=== PATIENT | female | born 1940 | race Caucasian/White ===

== ENCOUNTER 2017-01-04 10:36 | Outpatient (CLI) | payer MEDICARE, BC ==
--- NOTE | 2017-01-08 07:21 | Mammography Report ---
DIGITAL SCREENING MAMMOGRAM: 01/04/2017 CLINICAL HISTORY: This is a 76-year-old female in for routine screening mammogram. Patient has no f amily history of breast cancer. Patient has had a right breast biopsy. COMPARISON: 12/11/2006, 01/06/2007, 07/02/2007, 07/05/2008, 06/29/2009, 10/20/2010, 12/04/2011, 05/19, 12/08/2014, 12/26/2015 TECHNIQUE: Craniocaudad and oblique lateral views of each breast were obtained with [facility] digital mammography. FINDINGS: Breasts consists of scattered fibroglandular densities. A small mass is noted in the uppe r outer quadrant of the right breast at the 10 o'clock position. This mass contains two calcificatio ns within it. The size of the mass is unchanged as compared to preceding exam. The calcifications a re slightly larger. Finding most likely represents a small benign fibroadenoma. It measures 4 mm. Several tiny calcifications are noted once again at the 2 o'clock position of the left breast. These are minimally progressive as compared to preceding exam. They still present with a benign configura tion. IMPRESSION: BREASTS APPEAR RADIOGRAPHICALLY BENIGN. BIRADS 2 - BENIGN. RECOMMENDATIONS: Annual bilateral screening mammography. STANDARD QUALIFYING STATEMENTS 1. This examination was reviewed with the aid of Computer-Aided Detection (CAD). 2. A negative or benign imaging report should not delay biopsy if clinically suspicious findings are present. Consider surgical consultation if warranted. More than 5% of cancers are not identified by i maging. 3. Dense breasts may obscure an underlying neoplasm. JOB #: [id number] EXT JOB #:[id number]
== END 2017-01-04 10:37 | disposition home or self-care (01) ==
LOC: DI 10:36
PROVIDERS: ATTEND Internal Medicine
DX: Z12.31 Encounter for screening mammogram for malignant neoplasm of breast (principal)
CPT/HCPCS: 77067

== ENCOUNTER 2017-10-15 16:04 | Emergency (ER) | payer MEDICARE, BC ==
[2017-10-15] MEDS ORDERED: cefTRIAXone 1 GM in SODIUM CHLORIDE 0.9% MINIBAG 100 ML IV STA (16:47)
[2017-10-15] MEDS ORDERED: metroNIDAZOLE 500 MG/100 ML 500 MG/100 ML BAG IV ONE (16:47)
--- NOTE | 2017-10-15 16:49 | ED Physician Documentation ---
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 She has been on doxycycline at whole time which helps but has not cleared it up and she is here requesting IV antibiotics for outpatient failure. She does have some fevers at home.) Review of Systems Ten Systems: 10 systems reviewed and negative Constitutional: reports: Fever, Chills Cardiac: denies: Chest pain / pressure, Palpitations Respiratory: reports: Dyspnea (Not worse than her chronic) GI: reports: Abdominal Pain, Constipation (But took a laxative and that helped) . denies: Nausea, Vomiting PD PAST MEDICAL HISTORY - Past Medical History Respiratory: Asthma, COPD, Other GI: GERD, Diverticulitis HEENT: Macular degeneration Musculoskeletal: Osteoarthritis - Past Surgical History Past Surgical History: Yes /SAMPLE WASHER: Hysterectomy - Present Medications Home Medications: Ambulatory Orders Medication Instructions Recorded Confirmed Acetaminophen [Pain Reliever] 325 mg PO QID 01/29/13 03/31/16 Albuterol Sulfate [Accuneb] 0 mg IH BID 01/29/13 03/31/16 Albuterol [Ventolin Hfa] 2 puffs INH QID 01/29/13 03/31/16 [id number]-4-[id number] Inhibitor 1,000 mg IV ONCE 01/29/13 03/31/16 [Prolastin C] Carbidopa/Levodopa 1.5 each PO HS 01/29/13 03/31/16 [Carbidopa-Levodopa 25-100 Tab] Furosemide 30 mg PO DAILY 01/29/13 03/31/16 Lansoprazole [Prevacid] 30 mg PO DAILY 01/29/13 03/31/16 Montelukast [Singulair] 10 mg PO QPM 01/29/13 03/31/16 Omeprazole 20 mg PO DAILY 01/29/13 03/31/16 Potassium Chloride 10 meq PO DAILY 01/29/13 03/31/16 Ciprofloxacin HCl [Cipro] 500 mg PO BID #20 02/18/15 03/31/16 Ciprofloxacin HCl [Cipro] 500 mg PO BID #20 tablet 07/23/15 03/31/16 Cefpodoxime Proxetil 200 mg PO Q12H #20 tablet 08/16/15 03/31/16 Ciprofloxacin HCl [Cipro] 500 mg PO BID #10 tablet 03/31/16 Cephalexin [Keflex] 500 mg PO QID #40 capsule 10/15/17 Metronidazole [Flagyl] 500 mg PO TID #30 tablet 10/15/17 - Allergies Allergies/Adverse Reactions: Allergies Allergy/AdvReac Type Severity Reaction Status Date / Time Sulfa (Sulfonamide Allergy Severe Respiratory Verified 10/15/17 16:21 Antibiotics) levofloxacin Allergy Unknown Unknown Verified 10/15/17 16:21 amoxicillin AdvReac Severe Nausea, Verified 10/15/17 16:21 VOMITING azithromycin [From Zithromax] AdvReac Unknown Verified 10/15/17 16:21 codeine [Codeine] AdvReac Nausea Verified 10/15/17 16:21 morphine AdvReac unable to Verified 10/15/17 16:21 urinate oxycodone [Oxycodone] AdvReac Nausea Verified 10/15/17 16:21 prednisone AdvReac anger Verified 10/15/17 16:21 - Social History Does the pt smoke?: No Smoking Status: Never smoker Does the pt drink ETOH?: Yes Does the pt have substance abuse?: No - Family History Family history: reports: Non contributory - Immunizations Immunizations are current?: Yes - POLST Patient has POLST: No PD ED PE NORMAL - Vitals Vital signs reviewed: Yes - General General: Alert and oriented X 3, No acute distress - HEENT HEENT: PERRL, EOMI - Neck Neck: Supple, no meningeal sign, No bony TTP - Cardiac Cardiac: RRR, No murmur - Respiratory Respiratory: No respiratory distress, Clear bilaterally - Abdomen Abdomen: Other (Tender in the left lower quadrant without surgical signs) - Back Back: No CVA TTP, No spinal TTP - Derm Derm: Normal color, Warm and dry - Extremities Extremities: No edema, No calf tenderness / cord - Neuro Neuro: Alert and oriented X 3, Normal speech - Psych Psych: Normal mood, Normal affect Results - Vitals Vitals: Vital Signs - 24 hr 10/15/17 10/15/17 16:14 19:15 Temperature 37.5 C 37.1 C Heart Rate 100 81 Respiratory 18 16 Rate Blood Pressure 146/67 H 163/67 H O2 Saturation 97 98 Oxygen O2 Source Room air - Labs Labs: Laboratory Tests 10/15/17 10/15/17 16:52 16:52 WBC 6.5 RBC 4.50 Hgb 12.8 Hct 38.4 MCV 85.3 MCH 28.6 MCHC 33.5 RDW 14.0 Plt Count 256 MPV 8.6 Neut # 4.7 Lymph # 1.0 L [place] # 0.7 Eos # 0.1 Baso # 0.0 Absolute Nucleated RBC 0.00 Nucleated RBC % 0.0 Sodium 133 L Potassium 4.1 Chloride 96 L Carbon Dioxide 26 Anion Gap 11.0 BUN 18 Creatinine 1.1 H Estimated GFR (MDRD) 48 L Glucose 94 Calcium 9.4 Total Bilirubin 0.6 AST 25 ALT 14 Alkaline Phosphatase 72 Total Protein 6.9 Albumin 3.3 Globulin 3.6 Albumin/Globulin Ratio 0.9 L Lipase 20 L - Rads (name of study) Ct A/P Radiology: EMP read contemporaneously (Colonic diverticulosis with mild diverticulitis in the sigmoid, nonobstructing left kidney stone, no abscess.) PD MEDICAL DECISION MAKING - ED course ED course: 77-year-old woman with recurrent diverticulitis. She has been on doxycycline alone, this is moderate coverage at best for diverticulitis I am not sure we can really call it an outpatient treatment failure. White count and CT are reassuring. She was willing to trial another course of antibiotics as an outpatient and I think Keflex and Flagyl seems reasonable given her allergies and recent side effects with Cipro. Departure - Departure Disposition: 01 Home, Self Care Clinical Impression: Diverticulitis Qualifiers: Diverticulitis site: large intestine Diverticulitis bleeding: without bleeding Diverticulitis complication: without perforation or abscess Qualified Code(s): K57.32 - Diverticulitis of large intestine without perforation or abscess without bleeding Condition: Good Record reviewed to determine appropriate education?: Yes Instructions: ED Diverticulitis Prescriptions: Cephalexin [Keflex] 500 mg PO QID #40 capsule Metronidazole [Flagyl] 500 mg PO TID #30 tablet Comments: Call your doctor to arrange a follow-up appointment, make the next available appointment. In the interim, return anytime if worse or if new symptoms develop. Your blood pressure was elevated today on check into the emergency department. This does not mean that you have hypertension, it is a common phenomenon to come to the emergency department and have elevated blood pressure. I recommend that you see your primary care physician within the week to have it rechecked when you are feeling better.
[2017-10-15 17:10] LABS: BASOPHILS % (AUTO) 0.3 %; EOSINOPHILS # (AUTO) 0.1 10^3/uL (0.0-0.7); EOSINOPHILS % (AUTO) 0.8 %; HGB - HEMOGLOBIN 12.8 g/dL (12.0-16.0); LYMPHOCYTES % (AUTO) 15.6 %; MEAN CORPUSCULAR HEMOGLOBIN 28.6 pg (27.0-31.0); MEAN CORPUSCULAR HGB CONC 33.5 g/dL (32.0-36.0); MEAN CORPUSCULAR VOLUME 85.3 fL (81.0-99.0); MEAN PLATELET VOLUME 8.6 fL (7.9-10.8); MONOCYTES # (AUTO) 0.7 10^3/uL (0.0-1.0); MONOCYTES % (AUTO) 10.2 %; NEUTROPHILS # (AUTO) 4.7 10^3/uL (1.5-6.6); NEUTROPHILS % (AUTO) 73.1 %; PLT - PLATELET COUNT 256 10^3/uL (130-450); WHITE BLOOD COUNT 6.5 x10^3/uL (4.8-10.8)
[2017-10-15 17:13] LABS: ALBUMIN 3.3 g/dL (3.2-5.5); ALBUMIN/GLOBULIN RATIO 0.9 (1.0-2.2); BILIRUBIN,TOTAL 0.6 mg/dL (0.2-1.0); CALCIUM 9.4 mg/dL (8.5-10.3); CREATININE 1.1 mg/dL (0.4-1.0); TOTAL PROTEIN 6.9 g/dL (6.7-8.2)
[2017-10-15] MEDS ORDERED: IOPAMIDOL-300 100 ML VIAL ONE (18:15)
[2017-10-15] MEDS ORDERED: IOPAMIDOL-300 100 ML VIAL IVP ONE (18:46)
--- NOTE | 2017-10-15 19:11 | CT Report ---
EXAM: CT ABDOMEN AND PELVIS EXAM DATE: 10/15/2017 06:45 PM. CLINICAL HISTORY: IV only, LLQ pain. COMPARISONS: 08/03/2015. TECHNIQUE: Routine helical CT imaging was performed through the abdomen and pelvis. IV contrast: 100 ML ISOVUE 300. Enteric contrast: No. Reconstructions: Coronal and sagittal. In accordance with CT protocol optimization, one or more of the following dose reduction techniques w ere utilized for this exam: automated exposure control, adjustment of mA and/or KV based on patient s ize, or use of iterative reconstructive technique. FINDINGS: Lung Bases: There is bilateral lower lobe emphysema and hyperinflation. Liver: Normal. No masses. Gallbladder/Bile Ducts: Unremarkable. Spleen: Normal. Pancreas: Normal. Adrenal Glands: Normal. Kidneys: There is an exophytic left posterior renal cyst measuring 4.7 cm. There is a 3 mm nonobstruc ting left kidney stone. No right-sided kidney stone. Peritoneal Cavity/Bowel: There are a moderate number of diverticula within the colon. There is a mild amount of fat stranding around the distal sigmoid colon. There is increased colonic stool. The appen angel is well visualized and normal. Pelvic Organs: Urinary bladder is unremarkable. Uterus not visualized. Vasculature: No aneurysms or other significant abnormality. Bones: No significant abnormality. Other: None. IMPRESSION: 1. Colonic diverticulosis with a area suggesting mild diverticulitis in the low left pelvis sigmoid c olon. 2. Nonobstructing left kidney stone. 3. No abscess or other localizing inflammatory process. [facility] Referring Provider Line: [phone] SITE ID: [id number]
[2017-10-15 19:20] VITALS: BP 163/67
== END 2017-10-15 19:27 | disposition home or self-care (01) ==
LOC: ED 16:04
DX: K57.32 Diverticulitis of large intestine without perforation or abscess without bleeding (principal); R03.0 Elevated blood-pressure reading, without diagnosis of hypertension
CPT/HCPCS: 36415; 74177; 80053; 83690; 85025; 96365; 96367; 99283; 99284; Q9967

== ENCOUNTER 2017-10-18 07:32 | Day surgery (SDC) | payer MEDICARE, BC ==
[2017-10-18 07:51] VITALS: BP 144/58
[2017-10-18] MEDS ORDERED: SODIUM CHLORIDE FLUSH 0.9% 10 ML SYRINGE ONE (09:34)
--- NOTE | 2017-10-18 09:34 | XRAY Report ---
FRONTAL CHEST: 10/18/2017 CLINICAL INDICATION: Right PICC placement. FINDINGS: Oblique view of the chest demonstrates a right arm PICC terminating at the cavoatrial junction. The cardiac silhouette is within normal limits. The lungs are hyperinflated, but clear. No effusion or pneumothorax is present. IMPRESSION: RIGHT ARM PICC TERMINATING IN THE CAVOATRIAL JUNCTION. TD: 10/18/2017 09:33
== END 2017-10-18 07:33 | disposition home or self-care (01) ==
LOC: SDS 07:32
PROVIDERS: ATTEND Registered Nurse
PROC: 02HV33Z Insertion of Infusion Device into Superior Vena Cava, Percutaneous Approach (ICD-10-PCS; principal; 2017-10-18 08:00)
DX: K57.92 Diverticulitis of intestine, part unspecified, without perforation or abscess without bleeding (principal)
CPT/HCPCS: 71045

== ENCOUNTER 2017-10-19 19:32 | Emergency (ER) | payer MEDICARE, BC ==
[2017-10-19 20:02] LABS: BASOPHILS % (AUTO) 0.8 %; EOSINOPHILS # (AUTO) 0.1 10^3/uL (0.0-0.7); EOSINOPHILS % (AUTO) 1.1 %; HGB - HEMOGLOBIN 13.4 g/dL (12.0-16.0); LYMPHOCYTES # (AUTO) 1.4 10^3/uL (1.5-3.5); MEAN CORPUSCULAR HEMOGLOBIN 28.3 pg (27.0-31.0); MEAN CORPUSCULAR HGB CONC 33.3 g/dL (32.0-36.0); MEAN CORPUSCULAR VOLUME 85.1 fL (81.0-99.0); MEAN PLATELET VOLUME 8.3 fL (7.9-10.8); MONOCYTES # (AUTO) 0.7 10^3/uL (0.0-1.0); MONOCYTES % (AUTO) 11.8 %; NEUTROPHILS # (AUTO) 3.8 10^3/uL (1.5-6.6); NEUTROPHILS % (AUTO) 63.3 %; PLT - PLATELET COUNT 290 10^3/uL (130-450); RED BLOOD COUNT 4.75 10^6/uL (4.20-5.40); RED CELL DISTRIBUTION WIDTH 14.3 % (12.0-15.0)
[2017-10-19 20:14] LABS: ALBUMIN 3.5 g/dL (3.2-5.5); ALBUMIN/GLOBULIN RATIO 0.8 (1.0-2.2); BILIRUBIN,TOTAL 0.4 mg/dL (0.2-1.0); CALCIUM 9.9 mg/dL (8.5-10.3); TOTAL PROTEIN 7.7 g/dL (6.7-8.2)
--- NOTE | 2017-10-19 21:42 | ED Physician Documentation ---
History of Present Illness - Stated complaint Stated Complaint: FEVER/CHILLS - Chief complaint Chief Complaint: Fever - History obtained from History obtained from: Patient - History of Present Illness Timing: Today - Additonal information Additional information: Patient is a 77 year old female with a history of diverticulitis who is presenting to the emergency department for temperatures of 99 and chills. patient was seen in the emergency department last week and was diagnosed with diverticulits. Patient reports that she could not take oral antibiotics so a picc line was placed and patient had been getting daily infusions. Patient states that the abdominal pain had diminished but now she had general myalgias. Review of Systems Constitutional: reports: Fever, Chills, Myalgias Eyes: denies: Decreased vision, Photophobia Ears: reports: Reviewed and negative Nose: reports: Reviewed and negative Throat: reports: Reviewed and negative Cardiac: denies: Chest pain / pressure, Palpitations, Calf pain Respiratory: denies: Cough GI: denies: Abdominal Pain, Nausea, Vomiting, Constipation, Diarrhea : denies: Dysuria, Frequency Skin: denies: Rash Neurologic: denies: Generalized weakness, Focal weakness, Numbness Immunocompromised: denies: Immunocompromised PD PAST MEDICAL HISTORY - Past Medical History Cardiovascular: None Respiratory: Asthma, COPD, Other Endocrine/Autoimmune: None GI: GERD, Diverticulitis SITE SUPERINTENDENT: None : None HEENT: Macular degeneration Psych: None Musculoskeletal: Osteoarthritis Derm: None - Past Surgical History Past Surgical History: Yes /SITE SUPERINTENDENT: Hysterectomy - Present Medications Home Medications: Ambulatory Orders Medication Instructions Recorded Confirmed Acetaminophen [Pain Reliever] 325 mg PO QID 01/29/13 03/31/16 Albuterol Sulfate [Accuneb] 0 mg IH BID 01/29/13 03/31/16 Albuterol [Ventolin Hfa] 2 puffs INH QID 01/29/13 03/31/16 Iuxep-[id number]-[id number] Inhibitor 1,000 mg IV ONCE 01/29/13 03/31/16 [Prolastin C] Carbidopa/Levodopa 1.5 each PO HS 01/29/13 03/31/16 [Carbidopa-Levodopa 25-100 Tab] Furosemide 30 mg PO DAILY 01/29/13 03/31/16 Lansoprazole [Prevacid] 30 mg PO DAILY 01/29/13 03/31/16 Montelukast [Singulair] 10 mg PO QPM 01/29/13 03/31/16 Omeprazole 20 mg PO DAILY 01/29/13 03/31/16 Potassium Chloride 10 meq PO DAILY 01/29/13 03/31/16 Ciprofloxacin HCl [Cipro] 500 mg PO BID #20 02/18/15 03/31/16 Ciprofloxacin HCl [Cipro] 500 mg PO BID #20 tablet 07/23/15 03/31/16 Cefpodoxime Proxetil 200 mg PO Q12H #20 tablet 08/16/15 03/31/16 Ciprofloxacin HCl [Cipro] 500 mg PO BID #10 tablet 03/31/16 Cephalexin [Keflex] 500 mg PO QID #40 capsule 10/15/17 Metronidazole [Flagyl] 500 mg PO TID #30 tablet 10/15/17 - Allergies Allergies/Adverse Reactions: Allergies Allergy/AdvReac Type Severity Reaction Status Date / Time Sulfa (Sulfonamide Allergy Severe Respiratory Verified 10/19/17 19:45 Antibiotics) levofloxacin Allergy Unknown Unknown Verified 10/19/17 19:45 amoxicillin AdvReac Severe Nausea, Verified 10/19/17 19:45 VOMITING azithromycin [From Zithromax] AdvReac Unknown Verified 10/19/17 19:45 codeine [Codeine] AdvReac Nausea Verified 10/19/17 19:45 morphine AdvReac unable to Verified 10/19/17 19:45 urinate oxycodone [Oxycodone] AdvReac Nausea Verified 10/19/17 19:45 prednisone AdvReac anger Verified 10/19/17 19:45 - Social History Does the pt smoke?: No Smoking Status: Never smoker Does the pt drink ETOH?: Yes Does the pt have substance abuse?: No - Immunizations Immunizations are current?: Yes - POLST Patient has POLST: No PD ED PE NORMAL - Vitals Vital signs reviewed: Yes - General General: Alert and oriented X 3, No acute distress, Well developed/nourished - HEENT HEENT: Atraumatic, PERRL - Neck Neck: Supple, no meningeal sign - Cardiac Cardiac: RRR, No murmur - Respiratory Respiratory: No respiratory distress, Clear bilaterally - Abdomen Abdomen: Soft, Non tender, Non distended PD ED PE EXPANDED - Extremities Extremities: Right arm (picc line in brachial region, ecchymosis but no surrounding signs of infection. ) Results - Vitals Vitals: Vital Signs - 24 hr 10/19/17 10/19/17 10/19/17 19:35 20:38 21:46 Temperature 36.7 C Heart Rate 83 74 17 L Respiratory 18 12 18 Rate Blood Pressure 147/84 H 143/96 H 108/93 H O2 Saturation 97 100 99 Oxygen O2 Source Nasal cannula - Labs Labs: Laboratory Tests 10/19/17 10/19/17 10/19/17 19:57 19:57 19:57 WBC 6.0 RBC 4.75 Hgb 13.4 Hct 40.4 MCV 85.1 MCH 28.3 MCHC 33.3 RDW 14.3 Plt Count 290 MPV 8.3 Neut # 3.8 Lymph # 1.4 L [place] # 0.7 Eos # 0.1 Baso # 0.0 Absolute Nucleated RBC 0.00 Nucleated RBC % 0.1 Sodium 137 Potassium 3.9 Chloride 97 L Carbon Dioxide 25 Anion Gap 15.0 H BUN 15 Creatinine 1.0 Estimated GFR (MDRD) 54 L Glucose 100 Lactic Acid 0.9 Calcium 9.9 Total Bilirubin 0.4 AST 40 ALT 20 Alkaline Phosphatase 73 Total Protein 7.7 Albumin 3.5 Globulin 4.2 Albumin/Globulin Ratio 0.8 L Lipase 26 Influenza A (Rapid) Influenza B (Rapid) Influenza Types A,B Ag 10/19/17 20:33 WBC RBC Hgb Hct MCV MCH MCHC RDW Plt Count MPV Neut # Lymph # [place] # Eos # Baso # Absolute Nucleated RBC Nucleated RBC % Sodium Potassium Chloride Carbon Dioxide Anion Gap BUN Creatinine Estimated GFR (MDRD) Glucose Lactic Acid Calcium Total Bilirubin AST ALT Alkaline Phosphatase Total Protein Albumin Globulin Albumin/Globulin Ratio Lipase Influenza A (Rapid) Negative Influenza B (Rapid) Negative Influenza Types A,B Ag - PD MEDICAL DECISION MAKING - ED course Complexity details: reviewed old records, reviewed results, re-evaluated patient , considered differential, d/w patient ED course: Patient was seen and examined at bedside. Patient was well appearing and in no acute distress. Patient diagnostics were all within normal limits. There was no fever, no leukocytosis, no lactic acidosis. Patient's picc line was removed and culture. The option of staying in the hospital for another picc line was given to the patient but she stated she had a home care nurse that could place and IV and administer the medication at home. Patient was well appearing and was stable for discharge [facility] outpatient follow up. Departure - Departure Disposition: Home, Self Care Clinical Impression: Diverticulitis Condition: Good Instructions: ED Diverticulitis Follow-Up: Yuly Robbins MD [Primary Care Provider] - Within 3 Days Comments: Your diagnostics today were all within normal limits. there is no sign of acute infection. Your picc line has been pulled and cultures were sent off. You will be called if your cultures are positive. You should continue with the IV antibiotics with your home nurse. You may return to the emergency department at any time for new, worsening or uncontrollable symptoms.
[2017-10-19 21:47] VITALS: BP 108/93
== END 2017-10-19 21:50 | disposition home or self-care (01) ==
LOC: ED 19:32
DX: K57.92 Diverticulitis of intestine, part unspecified, without perforation or abscess without bleeding (principal)
CPT/HCPCS: 36415; 80053; 83605; 83690; 85025; 87040; 87071; 87275; 87276; 99283; 99284

== ENCOUNTER 2018-02-05 11:23 | Outpatient (CLI) | payer MEDICARE, BC ==
--- NOTE | 2018-02-06 14:37 | Mammography Report ---
Procedure Date: 02/05/2018 Accession Number: [id number] / [id number] Procedure: WILL - Screening Mammo Dig Bilat CPT Code: FULL RESULT: EXAM: Screening Mammo Dig Bilat DATE: 02/05/2018 11:38 AM CLINICAL HISTORY: Routine screening TECHNIQUE: Bilateral CC and MLO views were obtained. COMPARISON: 01/04/2017, 12/26/2015, 12/08/2014, 06/04/2013, 12/04/2011, 10/20/2010, and 06/29/2009. FINDINGS: There are scattered fibroglandular densities. There has been no significant interval change on the left. No suspicious masses, skin thickening, or regions of architectural distortion are identified in either breast. No suspicious microcalcifications on the left breast. On the right there is a small cluster of microcalcifications in the posterior third lower inner quadrant which were not definitely present on prior studies. IMPRESSION: Negative left breast. Needs additional evaluation right breast. RECOMMENDATION: Magnification views right breast. BIRADS CATEGORY 0: Needs additional evaluation. STANDARD QUALIFYING STATEMENTS: 1. This examination was reviewed with the aid of Computer-Aided Detection (CAD). 2. A negative or benign imaging report should not delay biopsy if clinically suspicious findings are present. Consider surgical consultation if warrented. More than 5% of cancers are not identified by imaging. 3. Dense breasts may obscure an underlying neoplasm.
== END 2018-02-05 11:24 | disposition home or self-care (01) ==
LOC: DI 11:23
PROVIDERS: ATTEND Internal Medicine
DX: Z12.31 Encounter for screening mammogram for malignant neoplasm of breast (principal); R92.0 Mammographic microcalcification found on diagnostic imaging of breast
CPT/HCPCS: 77067

== ENCOUNTER 2018-02-18 07:25 | Outpatient (CLI) | payer MEDICARE, BC ==
[2018-02-18 07:38] LABS: BASOPHILS % (AUTO) 0.8 %; EOSINOPHILS % (AUTO) 1.5 %; HGB - HEMOGLOBIN 13.6 g/dL (12.0-16.0); LYMPHOCYTES # (AUTO) 1.5 10^3/uL (1.5-3.5); LYMPHOCYTES % (AUTO) 44.8 %; MEAN CORPUSCULAR HEMOGLOBIN 29.2 pg (27.0-31.0); MEAN CORPUSCULAR HGB CONC 33.2 g/dL (32.0-36.0); MEAN CORPUSCULAR VOLUME 87.9 fL (81.0-99.0); MEAN PLATELET VOLUME 8.2 fL (7.9-10.8); MONOCYTES # (AUTO) 0.3 10^3/uL (0.0-1.0); MONOCYTES % (AUTO) 10.3 %; NEUTROPHILS # (AUTO) 1.4 10^3/uL (1.5-6.6); NEUTROPHILS % (AUTO) 42.6 %; PLT - PLATELET COUNT 187 10^3/uL (130-450); RED BLOOD COUNT 4.65 10^6/uL (4.20-5.40); RED CELL DISTRIBUTION WIDTH 14.5 % (12.0-15.0); WHITE BLOOD COUNT 3.4 x10^3/uL (4.8-10.8)
[2018-02-18 08:07] LABS: ALBUMIN 3.5 g/dL (3.2-5.5); ALKALINE PHOSPHATASE 72 IU/L (42-121); ALT ALANINE AMINOTRANSFERASE < 10 IU/L (10-60); AST ASPARTATE AMINOTRANSFERASE 29 IU/L (10-42); BILIRUBIN,TOTAL 0.8 mg/dL (0.2-1.0); BUN - BLOOD UREA NITROGEN 23 mg/dL (6-20); CALCIUM 9.4 mg/dL (8.5-10.3); CARBON DIOXIDE - CO2 31 mmol/L (21-32); CHLORIDE 100 mmol/L (101-111); CHOL/HDL RATIO 3.1 (<4.4); CHOLESTEROL 204 mg/dL; CREATININE 1.1 mg/dL (0.4-1.0); GFR - MDRD 48 (>89); GLUCOSE 97 mg/dL (70-100); HDL CHOLESTEROL 66 mg/dL; LDL CHOLESTEROL,CALCULATED 121 mg/dL; LDL/HDL RATIO 1.8 (<4.4); SODIUM 136 mmol/L (135-145); TOTAL PROTEIN 6.9 g/dL (6.7-8.2); VLDL CHOLESTEROL 17 mg/dL
== END 2018-02-18 07:26 | disposition home or self-care (01) ==
LOC: LAB 07:25
PROVIDERS: ATTEND Internal Medicine
DX: Z79.899 Other long term (current) drug therapy (principal); K21.9 Gastro-esophageal reflux disease without esophagitis; N32.9 Bladder disorder, unspecified; N18.9 Chronic kidney disease, unspecified; E78.9 Disorder of lipoprotein metabolism, unspecified; J44.9 Chronic obstructive pulmonary disease, unspecified; M19.90 Unspecified osteoarthritis, unspecified site; H35.30 Unspecified macular degeneration; F33.9 Major depressive disorder, recurrent, unspecified; G47.30 Sleep apnea, unspecified
CPT/HCPCS: 36415; 80053; 80061; 83721; 84443; 85025

== ENCOUNTER 2018-02-28 14:00 | Outpatient (CLI) | payer MEDICARE, BC ==
--- NOTE | 2018-02-28 16:24 | Mammography Report ---
Procedure Date: 02/28/2018 Accession Number: [id number] / [id number] Procedure: [facility] - Diag Special Views Dig RT CPT Code: FULL RESULT: EXAM: Diag Special Views Dig RT DATE: 02/28/2018 2:36 PM CLINICAL HISTORY: Finding of new abnormal right breast calcifications on screening mammogram. TECHNIQUE: True lateral and magnification views of the right breast were obtained. COMPARISON: Mammogram 02/05/2018 and 01/04/2017. FINDINGS: The breasts demonstrate scattered fibroglandular densities bilaterally. Previously identified right breast clustered pleomorphic microcalcifications at 5:00 persists on magnification views. IMPRESSION: Suspicious abnormality. RECOMMENDATION: Stereotactic biopsy is recommended. These findings were discussed with Dr. Robbins at 2:47 PM over the phone by me. Based on patient preferences, the patient will be referred to the [facility] in [place]. BIRADS CATEGORY 4: Suspicious abnormality STANDARD QUALIFYING STATEMENTS: 1. This examination was reviewed with the aid of Computer-Aided Detection (CAD). 2. A negative or benign imaging report should not delay biopsy if clinically suspicious findings are present. Consider surgical consultation if warrented. More than 5% of cancers are not identified by imaging. 3. Dense breasts may obscure an underlying neoplasm.
== END 2018-02-28 14:01 | disposition home or self-care (01) ==
LOC: DI 14:00
PROVIDERS: ATTEND Internal Medicine
DX: R92.0 Mammographic microcalcification found on diagnostic imaging of breast (principal)

== ENCOUNTER 2018-04-07 19:07 | Emergency (ER) | payer MEDICARE, BC ==
[2018-04-07 19:42] VITALS: BP 142/83
--- NOTE | 2018-04-07 20:13 | ED Physician Documentation ---
History of Present Illness - Stated complaint Stated Complaint: NEW IV NEEDED - Chief complaint Chief Complaint: General - History obtained from History obtained from: Patient - History of Present Illness Timing: Today - Additonal information Additional information: Patient is a 78 year old female who is presenting to the emergency department for iv placement. Patient is on home infusions of iv antibiotics for diverticulitis but her iv got pulled out today and needed another iv placed. Review of Systems Ten Systems: 10 systems reviewed and negative PD PAST MEDICAL HISTORY - Past Medical History Cardiovascular: None Respiratory: Asthma, COPD, Other Endocrine/Autoimmune: None GI: GERD, Diverticulitis GOLD LETTERER: None : None HEENT: Macular degeneration Psych: None Musculoskeletal: Osteoarthritis Derm: None - Past Surgical History Past Surgical History: Yes /GOLD LETTERER: Hysterectomy - Present Medications Home Medications: Ambulatory Orders Medication Instructions Recorded Confirmed Acetaminophen [Pain Reliever] 325 mg PO QID 01/29/13 03/31/16 Albuterol Sulfate [Accuneb] 0 mg IH BID 01/29/13 03/31/16 Albuterol [Ventolin Hfa] 2 puffs INH QID 01/29/13 03/31/16 Jyxyh-4-Ljcwgjxjjy Inhibitor 1,000 mg IV ONCE 01/29/13 03/31/16 [Prolastin C] Carbidopa/Levodopa 1.5 each PO HS 01/29/13 03/31/16 [Carbidopa-Levodopa 25-100 Tab] Furosemide 30 mg PO DAILY 01/29/13 03/31/16 Lansoprazole [Prevacid] 30 mg PO DAILY 01/29/13 03/31/16 Montelukast [Singulair] 10 mg PO QPM 01/29/13 03/31/16 Omeprazole 20 mg PO DAILY 01/29/13 03/31/16 Potassium Chloride 10 meq PO DAILY 01/29/13 03/31/16 Ciprofloxacin HCl [Cipro] 500 mg PO BID #20 02/18/15 03/31/16 Ciprofloxacin HCl [Cipro] 500 mg PO BID #20 tablet 07/23/15 03/31/16 Cefpodoxime Proxetil 200 mg PO Q12H #20 tablet 08/16/15 03/31/16 Ciprofloxacin HCl [Cipro] 500 mg PO BID #10 tablet 03/31/16 Cephalexin [Keflex] 500 mg PO QID #40 capsule 10/15/17 Metronidazole [Flagyl] 500 mg PO TID #30 tablet 10/15/17 - Allergies Allergies/Adverse Reactions: Allergies Allergy/AdvReac Type Severity Reaction Status Date / Time Sulfa (Sulfonamide Allergy Severe Respiratory Verified 10/19/17 19:45 Antibiotics) levofloxacin Allergy Unknown Unknown Verified 10/19/17 19:45 amoxicillin AdvReac Severe Nausea, Verified 10/19/17 19:45 VOMITING azithromycin [From Zithromax] AdvReac Unknown Verified 10/19/17 19:45 codeine [Codeine] AdvReac Nausea Verified 10/19/17 19:45 morphine AdvReac unable to Verified 10/19/17 19:45 urinate oxycodone [Oxycodone] AdvReac Nausea Verified 10/19/17 19:45 prednisone AdvReac anger Verified 10/19/17 19:45 - Social History Does the pt smoke?: No Smoking Status: Never smoker Does the pt drink ETOH?: Yes Does the pt have substance abuse?: No - Immunizations Immunizations are current?: Yes - POLST Patient has POLST: No PD ED PE NORMAL - General General: Alert and oriented X 3, No acute distress - HEENT HEENT: Atraumatic - Cardiac Cardiac: RRR - Respiratory Respiratory: Other (on home oxygen) - Derm Derm: Normal color - Extremities Extremities: No deformity - Neuro Neuro: Alert and oriented X 3 Eye Opening: Spontaneous Results - Vitals Vitals: Vital Signs - 24 hr 04/07/18 19:38 Temperature 37.2 C Heart Rate 83 Respiratory 18 Rate Blood Pressure 142/83 H O2 Saturation 100 Oxygen O2 Source Nasal cannula PD MEDICAL DECISION MAKING - ED course Complexity details: reviewed old records, d/w patient ED course: Patient was seen and examined at bedside. IV was placed. Patient required no further work up and was stable for discharge with outpatient follow up. - Sepsis Event Vital Signs: Vital Signs - 24 hr 04/07/18 19:38 Temperature 37.2 C Heart Rate 83 Respiratory 18 Rate Blood Pressure 142/83 H O2 Saturation 100 Oxygen O2 Source Nasal cannula Departure - Departure Disposition: 01 Home, Self Care Clinical Impression: Diverticulitis Condition: Good Instructions: Diverticulitis Dc Follow-Up: Yuly Robbins MD [Primary Care Provider] - As Needed Comments: You should continue with your antibiotics as prescribed. you should return to the emergency department at any time for new, worsening or uncontrollable symptoms. Discharge Date/Time: 04/07/18 20:15
== END 2018-04-07 20:15 | disposition home or self-care (01) ==
LOC: ED 19:07
DX: K57.92 Diverticulitis of intestine, part unspecified, without perforation or abscess without bleeding (principal)
CPT/HCPCS: 99282; 99283

== ENCOUNTER 2018-04-12 14:27 | Emergency (ER) | payer MEDICARE, BC ==
[2018-04-12 14:37] VITALS: BP 175/65
--- NOTE | 2018-04-12 14:47 | ED Physician Documentation ---
History of Present Illness - Stated complaint Stated Complaint: IV CHANGE - Chief complaint Chief Complaint: General - History obtained from History obtained from: Patient - History of Present Illness Timing: Today Pain level max: 0 Pain level now: 0 - Additonal information Additional information: Patient is a 78-year-old female who presents to the emergency department requesting that her IV be changed. She is currently on IV ertapenem. This is for diverticulitis. She has 2 more doses. States that the IV is not working correctly and would like it replaced. She also is requesting something to keep her arm straightened at night as she seems to be moving a lot in her sleep and is concerned that this may be causing the damage to the IV Review of Systems Ten Systems: 10 systems reviewed and negative Constitutional: denies: Fever, Chills Ears: denies: Ear pain Nose: denies: Rhinorrhea / runny nose, Congestion Throat: denies: Sore throat Cardiac: denies: Chest pain / pressure Respiratory: denies: Cough GI: denies: Nausea, Vomiting : denies: Dysuria Skin: denies: Rash Musculoskeletal: reports: Joint pain (with the weather changed (dropped 25 degrees in 24 hours) feels like her arthritis) Neurologic: denies: Generalized weakness, Focal weakness, Numbness PD PAST MEDICAL HISTORY - Past Medical History Cardiovascular: None Respiratory: Asthma, COPD, Other Endocrine/Autoimmune: None GI: GERD, Diverticulitis 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 : None HEENT: Macular degeneration Psych: None Musculoskeletal: Osteoarthritis Derm: None - Past Surgical History Past Surgical History: Yes /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: Hysterectomy - Present Medications Home Medications: Ambulatory Orders Medication Instructions Recorded Confirmed Albuterol [Ventolin Hfa] 2 puffs INH QID 01/29/13 04/09/18 Carbidopa/Levodopa 1.5 each PO HS 01/29/13 04/09/18 [Carbidopa-Levodopa 25-100 Tab] Furosemide 30 mg PO DAILY 01/29/13 04/09/18 Lansoprazole [Prevacid] 30 mg PO DAILY 01/29/13 04/09/18 Montelukast [Singulair] 10 mg PO QPM 01/29/13 04/09/18 Omeprazole 20 mg PO DAILY 01/29/13 04/09/18 Potassium Chloride 10 meq PO DAILY 01/29/13 04/09/18 Metronidazole [Flagyl] 500 mg PO TID #30 tablet 10/15/17 04/09/18 - Allergies Allergies/Adverse Reactions: Allergies Allergy/AdvReac Type Severity Reaction Status Date / Time Sulfa (Sulfonamide Allergy Severe Respiratory Verified 04/12/18 14:38 Antibiotics) levofloxacin Allergy Unknown Unknown Verified 04/12/18 14:38 amoxicillin AdvReac Severe Nausea, Verified 04/12/18 14:38 VOMITING azithromycin [From Zithromax] AdvReac Unknown Verified 04/12/18 14:38 codeine [Codeine] AdvReac Nausea Verified 04/12/18 14:38 morphine AdvReac unable to Verified 04/12/18 14:38 urinate oxycodone [Oxycodone] AdvReac Nausea Verified 04/12/18 14:38 prednisone AdvReac anger Verified 04/12/18 14:38 - Social History Does the pt smoke?: No Smoking Status: Never smoker Does the pt drink ETOH?: Yes Does the pt have substance abuse?: No - Immunizations Immunizations are current?: Yes - POLST Patient has POLST: No PD ED PE NORMAL - Vitals Vital signs reviewed: Yes - General General: Alert and oriented X 3, No acute distress - HEENT HEENT: Moist mucous membranes - Neck Neck: Supple, no meningeal sign - Cardiac Cardiac: RRR - Respiratory Respiratory: No respiratory distress, Clear bilaterally - Abdomen Abdomen: Soft, Non tender, Non distended - Derm Derm: Warm and dry - Neuro Neuro: Alert and oriented X 3 - Psych Psych: Normal mood, Normal affect Results - Vitals Vitals: Vital Signs - 24 hr 04/12/18 14:31 Temperature 36.9 C Heart Rate 84 Respiratory 22 Rate Blood Pressure 175/65 H O2 Saturation 98 Oxygen O2 Source Nasal cannula PD MEDICAL DECISION MAKING - ED course Complexity details: reviewed old records, considered differential, d/w patient ED course: Patient is here to get a peripheral IV replaced. This was performed. Tolerated well. We will have her continue her ertapenem at home for her final 2 doses. Will have her follow-up with her PCP as scheduled for further care. This document was made in part using voice recognition software. While efforts are made to proofread this document, sound alike and grammatical errors may occur. - Sepsis Event Vital Signs: Vital Signs - 24 hr 08/25/18 14:31 Temperature 36.9 C Heart Rate 84 Respiratory 22 Rate Blood Pressure 175/65 H O2 Saturation 98 Oxygen O2 Source Nasal cannula Departure - Departure Disposition: 01 Home, Self Care Clinical Impression: Encounter for intravenous line placement Diverticulitis Qualifiers: Diverticulitis site: unspecified part of intestinal tract Diverticulitis bleeding: without bleeding Diverticulitis complication: without perforation or abscess Qualified Code(s): K57.92 - Diverticulitis of intestine, part unspecified, without perforation or abscess without bleeding Condition: Good Instructions: ED Diverticulitis Follow-Up: Yuly Robbins MD [Primary Care Provider] - Within 3 Days Comments: Return if you worsen. Continue your antibiotics at home. You can wear the splint as needed to keep your arm straight at night.
== END 2018-04-12 15:09 | disposition home or self-care (01) ==
LOC: ED 14:27
DX: T82.9XXA Unspecified complication of cardiac and vascular prosthetic device, implant and graft, initial encounter (principal); Y84.8 Other medical procedures as the cause of abnormal reaction of the patient, or of later complication, without mention of misadventure at the time of the procedure; K57.92 Diverticulitis of intestine, part unspecified, without perforation or abscess without bleeding
CPT/HCPCS: 99283

== ENCOUNTER 2018-11-04 09:02 | Outpatient (CLI) | payer MEDICARE, BC ==
--- NOTE | 2018-11-04 12:16 | Mammography Report ---
Reason: MAMMOGRAPHIC CALCIFCN FOUND ON DIAGNOSTIC IMAGING Procedure Date: 11/04/2018 Accession Number: [id number] / [id number] Procedure: WILL - Diagnostic Dig Bilat CPT Code: FULL RESULT: EXAM: Diagnostic Dig Bilat DATE: 11/04/2018 10:09 AM CLINICAL HISTORY: Follow-up follow-up benign concordant biopsy right breast; screening left breast. No reported personal history of breast cancer. Family history breast cancer in a cousin age 30s. TECHNIQUE: Bilateral CC and MLO views were obtained. Bilateral 90 degree lateral views also obtained. COMPARISON: 02/28/2018 through 12/08/2014 FINDINGS: The breasts demonstrate scattered fibroglandular densities bilaterally. Right breast: There are stable operative changes status post excisional biopsy from the inferior breast. There is a biopsy marker in the mid 6:00 breast representing benign concordant biopsy site. There are no suspicious calcifications, masses or areas of nonoperative distortion. Left breast: There are no suspicious masses, calcifications or areas of distortion. IMPRESSION: Benign findings RECOMMENDATION: Routine annual screening unless otherwise clinically indicated. BI-RADS CATEGORY 2: Benign findings STANDARD QUALIFYING STATEMENTS: 1. This examination was not reviewed with the aid of Computer-Aided Detection (CAD). 2. A negative or benign imaging report should not preclude biopsy if clinically suspicious findings are present. 3. Dense breasts may obscure an underlying neoplasm. 4. This examination was reviewed with the aid of 3D breast imaging (tomosynthesis).
== END 2018-11-04 09:03 | disposition home or self-care (01) ==
LOC: DI 09:02
PROVIDERS: ATTEND Internal Medicine
DX: R92.1 Mammographic calcification found on diagnostic imaging of breast (principal); Z80.3 Family history of malignant neoplasm of breast
CPT/HCPCS: 77066

== ENCOUNTER 2018-11-14 11:20 | Outpatient (CLI) | payer MEDICARE, BC ==
[2018-11-14 11:34] LABS: BILIRUBIN,URINE NEGATIVE (NEGATIVE); GLUCOSE, URINE (UA) NEGATIVE (NEGATIVE); KETONES,URINE (UA) NEGATIVE (NEGATIVE); LEUKOCYTE ESTERASE, URINE NEGATIVE (NEGATIVE); NITRITE,URINE NEGATIVE (NEGATIVE); OCCULT BLOOD,URINE TRACE-INTA (NEGATIVE); PH,URINE 5.5 PH (5.0-7.5); PROTEIN,URINE NEGATIVE (NEGATIVE); UROBILINOGEN,URINE 0.2 (NORMAL) E.U./dL (NORMAL)
[2018-11-14 11:42] LABS: CLARITY,URINE CLOUDY (CLEAR)
[2018-11-14 11:54] LABS: AMORPHOUS SEDIMENT,UR Few /LPF; BACTERIA,URINE Few /HPF (None Seen); RBC,URINE 0-5 /HPF (0-5); SQUAMOUS EPITHELIAL CELL,UR MOD Squamous (<= Few)
== END 2018-11-14 23:59 | disposition home or self-care (01) ==
LOC: LAB.R 11:20
PROVIDERS: ATTEND Internal Medicine
DX: R82.90 Unspecified abnormal findings in urine (principal)
CPT/HCPCS: 81001; 81003; 87086

== ENCOUNTER 2018-12-23 08:32 | Outpatient (CLI) | payer MEDICARE, BC ==
--- NOTE | 2018-12-23 14:02 | Ultrasound Report ---
Reason: [id number] DEFICIENCY Procedure Date: 12/23/2018 Accession Number: [id number] / [id number] Procedure: US - Abdomen Limited CPT Code: FULL RESULT: EXAM: ABDOMEN ULTRASOUND LIMITED, RUQ EXAM DATE: 12/23/2018 09:12 AM. CLINICAL HISTORY: Alpha-1 antitrypsin deficiency. COMPARISON: None. TECHNIQUE: Real-time scanning was performed with static images obtained. FINDINGS: The examination is limited by bowel gas and body habitus, limited acoustic window. Liver: Increased echogenicity and coarsened echotexture which limits evaluation for underlying hepatic mass, none is seen. Right lobe measures at least 15.6 cm. Main portal vein flow: Hepatopetal. Gallbladder: Limited visualization with no abnormality detected. Wall thickness appears to be within normal limits. No calculi are seen. The gallbladder is not distended. Biliary System: CBD measures 5 mm. No intrahepatic or extrahepatic ductal dilatation. Other: Right kidney measures 9.6 cm in maximal sagittal dimension and demonstrates no hydronephrosis. Limited visualization with no calculi or mass detected. IMPRESSION: Limited examination with coarse and echogenic liver parenchyma, sometimes seen with steatosis. RADIA
== END 2018-12-23 08:33 | disposition home or self-care (01) ==
LOC: DI 08:32
PROVIDERS: ATTEND Internal Medicine
DX: E88.01 Alpha-1-antitrypsin deficiency (principal)
CPT/HCPCS: 76705

== ENCOUNTER 2019-02-18 14:12 | Emergency (ER) | payer MEDICARE, BC ==
--- NOTE | 2019-02-18 14:21 | ED Physician Documentation ---
PD HPI URI - Stated complaint Stated Complaint: SINUS PRESSURE - History obtained from History obtained from: Patient - History of Present Illness Timing - onset: How many days ago (She has had a few days of progressive pressure in the frontal sinus along with some nasal discharge. She had been on waiting with a lot of people so contact there and also thought she smelled mildew at the facility and so believes she may have some mold exposure. She has had sinus infections in the past. She does have a home oxygen and portable oxygen most of the time and states she does clear the filters and also replaces the nasal cannula regularly so does not feel that that is contaminated.) Timing duration: Days (3) Timing details: Gradual onset, Still present Associated symptoms: Nasal congestion, Sinus pain (frontal), Dry cough. No: Fever, Chills, Sore throat, NVD Contributing factors: Sick contact, COPD / asthma. No: Travel (but was at a [place] with lots of people) Similar symptoms before: Diagnosis (sinusitis/ allergies) Recently seen: Not recently seen Review of Systems Constitutional: denies: Fever, Chills, Myalgias Nose: reports: Congestion, Sinus pressure / pain. denies: Rhinorrhea / runny nose Throat: denies: Sore throat Respiratory: reports: Dyspnea (chronic), Cough. denies: Wheezing GI: denies: Vomiting, Diarrhea Skin: denies: Rash, Lesions PD PAST MEDICAL HISTORY - Past Medical History Cardiovascular: None Respiratory: Asthma, COPD, Other Endocrine/Autoimmune: None GI: GERD, Diverticulitis DOPE EDGER: None : None HEENT: Macular degeneration Psych: None Musculoskeletal: Osteoarthritis Derm: None - Past Surgical History Past Surgical History: Yes /DOPE EDGER: Hysterectomy - Present Medications Home Medications: Ambulatory Orders Medication Instructions Recorded Confirmed Albuterol [Ventolin Hfa] 2 puffs INH QID 01/29/13 04/09/18 Carbidopa/Levodopa 1.5 each PO HS 01/29/13 04/09/18 [Carbidopa-Levodopa 25-100 Tab] Furosemide 30 mg PO DAILY 01/29/13 04/09/18 Lansoprazole [Prevacid] 30 mg PO DAILY 01/29/13 04/09/18 Montelukast [Singulair] 10 mg PO QPM 01/29/13 04/09/18 Omeprazole 20 mg PO DAILY 01/29/13 04/09/18 Potassium Chloride 10 meq PO DAILY 01/29/13 04/09/18 Metronidazole [Flagyl] 500 mg PO TID #30 tablet 10/15/17 04/09/18 Azithromycin [Zithromax] 0 mg PO DAILY #6 tablet 02/18/19 Naproxen Sodium [Aleve] 220 mg PO 02/18/19 - Allergies Allergies/Adverse Reactions: Allergies Allergy/AdvReac Type Severity Reaction Status Date / Time Sulfa (Sulfonamide Allergy Severe Respiratory Verified 02/18/19 14:24 Antibiotics) levofloxacin Allergy Unknown Unknown Verified 02/18/19 14:24 amoxicillin AdvReac Severe Nausea, Verified 02/18/19 14:24 VOMITING codeine [Codeine] AdvReac Nausea Verified 02/18/19 14:24 morphine AdvReac unable to Verified 02/18/19 14:24 urinate oxycodone [Oxycodone] AdvReac Nausea Verified 02/18/19 14:24 prednisone AdvReac anger Verified 02/18/19 14:24 - Social History Does the pt smoke?: No Smoking Status: Never smoker Does the pt drink ETOH?: Yes Does the pt have substance abuse?: No - Immunizations Immunizations are current?: Yes - POLST Patient has POLST: No PD ED PE NORMAL - Vitals Vital signs reviewed: Yes - General General: Alert and oriented X 3, No acute distress, Well developed/nourished - HEENT HEENT: Ears normal, Moist mucous membranes, Pharynx benign, Other (frontal tenderness to percussion. ) - Neck Neck: Supple, no meningeal sign, No adenopathy - Cardiac Cardiac: RRR, No murmur - Respiratory Respiratory: Clear bilaterally - Neuro Neuro: Alert and oriented X 3, No motor deficit, Normal speech Results - Vitals Vitals: Vital Signs - 24 hr 02/18/19 14:18 Temperature 36.6 C Heart Rate 74 Respiratory 16 Rate Blood Pressure 177/68 H O2 Saturation 97 Oxygen O2 Source Nasal cannula Oxygen Flow Rate 2 PD MEDICAL DECISION MAKING - ED course Complexity details: considered differential (This may likely be a viral head cold but she does have chronic oxygen use and impaired immunity with COPD. She does have symptoms consistent with more focused sinus inflammation. As such it is reasonable to treat with antibiotics in case. She states she has significant side effects to steroids. She does use daily antihistamines. She can use saline nose spray.), d/w patient ED course: She states Zithromax has worked well for her the last few infections. It is listed as an allergy but she states that does not but I does not work as effectively in the past. She would request Zithromax at this point. Departure - Departure Disposition: 01 Home, Self Care Clinical Impression: Acute sinusitis Qualifiers: Sinusitis location: frontal Recurrence: non-recurrent Qualified Code(s): J01.10 - Acute frontal sinusitis, unspecified Condition: Stable Record reviewed to determine appropriate education?: Yes Instructions: ED Sinusitis Abx Tx Follow-Up: Yuly Robbins MD [Primary Care Provider] - Prescriptions: Azithromycin [Zithromax] 0 mg PO DAILY #6 tablet Comments: Stay well-hydrated. Use saline nasal spray periodically to help clear the nasal passageway and promote sinus drainage. Zithromax as prescribed. Continue usual medications including your antihistamines. Recheck if not improving over the next few days.
[2019-02-18 14:23] VITALS: BP 177/68
== END 2019-02-18 14:43 | disposition home or self-care (01) ==
LOC: ED 14:12
DX: J01.10 Acute frontal sinusitis, unspecified (principal); J44.9 Chronic obstructive pulmonary disease, unspecified; Z99.81 Dependence on supplemental oxygen
CPT/HCPCS: 99283

== ENCOUNTER 2019-04-26 11:37 | Emergency (ER) | payer MEDICARE, BC ==
[2019-04-26] MEDS ORDERED: AZITHROMYCIN 250 MG TABLET PO STA (12:22)
--- NOTE | 2019-04-26 12:24 | ED Physician Documentation ---
History of Present Illness - Stated complaint Stated Complaint: FEVER/SINUS INFECTION/FEMALE - Chief complaint Chief Complaint: Heent - History obtained from History obtained from: Patient, Family - History of Present Illness Timing: How many weeks ago (2) Pain level max: 5 Pain level now: 3 - Additonal information Additional information: 79-year-old female presents to the emergency department complaining of sinus pressure for the past 2 weeks. Now developing fevers. She has a history of recurrent sinus infections. She has alpha-1 antitrypsin deficiency as well. Nothing makes it better or worse. 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 HEENT: Macular degeneration Psych: None Musculoskeletal: Osteoarthritis Derm: None - Past Surgical History Past Surgical History: 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 - Present Medications Home Medications: Ambulatory Orders Medication Instructions Recorded Confirmed Albuterol [Ventolin Hfa] 2 puffs INH QID 01/29/13 04/09/18 Carbidopa/Levodopa 1.5 each PO HS 01/29/13 04/09/18 [Carbidopa-Levodopa 25-100 Tab] Furosemide 30 mg PO DAILY 01/29/13 04/09/18 Lansoprazole [Prevacid] 30 mg PO DAILY 01/29/13 04/09/18 Montelukast [Singulair] 10 mg PO QPM 01/29/13 04/09/18 Omeprazole 20 mg PO DAILY 01/29/13 04/09/18 Potassium Chloride 10 meq PO DAILY 01/29/13 04/09/18 Metronidazole [Flagyl] 500 mg PO TID #30 tablet 10/15/17 04/09/18 Azithromycin [Zithromax] 0 mg PO DAILY #6 tablet 02/18/19 Naproxen Sodium [Aleve] 220 mg PO 02/18/19 Azithromycin [Zithromax] 250 mg PO DAILY #4 tablet 04/26/19 - Allergies Allergies/Adverse Reactions: Allergies Allergy/AdvReac Type Severity Reaction Status Date / Time Sulfa (Sulfonamide Allergy Severe Respiratory Verified 04/26/19 11:45 Antibiotics) levofloxacin Allergy Unknown Unknown Verified 04/26/19 11:45 amoxicillin AdvReac Severe Nausea, Verified 04/26/19 11:45 VOMITING codeine [Codeine] AdvReac Nausea Verified 04/26/19 11:45 morphine AdvReac unable to Verified 04/26/19 11:45 urinate oxycodone [Oxycodone] AdvReac Nausea Verified 04/26/19 11:45 prednisone AdvReac anger Verified 04/26/19 11:45 - Social History Does the pt smoke?: No Smoking Status: Never smoker Does the pt drink ETOH?: Yes Does the pt have substance abuse?: No - Immunizations Immunizations are current?: Yes - POLST Patient has POLST: No PD ED PE NORMAL - Vitals Vital signs reviewed: Yes - General General: Alert and oriented X 3, No acute distress, Well developed/nourished - HEENT HEENT: PERRL, Moist mucous membranes (Left eye subconjunctival hemorrhage from her recent procedure. Tenderness to palpation across all sinuses. No facial swelling. No skin changes), Other (Normal posterior oropharynx.) - Neck Neck: Supple, no meningeal sign, No adenopathy - Cardiac Cardiac: RRR, Strong equal pulses - Respiratory Respiratory: No respiratory distress, Clear bilaterally - Abdomen Abdomen: Soft, Non tender, Non distended - Derm Derm: Warm and dry - Neuro Neuro: Alert and oriented X 3 - Psych Psych: Normal mood, Normal affect Results - Vitals Vitals: Vital Signs - 24 hr 04/26/19 04/26/19 11:40 12:06 Temperature 36.9 C Heart Rate 82 77 Respiratory 28 H 25 H Rate Blood Pressure 148/79 H 158/78 H O2 Saturation 98 100 Oxygen O2 Source Nasal cannula PD MEDICAL DECISION MAKING - ED course Complexity details: considered differential, d/w patient, d/w family ED course: 79-year-old female presents to the emergency department sinusitis. Multiple allergies to antibiotics. She states that she normally receives azithromycin. Will prescribe this for her and follow-up closely with her doctor. Patient counseled regarding signs and symptoms for which I believe and urgent re- evaluation would be necessary. Patient with good understanding of and agreement to plan and is comfortable going home at this time This document was made in part using voice recognition software. While efforts are made to proofread this document, sound alike and grammatical errors may occur. Departure - Departure Disposition: 01 Home, Self Care Clinical Impression: Acute sinusitis Qualifiers: Sinusitis location: pansinusitis Recurrence: non-recurrent Qualified Code(s): J01.40 - Acute pansinusitis, unspecified Condition: Good Instructions: ED Sinusitis Abx Tx Follow-Up: Yuly Robbins MD [Primary Care Provider] - Within 1 week Prescriptions: Azithromycin [Zithromax] 250 mg PO DAILY #4 tablet Comments: Take all antibiotics until gone. Return if you worsen. Follow-up with your doctor for further care.
[2019-04-26 12:33] VITALS: BP 158/74
== END 2019-04-26 12:31 | disposition home or self-care (01) ==
LOC: ED 11:37
DX: J01.40 Acute pansinusitis, unspecified (principal); I10 Essential (primary) hypertension
CPT/HCPCS: 99282; 99284; A9270

== ENCOUNTER 2019-05-04 17:43 | Emergency (ER) | payer MEDICARE, BC ==
[2019-05-04] MEDS ORDERED: IPRATROPIUM/ALBUTEROL 3 ML NEB INH STA (18:06)
--- NOTE | 2019-05-04 18:08 | ED Physician Documentation ---
History of Present Illness - Stated complaint Stated Complaint: FEVER/BREATHING ISSUES - Chief complaint Chief Complaint: Resp - History obtained from History obtained from: Patient, Friend - History of Present Illness Timing: How many days ago (2) Pain level max: 0 Pain level now: 0 Improved by: nothing Worsened by: nothing - Additonal information Additional information: fever 102 at home today. Recently on azithromycin for sinus infection. has alpha 1 anti-trypsin deficiency. She states she is also having trouble breathing. Complains of right ear pain as well. 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 - Present Medications Home Medications: Ambulatory Orders Medication Instructions Recorded Confirmed Albuterol [Ventolin Hfa] 2 puffs INH QID 01/29/13 05/04/19 Carbidopa/Levodopa 1.5 each PO HS 01/29/13 05/04/19 [Carbidopa-Levodopa 25-100 Tab] Lansoprazole [Prevacid] 30 mg PO DAILY 01/29/13 05/04/19 Naproxen Sodium [Aleve] 220 mg PO PRN PRN 02/18/19 05/04/19 Azithromycin [Zithromax] 250 mg PO DAILY #4 tablet 04/26/19 05/04/19 ALPRAZolam [Alprazolam] 0.25 mg PO PRN PRN 05/04/19 05/04/19 Amlodipine Besylate [Norvasc] 2.5 mg PO DAILY 05/04/19 05/04/19 Doxycycline Hyclate 100 mg PO BID #20 capsule 05/04/19 Nystatin 100,000 unit PO QID 05/04/19 05/04/19 Prednisolone Acetate/Pf 05/04/19 [Prednisolone Acet 1% Eye Drop] Tobramycin/Dexamethasone 05/04/19 [Tobramycin-Dexameth Ophth Susp] Vancomycin Ophthalmi 8Mg/0.8ML 05/04/19 [Vancomycin Ophthalmic 8Mg/0.8ML] - Allergies Allergies/Adverse Reactions: Allergies Allergy/AdvReac Type Severity Reaction Status Date / Time Sulfa (Sulfonamide Allergy Severe Respiratory Verified 05/04/19 17:53 Antibiotics) levofloxacin Allergy Unknown Unknown Verified 05/04/19 17:53 amoxicillin AdvReac Severe Nausea, Verified 05/04/19 17:53 VOMITING codeine [Codeine] AdvReac Nausea Verified 05/04/19 17:53 morphine AdvReac unable to Verified 05/04/19 17:53 urinate oxycodone [Oxycodone] AdvReac Nausea Verified 05/04/19 17:53 prednisone AdvReac anger Verified 05/04/19 17:53 - Social History Does the pt smoke?: No Smoking Status: Never smoker Does the pt drink ETOH?: Yes Does the pt have substance abuse?: No - Immunizations Immunizations are current?: Yes - POLST Patient has POLST: No PD ED PE NORMAL - Vitals Vital signs reviewed: Yes - General General: Alert and oriented X 3, No acute distress, Well developed/nourished - HEENT HEENT: PERRL, Moist mucous membranes, Pharynx benign, Other (Left TM is normal. Right TM is erythematous, dull, bulging with loss of landmarks. Purulent fluid present.) - Neck Neck: Supple, no meningeal sign, No adenopathy - Cardiac Cardiac: RRR - Respiratory Respiratory: No respiratory distress, Other (Diminished breath sounds and wheezing bilaterally) - Abdomen Abdomen: Soft, Non tender, Non distended - Derm Derm: Warm and dry, No rash - Extremities Extremities: No edema - Neuro Neuro: Alert and oriented X 3 - Psych Psych: Normal mood, Normal affect Results - Vitals Vitals: Vital Signs - 24 hr 05/04/19 05/04/19 05/04/19 17:49 18:16 18:37 Temperature 37.3 C 37.1 C Heart Rate 98 99 85 Respiratory 30 H 17 19 Rate Blood Pressure 180/85 H 112/68 O2 Saturation 95 97 05/04/19 05/04/19 20:00 20:33 Temperature Heart Rate 86 87 Respiratory 16 15 Rate Blood Pressure 133/55 H 156/65 H O2 Saturation 94 96 Oxygen O2 Source Nasal cannula Oxygen Flow Rate 2 - Labs Labs: Laboratory Tests 05/04/19 05/04/19 05/04/19 18:13 18:13 18:13 WBC 8.4 RBC 4.71 Hgb 13.5 Hct 41.8 MCV 88.7 MCH 28.7 MCHC 32.3 RDW 13.7 Plt Count 343 MPV 9.9 Neut # (Auto) 6.3 Lymph # (Auto) 0.9 L [place] # (Auto) 1.1 H Eos # (Auto) 0.1 Baso # (Auto) 0.0 Absolute Nucleated RBC 0.00 Nucleated RBC % 0.0 Sodium 133 L Potassium 4.0 Chloride 97 L Carbon Dioxide 28 Anion Gap 8.0 BUN 20 Creatinine 0.8 Estimated GFR (MDRD) 70 L Glucose 105 H Lactic Acid 0.8 Calcium 9.3 Total Bilirubin 0.2 AST 21 ALT 14 Alkaline Phosphatase 87 Total Protein 7.7 Albumin 3.3 Globulin 4.4 H Albumin/Globulin Ratio 0.8 L Lipase 51 - Rads (name of study) Chest x-ray Radiology: Prelim report reviewed, EMP read contemporaneously, See rad report (No acute abnormality) PD MEDICAL DECISION MAKING - ED course Complexity details: reviewed old records, reviewed results, re-evaluated patient, considered differential, d/w patient ED course: 79-year-old female is well-appearing, nontoxic. Feels better after DuoNeb treatment. Has a right acute otitis media. Will place on doxycycline for this. She has multiple antibiotic allergies. Patient does not appear septic. She is comfortable going home at this time. Patient counseled regarding signs and symptoms for which I believe and urgent re-evaluation would be necessary. Patient with good understanding of and agreement to plan and is comfortable going home at this time This document was made in part using voice recognition software. While efforts are made to proofread this document, sound alike and grammatical errors may occur. No hypoxia or respiratory distress. She does wear oxygen at home Departure - Departure Disposition: 01 Home, Self Care Clinical Impression: Otitis media Qualifiers: Otitis media type: suppurative Chronicity: acute Laterality: right Recurrence: non-recurrent Spontaneous tympanic membrane rupture: without spontaneous rupture Qualified Code(s): H66.001 - Acute suppurative otitis media without spontaneous rupture of ear drum, right ear Condition: Good Instructions: ED Otitis Media Acute Adult Follow-Up: Provider,Other [Primary Care Provider] - Within 1 week Prescriptions: Doxycycline Hyclate 100 mg PO BID #20 capsule Comments: Take all antibiotics until gone. Return if you worsen. Follow-up with your doctor for further care. Discharge Date/Time: 05/04/19 20:41
[2019-05-04 18:18] LABS: BASOPHILS % (AUTO) 0.4 %; EOSINOPHILS # (AUTO) 0.1 10^3/uL (0.0-0.7); EOSINOPHILS % (AUTO) 0.8 %; HGB - HEMOGLOBIN 13.5 g/dL (12.0-16.0); LYMPHOCYTES # (AUTO) 0.9 10^3/uL (1.5-3.5); LYMPHOCYTES % (AUTO) 10.6 %; MEAN CORPUSCULAR HEMOGLOBIN 28.7 pg (27.0-31.0); MEAN CORPUSCULAR HGB CONC 32.3 g/dL (32.0-36.0); MEAN CORPUSCULAR VOLUME 88.7 fL (81.0-99.0); MEAN PLATELET VOLUME 9.9 fL (7.9-10.8); MONOCYTES # (AUTO) 1.1 10^3/uL (0.0-1.0); MONOCYTES % (AUTO) 13.2 %; NEUTROPHILS # (AUTO) 6.3 10^3/uL (1.5-6.6); NEUTROPHILS % (AUTO) 74.6 %; PLT - PLATELET COUNT 343 10^3/uL (130-450); RED BLOOD COUNT 4.71 10^6/uL (4.20-5.40); RED CELL DISTRIBUTION WIDTH 13.7 % (12.0-15.0); WHITE BLOOD COUNT 8.4 x10^3/uL (4.8-10.8)
[2019-05-04 18:32] LABS: ALBUMIN 3.3 g/dL (3.2-5.5); ALBUMIN/GLOBULIN RATIO 0.8 (1.0-2.2); BILIRUBIN,TOTAL 0.2 mg/dL (0.2-1.0); CALCIUM 9.3 mg/dL (8.5-10.3); CREATININE 0.8 mg/dL (0.4-1.0); TOTAL PROTEIN 7.7 g/dL (6.7-8.2)
--- NOTE | 2019-05-04 19:31 | XRAY Report ---
Reason: cough Procedure Date: 05/04/2019 Accession Number: [id number] / [id number] Procedure: XR - Chest 2 View X-Ray CPT Code: 40853 FULL RESULT: EXAM: CHEST RADIOGRAPHY EXAM DATE: 05/04/2019 06:56 PM. CLINICAL HISTORY: Cough. COMPARISON: CHEST 2 VIEW PA/LAT 08/16/2015 3:33 PM ABDOMEN/PELVIS W/ 10/15/2017 6:29 PM. TECHNIQUE: 2 views. FINDINGS: Lungs/Pleura: Lungs are well expanded. There is bilateral costophrenic sulcus blunting. There is no lobar infiltrate. No pneumothorax. Mediastinum: Heart and mediastinal contours are unremarkable. Other: None. IMPRESSION: 1. Lungs are well expanded. Normal heart size. 2. There is bilateral costophrenic sulcus blunting which likely represents pleural thickening. 3. No evidence of lower infiltrate. 4. There is no pneumothorax. RADIA
[2019-05-04] MEDS ORDERED: DOXYCYCLINE 100 MG TABLET PO STA (20:08)
[2019-05-04 20:35] VITALS: BP 156/65
== END 2019-05-04 20:41 | disposition home or self-care (01) ==
LOC: ED 17:43
DX: H66.001 Acute suppurative otitis media without spontaneous rupture of ear drum, right ear (principal); R06.2 Wheezing; I10 Essential (primary) hypertension
CPT/HCPCS: 36415; 71046; 80053; 83605; 83690; 85025; 94640; 99284; A9270

== ENCOUNTER 2019-08-24 11:38 | Outpatient (CLI) | payer MEDICARE, BC ==
--- NOTE | 2019-08-24 17:15 | XRAY Report ---
Reason: PAIN IN RT SHOULDER Procedure Date: 08/24/2019 Accession Number: [id number] / [id number] Procedure: XR - Shoulder 3 View RT CPT Code: Final Report FULL RESULT: EXAM: RIGHT SHOULDER RADIOGRAPHY EXAM DATE: 08/24/2019 11:54 AM. CLINICAL HISTORY: PAIN IN RT SHOULDER. COMPARISON: None. TECHNIQUE: 3 views. FINDINGS: Bones: Osteopenia. No definite fracture or other bone lesion. Joints: Mild to moderate degenerative changes. Anatomic alignment. Soft tissues: Clear visualized lung. IMPRESSION: Mild to moderate degenerative changes. RADIA
== END 2019-08-24 11:39 | disposition home or self-care (01) ==
LOC: DI 11:38
PROVIDERS: ATTEND Internal Medicine
DX: M19.011 Primary osteoarthritis, right shoulder (principal); D64.9 Anemia, unspecified
CPT/HCPCS: 36415; 82728

== ENCOUNTER 2019-08-24 11:56 | Outpatient (CLI) | payer MEDICARE, BC | END 2019-08-24 11:57 | disposition home or self-care (01) | LOC: LAB 11:56 | PROVIDERS: ATTEND Internal Medicine | DX: D64.9 Anemia, unspecified (principal) | CPT/HCPCS: 36415; 82728 ==

== ENCOUNTER 2019-12-19 20:07 | Emergency (ER) | payer MEDICARE, BC ==
[2019-12-19 20:55] LABS: BASOPHILS % (AUTO) 0.6 %; EOSINOPHILS % (AUTO) 0.9 %; HGB - HEMOGLOBIN 12.5 g/dL (12.0-16.0); LYMPHOCYTES % (AUTO) 28.7 %; MEAN CORPUSCULAR HEMOGLOBIN 28.9 pg (27.0-31.0); MEAN CORPUSCULAR HGB CONC 32.1 g/dL (32.0-36.0); MEAN CORPUSCULAR VOLUME 89.8 fL (81.0-99.0); MONOCYTES # (AUTO) 0.4 10^3/uL (0.0-1.0); MONOCYTES % (AUTO) 12.6 %; NEUTROPHILS % (AUTO) 56.9 %; PLT - PLATELET COUNT 207 10^3/uL (130-450); RED BLOOD COUNT 4.33 10^6/uL (4.20-5.40); RED CELL DISTRIBUTION WIDTH 14.9 % (12.0-15.0); WHITE BLOOD COUNT 3.5 x10^3/uL (4.8-10.8)
--- NOTE | 2019-12-19 21:02 | ED Physician Documentation ---
History of Present Illness - Stated complaint Stated Complaint: AMS/VOMITING/FEV - Chief complaint Chief Complaint: General - History obtained from History obtained from: Patient, Family - History of Present Illness Timing: How many days ago (3 to 4 days) Pain level max: 0 Pain level now: 0 - Additonal information Additional information: 79-year-old female states that her son wanted her to come in because she has been losing track of time when she sits on the couch. She states that she will sit down at say 5:00 and next thing she knows it is 9:00. She is unsure if she is falling asleep. No chest pain. No palpitations. No head injury. No focal neurological deficits. No difficulty with speech. She states she took 2 of her blood pressure medication approximately 3 days ago and then took 3 of her blood pressure medication today. She does not know what her medication is. No headache. Always has dyspnea. Uses oxygen at home. No fevers. No abdominal pain. No diarrhea or constipation. No urinary issues. Review of Systems Ten Systems: 10 systems reviewed and negative Constitutional: denies: Fever, Chills Eyes: denies: Decreased vision, Photophobia Ears: denies: Ear pain Nose: denies: Rhinorrhea / runny nose, Congestion Throat: denies: Sore throat Cardiac: denies: Chest pain / pressure, Palpitations Respiratory: denies: Dyspnea, Cough GI: denies: Abdominal Pain, Nausea, Vomiting, Diarrhea Skin: denies: Rash Musculoskeletal: denies: Neck pain, Back pain, Extremity pain, Extremity swelling Neurologic: denies: Generalized weakness, Focal weakness, Numbness, Unresponsiv e, Headache, Head injury, LOC PD PAST MEDICAL HISTORY - Past Medical History Cardiovascular: Hypertension Respiratory: Asthma, COPD, Other Endocrine/Autoimmune: None GI: GERD, Diverticulitis 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 HEENT: Macular degeneration Psych: None Musculoskeletal: Osteoarthritis Derm: None - Past Surgical History Past Surgical 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 - Present Medications Home Medications: Ambulatory Orders Medication Instructions Recorded Confirmed Albuterol [Ventolin Hfa] 2 puffs INH QID 01/29/13 05/04/19 Carbidopa/Levodopa 1.5 each PO HS 01/29/13 05/04/19 [Carbidopa-Levodopa 25-100 Tab] Lansoprazole [Prevacid] 30 mg PO DAILY 01/29/13 05/04/19 Naproxen Sodium [Aleve] 220 mg PO PRN PRN 02/18/19 05/04/19 Azithromycin [Zithromax] 250 mg PO DAILY #4 tablet 04/26/19 05/04/19 ALPRAZolam [Alprazolam] 0.25 mg PO PRN PRN 05/04/19 05/04/19 Amlodipine Besylate [Norvasc] 2.5 mg PO DAILY 05/04/19 05/04/19 Doxycycline Hyclate 100 mg PO BID #20 capsule 05/04/19 Nystatin 100,000 unit PO QID 05/04/19 05/04/19 Prednisolone Acetate/Pf 05/04/19 [Prednisolone Acet 1% Eye Drop] Tobramycin/Dexamethasone 05/04/19 [Tobramycin-Dexameth Ophth Susp] Vancomycin Ophthalmi 8Mg/0.8ML 05/04/19 [Vancomycin Ophthalmic 8Mg/0.8ML] Cefdinir 300 mg PO BID #20 capsule 12/19/19 - Allergies Allergies/Adverse Reactions: Allergies Allergy/AdvReac Type Severity Reaction Status Date / Time Sulfa (Sulfonamide Allergy Severe Respiratory Verified 12/19/19 20:24 Antibiotics) levofloxacin Allergy Unknown Unknown Verified 12/19/19 20:24 amoxicillin AdvReac Severe Nausea, Verified 12/19/19 20:24 VOMITING codeine [Codeine] AdvReac Nausea Verified 12/19/19 20:24 morphine AdvReac unable to Verified 12/19/19 20:24 urinate oxycodone [Oxycodone] AdvReac Nausea Verified 12/19/19 20:24 prednisone AdvReac anger Verified 12/19/19 20:24 - Social History Does the pt smoke?: No Smoking Status: Never smoker Does the pt drink ETOH?: Yes Does the pt have substance abuse?: No - Immunizations Immunizations are current?: Yes - POLST Patient has POLST: No PD ED PE NORMAL - Vitals Vital signs reviewed: Yes - General General: Alert and oriented X 3, No acute distress, Well developed/nourished - HEENT HEENT: Atraumatic (No scalp hematomas. 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, No motor deficit, No sensory deficit, Normal speech Eye Opening: Spontaneous Motor: Obeys Commands Verbal: Oriented GCS Score: 15 - Psych Psych: Normal mood, Normal affect - Free text exam Free text exam: NIH stroke scale is 0 at 2046 Results - Vitals Vitals: Vital Signs - 24 hr 12/19/19 20:16 Temperature 36.8 C Heart Rate 76 Respiratory 38 H Rate Blood Pressure 179/85 H O2 Saturation 98 Oxygen O2 Source Nasal cannula - EKG (time done) 2109 Rate: Rate (enter#) (73) Rhythm: NSR [place]: Normal Intervals: Normal MI QRS: Normal Ischemia: Non specific changes - Labs Labs: Laboratory Tests 12/19/19 12/19/19 12/19/19 20:50 20:50 20:50 WBC 3.5 L RBC 4.33 Hgb 12.5 Hct 38.9 MCV 89.8 MCH 28.9 MCHC 32.1 RDW 14.9 Plt Count 207 MPV 10.0 Neut # (Auto) 2.0 Lymph # (Auto) 1.0 L [place] # (Auto) 0.4 Eos # (Auto) 0.0 Baso # (Auto) 0.0 Absolute Nucleated RBC 0.00 Nucleated RBC % 0.0 Sodium 139 Potassium 3.8 Chloride 105 Carbon Dioxide 26 Anion Gap 8.0 BUN 22 H Creatinine 1.0 Estimated GFR (MDRD) 54 L Glucose 131 H Calcium 9.6 Total Bilirubin 0.8 AST 29 ALT 21 Alkaline Phosphatase 73 Troponin I High Sens Total Protein 7.0 Albumin 3.9 Globulin 3.1 Albumin/Globulin Ratio 1.3 Lipase 50 TSH 0.56 Urine Color Urine Clarity Urine pH Ur Specific [place] Urine Protein Urine Glucose (UA) Urine Ketones Urine Occult Blood Urine Nitrite Urine Bilirubin Urine Urobilinogen Ur Leukocyte Esterase Urine RBC Urine WBC Ur Squamous Epith Cells Urine Bacteria Ur Microscopic Review Urine Culture Comments Salicylates < 6.0 Urine Opiates Screen Ur Oxycodone Screen Urine Methadone Screen Ur Propoxyphene Screen Acetaminophen < 10 L Ur Barbiturates Screen Ur Tricyclics Screen Ur Phencyclidine Scrn Ur Amphetamine Screen U Methamphetamines Scrn U Benzodiazepines Scrn Urine Cocaine Screen U Cannabinoids Screen Ethyl Alcohol < 5.0 12/19/19 12/19/19 20:50 22:10 WBC RBC Hgb Hct MCV MCH MCHC RDW Plt Count MPV Neut # (Auto) Lymph # (Auto) [place] # (Auto) Eos # (Auto) Baso # (Auto) Absolute Nucleated RBC Nucleated RBC % Sodium Potassium Chloride Carbon Dioxide Anion Gap BUN Creatinine Estimated GFR (MDRD) Glucose Calcium Total Bilirubin AST ALT Alkaline Phosphatase Troponin I High Sens 8.1 Total Protein Albumin Globulin Albumin/Globulin Ratio Lipase TSH Urine Color YELLOW Urine Clarity CLOUDY Urine pH 5.5 Ur Specific [place] 1.025 Urine Protein TRACE Urine Glucose (UA) NEGATIVE Urine Ketones TRACE Urine Occult Blood LARGE H Urine Nitrite NEGATIVE Urine Bilirubin NEGATIVE Urine Urobilinogen 0.2 (NORMAL) Ur Leukocyte Esterase SMALL H Urine RBC TNTC H Urine WBC 11-25 H Ur Squamous Epith Cells MOD Squamous H Urine Bacteria Many H Ur Microscopic Review INDICATED Urine Culture Comments NOT INDICATED Salicylates Urine Opiates Screen NEGATIVE Ur Oxycodone Screen NEGATIVE Urine Methadone Screen NEGATIVE Ur Propoxyphene Screen NEGATIVE Acetaminophen Ur Barbiturates Screen NEGATIVE Ur Tricyclics Screen NEGATIVE Ur Phencyclidine Scrn NEGATIVE Ur Amphetamine Screen NEGATIVE U Methamphetamines Scrn NEGATIVE U Benzodiazepines Scrn POSITIVE H Urine Cocaine Screen NEGATIVE U Cannabinoids Screen NEGATIVE Ethyl Alcohol - Rads (name of study) Head CT Radiology: Prelim report reviewed, EMP read contemporaneously, See rad report (No acute intracranial abnormality) Chest x-ray Radiology: Prelim report reviewed, EMP read contemporaneously, See rad report (No acute abnormality) PD MEDICAL DECISION MAKING - ED course Complexity details: reviewed results, re-evaluated patient, considered differential, d/w patient ED course: No acute findings on laboratory testing or head CT, chest x-ray and EKG to explain her symptoms other than a UTI. Given Rocephin for this and will place on antibiotics for home. She is well-appearing, nontoxic. Afebrile. No evidence of stroke. No focal neurological deficits. No evidence of sepsis. Patient counseled regarding signs and symptoms for which I believe and urgent re-evaluation would be necessary. Patient with good understanding of and agreement to plan and is comfortable going home at this time This document was made in part using voice recognition software. While efforts are made to proofread this document, sound alike and grammatical errors may occur. Departure - Departure Disposition: Home, Self Care Clinical Impression: UTI (urinary tract infection) Qualifiers: Urinary tract infection type: acute cystitis Hematuria presence: without hematuria Qualified Code(s): N30.00 - Acute cystitis without hematuria Condition: Good Instructions: ED UTI Cystitis Female Follow-Up: Yuly Robbins MD [Primary Care Provider] - Within 1 week Prescriptions: Cefdinir 300 mg PO BID #20 capsule Comments: Follow-up with your doctor for further care. Return if you worsen. Your laboratory testing does not show any significant abnormalities other than mild dehydration and a urinary tract infection. There are no signs of acute stroke on your head CT. No abnormalities on your chest x-ray.
[2019-12-19 21:10] LABS: ACETAMINOPHEN < 10 ug/mL (10-30); ALBUMIN 3.9 g/dL (3.2-5.5); ALBUMIN/GLOBULIN RATIO 1.3 (1.0-2.2); ALKALINE PHOSPHATASE 73 IU/L (42-121); ALT ALANINE AMINOTRANSFERASE 21 IU/L (10-60); AST ASPARTATE AMINOTRANSFERASE 29 IU/L (10-42); BILIRUBIN,TOTAL 0.8 mg/dL (0.2-1.0); BUN - BLOOD UREA NITROGEN 22 mg/dL (6-20); CALCIUM 9.6 mg/dL (8.5-10.3); CARBON DIOXIDE - CO2 26 mmol/L (21-32); CHLORIDE 105 mmol/L (101-111); GLUCOSE 131 mg/dL (70-100); LIPASE 50 U/L (22-51); SALICYLATE < 6.0 mg/dL; SODIUM 139 mmol/L (135-145)
--- NOTE | 2019-12-19 21:51 | XRAY Report ---
Reason: dyspnea Procedure Date: 12/19/2019 Accession Number: [id number] / [id number] Procedure: XR - Chest 1 View X-Ray CPT Code: 17133 Final Report FULL RESULT: EXAM: CHEST RADIOGRAPHY EXAM DATE: 12/19/2019 09:35 PM. CLINICAL HISTORY: Dyspnea. COMPARISON: CHEST 2 VIEW 05/04/2019 6:46 PM. TECHNIQUE: 1 view. FINDINGS: Lungs/Pleura: No focal opacities evident. No pleural effusion. No pneumothorax. Mediastinum: Within exam limitations, the cardiomediastinal contour is normal. Other: A faint wire-like device/artifact is seen projected over left mid hemithorax, likely overlying the patient. IMPRESSION: No acute cardiopulmonary process. RADIA
[2019-12-19] MEDS ORDERED: ONDANSETRON 4 MG/2 ML VIAL IVP STA (21:52)
[2019-12-19 22:15] LABS: MUDS CUTOFF CONCENTRATIONS CUTOFF CONC BELOW:
--- NOTE | 2019-12-19 22:17 | CT Report ---
Reason: ALOC Procedure Date: 12/19/2019 Accession Number: [id number] / [id number] Procedure: CT - HEAD WO CPT Code: Final Report FULL RESULT: EXAM: CT HEAD EXAM DATE: 12/19/2019 09:56 PM. CLINICAL HISTORY: ALOC. COMPARISON: None. TECHNIQUE: Multiaxial CT images were obtained from the foramen magnum to the vertex. Reformats: Sagittal and coronal. IV contrast: None. In accordance with CT protocol optimization, one or more of the following dose reduction techniques were utilized for this exam: automated exposure control, adjustment of mA and/or KV based on patient size, or use of iterative reconstructive technique. FINDINGS: Parenchyma: No intraparenchymal hemorrhage. No evidence of mass, midline shift, or CT findings of infarction. Cash-white differentiation is distinct. Nonspecific decreased attenuation in the periventricular and deep white matter, but likely chronic microangiopathy. Extraaxial Spaces: Normal for age. No subdural or epidural collections identified. Ventricles: Normal in size and position. Sinuses and Orbits: Imaged paranasal sinuses, orbits, and mastoids show no significant abnormality. Bilateral lens replacements noted. Bones: No evidence of fracture or calvarial defect. Other: None. IMPRESSION: No acute intracranial abnormality. RADIA
[2019-12-19 22:19] LABS: BILIRUBIN,URINE NEGATIVE (NEGATIVE); GLUCOSE, URINE (UA) NEGATIVE (NEGATIVE); KETONES,URINE (UA) TRACE mg/dL (NEGATIVE); LEUKOCYTE ESTERASE, URINE SMALL (NEGATIVE); NITRITE,URINE NEGATIVE (NEGATIVE); OCCULT BLOOD,URINE LARGE (NEGATIVE); PH,URINE 5.5 PH (5.0-7.5); PROTEIN,URINE TRACE mg/dL (NEGATIVE); UROBILINOGEN,URINE 0.2 (NORMAL) E.U./dL (NORMAL)
[2019-12-19 22:20] LABS: CLARITY,URINE CLOUDY (CLEAR)
[2019-12-19] MEDS ORDERED: cefTRIAXone 1 GM VIAL IVP STA (22:20)
[2019-12-19 22:35] LABS: AMPHETAMINE SCREEN,URINE NEGATIVE (NEGATIVE); BACTERIA,URINE Many /HPF (None Seen); BENZODIAZEPINES SCREEN, URINE POSITIVE (NEGATIVE); COCAINE SCREEN URINE NEGATIVE (NEGATIVE); METHADONE SCREEN, URINE NEGATIVE (NEGATIVE); METHAMPHETAMINES SCREEN, URINE NEGATIVE (NEGATIVE); OPIATE SCREEN, URINE NEGATIVE (NEGATIVE); OXYCODONE SCREEN, URINE NEGATIVE (NEGATIVE); PROPOXYPHENE SCREEN, URINE NEGATIVE (NEGATIVE); RBC,URINE TNTC /HPF (0-5); SQUAMOUS EPITHELIAL CELL,UR MOD Squamous (<= Few); TRICYCLIC ANTIDEPRESSANT,URINE NEGATIVE (NEGATIVE)
[2019-12-19 23:03] VITALS: BP 155/93
== END 2019-12-19 23:01 | disposition home or self-care (01) ==
LOC: ED 20:07
DX: N30.00 Acute cystitis without hematuria (principal); I10 Essential (primary) hypertension; R68.89 Other general symptoms and signs
CPT/HCPCS: 36415; 70450; 71045; 80053; 80306; 80307; 80320; 80329; 81001; 81003; 83690; 84443; 84484; 85025; 87086; 93005; 96374; 96375; 99284

== ENCOUNTER 2020-06-27 14:35 | Outpatient (CLI) | payer MEDICARE, BC ==
[2020-06-27] MEDS ORDERED: IOVERSOL 320 100 ML VIAL IVP ONE ×2 (14:47→17:03)
[2020-06-27] MEDS ORDERED: IOVERSOL 320 50 ML VIAL ONE (14:47)
[2020-06-27 15:01] LABS: CREATININE 1.2 mg/dL (0.4-1.0)
--- NOTE | 2020-06-27 16:35 | CT Report ---
PROCEDURE: Abdomen/Pelvis W INDICATIONS: LLQ RLQ PAIN CONTRAST: IV CONTRAST: Optiray 320 ml: 100 PO CONTRAST: Optiray 320 ml50 TECHNIQUE: After the administration of nonionic contrast, 5 mm thick sections acquired from the diaphragms to th e symphysis. 5 mm thick coronal and sagittal reformats were acquired. For radiation dose reduction, the following was used: automated exposure control, adjustment of mA and/or kV according to patient size. COMPARISON: None. FINDINGS: Image quality: Excellent. ABDOMEN: Lung bases: Lung bases are clear. Heart size is normal. Small hiatal hernia. Solid organs: Liver and spleen are normal in size and enhancement. Gallbladder appears normal Bili elsy system is non dilated. Pancreas enhances normally and there are several punctate splenic calcifi cations but no ductal calcification within the pancreatic duct or the common bile duct is found.. No adrenal nodules. Kidneys demonstrate normal size and enhancement, without hydronephrosis. There is a 7 mm calculus lower third left kidney with an adjacent 5.2 cm cyst. Peritoneum and bowel: Bowel loops demonstrate normal wall thickness and caliber. No free fluid or a ir. Nodes and vessels: No retroperitoneal or mesenteric adenopathy by size criteria. Aorta and inferior vena cava are normal in size. Miscellaneous: No ventral hernias. PELVIS: Genitourinary: Bladder wall thickness is normal. Miscellaneous: No inguinal hernias or right-sided adenopathy. Adjacent to the origin of the left co mmon iliac artery, seen just below the aortic bifurcation level, there is a 2.2 cm mildly hyperenhanc ing lymph node measuring up to 1.6 cm in short axis dimension. This has a slight amount of adjacent e wang. More inferiorly on the left just below the bifurcation of the common iliac artery and along the external iliac artery node chain enlarged lymph nodes are present, hyperenhancing, with adjacent [place] ma and measuring up to 1.8 x 3.7 cm. These nodes extend almost to the inguinal canal margin. Definite groin adenopathy however is not seen. Oral contrast has advanced into the rectum. There is diverticulosis involving the sigmoid colon but n o acute diverticulitis. Bones: No suspicious bony lesions. No vertebral body compression fractures. IMPRESSION: Pathologically enlarged and hyperenhancing lymph nodes are present at the margin of the left common iliac artery and along the external iliac artery node chain on the left also. Lymphoma or malignant shawna adenopathy both could produce this appearance. The appearances less likely to be pro duced by an inflammatory process. Findings discussed in detail with the ordering health care provider . Surgical excisional biopsy may become necessary. Several additional findings include 2 punctate calcifications at the pancreatic head, no sign of dist al common duct or pancreatic ductal calculi. 7 mm calculus is present within the collecting system of the lower left kidney without obstructive influence. Mild hiatal hernia. Reviewed by: Eduardo Justice MD on 06/27/2020 4:34 PM PST Approved by: Eduardo Justice MD on 06/27/2020 4:34 PM PST Station ID: [id number]
[2020-06-27] MEDS ORDERED: IOVERSOL 320 50 ML VIAL PO ONE (17:03)
== END 2020-06-27 14:36 | disposition home or self-care (01) ==
LOC: DI 14:35
PROVIDERS: ATTEND Internal Medicine
DX: R10.31 Right lower quadrant pain (principal); R10.32 Left lower quadrant pain; R59.0 Localized enlarged lymph nodes; N20.0 Calculus of kidney; K44.9 Diaphragmatic hernia without obstruction or gangrene; K86.89 Other specified diseases of pancreas; Z79.899 Other long term (current) drug therapy
CPT/HCPCS: 36415; 74177; 82565; Q9967

== ENCOUNTER 2020-07-19 11:27 | Outpatient (CLI) | payer MEDICARE, BC ==
[2020-07-19 11:53] LABS: BASOPHILS % (AUTO) 0.4 %; EOSINOPHILS # (AUTO) 0.1 10^3/uL (0.0-0.7); HGB - HEMOGLOBIN 12.1 g/dL (12.0-16.0); LYMPHOCYTES # (AUTO) 1.1 10^3/uL (1.5-3.5); LYMPHOCYTES % (AUTO) 22.2 %; MEAN CORPUSCULAR HEMOGLOBIN 28.5 pg (27.0-31.0); MEAN CORPUSCULAR HGB CONC 31.6 g/dL (32.0-36.0); MEAN CORPUSCULAR VOLUME 90.1 fL (81.0-99.0); MEAN PLATELET VOLUME 10.3 fL (7.9-10.8); MONOCYTES # (AUTO) 0.6 10^3/uL (0.0-1.0); MONOCYTES % (AUTO) 12.8 %; NEUTROPHILS # (AUTO) 3.1 10^3/uL (1.5-6.6); NEUTROPHILS % (AUTO) 62.4 %; PLT - PLATELET COUNT 254 10^3/uL (130-450); RED BLOOD COUNT 4.25 10^6/uL (4.20-5.40); RED CELL DISTRIBUTION WIDTH 15.5 % (12.0-15.0)
== END 2020-07-19 11:28 | disposition home or self-care (01) ==
LOC: LAB 11:27
PROVIDERS: ATTEND Surgery
DX: I88.0 Nonspecific mesenteric lymphadenitis (principal); D72.821 Monocytosis (symptomatic)
CPT/HCPCS: 36415; 85025; 88184; 88185

== ENCOUNTER 2020-08-12 19:15 | Outpatient (CLI) | payer MEDICARE, BC | END 2020-08-12 19:16 | disposition critical access hospital (66) | LOC: EMS 19:15 | PROVIDERS: ATTEND Surgery | DX: R10.30 Lower abdominal pain, unspecified (principal); R50.9 Fever, unspecified | CPT/HCPCS: A0425; A0429 ==

== ENCOUNTER 2020-08-12 19:21 | Emergency (ER) | payer MEDICARE, BC ==
--- NOTE | 2020-08-12 19:28 | ED Physician Documentation ---
PD HPI ABD PAIN - Stated complaint Stated Complaint: ABD PAIN WITH FEVER - History obtained from History obtained from: Patient - History of Present Illness Timing - onset: How many days ago (3) Timing - duration: Days (3) Timing - details: Abrupt onset, Still present Quality: Aching, Sharp, Pain Location: LLQ Radiation: Left flank Improved by: No: Eating Worsened by: Moving, Palpation. No: Eating, Breathing Associated symptoms: Fever (for 2 days), Nausea, Vomiting (couple of times), Loss of appetite. No: Diarrhea, Constipation, Melena Similar symptoms before: Diagnosis (similar symptoms with diverticulitis in the past, so she was drinking fluids and seeing if it would pass.) Recently seen: Clinic (Seen in PMD office month ago for intermittent abd pains. Had outpt CT showing large lymph node para-aortic. Decision with patient/PMD was not to further investigate (concern by report on CT was r/o lymphoma.) Review of Systems Constitutional: reports: Fever (for 2 days) Nose: denies: Rhinorrhea / runny nose, Congestion Throat: denies: Sore throat Respiratory: denies: Cough GI: reports: Abdominal Pain (left sided), Nausea, Vomiting. denies: Constipation, Diarrhea : reports: Frequency. denies: Dysuria Skin: denies: Rash, Lesions Neurologic: reports: Generalized weakness. 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 : None HEENT: Macular degeneration Psych: None Musculoskeletal: Osteoarthritis Derm: None - Past Surgical History Past Surgical History: Yes /BASKET ASSEMBLER: Hysterectomy - Present Medications Home Medications: Ambulatory Orders Medication Instructions Recorded Confirmed Albuterol [Ventolin Hfa] 2 puffs INH QID 01/29/13 05/04/19 Carbidopa/Levodopa 1.5 each PO HS 01/29/13 05/04/19 [Carbidopa-Levodopa 25-100 Tab] Lansoprazole [Prevacid] 30 mg PO DAILY 01/29/13 05/04/19 Naproxen Sodium [Aleve] 220 mg PO PRN PRN 02/18/19 05/04/19 Azithromycin [Zithromax] 250 mg PO DAILY #4 tablet 04/26/19 05/04/19 ALPRAZolam [Alprazolam] 0.25 mg PO PRN PRN 05/04/19 05/04/19 Amlodipine Besylate [Norvasc] 2.5 mg PO DAILY 05/04/19 05/04/19 Doxycycline Hyclate 100 mg PO BID #20 capsule 05/04/19 Nystatin 100,000 unit PO QID 05/04/19 05/04/19 Prednisolone Acetate/Pf 05/04/19 [Prednisolone Acet 1% Eye Drop] Tobramycin/Dexamethasone 05/04/19 [Tobramycin-Dexameth Ophth Susp] Vancomycin Ophthalmi 8Mg/0.8ML 05/04/19 [Vancomycin Ophthalmic 8Mg/0.8ML] Cefdinir 300 mg PO BID #20 capsule 12/19/19 - Allergies Allergies/Adverse Reactions: Allergies Allergy/AdvReac Type Severity Reaction Status Date / Time Sulfa (Sulfonamide Allergy Severe Respiratory Verified 08/12/20 19:33 Antibiotics) levofloxacin Allergy Unknown Unknown Verified 08/12/20 19:33 amoxicillin AdvReac Severe Nausea, Verified 08/12/20 19:33 VOMITING codeine [Codeine] AdvReac Nausea Verified 08/12/20 19:33 morphine AdvReac unable to Verified 08/12/20 19:33 urinate oxycodone [Oxycodone] AdvReac Nausea Verified 08/12/20 19:33 prednisone AdvReac anger Verified 08/12/20 19:33 - Social History Does the pt smoke?: No Smoking Status: Never smoker Does the pt drink ETOH?: Yes Does the pt have substance abuse?: No - Immunizations Immunizations are current?: Yes - POLST Patient has POLST: No PD ED PE NORMAL - Vitals Vital signs reviewed: Yes - General General: Alert and oriented X 3, Well developed/nourished, Other (appears in pain left abd, with tenderness diffusely.) - HEENT HEENT: Pharynx benign. No: Moist mucous membranes - Neck Neck: Supple, no meningeal sign, No adenopathy - Cardiac Cardiac: RRR, No murmur - Respiratory Respiratory: Clear bilaterally (with just some mild exp wheezing. No coarse sounds. ) - Abdomen Abdomen: Soft, Non distended, No organomegaly, Other (very tender left lower abd with guarding and percussion tenderness. Also tender diffusely left side and central abd. Right side not tender. Some rebound left lower. Also left CVA tenderness. ) - Back Back: Other (left CVA tender to percussion) - Derm Derm: Normal color, Warm and dry, No rash - Extremities Extremities: No edema, No calf tenderness / cord - Neuro Neuro: Alert and oriented X 3, No motor deficit, Normal speech Eye Opening: Spontaneous Motor: Obeys Commands Verbal: Oriented GCS Score: 15 Results - Vitals Vitals: Vital Signs - 24 hr 08/12/20 08/12/20 08/12/20 19:20 20:28 21:54 Temperature 38.8 C H 37.0 C Heart Rate 105 H 78 Respiratory 27 H 24 Rate Blood Pressure 101/88 H 138/66 H O2 Saturation 98 95 08/12/20 08/12/20 08/13/20 22:30 23:30 00:00 Temperature Heart Rate 70 68 66 Respiratory 18 18 18 Rate Blood Pressure 130/52 L 111/61 117/48 L O2 Saturation 96 100 98 08/13/20 01:20 Temperature Heart Rate 62 Respiratory 16 Rate Blood Pressure O2 Saturation 100 Oxygen O2 Source Room air Oxygen Flow Rate 3 - EKG (time done) 19:34 Rate: Rate (enter#) (103) Rhythm: Sinus tachycardia [place]: Normal Intervals: Normal [place] Ischemia: ST depression (mild diffusely, not patterned) - Labs Labs: Laboratory Tests 08/12/20 08/12/20 08/12/20 17:30 17:30 17:30 WBC RBC Hgb Hct MCV MCH MCHC RDW Plt Count MPV Neut # (Auto) Lymph # (Auto) [place] # (Auto) Eos # (Auto) Baso # (Auto) Absolute Nucleated RBC Total Counted Band Neuts % (Manual) Abnorm Lymph % (Manual) Metamyelocytes % Nucleated RBC % Neutrophils # (Manual) Lymphocytes # (Manual) Monocytes # (Manual) Eosinophils # (Manual) Basophils # (Manual) Differential Comment WBC Morphology Platelet Estimate Platelet Morphology RBC Morph Micro Appear Sodium Potassium Chloride Carbon Dioxide Anion Gap BUN Creatinine Estimated GFR (MDRD) Glucose Lactic Acid 1.1 Calcium Magnesium 1.8 Total Bilirubin AST ALT Alkaline Phosphatase B-Natriuretic Peptide 258 H Total Protein Albumin Globulin Albumin/Globulin Ratio Lipase Urine Color Urine Clarity Urine pH Ur Specific [place] Urine Protein Urine Glucose (UA) Urine Ketones Urine Occult Blood Urine Nitrite Urine Bilirubin Urine Urobilinogen Ur Leukocyte Esterase Urine RBC Urine WBC Ur Squamous Epith Cells Urine Bacteria Urine Culture Comments Nasal Adenovirus (PCR) Nasal B. parapertussis DNA (PCR) Nasal Coronavir 229E PCR Nasal Coronavir HKU1 PCR Nasal Coronavir NL63 PCR Nasal Coronavir OC43 PCR Nasal Enterovir/Rhinovir PCR Nasal Influenza B PCR Nasal Influenza A PCR Nasal Parainfluen 1 PCR Nasal Parainfluen 2 PCR Nasal Parainfluen 3 PCR Nasal Parainfluen 4 PCR Nasal RSV (PCR) Nasal B.pertussis DNA PCR Nasal C.pneumoniae (PCR) Ricky Human Metapneumo PCR Nasal M.pneumoniae (PCR) Nasal SARS-CoV-2 (PCR) 08/12/20 08/12/20 08/12/20 19:30 19:30 21:20 WBC 9.4 RBC 4.50 Hgb 13.0 Hct 39.9 MCV 88.7 MCH 28.9 MCHC 32.6 RDW 15.5 H Plt Count 214 MPV 10.9 H Neut # (Auto) Not Reportable Lymph # (Auto) Not Reportable [place] # (Auto) Not Reportable Eos # (Auto) Not Reportable Baso # (Auto) Not Reportable Absolute Nucleated RBC Not Reportable Total Counted 100 Band Neuts % (Manual) 2 Abnorm Lymph % (Manual) 0 Metamyelocytes % 1 H Nucleated RBC % Not Reportable Neutrophils # (Manual) 7.6 H Lymphocytes # (Manual) 0.8 L Monocytes # (Manual) 0.9 Eosinophils # (Manual) 0.0 Basophils # (Manual) 0.0 Differential Comment MANUAL DIFFERENTIAL WBC Morphology NORMAL APPEARANCE Platelet Estimate NORMAL (130-450,000) Platelet Morphology NORMAL APPEARANCE RBC Morph Micro Appear NORMAL APPEARANCE Sodium 135 Potassium 3.5 Chloride 96 L Carbon Dioxide 26 Anion Gap 13.0 BUN 23 H Creatinine 1.6 H Estimated GFR (MDRD) 31 L Glucose 119 H Lactic Acid Calcium 9.5 Magnesium Total Bilirubin 1.2 H AST 26 ALT 11 Alkaline Phosphatase 99 B-Natriuretic Peptide Total Protein 7.7 Albumin 3.3 Globulin 4.4 H Albumin/Globulin Ratio 0.8 L Lipase 36 Urine Color Urine Clarity Urine pH Ur Specific [place] Urine Protein Urine Glucose (UA) Urine Ketones Urine Occult Blood Urine Nitrite Urine Bilirubin Urine Urobilinogen Ur Leukocyte Esterase Urine RBC Urine WBC Ur Squamous Epith Cells Urine Bacteria Urine Culture Comments Nasal Adenovirus (PCR) NOT DETECTED Nasal B. parapertussis DNA (PCR) NOT DETECTED Nasal Coronavir 229E PCR NOT DETECTED Nasal Coronavir HKU1 PCR NOT DETECTED Nasal Coronavir NL63 PCR NOT DETECTED Nasal Coronavir OC43 PCR NOT DETECTED Nasal Enterovir/Rhinovir PCR NOT DETECTED Nasal Influenza B PCR NOT DETECTED Nasal Influenza A PCR NOT DETECTED Nasal Parainfluen 1 PCR NOT DETECTED Nasal Parainfluen 2 PCR NOT DETECTED Nasal Parainfluen 3 PCR NOT DETECTED Nasal Parainfluen 4 PCR NOT DETECTED Nasal RSV (PCR) NOT DETECTED Nasal B.pertussis DNA PCR NOT DETECTED Nasal C.pneumoniae (PCR) NOT DETECTED Ricky Human Metapneumo PCR NOT DETECTED Nasal M.pneumoniae (PCR) NOT DETECTED Nasal SARS-CoV-2 (PCR) NOT DETECTED 08/12/20 22:20 WBC RBC Hgb Hct MCV MCH MCHC RDW Plt Count MPV Neut # (Auto) Lymph # (Auto) [place] # (Auto) Eos # (Auto) Baso # (Auto) Absolute Nucleated RBC Total Counted Band Neuts % (Manual) Abnorm Lymph % (Manual) Metamyelocytes % Nucleated RBC % Neutrophils # (Manual) Lymphocytes # (Manual) Monocytes # (Manual) Eosinophils # (Manual) Basophils # (Manual) Differential Comment WBC Morphology Platelet Estimate Platelet Morphology RBC Morph Micro Appear Sodium Potassium Chloride Carbon Dioxide Anion Gap BUN Creatinine Estimated GFR (MDRD) Glucose Lactic Acid Calcium Magnesium Total Bilirubin AST ALT Alkaline Phosphatase B-Natriuretic Peptide Total Protein Albumin Globulin Albumin/Globulin Ratio Lipase Urine Color YELLOW Urine Clarity CLOUDY Urine pH 6.0 Ur Specific [place] 1.020 Urine Protein 100 H Urine Glucose (UA) NEGATIVE Urine Ketones 40 H Urine Occult Blood LARGE H Urine Nitrite NEGATIVE Urine Bilirubin NEGATIVE Urine Urobilinogen 0.2 (NORMAL) Ur Leukocyte Esterase LARGE H Urine RBC 6-10 H Urine WBC >25 H Ur Squamous Epith Cells NONE SEEN Urine Bacteria Few Urine Culture Comments INDICATED Nasal Adenovirus (PCR) Nasal B. parapertussis DNA (PCR) Nasal Coronavir 229E PCR Nasal Coronavir HKU1 PCR Nasal Coronavir NL63 PCR Nasal Coronavir OC43 PCR Nasal Enterovir/Rhinovir PCR Nasal Influenza B PCR Nasal Influenza A PCR Nasal Parainfluen 1 PCR Nasal Parainfluen 2 PCR Nasal Parainfluen 3 PCR Nasal Parainfluen 4 PCR Nasal RSV (PCR) Nasal B.pertussis DNA PCR Nasal C.pneumoniae (PCR) Ricky Human Metapneumo PCR Nasal M.pneumoniae (PCR) Nasal SARS-CoV-2 (PCR) - Rads (name of study) abd CT Radiology: Prelim report reviewed (No diverticulitis is seen. Prior lymphad enopathy noted. There is a 8 mm proximal ureteral stone with moderate hydronephrosis and perinephric stranding.), See rad report PD MEDICAL DECISION MAKING - ED course Complexity details: reviewed results (no diverticulitis. There is 8 mm proximal ureteral stone with moderate hydronephrosis and stranding. ), re-evaluated patient (feeling improved with fluids and meds. ), considered differential (Of abdominal pain and a couple of days of nausea and vomiting with fevers. She has diffuse tenderness originating from the left lower quadrant. Concern for diverticulitis with possible perforation and general peritoneal signs. We will get CT scan and initiate sepsis treatments. Also check UA.), d/w patient, d/w senior talent management consultant (Talked with Dr. Tyler hospitalist for [facility] who accepted transfer of the patient.) ED course: The patient presented with concern for diverticulitis or other abdominal process. Also consider genin to urinary process. She had markers for possible sepsis but with some IV fluids her heart rate improved and her temperature came down. White count and lactate are normal. Her CT is showing a proximal ureteral stone. A cath UA is showing signs of infection and there is no other obvious source of infection such as diverticulitis. As such I am concerned for pyelonephritis in the setting of a stone with blockage and presume she needs ureteral procedure. We will contact other facility for urology and hospitalist transfer. Departure - Departure Disposition: 02 Transfer Acute Care Hosp Clinical Impression: Pyelonephritis, acute, Ureteral stone with hydronephrosis Condition: Stable Record reviewed to determine appropriate education?: Yes
[2020-08-12] MEDS ORDERED: ACETAMINOPHEN 325 MG TABLET PO STA (19:35)
[2020-08-12 19:44] LABS: BASOPHILS % (AUTO) 0.1 %; EOSINOPHILS % (AUTO) 2.1 %; LYMPHOCYTES % (AUTO) 5.1 %; MEAN CORPUSCULAR HEMOGLOBIN 28.9 pg (27.0-31.0); MEAN CORPUSCULAR HGB CONC 32.6 g/dL (32.0-36.0); MEAN CORPUSCULAR VOLUME 88.7 fL (81.0-99.0); MEAN PLATELET VOLUME 10.9 fL (7.9-10.8); MONOCYTES % (AUTO) 8.3 %; NEUTROPHILS % (AUTO) 84.1 %; PLT - PLATELET COUNT 214 10^3/uL (130-450); RED CELL DISTRIBUTION WIDTH 15.5 % (12.0-15.0); WHITE BLOOD COUNT 9.4 x10^3/uL (4.8-10.8)
[2020-08-12] MEDS ORDERED: ONDANSETRON 4 MG/2 ML VIAL IVP STA (19:44)
[2020-08-12] MEDS ORDERED: SODIUM CHLORIDE 0.9% 1,000 ML IV STA (19:44)
[2020-08-12] MEDS ORDERED: HYDROmorphone 1 MG/ML CARPUJECT IVP STA (19:44)
[2020-08-12] MEDS ORDERED: KETOROLAC 15 MG/ML VIAL IVP STA (19:46)
[2020-08-12 19:48] LABS: ABNORMAL LYMPHS % (MANUAL) 0 %
[2020-08-12] MEDS ORDERED: metroNIDAZOLE 500 MG/100 ML 500 MG/100 ML BAG IV STA (19:48)
[2020-08-12] MEDS ORDERED: SODIUM CHLORIDE 0.9% 2,585.49 ML IV STA (19:48)
[2020-08-12] MEDS ORDERED: CEFEPIME 2 GM in SODIUM CHLORIDE 0.9% MINIBAG 100 ML IV STA (19:48)
[2020-08-12 19:58] LABS: ALBUMIN 3.3 g/dL (3.2-5.5); ALBUMIN/GLOBULIN RATIO 0.8 (1.0-2.2); BILIRUBIN,TOTAL 1.2 mg/dL (0.2-1.0); CALCIUM 9.5 mg/dL (8.5-10.3); CREATININE 1.6 mg/dL (0.4-1.0); TOTAL PROTEIN 7.7 g/dL (6.7-8.2)
[2020-08-12] MEDS ORDERED: IOVERSOL 320 100 ML VIAL IVP ONE ×2 (20:09→21:20)
[2020-08-12 20:17] LABS: BAND NEUTROPHILS % (MANUAL) 2 %; LYMPHOCYTES # (MANUAL) 0.8 10^3/uL (1.5-3.5); LYMPHOCYTES % (MANUAL) 8 %; METAMYELOCYTES % (MANUAL) 1 %; MONOCYTES # (MANUAL) 0.9 10^3/uL (0.0-1.0)
[2020-08-12 20:18] LABS: DIFFERENTIAL COMMENT MANUAL DIFFERENTIAL; PLATELET ESTIMATE, MANUAL NORMAL (130-450,000) (NORMAL); PLATELET MORPHOLOGY NORMAL APPEARANCE (NORMAL); RBC MORPHOLOGY (MULTIPLE) NORMAL APPEARANCE (NORMAL)
--- NOTE | 2020-08-12 21:50 | CT Report ---
PROCEDURE: Abdomen/Pelvis W INDICATIONS: lower to general abd pain and fever CONTRAST: IV CONTRAST: Optiray 320 ml: 100 PO CONTRAST: *NO PO CONTRAST TECHNIQUE: After the administration of weight appropriate dose of intravenous contrast, 5 mm thick sections acqu ired from the diaphragms to the symphysis. 5 mm thick coronal and sagittal reformats were acquired. For radiation dose reduction, the following was used: automated exposure control, adjustment of mA and/or kV according to patient size. COMPARISON: 06/27/2020. FINDINGS: Image quality: Excellent. ABDOMEN: Lung bases: Lung bases are clear. Heart size is normal. Small hiatal hernia. Solid organs: Liver and spleen are normal in size and enhancement. Hepatic steatosis. Gallbladder is mildly distended likely related to fasting state. Pancreas enhances normally. Stable appearance of 2 punctate calculus near the pancreatic head. There is prominence of the main pancreatic duct that ap pears more prominent compared to most recent study. This may be due to slight differences in imaging technique. No peripancreatic inflammatory stranding. No biliary ductal dilatation. No adrenal nodules . Previously seen 8 mm inferior pole left renal stone is now noted in the proximal left ureter chest beyond the left ureteropelvic junction. There is associated left renal pelvic dilatation and moderat e left-sided hydronephrosis. There is associated left perinephric stranding. Stable appearance of exo phytic left renal cyst. Remainder of the visualized course of the left ureter appears nondilated with out inflammatory changes. Right kidney is normal size and enhancement, without hydronephrosis. Peritoneum and bowel: Bowel loops demonstrate normal wall thickness and caliber. No free fluid or a ir. Nodes and vessels: No retroperitoneal or mesenteric adenopathy by size criteria. Aorta and inferior vena cava are normal in size. Atherosclerotic calcifications of the abdominal aorta without aneurysm al dilatation. Miscellaneous: No ventral hernias. Small fat-containing umbilical hernia without acute inflammation. PELVIS: Genitourinary: Bladder wall thickness is normal for degree of distention. Miscellaneous: No inguinal hernias. Previously described hyperenhancing, and large left pelvic side wall adenopathy has decreased substantially in size. They now appear within normal limits for size. D egree of hyperdensity is also less pronounced. Bones: No suspicious bony lesions. No acute vertebral body compression fractures. IMPRESSION: 1. Obstructing 8 mm proximal left ureteral stone visualized just distal to the left ureteropelvic татьяна ction with associated moderate left hydronephrosis. There is also associated left perinephric strandi ng. Recommend excluding concurrent infectious uropathy symptoms. 2. Significantly decreased size and prominence of previously described left pelvic sidewall adenopath y. These appear within normal limits on today's examination. Other chronic findings as above. 3. Slight interval increase in prominence of main pancreatic duct. Although this may be due to slight differences in imaging technique, there are persistent small pancreatic stones noted near the pancre atic head. No CT findings of acute pancreatitis. However, recommend correlating with laboratory evalu ation for pancreatitis and biliary obstruction. Reviewed by: Bharat Bourgeois MD on 08/12/2020 9:48 PM PST Approved by: Bharat Bourgeois MD on 08/12/2020 9:48 PM PST Station ID: [id number]
[2020-08-12 22:24] LABS: C. PNEUMONIAE- RESP PCR PANEL NOT DETECTED
[2020-08-12 22:28] LABS: BILIRUBIN,URINE NEGATIVE (NEGATIVE); GLUCOSE, URINE (UA) NEGATIVE (NEGATIVE); KETONES,URINE (UA) 40 mg/dL (NEGATIVE); LEUKOCYTE ESTERASE, URINE LARGE (NEGATIVE); NITRITE,URINE NEGATIVE (NEGATIVE); OCCULT BLOOD,URINE LARGE (NEGATIVE); PROTEIN,URINE 100 mg/dL (NEGATIVE); UROBILINOGEN,URINE 0.2 (NORMAL) E.U./dL (NORMAL)
[2020-08-12 22:29] LABS: CLARITY,URINE CLOUDY (CLEAR)
[2020-08-12 22:37] LABS: BACTERIA,URINE Few /HPF (None Seen); SQUAMOUS EPITHELIAL CELL,UR NONE SEEN (<= Few)
[2020-08-13] MEDS ORDERED: SODIUM CHLORIDE 0.9% 1,000 ML IV STA (01:44)
[2020-08-13 02:00] VITALS: BP 109/54
== END 2020-08-13 02:07 | disposition short-term general hospital (02) ==
LOC: EDUNIT# → ED 19:21
DX: N13.6 Pyonephrosis (principal); R00.0 Tachycardia, unspecified; Z20.828 Contact with and (suspected) exposure to other viral communicable diseases; I10 Essential (primary) hypertension; J44.9 Chronic obstructive pulmonary disease, unspecified; Z99.81 Dependence on supplemental oxygen
CPT/HCPCS: 36415; 51701; 74177; 80053; 81001; 83605; 83690; 83735; 83880; 85025; 87040; 87077; 87086; 87631; 93005; 96361; 96365; 96366; 96368; 96375; 99284; 99285; A9270; J1170; Q9967; 0202U

== ENCOUNTER 2020-09-23 12:58 | Outpatient (CLI) | payer MEDICARE, BC ==
--- NOTE | 2020-09-23 14:09 | CT Report ---
PROCEDURE: Abdomen/Pelvis WO INDICATIONS: FLANK PAIN, LT URETERAL STONE TECHNIQUE: Noncontrast 5 mm thick sections acquired from the diaphragms to the symphysis. 5 mm coronal and sagi ttal reformats were then performed. For radiation dose reduction, the following was used: automated exposure control, adjustment of mA and/or kV according to patient size. COMPARISON: None. FINDINGS: Image quality: Excellent. ABDOMEN: Lung bases: Lung bases are clear. Heart size is normal. Moderate hiatal hernia Solid organs: Liver and spleen are normal in size. Gallbladder negative. Pancreas is normal in con tours. No adrenal nodules. Status post placement of left ureteral stent. No hydronephrosis identifie d. Redemonstrated large left renal cysts although not well visualized in the absence of IV contrast. No nephrolithiasis is seen left ureteral calculus seen adjacent to the ureteral stent on image 60/3 m easuring 4-5 mm. Peritoneum and bowel: Unenhanced bowel loops demonstrate normal wall thickness and caliber. No free fluid or air. Colonic diverticulosis incidentally noted Nodes and vessels: No retr operitoneal or mesenteric adenopathy by size criteria. Aorta and inferior vena cava are normal in ca liber. Miscellaneous: No ventral hernias. PELVIS: Genitourinary: Bladder wall thickness is normal. Miscellaneous: No inguinal hernias or adenopathy. Scoliosis and discogenic changes. IMPRESSION: Status post placement of left ureteral stent. Previously seen left ureteral calculus grossly unchange d in position seen at the level of L3-L4, adjacent to the left ureteral stent. No hydronephrosis No additional urolithiasis identified Moderate hiatal hernia. Additional chronic and incidental findings as above. Reviewed by: Bunny Espino MD on 09/23/2020 2:08 PM PST Approved by: Bunny Espino MD on 09/23/2020 2:08 PM PST Station ID: [id number]
== END 2020-09-23 12:59 | disposition home or self-care (01) ==
LOC: DI 12:58
PROVIDERS: ATTEND Physician Assistant
DX: N20.1 Calculus of ureter (principal); K44.9 Diaphragmatic hernia without obstruction or gangrene

== ENCOUNTER 2020-10-18 11:13 | Outpatient (CLI) | payer MEDICARE, BC ==
--- NOTE | 2020-10-18 14:46 | CT Report ---
PROCEDURE: Abdomen/Pelvis WO INDICATIONS: LT URETERAL STONE TECHNIQUE: Noncontrast 5 mm thick sections acquired from the diaphragms to the symphysis. 5 mm coronal and sagi ttal reformats were then performed. For radiation dose reduction, the following was used: automated exposure control, adjustment of mA and/or kV according to patient size. COMPARISON: None. FINDINGS: Image quality: Excellent. ABDOMEN: Lung bases: Lung bases are abnormal with what appears to be prominent centrilobular emphysema. Right -sided. Heart size is normal. Solid organs: Liver and spleen are normal in size. Gallbladder appears normal. Pancreas is normal in contours. No adrenal nodules. Kidneys are normal in size, without right-sided hydronephrosis or nephrolithiasis. A double pigtail left ureteral catheter is present with superimposed ureteral calcu pe[place] seen immediately adjacent to the catheter, CT series 3 image 35. There is improved hydronephrosis on the left after stent placement. Its upper and lower pigtails are in expected position. A moderate sized water density left posterior inferior exophytic renal cortical cyst is present as has been pre viously encased. Peritoneum and bowel: Unenhanced bowel loops demonstrate normal wall thickness and caliber. No free fluid or air. Nodes and vessels: No retroperitoneal or mesenteric adenopathy by size criteria. Aorta and inferior vena cava are normal in caliber. Miscellaneous: No ventral hernias. PELVIS: Genitourinary: Bladder wall thickness is normal. Miscellaneous: No inguinal hernias or adenopathy. Bones: No suspicious bony lesions. No vertebral body compression fractures. IMPRESSION: A left-sided double pigtail ureteral stent is in place, with upper and lower pigtails in expected pos ition. Left-sided hydronephrosis previously present has significantly improved. No right-sided urinar y tract abnormality is seen. Along the course of the left ureter delineated by the ureteral stent on the left a calculus can be se en immediately adjacent to the catheter at the junction of the [id number] thirds of the left ur eter. Reviewed by: Eduardo Justice MD on 10/18/2020 2:45 PM PST Approved by: Eduardo Justice MD on 10/18/2020 2:45 PM PST Station ID: [id number]
== END 2020-10-18 11:14 | disposition home or self-care (01) ==
LOC: DI 11:13
PROVIDERS: ATTEND Urology
DX: N20.1 Calculus of ureter (principal)

== ENCOUNTER 2020-11-12 16:42 | Emergency (ER) | payer MEDICARE, BC ==
[2020-11-12 17:10] LABS: BASOPHILS % (AUTO) 0.2 %; EOSINOPHILS % (AUTO) 0.2 %; HCT - HEMATOCRIT 38.2 % (37.0-47.0); HGB - HEMOGLOBIN 12.4 g/dL (12.0-16.0); LYMPHOCYTES # (AUTO) 1.3 10^3/uL (1.5-3.5); LYMPHOCYTES % (AUTO) 21.4 %; MEAN CORPUSCULAR HEMOGLOBIN 27.8 pg (27.0-31.0); MEAN CORPUSCULAR HGB CONC 32.5 g/dL (32.0-36.0); MEAN CORPUSCULAR VOLUME 85.7 fL (81.0-99.0); MONOCYTES % (AUTO) 16.1 %; NEUTROPHILS # (AUTO) 3.8 10^3/uL (1.5-6.6); NEUTROPHILS % (AUTO) 61.8 %; PLT - PLATELET COUNT 219 10^3/uL (130-450); RED BLOOD COUNT 4.46 10^6/uL (4.20-5.40); RED CELL DISTRIBUTION WIDTH 14.2 % (12.0-15.0); WHITE BLOOD COUNT 6.1 x10^3/uL (4.8-10.8)
[2020-11-12] MEDS ORDERED: HYDROmorphone 1 MG/ML CARPUJECT IVP STA (17:10)
[2020-11-12] MEDS ORDERED: ONDANSETRON 4 MG/2 ML VIAL IVP STA (17:10)
[2020-11-12] MEDS ORDERED: SODIUM CHLORIDE 0.9% 1,000 ML IV STA (17:10)
--- NOTE | 2020-11-12 17:19 | ED Physician Documentation ---
History of Present Illness - Stated complaint Stated Complaint: FEVER/BACK & ABD PX - Chief complaint Chief Complaint: Fever - Additonal information Additional information: 72-year-old female presents to the emergency department for evaluation of lower abdominal pain left flank pain and low-grade fever 100.4 that began this a.m. No vomiting. She does have a history of previous left ureter stone status post stenting and recent removal with Dr. Gautam at [place] [facility]. She does report that she had complications with the stent as she did have a bladder infection. Patient does have a history of alpha-1 antitrypsin deficiency and is on chronic home O2 baseline 2 L/min. She does endorse some worsening shortness of breath. Baseline cough unchanged. Review of Systems Constitutional: denies: Fever, Chills Eyes: reports: Reviewed and negative Ears: reports: Reviewed and negative Nose: reports: Reviewed and negative Cardiac: denies: Chest pain / pressure, Palpitations, Pedal edema Respiratory: reports: Dyspnea, Cough. denies: Hemoptysis, Wheezing GI: reports: Abdominal Pain, Nausea. denies: Vomiting, Bloody / black stool : denies: Dysuria, Frequency, Hematuria Skin: reports: Reviewed and negative Musculoskeletal: reports: Reviewed and negative Neurologic: reports: Generalized weakness PD PAST MEDICAL HISTORY - Past Medical History Past Medical History: Yes Cardiovascular: Hypertension Respiratory: Asthma, COPD, Other Endocrine/Autoimmune: None GI: GERD, Diverticulitis GRAIN SHIPPER: None : None HEENT: Macular degeneration Psych: None Musculoskeletal: Osteoarthritis Derm: None - Past Surgical History Past Surgical History: Yes /GRAIN SHIPPER: Hysterectomy - Present Medications Home Medications: Ambulatory Orders Medication Instructions Recorded Confirmed Albuterol [Ventolin Hfa] 2 puffs INH QID 01/29/13 11/12/20 Carbidopa/Levodopa 1.5 each PO HS 01/29/13 11/12/20 [Carbidopa-Levodopa 25-100 Tab] Lansoprazole [Prevacid] 30 mg PO DAILY 01/29/13 11/12/20 ALPRAZolam [Alprazolam] 0.25 mg PO PRN PRN 05/04/19 11/12/20 Amlodipine Besylate [Norvasc] 2.5 mg PO DAILY 05/04/19 11/12/20 Baclofen [Lioresal] 10 mg PO TID 11/12/20 11/12/20 HYDROcod/ACETAM 5/325 [[place] 5/325] 1 tablet PO PRN PRN 11/12/20 11/12/20 Pseudoephedrine HCl [Sudafed 12 11/12/20 Hour] Tamsulosin HCl [Flomax] 0.4 mg PO 11/12/20 - Allergies Allergies/Adverse Reactions: Allergies Allergy/AdvReac Type Severity Reaction Status Date / Time Sulfa (Sulfonamide Allergy Severe Respiratory Verified 11/12/20 16:50 Antibiotics) levofloxacin Allergy Unknown Unknown Verified 11/12/20 16:50 amoxicillin AdvReac Severe Nausea, Verified 11/12/20 16:50 VOMITING codeine [Codeine] AdvReac Nausea Verified 11/12/20 16:50 morphine AdvReac unable to Verified 11/12/20 16:50 urinate oxycodone [Oxycodone] AdvReac Nausea Verified 11/12/20 16:50 prednisone AdvReac anger Verified 11/12/20 16:50 - Social History Does the pt smoke?: No Smoking Status: Never smoker Does the pt drink ETOH?: Yes Does the pt have substance abuse?: No - Immunizations Immunizations are current?: Yes - POLST Patient has POLST: No PD ED PE EXPANDED - General General: Alert, No acute distress - Cardiac Cardiac: Regular Rate, Regular Rhythm, Radial strong equal, Pedal strong equal, Cap refill < 2 sec. No: Murmur Present - Respiratory Respiratory: Clear to ausultation dexter. No: Distress, Labored - Abdomen Abdomen: Normal Bowel sounds, Tender to palpation (Generalized tenderness lower abdomen and left flank without guarding or rebound.) - Back Back: CVA TTP left - Derm Derm: Normal color, Warm and dry. No: Rash - Extremities Extremities: Normal. No: Deformity, Tenderness - Neuro Neuro: Alert and Oriented X 3, CNII-XII intact - GCS Eye Opening: Spontaneous Motor: Obeys Commands Verbal: Oriented Total: 15 Results - Vitals Vitals: Vital Signs - 24 hr 11/12/20 11/12/20 11/12/20 16:47 17:12 19:00 Temperature 37.6 C Heart Rate 92 87 80 Respiratory 20 18 16 Rate Blood Pressure 142/128 H 155/67 H 127/65 O2 Saturation 95 98 97 Oxygen O2 Source Nasal cannula - Labs Labs: Laboratory Tests 11/12/20 11/12/20 11/12/20 17:05 17:05 17:20 WBC 6.1 RBC 4.46 Hgb 12.4 Hct 38.2 MCV 85.7 MCH 27.8 MCHC 32.5 RDW 14.2 Plt Count 219 MPV 10.0 Neut # (Auto) 3.8 Lymph # (Auto) 1.3 L [place] # (Auto) 1.0 Eos # (Auto) 0.0 Baso # (Auto) 0.0 Absolute Nucleated RBC 0.00 Nucleated RBC % 0.0 Sodium 133 L Potassium 4.4 Chloride 99 L Carbon Dioxide 26 Anion Gap 8.0 BUN 22 H Creatinine 1.2 H Estimated GFR (MDRD) 43 L Glucose 99 Lactic Acid 0.7 Calcium 9.4 Total Bilirubin 0.9 AST 27 ALT < 10 L Alkaline Phosphatase 100 Total Protein 7.6 Albumin 3.5 Globulin 4.1 Albumin/Globulin Ratio 0.9 L Lipase 47 Urine Color Urine Clarity Urine pH Ur Specific [place] Urine Protein Urine Glucose (UA) Urine Ketones Urine Occult Blood Urine Nitrite Urine Bilirubin Urine Urobilinogen Ur Leukocyte Esterase Urine RBC Urine WBC Ur Squamous Epith Cells Urine Bacteria Ur Microscopic Review Urine Culture Comments Nasal Adenovirus (PCR) Nasal B. parapertussis DNA (PCR) Nasal Coronavir 229E PCR Nasal Coronavir HKU1 PCR Nasal Coronavir NL63 PCR Nasal Coronavir OC43 PCR Nasal Enterovir/Rhinovir PCR Nasal Influenza B PCR Nasal Influenza A PCR Nasal Parainfluen 1 PCR Nasal Parainfluen 2 PCR Nasal Parainfluen 3 PCR Nasal Parainfluen 4 PCR Nasal RSV (PCR) Nasal B.pertussis DNA PCR Nasal C.pneumoniae (PCR) Ricky Human Metapneumo PCR Nasal M.pneumoniae (PCR) Nasal SARS-CoV-2 (PCR) 11/12/20 11/12/20 17:32 18:36 WBC RBC Hgb Hct MCV MCH MCHC RDW Plt Count MPV Neut # (Auto) Lymph # (Auto) [place] # (Auto) Eos # (Auto) Baso # (Auto) Absolute Nucleated RBC Nucleated RBC % Sodium Potassium Chloride Carbon Dioxide Anion Gap BUN Creatinine Estimated GFR (MDRD) Glucose Lactic Acid Calcium Total Bilirubin AST ALT Alkaline Phosphatase Total Protein Albumin Globulin Albumin/Globulin Ratio Lipase Urine Color YELLOW Urine Clarity CLOUDY Urine pH 6.5 Ur Specific [place] 1.020 Urine Protein TRACE Urine Glucose (UA) NEGATIVE Urine Ketones TRACE Urine Occult Blood SMALL H Urine Nitrite NEGATIVE Urine Bilirubin NEGATIVE Urine Urobilinogen 0.2 (NORMAL) Ur Leukocyte Esterase LARGE H Urine RBC 6-10 H Urine WBC >25 H Ur Squamous Epith Cells RARE Squamous Urine Bacteria Few Ur Microscopic Review INDICATED Urine Culture Comments INDICATED Nasal Adenovirus (PCR) NOT DETECTED Nasal B. parapertussis DNA (PCR) NOT DETECTED Nasal Coronavir 229E PCR NOT DETECTED Nasal Coronavir HKU1 PCR NOT DETECTED Nasal Coronavir NL63 PCR NOT DETECTED Nasal Coronavir OC43 PCR NOT DETECTED Nasal Enterovir/Rhinovir PCR NOT DETECTED Nasal Influenza B PCR NOT DETECTED Nasal Influenza A PCR NOT DETECTED Nasal Parainfluen 1 PCR NOT DETECTED Nasal Parainfluen 2 PCR NOT DETECTED Nasal Parainfluen 3 PCR NOT DETECTED Nasal Parainfluen 4 PCR NOT DETECTED Nasal RSV (PCR) NOT DETECTED Nasal B.pertussis DNA PCR NOT DETECTED Nasal C.pneumoniae (PCR) NOT DETECTED Ricky Human Metapneumo PCR NOT DETECTED Nasal M.pneumoniae (PCR) NOT DETECTED Nasal SARS-CoV-2 (PCR) NOT DETECTED - Rads (name of study) CT abd Radiology: Final report received (At her obstructing stone within the left mid ureter with associated prominent left-sided hydroureter hydronephrosis and perinephric fatty stranding. There is also delayed enhancement in the left kidney which is highly suggestive of decreased kidney function.) PD MEDICAL DECISION MAKING - ED course Complexity details: reviewed results, re-evaluated patient, considered differential, d/w patient ED course: 80-year-old female who has a history of alpha-1 antitrypsin deficiency presents to the emergency department with acute left low abdominal pain some dysuria and fevers. She does have a history of recently requiring ureter stent for obstructing UVJ stone. She has no leukocytosis. Lactic acid is negative. Not tachycardic but she did report a fever. Her urine catheterized patient is consistent with infection. A CT of the abdomen does show obstructing UVJ stone with hydronephrosis hydroureter as well as perinephric fat stranding consistent with pyelonephritis. Blood cultures x2 are ordered and pending as well as 1 g of IV ceftriaxone. Patient will require transfer for urological intervention and evaluation. She was last seen by Dr. Gautam at [facility] earlier this month and therefore will initiate the process at [facility] 1923: I have spoken with Dr. Gautam urology at [facility] he agrees that patient should be transferred for further evaluation. In speaking with the transfer center at [facility] will be a number of hours before they are able to contact us with an accepting hospitalist. 2200: Dr. Derrek leal hospitalist at [facility] is graciously accepted patient in transfer. Appropriate COBRA paperwork has been completed and patient updated to plan of care. 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
[2020-11-12 17:21] LABS: ALBUMIN 3.5 g/dL (3.2-5.5); ALBUMIN/GLOBULIN RATIO 0.9 (1.0-2.2); ALKALINE PHOSPHATASE 100 IU/L (42-121); ALT ALANINE AMINOTRANSFERASE < 10 IU/L (10-60); AST ASPARTATE AMINOTRANSFERASE 27 IU/L (10-42); BILIRUBIN,TOTAL 0.9 mg/dL (0.2-1.0); BUN - BLOOD UREA NITROGEN 22 mg/dL (6-20); CALCIUM 9.4 mg/dL (8.5-10.3); CARBON DIOXIDE - CO2 26 mmol/L (21-32); CHLORIDE 99 mmol/L (101-111); CREATININE 1.2 mg/dL (0.4-1.0); GFR - MDRD 43 (>89); GLUCOSE 99 mg/dL (70-100); LIPASE 47 U/L (22-51); POTASSIUM 4.4 mmol/L (3.5-5.0); SODIUM 133 mmol/L (135-145); TOTAL PROTEIN 7.6 g/dL (6.7-8.2)
[2020-11-12] MEDS ORDERED: IOVERSOL 320 100 ML VIAL IVP ONE ×2 (17:27→17:51)
[2020-11-12 17:39] LABS: BILIRUBIN,URINE NEGATIVE (NEGATIVE); CLARITY,URINE CLOUDY (CLEAR); GLUCOSE, URINE (UA) NEGATIVE (NEGATIVE); KETONES,URINE (UA) TRACE mg/dL (NEGATIVE); LEUKOCYTE ESTERASE, URINE LARGE (NEGATIVE); NITRITE,URINE NEGATIVE (NEGATIVE); OCCULT BLOOD,URINE SMALL (NEGATIVE); PH,URINE 6.5 PH (5.0-7.5); PROTEIN,URINE TRACE mg/dL (NEGATIVE); UROBILINOGEN,URINE 0.2 (NORMAL) E.U./dL (NORMAL)
[2020-11-12 17:54] LABS: BACTERIA,URINE Few /HPF (None Seen); SQUAMOUS EPITHELIAL CELL,UR RARE Squamous (<= Few); WBC,URINE >25 /HPF (0-5)
--- NOTE | 2020-11-12 18:02 | CT Report ---
PROCEDURE: Abdomen/Pelvis W INDICATIONS: lower abdominal pain TECHNIQUE: After the administration of intravenous contrast, 5 mm thick sections acquired from the diaphragms to the symphysis. 2.5 mm thick coronal and sagittal reformats were acquired. Optional 10-minute delay ed imaging may be performed from the kidneys to the bladder. For radiation dose reduction, the Checko wing was used: automated exposure control, adjustment of mA and/or kV according to patient size. COMPARISON: 10/18/2020, 09/23/2020, 08/12/2020 FINDINGS: Image quality: Excellent. ABDOMEN: Lung bases: Emphysema this changes can be seen at the lung bases. Heart size is normal. No pericardi al effusion. Inferior ribs are intact. No basal pleural effusions or pneumothorax. There is a smal l to moderate hiatal hernia. Solid organs: Liver is normal in size and enhancement, without lacerations. Diffuse fatty liver inf iltration can be seen. Gallbladder wall does not appear thickened. Biliary system is non-dilated. Pancreas enhances normally, without transection. Spleen is normal in size and enhancement, without lacerations. No adrenal hematomas. There is an obstructing stone seen within the mid left ureter, which is best seen on series 6 image 2 5 that measures 7 mm craniocaudal. There is associated prominent left-sided hydroureter and hydroneph rosis. Left-sided perinephric fat stranding can be seen. There is delayed enhancement of the left kid tfifanie compared to the right. There is a simple appearing left renal cyst posteriorly. No definite nonob structing kidney stones are seen. Peritoneum and bowel: No free fluid or air. Unenhanced bowel loops demonstrate normal wall thicknes s and caliber. Diverticulosis can be seen, without mei findings of active diverticulitis. Nodes and vessels: No retroperitoneal or mesenteric adenopathy. Aorta and inferior vena cava are no rmal in size and enhancement. Miscellaneous: No ventral hernias. PELVIS: Genitourinary: Bladder wall thickness is normal. No calcified bladder stones are seen. This patient is status post hysterectomy. No adnexal masses can be seen. Miscellaneous: No inguinal hernias or adenopathy. Bones: Pelvic ring and hip joints appear intact. No vertebral compression fractures. Moderate le voconvex lumbar scoliosis is seen. Degenerative changes are seen, which are worst at the L2-L3 level. IMPRESSION: 7 mm obstructing stone within the left mid ureter, with associated prominent left-sided hydroureter, hydronephrosis, and perinephric fatty stranding. There is also delayed enhancement of t he left kidney, which is highly suggestive of decreased kidney function. Incidental note is made of: Emphysematous change Small to moderate hiatal hernia Fatty liver infiltration Diverticulosis, without active diverticulitis Hysterectomy Moderate levoconvex scoliosis Focal L2-L3 degenerative change Reviewed by: Chris Sands MD on 11/12/2020 5:01 PM AKDT Approved by: Chris Sands MD on 11/12/2020 5:01 PM AKDT Station ID: [id number]
--- NOTE | 2020-11-12 18:03 | XRAY Report ---
PROCEDURE: Chest 1 View X-Ray INDICATIONS: chest pain TECHNIQUE: One view of the chest was acquired. COMPARISON: 12/19/2019, 01/29/2013. Correlation is also made with the accompanying abdomen pelvis CT, . FINDINGS: Surgical changes and devices: None. Lungs and pleura: No pleural effusions or pneumothorax. Lungs are clear. Mediastinum: Mediastinal contours appear normal. Heart size is normal. Bones and chest wall: No suspicious bony lesions. Age-appropriate degenerative changes are seen. M ild levoconvex scoliotic curvature is seen. Overlying soft tissues appear unremarkable. IMPRESSION: Clear lungs. Reviewed by: Chris Sands MD on 11/12/2020 5:01 PM AKDT Approved by: Chris Sands MD on 11/12/2020 5:01 PM AKDT Station ID: [id number]
[2020-11-12] MEDS ORDERED: cefTRIAXone 1 GM in SODIUM CHLORIDE 0.9% MINIBAG 100 ML IV STA (18:09)
[2020-11-12] MEDS ORDERED: cefTRIAXone 1 GM VIAL ONE (18:25)
[2020-11-12 19:37] LABS: B. PARAPERTUSSIS- RESP PCR PAN NOT DETECTED; B. PERTUSSIS- RESP PCR PANEL NOT DETECTED; C. PNEUMONIAE- RESP PCR PANEL NOT DETECTED; CORONAVIRUS 229E-RESP PCR NOT DETECTED; CORONAVIRUS HKU1-RESP PCR NOT DETECTED; CORONAVIRUS NL63-RESP PCR NOT DETECTED; CORONAVIRUS OC43-RESP PCR NOT DETECTED; HUMAN METAPNEUMOVIRUS NOT DETECTED; INFLUENZA A- RESP PCR PANEL NOT DETECTED; INFLUENZA B - RESP PCR PANEL NOT DETECTED; M. PNEUMONIAE- RESP PCR PANEL NOT DETECTED; PARAINFLUENZA VIRUS 1 NOT DETECTED; PARAINFLUENZA VIRUS 2 NOT DETECTED; PARAINFLUENZA VIRUS 3 NOT DETECTED; PARAINFLUENZA VIRUS 4 NOT DETECTED; RHINOVIRUS/ENTEROVIRUS NOT DETECTED; RSV- RESP PCR PANEL NOT DETECTED; SARS-CoV-2 -RESP PCR PANEL NOT DETECTED
[2020-11-12 22:53] VITALS: BP 153/84
== END 2020-11-12 23:17 | disposition short-term general hospital (02) ==
LOC: ED 16:42
DX: N10 Acute pyelonephritis (principal); N13.6 Pyonephrosis; N28.9 Disorder of kidney and ureter, unspecified; N20.1 Calculus of ureter; E88.01 Alpha-1-antitrypsin deficiency; J44.9 Chronic obstructive pulmonary disease, unspecified; Z20.822 Contact with and (suspected) exposure to COVID-19
CPT/HCPCS: 36415; 51701; 71045; 74177; 80053; 81001; 83605; 83690; 85025; 87040; 87077; 87086; 87150; 87181; 87631; 96361; 96365; 96375; 99284; 99285; J1170; Q9967; 0202U; 81003

== ENCOUNTER 2020-11-12 23:11 | Outpatient (CLI) | payer MEDICARE, BC ==
--- OUTSIDE RECORDS SUMMARY | 2020-11-22 20:38 | EXTERNAL MEDICAL SUMMARY RPT | Continuity of Care Document ---
:1940 Demographics Phone Unavailable Preferred Language Unknown Marital Status Unknown Hindu Affiliation Unknown Race Unknown Ethnic Group Unknown Author Organization [facility] Address [address] [place] [address] Phone Problems date description facility [id number] Obstructing stone, pyleonephritis [facility] Social History date description facility [id number]
== END 2020-11-12 23:12 | disposition short-term general hospital (02) ==
LOC: EMS 23:11
PROVIDERS: ATTEND Registered Nurse
DX: N20.1 Calculus of ureter (principal); E88.01 Alpha-1-antitrypsin deficiency; J44.9 Chronic obstructive pulmonary disease, unspecified
CPT/HCPCS: A0425; A0428

== ENCOUNTER 2020-12-17 20:06 | Emergency (ER) | payer MEDICARE, BC ==
--- OUTSIDE RECORDS SUMMARY | 2020-12-17 20:10 | EXTERNAL MEDICAL SUMMARY RPT | Continuity of Care Document ---
:1940 Demographics Phone Unavailable Preferred Language Unknown Marital Status Unknown Adventist Affiliation Unknown Race Unknown Ethnic Group Unknown Author Organization [facility] Address [address] [place] [address] Phone Problems date description facility [id number] Obstructing stone, pyleonephritis [facility] Social History date description facility [id number]
--- OUTSIDE RECORDS SUMMARY | 2020-12-17 20:21 | EXTERNAL MEDICAL SUMMARY RPT | Continuity of Care Document ---
:1940 Demographics Phone Unavailable Preferred Language Unknown Marital Status Unknown Alevism Affiliation Unknown Race Unknown Ethnic Group Unknown Author Organization [facility] Address [address] [place] [address] Phone Problems date description facility [id number] Obstructing stone, pyleonephritis [facility] Social History date description facility [id number]
--- NOTE | 2020-12-17 20:25 | ED Physician Documentation ---
History of Present Illness - Stated complaint Stated Complaint: FEVER, BODY ACHES, SOA - Chief complaint Chief Complaint: Resp - Additonal information Additional information: [age]-year-old woman with history of alpha-1 antitrypsin belgica deficiency chronically on a couple of liters of nasal cannula oxygen presents with low- grade fever up to 99 noting that her usual is 97 associated with lower abdominal pain and body aches starting yesterday. More recently she has a history of recurrent issues with renal colic and sepsis due to obstructed pyelonephritis. Most recently she was shipped from here a little over a month ago to [place] for removal of a blocked stent due to stone. She states she was instrumented and has no residual nephrolith or ureterolith or stent to her knowledge right now. She denies urinary symptoms except for burning but states that is due to the prior instrumentation. She does have a mild increase of chronic cough. No increase in shortness of breath. Of note on that last visit here when she was sent [place] both blood and urine cultures grew Citrobacter freundii with significant resistant patterns. She does have a sore throat. Review of Systems Ten Systems: 10 systems reviewed and negative Constitutional: reports: Fever, Chills, Myalgias, Fatigue Nose: denies: Rhinorrhea / runny nose Throat: reports: Sore throat Respiratory: reports: Cough. 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 : None HEENT: Macular degeneration Psych: None Musculoskeletal: Osteoarthritis Derm: None - Past Surgical History Past Surgical History: Yes /ADULT PROBATION OFFICER: Hysterectomy - Present Medications Home Medications: Ambulatory Orders Medication Instructions Recorded Confirmed Albuterol [Ventolin Hfa] 2 puffs INH QID 01/29/13 12/17/20 Carbidopa/Levodopa 1.5 each PO HS 01/29/13 12/17/20 [Carbidopa-Levodopa 25-100 Tab] Lansoprazole [Prevacid] 30 mg PO DAILY 01/29/13 12/17/20 ALPRAZolam [Alprazolam] 0.25 mg PO PRN PRN 05/04/19 12/17/20 Amlodipine Besylate [Norvasc] 10 mg PO DAILY 05/04/19 12/17/20 Baclofen [Lioresal] 10 mg PO TID 11/12/20 12/17/20 Tamsulosin HCl [Flomax] 0.4 mg PO DAILY 11/12/20 12/17/20 Cefpodoxime Proxetil [Vantin] 100 mg PO Q12H #20 tablet 12/17/20 - Allergies Allergies/Adverse Reactions: Allergies Allergy/AdvReac Type Severity Reaction Status Date / Time Sulfa (Sulfonamide Allergy Severe Respiratory Verified 12/17/20 20:11 Antibiotics) levofloxacin Allergy Unknown Unknown Verified 12/17/20 20:11 amoxicillin AdvReac Severe Nausea, Verified 12/17/20 20:11 VOMITING codeine [Codeine] AdvReac Nausea Verified 12/17/20 20:11 morphine AdvReac unable to Verified 12/17/20 20:11 urinate oxycodone [Oxycodone] AdvReac Nausea Verified 12/17/20 20:11 prednisone AdvReac anger Verified 12/17/20 20:11 - Social History Does the pt smoke?: No Smoking Status: Never smoker Does the pt drink ETOH?: Yes Does the pt have substance abuse?: No - Immunizations Immunizations are current?: Yes - POLST Patient has POLST: No PD ED PE NORMAL - Vitals Vital signs reviewed: Yes - General General: Alert and oriented X 3, No acute distress - HEENT HEENT: PERRL, EOMI, Other (Visualized portions of the oropharynx are normal.) - Neck Neck: Supple, no meningeal sign, No bony TTP - Cardiac Cardiac: RRR, No murmur - Respiratory Respiratory: No respiratory distress, Clear bilaterally - Abdomen Abdomen: Normal bowel sounds, Soft, Other (Mild lower abdominal tenderness without surgical signs especially in the left lower quadrant.) - Derm Derm: Normal color, Warm and dry - Extremities Extremities: No edema, No calf tenderness / cord - Neuro Neuro: Alert and oriented X 3, Normal speech Results - Vitals Vitals: Vital Signs - 24 hr 12/17/20 12/17/20 12/17/20 20:13 20:15 20:43 Temperature 37.0 C 37 C 37.4 C Heart Rate 86 83 96 Respiratory 20 21 22 Rate Blood Pressure 133/79 H 133/78 H 132/68 H O2 Saturation 96 98 96 12/17/20 12/17/20 22:00 22:26 Temperature 36.9 C 36.8 C Heart Rate 78 80 Respiratory 20 20 Rate Blood Pressure 135/60 H 135/62 H O2 Saturation 100 100 Oxygen O2 Source Nasal cannula Oxygen Flow Rate 2 - Labs Labs: Laboratory Tests 12/17/20 12/17/20 12/17/20 20:32 20:32 20:32 WBC 7.9 RBC 4.20 Hgb 11.3 L Hct 35.7 L MCV 85.0 MCH 26.9 L MCHC 31.7 L RDW 15.5 H Plt Count 263 MPV 10.4 Neut # (Auto) 4.6 Lymph # (Auto) 1.9 [place] # (Auto) 1.3 H Eos # (Auto) 0.1 Baso # (Auto) 0.0 Absolute Nucleated RBC 0.00 Nucleated RBC % 0.0 Sodium 134 L Potassium 3.8 Chloride 101 Carbon Dioxide 26 Anion Gap 7.0 BUN 25 H Creatinine 0.9 Estimated GFR (MDRD) 61 L Glucose 112 H Lactic Acid 0.8 Calcium 9.8 Total Bilirubin 0.7 AST 18 ALT < 10 L Alkaline Phosphatase 108 Total Protein 7.8 Albumin 3.6 Globulin 4.2 Albumin/Globulin Ratio 0.9 L Urine Color Urine Clarity Urine pH Ur Specific [place] Urine Protein Urine Glucose (UA) Urine Ketones Urine Occult Blood Urine Nitrite Urine Bilirubin Urine Urobilinogen Ur Leukocyte Esterase Urine RBC Urine WBC Ur Squamous Epith Cells Urine Bacteria Urine Culture Comments Nasal Adenovirus (PCR) Nasal B. parapertussis DNA (PCR) Nasal Coronavir 229E PCR Nasal Coronavir HKU1 PCR Nasal Coronavir NL63 PCR Nasal Coronavir OC43 PCR Nasal Enterovir/Rhinovir PCR Nasal Influenza B PCR Nasal Influenza A PCR Nasal Parainfluen 1 PCR Nasal Parainfluen 2 PCR Nasal Parainfluen 3 PCR Nasal Parainfluen 4 PCR Nasal RSV (PCR) Nasal B.pertussis DNA PCR Nasal C.pneumoniae (PCR) Ricky Human Metapneumo PCR Nasal M.pneumoniae (PCR) Nasal SARS-CoV-2 (PCR) 12/17/20 12/17/20 21:00 21:15 WBC RBC Hgb Hct MCV MCH MCHC RDW Plt Count MPV Neut # (Auto) Lymph # (Auto) [place] # (Auto) Eos # (Auto) Baso # (Auto) Absolute Nucleated RBC Nucleated RBC % Sodium Potassium Chloride Carbon Dioxide Anion Gap BUN Creatinine Estimated GFR (MDRD) Glucose Lactic Acid Calcium Total Bilirubin AST ALT Alkaline Phosphatase Total Protein Albumin Globulin Albumin/Globulin Ratio Urine Color STRAW Urine Clarity CLOUDY Urine pH 6.0 Ur Specific [place] 1.020 Urine Protein NEGATIVE Urine Glucose (UA) NEGATIVE Urine Ketones NEGATIVE Urine Occult Blood TRACE-INTA Urine Nitrite POSITIVE H Urine Bilirubin NEGATIVE Urine Urobilinogen 0.2 (NORMAL) Ur Leukocyte Esterase LARGE H Urine RBC 0-5 Urine WBC >25 H Ur Squamous Epith Cells MOD Squamous H Urine Bacteria Few Urine Culture Comments NOT INDICATED Nasal Adenovirus (PCR) NOT DETECTED Nasal B. parapertussis DNA (PCR) NOT DETECTED Nasal Coronavir 229E PCR NOT DETECTED Nasal Coronavir HKU1 PCR NOT DETECTED Nasal Coronavir NL63 PCR NOT DETECTED Nasal Coronavir OC43 PCR NOT DETECTED Nasal Enterovir/Rhinovir PCR NOT DETECTED Nasal Influenza B PCR NOT DETECTED Nasal Influenza A PCR NOT DETECTED Nasal Parainfluen 1 PCR NOT DETECTED Nasal Parainfluen 2 PCR NOT DETECTED Nasal Parainfluen 3 PCR NOT DETECTED Nasal Parainfluen 4 PCR NOT DETECTED Nasal RSV (PCR) NOT DETECTED Nasal B.pertussis DNA PCR NOT DETECTED Nasal C.pneumoniae (PCR) NOT DETECTED Ricky Human Metapneumo PCR NOT DETECTED Nasal M.pneumoniae (PCR) NOT DETECTED Nasal SARS-CoV-2 (PCR) NOT DETECTED - Rads (name of study) 2v chest Radiology: EMP read contemporaneously (NAD) PD MEDICAL DECISION MAKING - ED course ED course: 80-year-old woman with history of obstructive pyelonephritis presents with fever and symptoms reminiscent of that. CT demonstrates cystitis and ureteritis with potential left pyelonephritis but no obstruction. White count is normal. Urinalysis is positive noting that has squamous cells but given the presentation we will culture it regardless. She is treated with cefepime here and Vantin to go. Note last culture was fairly resistant and if similar resistance patterns are found she may have to return for potential IV antibiotics. Departure - Departure Disposition: 01 Home, Self Care Clinical Impression: Pyelonephritis Condition: Stable Record reviewed to determine appropriate education?: Yes Instructions: Pyelonephritis Dc Prescriptions: Cefpodoxime Proxetil [Vantin] 100 mg PO Q12H #20 tablet Comments: Both blood and urine cultures are pending, if the changes necessary we will call you. That said if not improving in short order or anytime if worse please return immediately for reevaluation. Prescription was sent electronically to [facility].
[2020-12-17 20:37] LABS: BASOPHILS % (AUTO) 0.1 %; EOSINOPHILS # (AUTO) 0.1 10^3/uL (0.0-0.7); HCT - HEMATOCRIT 35.7 % (37.0-47.0); HGB - HEMOGLOBIN 11.3 g/dL (12.0-16.0); LYMPHOCYTES # (AUTO) 1.9 10^3/uL (1.5-3.5); LYMPHOCYTES % (AUTO) 23.5 %; MEAN CORPUSCULAR HEMOGLOBIN 26.9 pg (27.0-31.0); MEAN CORPUSCULAR HGB CONC 31.7 g/dL (32.0-36.0); MEAN PLATELET VOLUME 10.4 fL (7.9-10.8); MONOCYTES # (AUTO) 1.3 10^3/uL (0.0-1.0); MONOCYTES % (AUTO) 16.8 %; NEUTROPHILS # (AUTO) 4.6 10^3/uL (1.5-6.6); NEUTROPHILS % (AUTO) 58.2 %; PLT - PLATELET COUNT 263 10^3/uL (130-450); RED CELL DISTRIBUTION WIDTH 15.5 % (12.0-15.0); WHITE BLOOD COUNT 7.9 x10^3/uL (4.8-10.8)
[2020-12-17 20:51] LABS: ALBUMIN 3.6 g/dL (3.2-5.5); ALBUMIN/GLOBULIN RATIO 0.9 (1.0-2.2); ALKALINE PHOSPHATASE 108 IU/L (42-121); ALT ALANINE AMINOTRANSFERASE < 10 IU/L (10-60); AST ASPARTATE AMINOTRANSFERASE 18 IU/L (10-42); BILIRUBIN,TOTAL 0.7 mg/dL (0.2-1.0); BUN - BLOOD UREA NITROGEN 25 mg/dL (6-20); CALCIUM 9.8 mg/dL (8.5-10.3); CARBON DIOXIDE - CO2 26 mmol/L (21-32); CHLORIDE 101 mmol/L (101-111); CREATININE 0.9 mg/dL (0.4-1.0); GFR - MDRD 61 (>89); GLUCOSE 112 mg/dL (70-100); POTASSIUM 3.8 mmol/L (3.5-5.0); SODIUM 134 mmol/L (135-145); TOTAL PROTEIN 7.8 g/dL (6.7-8.2)
[2020-12-17] MEDS ORDERED: IOPAMIDOL-300 100 ML VIAL ONE (21:09)
--- NOTE | 2020-12-17 21:23 | XRAY Report ---
PROCEDURE: Chest 2 View X-Ray INDICATIONS: cough TECHNIQUE: 2 view(s) of the chest. COMPARISON: 12/19/2019 chest plain films. FINDINGS: Surgical changes and devices: None. Lungs and pleura: No pleural effusions or pneumothorax. Lungs are abnormal with severe COPD. Mediastinum: Mediastinal contours are normal. Heart size is normal. Bones and chest wall: No suspicious bony abnormalities. Soft tissues appear unremarkable. IMPRESSION: Severe COPD, no pneumonia found. Reviewed by: Eduardo Justice MD on 12/17/2020 9:22 PM PDT Approved by: Eduardo Justice MD on 12/17/2020 9:22 PM PDT Station ID: [id number]
[2020-12-17 21:26] LABS: BILIRUBIN,URINE NEGATIVE (NEGATIVE); GLUCOSE, URINE (UA) NEGATIVE (NEGATIVE); KETONES,URINE (UA) NEGATIVE (NEGATIVE); LEUKOCYTE ESTERASE, URINE LARGE (NEGATIVE); NITRITE,URINE POSITIVE (NEGATIVE); OCCULT BLOOD,URINE TRACE-INTA (NEGATIVE); PROTEIN,URINE NEGATIVE (NEGATIVE); UROBILINOGEN,URINE 0.2 (NORMAL) E.U./dL (NORMAL)
[2020-12-17 21:28] LABS: CLARITY,URINE CLOUDY (CLEAR)
[2020-12-17 21:35] LABS: WBC,URINE >25 /HPF (0-5)
[2020-12-17 21:36] LABS: BACTERIA,URINE Few /HPF (None Seen); RBC,URINE 0-5 /HPF (0-5); SQUAMOUS EPITHELIAL CELL,UR MOD Squamous (<= Few)
[2020-12-17] MEDS ORDERED: CEFEPIME 2 GM in SODIUM CHLORIDE 0.9% MINIBAG 100 ML IV STA (21:46)
[2020-12-17] MEDS ORDERED: IOPAMIDOL-300 100 ML VIAL IVP ONE (22:05)
[2020-12-17 22:31] LABS: B. PARAPERTUSSIS- RESP PCR PAN NOT DETECTED; B. PERTUSSIS- RESP PCR PANEL NOT DETECTED; C. PNEUMONIAE- RESP PCR PANEL NOT DETECTED; CORONAVIRUS 229E-RESP PCR NOT DETECTED; CORONAVIRUS HKU1-RESP PCR NOT DETECTED; CORONAVIRUS NL63-RESP PCR NOT DETECTED; CORONAVIRUS OC43-RESP PCR NOT DETECTED; HUMAN METAPNEUMOVIRUS NOT DETECTED; INFLUENZA A- RESP PCR PANEL NOT DETECTED; INFLUENZA B - RESP PCR PANEL NOT DETECTED; M. PNEUMONIAE- RESP PCR PANEL NOT DETECTED; PARAINFLUENZA VIRUS 1 NOT DETECTED; PARAINFLUENZA VIRUS 2 NOT DETECTED; PARAINFLUENZA VIRUS 3 NOT DETECTED; PARAINFLUENZA VIRUS 4 NOT DETECTED; RHINOVIRUS/ENTEROVIRUS NOT DETECTED; RSV- RESP PCR PANEL NOT DETECTED; SARS-CoV-2 -RESP PCR PANEL NOT DETECTED
[2020-12-17 23:19] VITALS: BP 119/56
--- NOTE | 2020-12-18 13:26 | CT Report ---
PROCEDURE: Abdomen/Pelvis W INDICATIONS: IV only, fever, low abd pain CONTRAST: IV CONTRAST: Isovue 300 ml: 100 PO CONTRAST: *NO PO CONTRAST TECHNIQUE: After the administration of nonionic contrast, 5 mm thick sections acquired from the diaphragms to th e symphysis. 5 mm thick coronal and sagittal reformats were acquired. For radiation dose reduction, the following was used: automated exposure control, adjustment of mA and/or kV according to patient size. COMPARISON: 11/12/2020 FINDINGS: Image quality: Excellent. ABDOMEN: Lung bases: Emphysematous changes of the lung bases with scarring. Heart size is within normal limits . Small hiatal hernia. Solid organs: Liver and spleen are normal in size and enhancement. Gallbladder is unremarkable Luis Miguel iary system is non dilated. Pancreas enhances normally. Punctate calcifications which may suggest ch ronic pancreatitis. No adrenal nodules. The right kidney is normal in size and enhancement. Stable re nal cysts. Prominence of the renal pelvis as well as mild prominence of the left ureter are slightly improved from prior examination. There is slightly decreased enhancement of the superior pole of the left kidney. There is increased enhancement of the collecting system on the left. The previously note d obstructing stone within the proximal left ureter is not identified on today's examination. There i s mild inflammation surrounding the left collecting system. Peritoneum and bowel: Bowel loops demonstrate normal wall thickness and caliber. No free fluid or a ir. Scattered sigmoid colon diverticula. No evidence of diverticulitis. No evidence of appendicitis. Nodes and vessels: No retroperitoneal or mesenteric adenopathy by size criteria. There is a 1.1 cm s hort axis lymph node along the external iliac artery slightly increased in size from comparison exam. Node Aorta and inferior vena cava are normal in size. Diffuse aortic and branch vessel calcificatio ns. Miscellaneous: Fat-containing periumbilical hernia. PELVIS: Genitourinary: The bladder is only mildly distended limiting evaluation. There is however mildly diff use wall thickening with questionable surrounding inflammation. Miscellaneous: No inguinal hernias. There is inguinal adenopathy with a single left sided inguinal c mary lymph node measuring 1.5 cm in greatest diameter. There is mild soft tissue inflammation noted a djacently. Bones: No suspicious bony lesions. Diffuse degenerative changes of the hips and spine worse at L2-L 3. There is unchanged levoscoliotic curvature centered at L2-L3. No vertebral body compression fractu res. IMPRESSION: Wall thickening of the bladder with mild prominence of the left ureter and pelvis with increased enha ncement is concerning for cystitis and pyelitis. Questionable decreased enhancement of the superior p ole of the left kidney may also suggest pyelonephritis. Recommend correlation with urinalysis. The pr eviously noted left ureteral stone is not identified on today's examination. Left inguinal adenopathy along with a prominent left external iliac lymph node. There is subtle infla mmation adjacent to the left inguinal region. Recommend correlation for infectious process. Diverticulosis. Emphysema. Other chronic findings as above. Reviewed by: Jelani Wilks DO on 12/18/2020 12:25 PM ALFREDA Approved by: Jelani Wilks DO on 12/18/2020 12:25 PM ALFREDA Station ID: [id number]
== END 2020-12-17 23:24 | disposition home or self-care (01) ==
LOC: ED 20:06
DX: N12 Tubulo-interstitial nephritis, not specified as acute or chronic (principal); R05 Cough; Z20.822 Contact with and (suspected) exposure to COVID-19; J44.9 Chronic obstructive pulmonary disease, unspecified; I10 Essential (primary) hypertension
CPT/HCPCS: 36415; 71046; 74177; 80053; 81001; 83605; 85025; 87040; 87086; 87181; 87631; 96365; 99284; Q9967; 0202U

== ENCOUNTER 2020-12-22 16:51 | Outpatient (CLI) | payer MEDICARE, BC ==
--- NOTE | 2020-12-22 18:50 | Ultrasound Report ---
PROCEDURE: Retroperitoneal INDICATIONS: BILAT FLANK PAIN TECHNIQUE: Real-time scanning was performed of the retroperitoneal organs, with image documentation. COMPARISON: None. FINDINGS: Kidneys: Kidneys are normal in size. Right kidney measures 10.5 cm long; left kidney measures 11.0 cm long. Right renal cortical thickness is 1.30 cm; left renal cortical thickness is 1.2 cm. No alyce id masses, hydronephrosis, or nephrolithiasis. Left renal cysts are present, largest of which is in the inferior pole measuring 61 mm, which demonstrates septations. Urinary bladder prevoid volume is 186 cc. IMPRESSION: 1. No hydronephrosis. 2. Septated left inferior pole renal cyst. Reviewed by: Brian Castorena MD on 12/22/2020 6:48 PM PDT Approved by: Brian Castorena MD on 12/22/2020 6:48 PM PDT Station ID: [id number]
== END 2020-12-22 16:52 | disposition home or self-care (01) ==
LOC: DI 16:51
PROVIDERS: ATTEND Internal Medicine
DX: N28.1 Cyst of kidney, acquired (principal)

== ENCOUNTER 2020-12-22 18:52 | Outpatient (CLI) | payer MEDICARE, BC ==
--- NOTE | 2020-12-28 09:13 | CT Report ---
PROCEDURE: Abdomen/Pelvis WO INDICATIONS: L URETERAL STONE TECHNIQUE: Noncontrast 5 mm thick sections acquired from the diaphragms to the symphysis. 5 mm coronal and sagi ttal reformats were then performed. For radiation dose reduction, the following was used: automated exposure control, adjustment of mA and/or kV according to patient size. COMPARISON: 12/17/2020 FINDINGS: Lower thorax: Advanced bullous emphysema noted in both lung bases. Small hiatal hernia remains unchan ged. Liver: Normal in size and attenuation. No contour deformity present. Biliary system: No calcified cholelithiasis or pericholecystic inflammation. No evidence of bile du ct dilatation. Pancreas: Unremarkable without mass or inflammation evident. Small pancreatic calcifications may ref lect prior pancreatitis, stable from the prior. Spleen: Normal in size and density. Adrenals: Normal morphology and density. Reproductive system: Unremarkable as visualized. Urinary system: Left renal cortical and peripelvic cysts remain unchanged measuring up to 3.5 cm. No evidence of renal calculi or hydronephrosis. Urinary bladder unremarkable. Gastrointestinal system: The bowel appears unremarkable with no evidence of bowel obstruction or inf lammation. The stomach appears unremarkable. Multiple diverticula arise from the sigmoid colon withou t evidence of diverticulitis. Appendix: No findings to suggest acute appendicitis. Peritoneal spaces: No mesenteric or retroperitoneal adenopathy. No free air. No free fluid. Vasculature: Atherosclerotic calcification of the abdominal aorta without evidence of aneurysm. Musculoskeletal: Normal bone mineralization. No acute fractures. Small periumbilical ventral hernia stable. Multilevel degenerative disc disease and arthropathy present in the lower lumbar spine resul ting in convex left lumbar scoliosis, stable. 2.3 x 1.2 cm left inguinal lymph node remains unchanged from the prior. IMPRESSION:? 1. No evidence of ureteral calculus or obstructive uropathy throughout the exam. 2. Left-sided renal cortical and peripelvic cyst stable. 3. Chronic changes including hiatal hernia, diverticulosis, degenerative lumbar spine advanced pulmon elsy emphysema remains stable from prior exam. In particular, there is a 2.3 x 1.2 cm left inguinal ly mph node, also stable Reviewed by: Isra David MD on 12/22/2020 6:35 PM AKDT Approved by: Isra David MD on 12/22/2020 6:35 PM AKDT Station ID: [id number]
== END 2020-12-22 18:53 | disposition home or self-care (01) ==
LOC: DI 18:52
PROVIDERS: ATTEND Urology
DX: N28.1 Cyst of kidney, acquired (principal); K44.9 Diaphragmatic hernia without obstruction or gangrene; K57.30 Diverticulosis of large intestine without perforation or abscess without bleeding; M51.36 Other intervertebral disc degeneration, lumbar region; J43.8 Other emphysema

== ENCOUNTER 2021-01-03 13:47 | Outpatient (CLI) | payer MEDICARE, BC | END 2021-01-03 13:48 | disposition home or self-care (01) | LOC: RT 13:47 | PROVIDERS: ATTEND Internal Medicine | DX: J44.9 Chronic obstructive pulmonary disease, unspecified (principal) | CPT/HCPCS: 94060; 94729 ==

== ENCOUNTER 2021-01-12 17:52 | Outpatient (CLI) | payer MEDICARE, BC | END 2021-01-12 17:53 | disposition critical access hospital (66) | LOC: EMS 17:52 | DX: K62.5 Hemorrhage of anus and rectum (principal) | CPT/HCPCS: A0425; A0429 ==

== ENCOUNTER 2021-01-12 18:05 | Emergency (ER) | payer MEDICARE, BC ==
--- OUTSIDE RECORDS SUMMARY | 2021-01-12 18:16 | EXTERNAL MEDICAL SUMMARY RPT | Continuity of Care Document ---
:1940 Demographics Phone Unavailable Preferred Language Unknown Marital Status Unknown Holiness Affiliation Unknown Race Unknown Ethnic Group Unknown Author Organization [facility] Address [address] [id number] Phone Allergies Encounters Medications Problems date description facility [id number] Obstructing stone, pyleonephritis [facility] Results
[2021-01-12 20:08] LABS: BASOPHILS % (AUTO) 0.1 %; EOSINOPHILS % (AUTO) 0.1 %; HCT - HEMATOCRIT 33.6 % (37.0-47.0); LYMPHOCYTES # (AUTO) 0.8 10^3/uL (1.5-3.5); LYMPHOCYTES % (AUTO) 10.4 %; MEAN CORPUSCULAR HEMOGLOBIN 26.8 pg (27.0-31.0); MEAN CORPUSCULAR HGB CONC 32.7 g/dL (32.0-36.0); MEAN PLATELET VOLUME 9.6 fL (7.9-10.8); MONOCYTES % (AUTO) 12.8 %; NEUTROPHILS # (AUTO) 5.9 10^3/uL (1.5-6.6); NEUTROPHILS % (AUTO) 76.2 %; PLT - PLATELET COUNT 345 10^3/uL (130-450); RED CELL DISTRIBUTION WIDTH 15.6 % (12.0-15.0); WHITE BLOOD COUNT 7.7 x10^3/uL (4.8-10.8)
--- NOTE | 2021-01-12 20:11 | ED Physician Documentation ---
History of Present Illness - Stated complaint Stated Complaint: FEMALE GI - Chief complaint Chief Complaint: General - Additonal information Additional information: 80-year-old woman who has a history of alpha-1 antitrypsin deficiency who req uires baseline home O2 presents to the emergency department with concern of rectal bleeding. She reports that she had been constipated for 3 days. She finally was able to have a large hard bowel movement on the toilet this morning however it was shortly thereafter followed by bloody diarrhea. She is concerned that she may have ruptured a hemorrhoid. She also reports increasing lower abdominal tenderness. Review of Systems Constitutional: denies: Fever, Chills Eyes: reports: Loss of vision Ears: reports: Reviewed and negative Nose: reports: Reviewed and negative Throat: reports: Reviewed and negative Cardiac: reports: Reviewed and negative Respiratory: reports: Reviewed and negative GI: reports: Abdominal Pain, Bloody / black stool : reports: Reviewed and negative Skin: reports: Reviewed and negative Musculoskeletal: reports: Reviewed and negative PD PAST MEDICAL HISTORY - Past Medical History Past Medical History: Yes Cardiovascular: Hypertension Respiratory: Asthma, COPD, Other Endocrine/Autoimmune: None GI: GERD, Diverticulitis 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 : None HEENT: Macular degeneration Psych: None Musculoskeletal: Osteoarthritis Derm: None - Past Surgical History Past Surgical History: Yes /FLOOR ASSOCIATE: Hysterectomy - Present Medications Home Medications: Ambulatory Orders Medication Instructions Recorded Confirmed Albuterol [Ventolin Hfa] 2 puffs INH QID 01/29/13 01/12/21 Carbidopa/Levodopa 1.5 each PO HS 01/29/13 01/12/21 [Carbidopa-Levodopa 25-100 Tab] Lansoprazole [Prevacid] 30 mg PO DAILY 01/29/13 01/12/21 ALPRAZolam [Alprazolam] 0.25 mg PO PRN PRN 05/04/19 01/12/21 Amlodipine Besylate [Norvasc] 10 mg PO DAILY 05/04/19 01/12/21 Baclofen [Lioresal] 10 mg PO TID 11/12/20 01/12/21 Tamsulosin HCl [Flomax] 0.4 mg PO DAILY 11/12/20 01/12/21 Cefdinir 300 mg PO BID #14 cap 01/12/21 polyethylene glycoL 3350 [Miralax] 17 gm PO DAILY PRN #1 bottle 01/12/21 - Allergies Allergies/Adverse Reactions: Allergies Allergy/AdvReac Type Severity Reaction Status Date / Time Sulfa (Sulfonamide Allergy Severe Respiratory Verified 01/12/21 18:07 Antibiotics) levofloxacin Allergy Unknown Unknown Verified 01/12/21 18:07 amoxicillin AdvReac Severe Nausea, Verified 01/12/21 18:07 VOMITING codeine [Codeine] AdvReac Nausea Verified 01/12/21 18:07 morphine AdvReac unable to Verified 01/12/21 18:07 urinate oxycodone [Oxycodone] AdvReac Nausea Verified 01/12/21 18:07 prednisone AdvReac anger Verified 01/12/21 18:07 - Social History Does the pt smoke?: No Smoking Status: Never smoker Does the pt drink ETOH?: Yes Does the pt have substance abuse?: No - Immunizations Immunizations are current?: Yes - POLST Patient has POLST: No PD ED PE EXPANDED - General General: Alert, No acute distress - Cardiac Cardiac: Regular Rate, Radial strong equal, Pedal strong equal, Cap refill < 2 sec - Respiratory Respiratory: Clear to ausultation dexter. No: Distress, Labored - Abdomen Abdomen: Normal Bowel sounds. No: Tender to palpation - Rectal Rectal: Hemorrhoid, Normal Tone, Other (Digital rectal exam reveals mei hematochezia.) - Extremities Extremities: Normal. No: Deformity, Tenderness - Neuro Neuro: Alert and Oriented X 3, CNII-XII intact Results - Vitals Vitals: Vital Signs - 24 hr 01/12/21 01/12/21 01/12/21 18:07 19:58 20:48 Temperature 36.5 C Heart Rate 89 87 99 Respiratory 16 16 23 Rate Blood Pressure 138/58 H 128/56 L 133/102 H O2 Saturation 98 100 99 01/12/21 21:54 Temperature Heart Rate 67 Respiratory 16 Rate Blood Pressure 126/47 L O2 Saturation 100 Oxygen O2 Source Nasal cannula - Labs Labs: Laboratory Tests 01/12/21 01/12/21 01/12/21 20:01 20:01 20:14 WBC 7.7 RBC 4.10 L Hgb 11.0 L Hct 33.6 L MCV 82.0 MCH 26.8 L MCHC 32.7 RDW 15.6 H Plt Count 345 MPV 9.6 Neut # (Auto) 5.9 Lymph # (Auto) 0.8 L [place] # (Auto) 1.0 Eos # (Auto) 0.0 Baso # (Auto) 0.0 Absolute Nucleated RBC 0.00 Nucleated RBC % 0.0 PT 15.0 H INR 1.4 H Sodium 132 L Potassium 3.3 L Chloride 95 L Carbon Dioxide 30 Anion Gap 7.0 BUN 17 Creatinine 0.8 Estimated GFR (MDRD) 69 L Glucose 99 Calcium 9.6 Total Bilirubin 0.7 AST 17 ALT < 10 L Alkaline Phosphatase 101 Total Protein 7.7 Albumin 3.1 L Globulin 4.6 H Albumin/Globulin Ratio 0.7 L Lipase 28 PD MEDICAL DECISION MAKING - ED course Complexity details: reviewed results, re-evaluated patient, d/w patient ED course: 80-year-old female presents the emergency department for evaluation of rectal bleeding. She has a history of alpha-1 antitrypsin deficiency. She is not anticoagulated. She is chronically on home O2. She reported constipation for 3 days which this morning she had a large hard formed bowel movement that was briefly thereafter followed by bloody diarrhea and increased rectal pain. Departure - Departure Clinical Impression: Rectal bleeding, Colitis Condition: Stable Record reviewed to determine appropriate education?: Yes Instructions: ED Hematochezia Stable Prescriptions: Cefdinir 300 mg PO BID #14 cap polyethylene glycoL 3350 [Miralax] 17 gm PO DAILY PRN #1 bottle PRN Reason: Constipation Comments: Bertha you are seen in the emergency department tonight for rectal bleeding after a large and painful bowel movement that was followed by bloody diarrhea. The labs that we completed today showed no worrisome findings. You do have a mild anemia however your hemoglobin is really unchanged from recent labs. We did do a CT scan of your abdomen Colitis (inflammation) in your transverse descending and sigmoid colon. You also have a fair amount of stool within the small intestine and ascending colon. Please fill the prescription for MiraLAX and take once or twice a day until you have 3-4 watery bowel movements. Please fill the prescription for the cefdinir and begin taking twice daily for the next week. It is important that you discuss this emergency department visit with your primary care provider. You should be referred to the morgue keeper for a repeat colonoscopy And further evaluation of the colitis/inflammation in the colon. Return to the emergency department if you develop fevers, have worsening rectal bleeding, feel faint or have fevers
[2021-01-12 20:24] LABS: INR 1.4 (0.8-1.2)
[2021-01-12 20:24] LABS: ALBUMIN 3.1 g/dL (3.2-5.5); ALBUMIN/GLOBULIN RATIO 0.7 (1.0-2.2); ALKALINE PHOSPHATASE 101 IU/L (42-121); ALT ALANINE AMINOTRANSFERASE < 10 IU/L (10-60); AST ASPARTATE AMINOTRANSFERASE 17 IU/L (10-42); BILIRUBIN,TOTAL 0.7 mg/dL (0.2-1.0); BUN - BLOOD UREA NITROGEN 17 mg/dL (6-20); CALCIUM 9.6 mg/dL (8.5-10.3); CARBON DIOXIDE - CO2 30 mmol/L (21-32); CHLORIDE 95 mmol/L (101-111); CREATININE 0.8 mg/dL (0.4-1.0); GFR - MDRD 69 (>89); GLUCOSE 99 mg/dL (70-100); LIPASE 28 U/L (22-51); POTASSIUM 3.3 mmol/L (3.5-5.0); SODIUM 132 mmol/L (135-145); TOTAL PROTEIN 7.7 g/dL (6.7-8.2)
[2021-01-12] MEDS ORDERED: IOVERSOL 320 100 ML VIAL IVP ONE ×3 (21:17→22:17)
[2021-01-12 23:19] VITALS: BP 137/63
--- NOTE | 2021-01-13 09:15 | CT Report ---
PROCEDURE: Abdomen/Pelvis W INDICATIONS: constipation them hematochezia CONTRAST: IV CONTRAST: Optiray 320 ml: 100 PO CONTRAST: *NO PO CONTRAST TECHNIQUE: After the administration of intravenous contrast, 5 mm thick sections acquired from the diaphragms to the symphysis. 5 mm thick coronal and sagittal reformats were acquired. For radiation dose reducti on, the following was used: automated exposure control, adjustment of mA and/or kV according to prem ent size. COMPARISON: None. FINDINGS: Image quality: Excellent. ABDOMEN: Lung bases: Lung bases are clear. Heart size is normal. Solid organs: Liver and spleen are normal in size and enhancement. Gallbladder is unremarkable. Bi liary system is non dilated. Pancreas enhances normally. No adrenal nodules. Multiple left renal cy sts. No hydronephrosis or urinary tract calculus identified. Peritoneum and bowel: Wall thickening and edema throughout the transverse, descending, and sigmoid co roshan. Nodes and vessels: No retroperitoneal or mesenteric adenopathy by size criteria. Aorta and inferior vena cava are normal in size. Miscellaneous: Small periumbilical fat-containing hernia. PELVIS: Genitourinary: Bladder wall thickness is normal. Status post hysterectomy. No adnexal or ovarian ma ss demonstrated by CT. Miscellaneous: No inguinal hernias or adenopathy. Bones: No suspicious lytic or blastic osseous lesion. Vertebral body heights maintained. Degenerative changes. IMPRESSION: Nonspecific acute colitis pattern in the transverse, descending, and sigmoid colon. Reviewed by: Timbo Oglesby MD on 01/13/2021 9:14 AM PDT Approved by: Timbo Oglesby MD on 01/13/2021 9:14 AM PDT Station ID: [id number]
== END 2021-01-12 23:15 | disposition home or self-care (01) ==
LOC: EDUNIT# → ED 18:05
DX: K52.9 Noninfective gastroenteritis and colitis, unspecified (principal); E88.01 Alpha-1-antitrypsin deficiency; Z99.81 Dependence on supplemental oxygen
CPT/HCPCS: 36415; 74177; 80053; 83690; 85025; 85610; 99284; Q9967; 80048

== ENCOUNTER 2021-04-22 15:23 | Emergency (ER) | payer MEDICARE, BC ==
[2021-04-22] MEDS ORDERED: LIDOCAINE 1% 2 ML VIAL MC ONE (15:41)
[2021-04-22] MEDS ORDERED: cefTRIAXone 1 GM VIAL IM STA (15:41)
--- NOTE | 2021-04-22 15:43 | ED Physician Documentation ---
PD HPI FEMALE - Stated complaint Stated Complaint: FEMALE - Chief complaint Chief Complaint: UTI - History obtained from History obtained from: Patient (She developed suprapubic pain and dysuria last week. She took about 3 days of Ceftin which was helpful, but it was leftover from a prior thing so she ran out and now the symptoms have recurred. She denies flank pain, or fevers. 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 : None HEENT: Macular degeneration Psych: None Musculoskeletal: Osteoarthritis Derm: None - Past Surgical History Past Surgical History: Yes /MEDICAID BILLING CLERK: Hysterectomy - Present Medications Home Medications: Ambulatory Orders Medication Instructions Recorded Confirmed Albuterol [Ventolin Hfa] 2 puffs INH QID 01/29/13 01/12/21 Carbidopa/Levodopa 1.5 each PO HS 01/29/13 01/12/21 [Carbidopa-Levodopa 25-100 Tab] Lansoprazole [Prevacid] 30 mg PO DAILY 01/29/13 01/12/21 ALPRAZolam [Alprazolam] 0.25 mg PO PRN PRN 05/04/19 01/12/21 Amlodipine Besylate [Norvasc] 10 mg PO DAILY 05/04/19 01/12/21 Baclofen [Lioresal] 10 mg PO TID 11/12/20 01/12/21 Tamsulosin HCl [Flomax] 0.4 mg PO DAILY 11/12/20 01/12/21 Cefdinir 300 mg PO BID #14 cap 01/12/21 polyethylene glycoL 3350 [Miralax] 17 gm PO DAILY PRN #1 bottle 01/12/21 Cefuroxime Axetil [Cefuroxime] 500 mg PO BID #20 tablet 04/22/21 - Allergies Allergies/Adverse Reactions: Allergies Allergy/AdvReac Type Severity Reaction Status Date / Time Sulfa (Sulfonamide Allergy Severe Respiratory Verified 04/22/21 15:26 Antibiotics) levofloxacin Allergy Unknown Unknown Verified 04/22/21 15:26 amoxicillin AdvReac Severe Nausea, Verified 04/22/21 15:26 VOMITING codeine [Codeine] AdvReac Nausea Verified 04/22/21 15:26 morphine AdvReac unable to Verified 04/22/21 15:26 urinate oxycodone [Oxycodone] AdvReac Nausea Verified 04/22/21 15:26 prednisone AdvReac anger Verified 04/22/21 15:26 - Social History Does the pt smoke?: No Smoking Status: Never smoker Does the pt drink ETOH?: Yes Does the pt have substance abuse?: No - Immunizations Immunizations are current?: Yes - POLST Patient has POLST: No PD ED PE NORMAL - Vitals Vital signs reviewed: Yes - General General: Alert and oriented X 3, No acute distress - Abdomen Abdomen: Non tender - Back Back: No CVA TTP - Neuro Neuro: Alert and oriented X 3, Normal speech Results - Vitals Vitals: Vital Signs - 24 hr 04/22/21 15:26 Temperature 37 C Oxygen O2 Source Room air - Labs Labs: Laboratory Tests 04/22/21 15:35 Urine Color LT. YELLOW Urine Clarity CLOUDY Urine pH 6.5 Ur Specific [place] <=1.005 Urine Protein 100 H Urine Glucose (UA) NEGATIVE Urine Ketones NEGATIVE Urine Occult Blood LARGE H Urine Nitrite NEGATIVE Urine Bilirubin NEGATIVE Urine Urobilinogen 0.2 (NORMAL) Ur Leukocyte Esterase LARGE H Urine RBC 11-25 H Urine WBC >25 H Ur Squamous Epith Cells NONE SEEN Urine Bacteria None Seen Ur Microscopic Review INDICATED Urine Culture Comments INDICATED Departure - Departure Disposition: 01 Home, Self Care Clinical Impression: Cystitis Condition: Good Record reviewed to determine appropriate education?: Yes Instructions: ED UTI Cystitis Female Prescriptions: Cefuroxime Axetil [Cefuroxime] 500 mg PO BID #20 tablet Comments: We will culture your urine, the results should be done in 48-72 hours. If an antibiotic change is necessary we will call you. Return if worse in the meantime, especially if you develop increasing flank pain, fevers, or cannot keep down the medication. Discharge Date/Time: 04/22/21 16:22
[2021-04-22 15:47] LABS: BILIRUBIN,URINE NEGATIVE (NEGATIVE); GLUCOSE, URINE (UA) NEGATIVE (NEGATIVE); KETONES,URINE (UA) NEGATIVE (NEGATIVE); LEUKOCYTE ESTERASE, URINE LARGE (NEGATIVE); NITRITE,URINE NEGATIVE (NEGATIVE); OCCULT BLOOD,URINE LARGE (NEGATIVE); PH,URINE 6.5 PH (5.0-7.5); PROTEIN,URINE 100 mg/dL (NEGATIVE); UROBILINOGEN,URINE 0.2 (NORMAL) E.U./dL (NORMAL)
[2021-04-22 15:49] LABS: CLARITY,URINE CLOUDY (CLEAR)
[2021-04-22 16:10] LABS: BACTERIA,URINE None Seen /HPF (None Seen); SQUAMOUS EPITHELIAL CELL,UR NONE SEEN (<= Few); WBC,URINE >25 /HPF (0-5)
== END 2021-04-22 16:22 | disposition home or self-care (01) ==
LOC: ED 15:23
DX: N30.90 Cystitis, unspecified without hematuria (principal)
CPT/HCPCS: 81001; 81003; 87086; 87181; 96372; 99283

== ENCOUNTER 2021-06-01 13:44 | Outpatient (CLI) | payer MEDICARE, BC ==
--- NOTE | 2021-06-02 09:27 | Mammography Report ---
BILATERAL DIGITAL SCREENING MAMMOGRAM 3D/2D: 06/01/2021 CLINICAL: Routine screening. Comparison is made to exams dated: 11/04/2018 mammogram, 02/28/2018 mammogram, 02/05/2018 mammogram, mammogram, 12/26/2015 mammogram, and 12/08/2014 mammogram - [facility]. There are scattered fibroglandular elements in both breasts. There are grouped fine punctate calcifications in the right breast at 6 o'clock middle depth. No other significant masses, calcifications, or other findings are seen in either breast. IMPRESSION: INCOMPLETE: NEEDS ADDITIONAL IMAGING EVALUATION The grouped fine punctate calcifications in the right breast are indeterminate. Mediolateral, spot m agnification, and additional views are recommended. This exam was interpreted at Station ID: [id number]. NOTE: For mammograms, a report in lay terms will be sent to the patient. Approximately 15% of breast malignancies will not be visualized mammographically. In the management of a palpable breast mass, a negative mammogram must not discourage biopsy of a clinically suspicious lesion. Electronically Signed By: Trell Méndez M.D. ddp/penrad:06/01/2021 16:07:30 ACR BI-RADS Category 0: Incomplete 3340F PARENCHYMAL PATTERN: (A) - The breast(s) demonstrate(s) scattered fibroglandular densities. BI-RADS CATEGORY: (0) - 0 RECOMMENDATION: (ADDMAM) - Recommend additional mammographic views. [id number] Immediate follow-up LATERALITY: (B)
== END 2021-06-01 13:45 | disposition home or self-care (01) ==
LOC: DI 13:44
PROVIDERS: ATTEND Internal Medicine
DX: Z12.31 Encounter for screening mammogram for malignant neoplasm of breast (principal); R92.1 Mammographic calcification found on diagnostic imaging of breast

== ENCOUNTER 2021-07-17 08:55 | Outpatient (CLI) | payer MEDICARE, BC ==
--- NOTE | 2021-07-18 08:19 | Mammography Report ---
UNILATERAL RIGHT DIGITAL DIAGNOSTIC MAMMOGRAM 3D/2D: 07/17/2021 CLINICAL: Patient returns for magnification views of microcalcifications in the right breast. Comparison is made to exams dated: 06/01/2021 mammogram, 11/04/2018 mammogram, 02/28/2018 mammogram, mammogram, 01/04/2017 mammogram, and 12/26/2015 mammogram - [facility]. Ther e are scattered fibroglandular elements in right breast. There are new grouped fine punctate calcifications in the right breast at 6 o'clock posterior depth. No other significant masses or calcifications are seen in the breast. IMPRESSION: SUSPICIOUS OF MALIGNANCY The new grouped fine punctate calcifications in the right breast are at a moderate suspicion for luis fernando gnancy. A stereotactic biopsy is recommended. The findings were discussed with the patient at the conclusion of the study by Dr. Nuñez. This exam was interpreted at Station ID: [id number]. NOTE: For mammograms, a report in lay terms will be sent to the patient. Approximately 15% of breast malignancies will not be visualized mammographically. In the management of a palpable breast mass, a negative mammogram must not discourage biopsy of a clinically suspicious lesion. Electronically Signed By: Trell Méndez M.D. ddp/:07/17/2021 09:37:14 ACR BI-RADS Category 4b: Suspicious abnormality - intermediate suspicion of malignancy 3344F PARENCHYMAL PATTERN: (A) - The breast(s) demonstrate(s) scattered fibroglandular densities. BI-RADS CATEGORY: (4b) - Mod Susp None [id number] Immediate follow-up LATERALITY: ()
== END 2021-07-17 08:56 | disposition home or self-care (01) ==
LOC: DI 08:55
PROVIDERS: ATTEND Internal Medicine
DX: R92.0 Mammographic microcalcification found on diagnostic imaging of breast (principal)

== ENCOUNTER 2021-08-01 09:47 | Outpatient (CLI) | payer MEDICARE, BC ==
[~2021-08-01 09:47] MED LIST: LIDOCAINE 1%-EPI 1:100000 20 ML MDV ONE
[2021-08-01] MEDS ORDERED: LIDOCAINE 1% 10 ML MDV ID ONE (13:00)
[2021-08-01] MEDS ORDERED: LIDOCAINE 1%-EPI 1:100000 20 ML MDV ID ONE (13:00)
--- NOTE | 2021-08-07 07:52 | Mammography Report ---
DIGITAL TOMOGRAPHIC MAMMOGRAPHY GUIDED STEREOTACTIC GUIDED BIOPSY RIGHT BREAST WITH MARKING DEVICE IN SERTED AND RADIOGRAPHIC SPECIMEN IMAGIN08/01/2021 CLINICAL: Right breast stereotactic biopsy. PATIENT CONSENT: Risks (minor bleeding, infection, vasovagal reaction and repeat procedure), benefits and alternatives were explained to the patient and written informed consent was obtained. Correlation is made to exams dated: 07/17/2021 mammogram, 06/01/2021 mammogram, 11/04/2018 mammogram, 02/28/2018 mammogram, 02/05/2018 mammogram, and 01/04/2017 mammogram - [facility]. A stereotactic guided biopsy was performed for the area of grouped and linear fine calcifications loc ated in the right breast at 6 o'clock posterior depth. This was described on the previous mammograph y report. The skin was prepped in the usual manner. Local anesthetic was administered to the access site. A small incision was made in the breast. The abnormality was approached from the craniocauda l aspect using an upright digital tomographic mammography unit. A biopsy needle was placed adjacent to the abnormality under computer guidance and confirmatory stereotactic mammography images were obta ined to document needle placement. Once the needle was documented to be in the correct location, a s pecimen was obtained using an automated biopsy gun. A clip was inserted into the biopsy cavity. A s kin closure strip and a sterile dressing were applied to the access site. Post procedure imaging dem onstrates the location device at the targeted area and partial removal of the calcifications. The sp ecimen was sent to the laboratory for pathological analysis. IMPRESSION: STEREOTACTIC GUIDED BIOPSY BENIGN Stereotactic guided biopsy of the area of grouped and linear fine calcifications in the right breast at 6 o'clock posterior depth was successful. The imaged specimen includes the calcifications. 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 Pathology results are concorda nt with mammography findings. Return to annual mammogram screening schedule is recommended. This exam was interpreted at Station ID: [id number]. Timbo Méndez M.D., jr,ddp/:08/04/2021 17:24:06 BI-RADS CATEGORY: () - Mammogram [id number] return to screening LATERALITY: (B)
== END 2021-08-01 09:48 | disposition home or self-care (01) ==
LOC: DI 09:47
PROVIDERS: ATTEND Internal Medicine
DX: D24.1 Benign neoplasm of right breast (principal); R92.1 Mammographic calcification found on diagnostic imaging of breast
CPT/HCPCS: 19081

== ENCOUNTER 2021-10-12 08:00 | Outpatient (CLI) | payer MEDICARE, BC | END 2021-10-12 23:59 | disposition home or self-care (01) | LOC: LAB 08:00 | PROVIDERS: ATTEND Internal Medicine | DX: N39.0 Urinary tract infection, site not specified (principal); R39.9 Unspecified symptoms and signs involving the genitourinary system | CPT/HCPCS: 81001; 87086; 87181 ==

== ENCOUNTER → 2022-05-16 | Outpatient (CLI) | payer MEDICARE, BC | END | disposition EMS.NT | LOC: EMS 10:40 | DX: Z03.89 Encounter for observation for other suspected diseases and conditions ruled out (principal) ==

== ENCOUNTER 2023-05-22 13:19 | Outpatient (CLI) | payer MEDICARE, BC ==
[2023-05-22 13:31] LABS: EOSINOPHILS # (AUTO) 0.1 10^3/uL (0.0-0.7); EOSINOPHILS % (AUTO) 1.6 %; HCT - HEMATOCRIT 34.8 % (37.0-47.0); HGB - HEMOGLOBIN 10.3 g/dL (12.0-16.0); LYMPHOCYTES # (AUTO) 1.4 10^3/uL (1.5-3.5); LYMPHOCYTES % (AUTO) 44.7 %; MEAN CORPUSCULAR HEMOGLOBIN 26.1 pg (27.0-31.0); MEAN CORPUSCULAR HGB CONC 29.6 g/dL (32.0-36.0); MEAN CORPUSCULAR VOLUME 88.1 fL (81.0-99.0); MEAN PLATELET VOLUME 10.5 fL (7.9-10.8); MONOCYTES # (AUTO) 0.4 10^3/uL (0.0-1.0); MONOCYTES % (AUTO) 11.5 %; NEUTROPHILS # (AUTO) 1.4 10^3/uL (1.5-6.6); NEUTROPHILS % (AUTO) 41.9 %; PLT - PLATELET COUNT 155 10^3/uL (130-450); RED BLOOD COUNT 3.95 10^6/uL (4.20-5.40); RED CELL DISTRIBUTION WIDTH 16.5 % (12.0-15.0); WHITE BLOOD COUNT 3.2 x10^3/uL (4.8-10.8)
== END 2023-05-22 13:20 | disposition home or self-care (01) ==
LOC: LAB 13:19
PROVIDERS: ATTEND Internal Medicine
DX: D64.9 Anemia, unspecified (principal); D70.9 Neutropenia, unspecified
CPT/HCPCS: 36415; 85025

== ENCOUNTER 2023-05-22 13:20 | Outpatient (CLI) | payer MEDICARE, BC ==
--- NOTE | 2023-05-23 11:18 | Mammography Report ---
BILATERAL DIGITAL SCREENING MAMMOGRAM 3D/2D WITH EXAGGERATED CC: 05/22/2023 CLINICAL: Routine screening. Comparison is made to exams dated: 07/17/2021 mammogram, 06/01/2021 mammogram, 11/04/2018 mammogram, 02/28/2018 mammogram, 02/05/2018 mammogram, and 08/01/2021 stereotactic biopsy - [facility]. There are scattered areas of fibroglandular density in both breasts (category b / 25%-50% glandular t issue). No significant masses, calcifications, or other findings are seen in either breast. There has been no significant interval change. IMPRESSION: NEGATIVE There is no mammographic evidence of malignancy. A 1 year screening mammogram is recommended. Based on the Tyrer Cuzick model (a risk assessment model) the patients lifetime risk is 0.4% and her 10 year risk is 0.0%. According to the ACR, ACS, and NCCN guidelines, an annual breast MRI exam mati g with mammogram is recommended if the patients lifetime risk is 20% or greater. This exam was interpreted at Station ID: [id number]. NOTE: For mammograms, a report in lay terms will be sent to the patient. Approximately 15% of breast malignancies will not be visualized mammographically. In the management of a palpable breast mass, a negative mammogram must not discourage biopsy of a clinically suspicious lesion. Electronically Signed By: Stanley trevino/mimi:05/22/2023 17:49:23 letter sent: No_Letter ACR BI-RADS Category 1: Negative 3341F PARENCHYMAL PATTERN: (A) - The breast(s) demonstrate(s) scattered fibroglandular densities. BI-RADS CATEGORY: (1) - 1 Mammogram [id number] 1 year screening LATERALITY: (B)
== END 2023-05-22 13:21 | disposition home or self-care (01) ==
LOC: DI 13:20
PROVIDERS: ATTEND Internal Medicine
DX: Z12.31 Encounter for screening mammogram for malignant neoplasm of breast (principal)

== ENCOUNTER 2023-08-21 13:01 | Outpatient (CLI) | payer MEDICARE, BC | END 2023-08-21 13:02 | disposition EMS.NT | LOC: EMS 13:01 | DX: M25.562 Pain in left knee (principal); W01.0XXA Fall on same level from slipping, tripping and stumbling without subsequent striking against object, initial encounter; Y92.000 Kitchen of unspecified non-institutional (private) residence as the place of occurrence of the external cause ==

== ENCOUNTER 2024-01-01 14:09 | Emergency (ER) | payer MEDICARE, BC ==
[2024-01-01 14:23] VITALS: BP 160/100; O2SAT 96
--- NOTE | 2024-01-01 16:50 | ED Physician Documentation ---
PD LIBBY HEENT - Stated complaint Stated Complaint: SOA,UNWELL - Chief complaint Chief Complaint: Resp - Additional information Additional information: 83-year-old female with history of hypertension, COPD, asthma presents emergency department for shortness of breath. Patient says that she got a face full of mold a couple days ago and is worried that it is now turned into a sinus infection. Patient is a patient of Dr. Robbins who is currently out on vacation right now she said normally she prescribes doxycycline for her she said doxycycline is only that works for her sinus infection to be it sounds more like a possible COPD exacerbation but patient says that she only wants prescription of doxycycline while she is here and a possible DuoNeb treatment. No recent fevers or chills. 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 : None HEENT: Macular degeneration Psych: None Musculoskeletal: Osteoarthritis Derm: None - Past Surgical History Past Surgical History: Yes /SCRUB WHEEL OPERATOR: Hysterectomy - Present Medications Home Medications: Ambulatory Orders Medication Instructions Recorded Confirmed Albuterol [Ventolin Hfa] 2 puffs INH QID 01/29/13 01/12/21 Carbidopa/Levodopa 1.5 each PO HS 01/29/13 01/12/21 [Carbidopa-Levodopa 25-100 Tab] Lansoprazole [Prevacid] 30 mg PO DAILY 01/29/13 01/12/21 ALPRAZolam [Alprazolam] 0.25 mg PO PRN PRN 05/04/19 01/12/21 Amlodipine Besylate [Norvasc] 10 mg PO DAILY 05/04/19 01/12/21 Baclofen [Lioresal] 10 mg PO TID 11/12/20 01/12/21 Tamsulosin HCl [Flomax] 0.4 mg PO DAILY 11/12/20 01/12/21 Cefdinir 300 mg PO BID #14 cap 01/12/21 polyethylene glycoL 3350(BULK) 17 gm PO DAILY PRN #1 bottle 01/12/21 [Miralax] Cefuroxime Axetil [Cefuroxime] 500 mg PO BID #20 tablet 04/22/21 Doxycycline [Vibramycin] 100 mg PO BID 7 Days #13 tablet 01/01/24 - Allergies Allergies/Adverse Reactions: Allergies Allergy/AdvReac Type Severity Reaction Status Date / Time Sulfa (Sulfonamide Allergy Severe Respiratory Verified 01/01/24 14:14 Antibiotics) levofloxacin Allergy Unknown Unknown Verified 01/01/24 14:14 amoxicillin AdvReac Severe Nausea, Verified 01/01/24 14:14 VOMITING codeine [Codeine] AdvReac Nausea Verified 01/01/24 14:14 morphine AdvReac unable to Verified 01/01/24 14:14 urinate oxycodone [Oxycodone] AdvReac Nausea Verified 01/01/24 14:14 prednisone AdvReac anger Verified 01/01/24 14:14 - Social History Does the pt smoke?: No Smoking Status: Never smoker Does the pt drink ETOH?: Yes Does the pt have substance abuse?: No - Immunizations Immunizations are current?: Yes - POLST Patient has POLST: No PD ED PE NORMAL - Vitals Vital signs reviewed: Yes - General General: Alert and oriented X 3, No acute distress, Well developed/nourished - HEENT HEENT: Atraumatic, PERRL - Respiratory Respiratory: No respiratory distress, Other (Tachypneic, bilateral upper lobe wheezing) - Abdomen Abdomen: Soft - Derm Derm: Normal color, Warm and dry, No rash - Extremities Extremities: No edema, No calf tenderness / cord Results - Vitals Vitals: Vital Signs - 24 hr 01/01/24 01/01/24 14:14 17:06 Temperature 36.8 C Heart Rate 85 80 Respiratory 16 20 Rate Blood Pressure 160/100 H O2 Saturation 96 If not protocol 2 : Oxygen Flow, liters/minute Oxygen O2 Source Nasal cannula PD Medical Decision Making - ED course ED course: 83-year-old female presents emergency department for shortness of breath and nasal congestion. Patient reports that she normally sees Dr. Pimentel who is currently out of town right now who normally prescribes patient doxycycline. Patient reports that she receives doxycycline for sinus infection to me actually sounds like patient has COPD and for COPD exacerbation receives doxycycline. Patient said that she is confident she has a sinus infection she does not want any further workup or evaluation she just wants a prescription for doxycycline shows me a bottle that she normally gets 100 mg twice a day for 7 days. She denies any fevers or chills. First dose of doxycycline given here in the emergency department prescription sent to her preferred pharmacy patient told if her symptoms worsen or if she changes her mind and would like a more further evaluation to come back to the emergency department. She understands return precautions all questions answered Departure - Departure Disposition: 01 Home, Self Care Clinical Impression: COPD exacerbation Sinusitis Qualifiers: Sinusitis location: other Chronicity: unspecified Qualified Code(s): J32.9 - Chronic sinusitis, unspecified Instructions: ED Sinusitis Abx Tx Prescriptions: Doxycycline [Vibramycin] 100 mg PO BID 7 Days #13 tablet Comments: Thank you for trusting us with your care. We have prescribed you an antibiotic called doxycycline per your request for your sinusitis and also what sounds like a COPD exacerbation. Please come back to the emergency department if symptoms get any worse, we have given you the first dose here in the emergency department you will take the next dose first thing in the morning and twice a day thereafter for the next 7 days. Follow-up with your primary care provider to let them know about today's ER visit. Wishing you a speedy recovery. Forms: PCP List Discharge Date/Time: 01/01/24 17:30
[2024-01-01] MEDS: IPRATROPIUM/ALBUTEROL 3 ML NEB INH STA (17:05)
[2024-01-01] MEDS: DOXYCYCLINE 100 MG TABLET PO STA (17:38)
== END 2024-01-01 17:30 | disposition home or self-care (01) ==
LOC: ED 14:09
DX: J44.1 Chronic obstructive pulmonary disease with (acute) exacerbation (principal); J32.9 Chronic sinusitis, unspecified; I10 Essential (primary) hypertension; Z79.899 Other long term (current) drug therapy
CPT/HCPCS: 94640; 99283; 99284

== ENCOUNTER 2024-01-16 18:57 | Emergency (ER) | payer MEDICARE, BC ==
--- NOTE | 2024-01-16 20:20 | ED Physician Documentation ---
History of Present Illness - Stated complaint Stated Complaint: OD/SHAKING - Chief complaint Chief Complaint: General - History obtained from History obtained from: Patient - Additonal information Additional information: This is an 84-year-old female who has a history of chronic sinusitis, with a right tympanostomy tube due to recurrent fluid in her ears, anxiety, and alpha-1 antitrypsin on chronic oxygen therapy who presents with restless limbs after taking a dose of Claritin yesterday afternoon and then 1/2 tablet of Xyzal today. She started to feel little bit shaky and slightly itchy after taking these medications. She has taken both of these medications many times before, and denies any other new contacts such as foods, detergents lotions. She does not have any hives, denies any acute shortness of breath, no facial swelling, tongue or lip swelling, tingling. She does feel somewhat itchy and primarily on her hands bilaterally. The patient does sometimes take Xanax, but has not at tempted this yet. Review of Systems Constitutional: reports: Reviewed and negative Eyes: reports: Reviewed and negative Ears: reports: Reviewed and negative Nose: reports: Congestion Throat: reports: Reviewed and negative Cardiac: reports: Reviewed and negative Respiratory: reports: Reviewed and negative GI: reports: Reviewed and negative : reports: Reviewed and negative Skin: reports: Reviewed and negative Musculoskeletal: reports: Other (Restless legs) Neurologic: reports: Reviewed and negative PD PAST MEDICAL HISTORY - Past Medical History Past Medical History: Yes Cardiovascular: Hypertension Respiratory: Asthma, COPD, Other Neuro: None Endocrine/Autoimmune: None GI: GERD, Diverticulitis 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 : None HEENT: Macular degeneration Psych: None Musculoskeletal: Osteoarthritis Derm: None - Past Surgical History Past Surgical History: Yes /ESL INSTRUCTIONAL ASSISTANT: Hysterectomy - Present Medications Home Medications: Ambulatory Orders Medication Instructions Recorded Confirmed Albuterol [Ventolin Hfa] 2 puffs INH QID 01/29/13 01/12/21 Carbidopa/Levodopa 1.5 each PO HS 01/29/13 01/12/21 [Carbidopa-Levodopa 25-100 Tab] Lansoprazole [Prevacid] 30 mg PO DAILY 01/29/13 01/12/21 ALPRAZolam [Alprazolam] 0.25 mg PO PRN PRN 05/04/19 01/12/21 Amlodipine Besylate [Norvasc] 10 mg PO DAILY 05/04/19 01/12/21 Baclofen [Lioresal] 10 mg PO TID 11/12/20 01/12/21 Tamsulosin HCl [Flomax] 0.4 mg PO DAILY 11/12/20 01/12/21 Cefdinir 300 mg PO BID #14 cap 01/12/21 polyethylene glycoL 3350(BULK) 17 gm PO DAILY PRN #1 bottle 01/12/21 [Miralax] Cefuroxime Axetil [Cefuroxime] 500 mg PO BID #20 tablet 04/22/21 Doxycycline [Vibramycin] 100 mg PO BID 7 Days #13 tablet 01/01/24 - Allergies Allergies/Adverse Reactions: Allergies Allergy/AdvReac Type Severity Reaction Status Date / Time Sulfa (Sulfonamide Allergy Severe Respiratory Verified 01/16/24 19:48 Antibiotics) levofloxacin Allergy Unknown Unknown Verified 01/16/24 19:48 amoxicillin AdvReac Severe Nausea, Verified 01/16/24 19:48 VOMITING codeine [Codeine] AdvReac Nausea Verified 01/16/24 19:48 morphine AdvReac unable to Verified 01/16/24 19:48 urinate oxycodone [Oxycodone] AdvReac Nausea Verified 01/16/24 19:48 prednisone AdvReac anger Verified 01/16/24 19:48 - Social History Does the pt smoke?: No Smoking Status: Never smoker Does the pt drink ETOH?: Yes Does the pt have substance abuse?: No - Immunizations Immunizations are current?: Yes - POLST Patient has POLST: No PD ED PE NORMAL - Vitals Vital signs reviewed: Yes - General General: Alert and oriented X 3, No acute distress, Well developed/nourished - HEENT HEENT: Atraumatic, Ears normal, Moist mucous membranes, Other (Right tympanostomy tube.) - Neck Neck: Supple, no meningeal sign, No adenopathy - Cardiac Cardiac: RRR, No murmur - Respiratory Respiratory: No respiratory distress, Clear bilaterally - Abdomen Abdomen: Normal bowel sounds, Soft, Non tender, Non distended - Derm Derm: Normal color, Warm and dry, Other (There is slight dry skin and an area where she is excoriated on the right hand but no urticaria.) - Neuro Neuro: Alert and oriented X 3, No motor deficit, No sensory deficit, Normal speech Eye Opening: Spontaneous Motor: Obeys Commands Verbal: Oriented GCS Score: 15 Results - Vitals Vitals: Vital Signs - 24 hr 01/16/24 19:00 Temperature 36.7 C Heart Rate 74 Respiratory 18 Rate Blood Pressure 182/73 H O2 Saturation 98 Oxygen O2 Source Nasal cannula PD Medical Decision Making - ED course Complexity details: considered differential, d/w patient ED course: 84-year-old female presents with restless legs and some generalized itchiness after taking both Claritin and Xyzal. These are both medicine she has had in the past but patient does have a lot of issues with sensitivities to medicine. She is well-appearing here on physical exam, on her baseline oxygen, there is no systemic signs of allergic reaction including no hives, or angioedema, hypotension, tachycardia, nausea or vomiting. She is quite anxious and a little bit restless in general I think this is likely more her anxiety at this time. She is agreeable to trying A dose of Xanax which the patient has taken in the past. I do not think any lab work or additional imaging is indicated at this time. Departure - Departure Disposition: 01 Home, Self Care Clinical Impression: Restless leg Medication adverse effect Qualifiers: Encounter type: initial encounter Qualified Code(s): T50.905A - Adverse effect of unspecified drugs, medicaments and biological substances, initial encounter Condition: Good Instructions: ED Drug React Adverse Other, ED Drug React Dystonic Adverse Comments: Your symptoms today may be a mild reaction to the allergy medicine that you took. Your exam here is reassuring, and your vital signs here are stable. We gave you a small dose of anxiety medicine to help with your symptoms so this may make you sleepy today. Please avoid taking Any additional allergy medicine for now until we can determine if this caused her symptoms. If you have any new or worsening symptoms, please return to the ER.
[2024-01-16] MEDS: ALPRAZolam 0.25 MG TABLET PO STA (20:33)
[2024-01-16 21:45] VITALS: BP 190/76; O2SAT 96
== END 2024-01-16 21:35 | disposition home or self-care (01) ==
LOC: ED 18:57
DX: G25.81 Restless legs syndrome (principal); T45.0X1A Poisoning by antiallergic and antiemetic drugs, accidental (unintentional), initial encounter; I10 Essential (primary) hypertension; J44.9 Chronic obstructive pulmonary disease, unspecified; Z99.81 Dependence on supplemental oxygen; Z79.899 Other long term (current) drug therapy
CPT/HCPCS: 99283

== ENCOUNTER 2024-03-20 17:13 | Emergency (ER) | payer MEDICARE, BC ==
--- NOTE | 2024-03-20 17:27 | ED Physician Documentation ---
PD HPI ABD PAIN - Stated complaint Stated Complaint: GI/FEVER - Chief complaint Chief Complaint: Abd Pain - History obtained from History obtained from: Patient - Additional information Additional information: 84-year-old woman with alpha 1 antitrypsin ADIEL disorder on chronic oxygen therapy presents with "flare of diverticulitis." She has had diverticulitis several times and developed abdominal pain early this morning. It is in the low abdomen feeling more right than left. And she had a fever with it as well. Of note she says she is very sensitive medications and can only take antibiotics IV with the exception of doxycycline. She is needing something for pain but notes that morphine causes urinary retention. 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 : None HEENT: Macular degeneration Psych: None Musculoskeletal: Osteoarthritis Derm: None - Past Surgical History Past Surgical History: Yes /SENIOR TECHNICAL EDITOR: Hysterectomy - Present Medications Home Medications: Ambulatory Orders Medication Instructions Recorded Confirmed Albuterol [Ventolin Hfa] 2 puffs INH QID 01/29/13 03/20/24 Carbidopa/Levodopa 1.5 each PO HS 01/29/13 03/20/24 [Carbidopa-Levodopa 25-100 Tab] Lansoprazole [Prevacid] 30 mg PO DAILY 01/29/13 03/20/24 ALPRAZolam [Alprazolam] 0.25 mg PO PRN PRN 05/04/19 03/20/24 Doxycycline [Vibramycin] 100 mg PO BID #14 tablet 03/20/24 Gabapentin [Neurontin] 600 mg PO HS 03/20/24 03/20/24 HYDROmorphone [Dilaudid] 2 mg PO Q6H PRN #15 tablet 03/20/24 metroNIDAZOLE [Flagyl] 500 mg PO TID 7 Days #21 tablet 03/20/24 - Allergies Allergies/Adverse Reactions: Allergies Allergy/AdvReac Type Severity Reaction Status Date / Time Sulfa (Sulfonamide Allergy Severe Respiratory Verified 03/20/24 17:16 Antibiotics) levofloxacin Allergy Unknown Unknown Verified 03/20/24 17:16 amoxicillin AdvReac Severe Nausea, Verified 03/20/24 17:16 VOMITING codeine [Codeine] AdvReac Nausea Verified 03/20/24 17:16 morphine AdvReac unable to Verified 03/20/24 17:16 urinate oxycodone [Oxycodone] AdvReac Nausea Verified 03/20/24 17:16 prednisone AdvReac anger Verified 03/20/24 17:16 - Social History Does the pt smoke?: No Smoking Status: Never smoker Does the pt drink ETOH?: Yes Does the pt have substance abuse?: No - Immunizations Immunizations are current?: Yes - POLST Patient has POLST: No PD ED PE NORMAL - Vitals Vital signs reviewed: Yes - General General: Alert and oriented X 3, No acute distress - Cardiac Cardiac: RRR, No murmur - Abdomen Abdomen: Normal bowel sounds, Other (She is exquisitely tender in the left lower quadrant with some rebound tenderness as well.) - Neuro Neuro: Alert and oriented X 3, Normal speech Results - Vitals Vitals: Vital Signs - 24 hr 03/20/24 03/20/24 17:16 19:19 Temperature 37.5 C Heart Rate 90 83 Respiratory 18 16 Rate Blood Pressure 160/72 H 185/54 H O2 Saturation 94 97 Oxygen O2 Source Room air Oxygen Flow Rate 4 - Labs Labs: Laboratory Tests 03/20/24 03/20/24 03/20/24 17:32 17:32 17:32 WBC 3.2 L RBC 3.27 L Hgb 9.6 L Hct 31.4 L MCV 96.0 MCH 29.4 MCHC 30.6 L RDW 16.3 H Plt Count 111 L MPV 10.5 Neut # (Auto) 2.3 Lymph # (Auto) 0.5 L [place] # (Auto) 0.3 Eos # (Auto) 0.0 Baso # (Auto) 0.0 Absolute Nucleated RBC 0.00 Nucleated RBC % 0.0 Sodium 137 Potassium 4.6 H Chloride 102 Carbon Dioxide 30 Anion Gap 5.0 L BUN 21 H Creatinine 1.2 Estimated GFR (MDRD) 43 L Glucose 106 H Lactic Acid 0.6 Calcium 10.0 Total Bilirubin 0.5 AST 16 ALT 7 L Alkaline Phosphatase 61 Total Protein 6.9 Albumin 3.8 Globulin 3.1 Albumin/Globulin Ratio 1.2 - Rads (name of study) CT abdomen pelvis showing diverticulitis, possible developing mural abscess, chronic pancreatitis Relevant Findings:: Final report received, EMP independent interpretation of test PD Medical Decision Making - ED course ED course: I had low suspicion for complicated diverticulitis or other intra-abdominal emergency other than simple diverticulitis given the length of time she was in pain but she has tenderness out of proportion to having only been in pain for the 7 hours or so so we will obtain labs and a CT. States she can only take initial doses of antibiotics IV and requested doxycycline to which I added metronidazole which she has had in the past according to the chart. CBC showing anemia and lymphopenia, these are basically chronic phenomenon for her. CMP showing some mild AWILDA on chronic kidney disease, will order some IV fluids. CT read as possible developing mural abscess. She had been medicated and reexamined in that time she was minimally tender. She was preferring to go home but close follow-up was advised. We did discuss the incidental findings including her lymphopenia which probably does deserve follow-up and she has not had a colonoscopy in some time which will need to be done after an appropriate weight after healing from her current flare of diverticulitis. She did okay with the doxycycline, metronidazole and Dilaudid here so that is what I prescribed given her multiple medication sensitivities and allergies. Departure - Departure Disposition: Home, Self Care Clinical Impression: Lymphopenia Diverticulitis Qualifiers: Diverticulitis site: large intestine Diverticulitis bleeding: with bleeding Diverticulitis complication: without perforation or abscess Qualified Code(s): K57.33 - Diverticulitis of large intestine without perforation or abscess with bleeding Condition: Good Record reviewed to determine appropriate education?: Yes Instructions: Diet Low Residue, Diet Clear Liquid Dc, ED Diverticulitis Prescriptions: HYDROmorphone [Dilaudid] 2 mg PO Q6H PRN #15 tablet PRN Reason: pain metroNIDAZOLE [Flagyl] 500 mg PO TID 7 Days #21 tablet Doxycycline [Vibramycin] 100 mg PO BID #14 tablet Comments: I sent your prescriptions electronically to the [facility] in [place]. As discussed, you have a flare of diverticulitis. There is no obvious abscess at this juncture but I have a low suspicion to return if not improving over the next few days or anytime if worse. As discussed, since you tell me it has been sometime since your last colonoscopy. Please talk with your doctor to arrange for referral for that. That said, it should not be in the next couple of months to allow the current flare of diverticulitis to heal. Also your blood pressure was elevated today, please keep an eye on it and mention it to your physician in follow-up. Also, as discussed, you do have the chronically low white count, discuss this with your physician as well with potential referral to hematology oncology. You are also modestly anemic but that seems to be more of a chronic issue. I want you to do the clear liquid diet for 24 hours and then the low residue diet for another 24 hours, see the attached information sheets. I am prescribing a short course of narcotic pain medication for you. These are potentially dangerous and addictive medications that should be used carefully. These medications may constipate you. Take an [id number] stool softener (docusate) twice daily with plenty of water while taking these medications. If you go 24 hours without a bowel movement, take [id number] miralax, per package instructions. Do not drink or drive while taking these medications. If you received narcotic or sedating medications while in the emergency department, do not drive for 24 hours. Store this medication in a safe, secure place and out of reach of children. It is a violation of federal law to give or sell this medication to another person or to use in a manner other than prescribed. The ED will not refill narcotic prescriptions, including prescriptions lost or stolen. To dispose of unwanted medications: 1. [facility] provides a drop box for medication in pill form only (no liquids) 8:00 am to 4:30 p.m. Saturday-Saturday in the lobby of the [facility], [address] [place] [address]. Empty pills into ziplock bag before disposal. Call [phone] for information. 2.[employer] is a free service available to all [facility] residents. Go to [email or web address] Note that many narcotic pain relievers also contain Tylenol/acetaminophen. Please ensure that your total dose of acetaminophen from all sources does not exceed 3 g (3000 mg) per day. Forms: PCP List
[2024-03-20 17:40] LABS: EOSINOPHILS % (AUTO) 0.6 %; HCT - HEMATOCRIT 31.4 % (37.0-47.0); HGB - HEMOGLOBIN 9.6 g/dL (12.0-16.0); LYMPHOCYTES # (AUTO) 0.5 10^3/uL (1.5-3.5); LYMPHOCYTES % (AUTO) 16.8 %; MEAN CORPUSCULAR HEMOGLOBIN 29.4 pg (27.0-31.0); MEAN CORPUSCULAR HGB CONC 30.6 g/dL (32.0-36.0); MEAN PLATELET VOLUME 10.5 fL (7.9-10.8); MONOCYTES # (AUTO) 0.3 10^3/uL (0.0-1.0); MONOCYTES % (AUTO) 8.6 %; NEUTROPHILS # (AUTO) 2.3 10^3/uL (1.5-6.6); NEUTROPHILS % (AUTO) 72.1 %; PLT - PLATELET COUNT 111 10^3/uL (130-450); RED BLOOD COUNT 3.27 10^6/uL (4.20-5.40); RED CELL DISTRIBUTION WIDTH 16.3 % (12.0-15.0); WHITE BLOOD COUNT 3.2 x10^3/uL (4.8-10.8)
[2024-03-20 17:53] LABS: ALBUMIN 3.8 g/dL (3.2-5.5); ALBUMIN/GLOBULIN RATIO 1.2 (1.0-2.2); BILIRUBIN,TOTAL 0.5 mg/dL (0.2-1.0); CREATININE 1.2 mg/dL (0.6-1.3); POTASSIUM 4.6 mmol/L (3.5-4.5); TOTAL PROTEIN 6.9 g/dL (6.4-8.9)
[2024-03-20] MEDS: DOXYCYCLINE INJ 100 MG in SODIUM CHLORIDE 0.9% MINIBAG 100 ML IV STA (17:55)
[2024-03-20] MEDS: HYDROmorphone 1 MG/ML CARPUJECT IVP STA (17:55)
[2024-03-20] MEDS ORDERED: iohexoL-300 100 ML VIAL ONE (17:59)
[2024-03-20] MEDS: metroNIDAZOLE 500 MG/100 ML 500 MG/100 ML BAG IV ONE (18:30)
[2024-03-20] MEDS: iohexoL-300 100 ML VIAL IVP ONE (18:52)
[2024-03-20] MEDS: SODIUM CHLORIDE 0.9% 1,000 ML IV STA (19:23)
[2024-03-20 19:41] VITALS: BP 185/54; O2SAT 97
--- NOTE | 2024-03-20 20:07 | CT Report ---
PROCEDURE: Abdomen/Pelvis W INDICATIONS: iv only low abd pain CONTRAST: 100ml omni 300 TECHNIQUE: After the administration of intravenous contrast, a CT scan of the abdomen and pelvis was performed. Images were recorded and evaluated at appropriate window settings. Reformats: coronal and sagittal. F or radiation dose reduction, the following was used: automated exposure control, adjustment of mA and /or kV according to patient size. COMPARISON: 01/12/2021 FINDINGS: Image quality: Diagnostic. Lower chest: Emphysematous changes in the lower lungs and moderate size hiatal hernia. Liver: No solid mass. Gallbladder: Distended without wall thickening or calcified stones. Biliary tree: No intrahepatic or extrahepatic dilation, accounting for age. Spleen: No splenomegaly. Pancreas: Several punctate calcifications throughout the pancreas and mild proximal pancreatic ductal dilatation. Adrenals: No adrenal nodule. 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 No significant change. Symmetric renal enhancement and no perinephric inflammation. Normal ureters. Stomach, bowel and peritoneum: There is acute moderate length segment wall thickening, heterogeneity, and ill-definition of the colon wall in the mid sigmoid. Prominent pericolonic inflammatory change. Several diverticula in this region. No definite extraluminal gas. Trace fascial fluid, but no focal f luid collection. . There is no resultant bowel obstruction. The bowel is largely decompressed. Lymph nodes: No central or retroperitoneal adenopathy. Vessels: Normal caliber abdominal aorta, IVC, and portal vein. Retroaortic left renal vein. PELVIS Reproductive organs: Hysterectomy. Ovaries are not seen. Bladder: No abnormal wall thickening, accounting for underdistention. Pelvic lymph nodes: No pelvic adenopathy by size criteria. Bones: No aggressive osseous abnormality. Other: No significant ventral or inguinal hernia. IMPRESSION: Findings of acute, sigmoid diverticulitis. Heterogeneous wall may indicate developing mural abscess. No evidence of perforation. No evidence of bowel obstruction. Changes of chronic pancreatitis. Reviewed by: Rhonda Mei MD on 03/20/2024 8:06 PM PDT Approved by: Rhonda Mei MD on 03/20/2024 8:06 PM PDT Station ID: [id number]
== END 2024-03-20 20:41 | disposition home or self-care (01) ==
LOC: ED 17:13
DX: K57.33 Diverticulitis of large intestine without perforation or abscess with bleeding (principal); D72.810 Lymphocytopenia; D64.9 Anemia, unspecified; N17.9 Acute kidney failure, unspecified; I12.9 Hypertensive chronic kidney disease with stage 1 through stage 4 chronic kidney disease, or unspecified chronic kidney disease; N18.9 Chronic kidney disease, unspecified
CPT/HCPCS: 36415; 74177; 80053; 83605; 85025; 96365; 96366; 96368; 96375; 99284; J1170; Q9967

== ENCOUNTER 2024-03-22 21:08 | Outpatient (CLI) | payer MEDICARE, BC | END 2024-03-22 23:59 | disposition critical access hospital (66) | LOC: EMS 21:08 | DX: R11.2 Nausea with vomiting, unspecified (principal); R10.9 Unspecified abdominal pain; R10.817 Generalized abdominal tenderness; I10 Essential (primary) hypertension | CPT/HCPCS: A0425; A0427 ==

== ENCOUNTER 2024-03-22 21:15 | Inpatient (IN) | payer MEDICARE, BC ==
--- NOTE | 2024-03-22 21:37 | ED Physician Documentation ---
PD HPI NVD - Stated complaint Stated Complaint: VOMITING - Chief complaint Chief Complaint: Abd Pain - History obtained from History obtained from: Patient - History of Present Illness Timing - onset: How many days ago (Left abd pain for few days, Seen 2 days ago with Dx diveticulitis. Was improving slightly but then onset N/V after PO antibiotics this evening. History of intolerance to many PO meds/abx.) Review of Systems Constitutional: reports: Myalgias. denies: Fever, Chills Nose: denies: Rhinorrhea / runny nose, Congestion Throat: denies: Sore throat Respiratory: denies: Cough GI: reports: Abdominal Pain, Nausea, Vomiting. 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 : None HEENT: Macular degeneration Psych: None Musculoskeletal: Osteoarthritis Derm: None - Past Surgical History Past Surgical History: Yes /AUTOMATIC LEHR OPERATOR: Hysterectomy - Present Medications Home Medications: Ambulatory Orders Medication Instructions Recorded Confirmed Albuterol [Ventolin Hfa] 2 puffs INH QID 01/29/13 03/20/24 Carbidopa/Levodopa 1.5 each PO HS 01/29/13 03/20/24 [Carbidopa-Levodopa 25-100 Tab] Lansoprazole [Prevacid] 30 mg PO DAILY 01/29/13 03/20/24 ALPRAZolam [Alprazolam] 0.25 mg PO PRN PRN 05/04/19 03/20/24 Doxycycline [Vibramycin] 100 mg PO BID #14 tablet 03/20/24 Gabapentin [Neurontin] 600 mg PO HS 03/20/24 03/20/24 HYDROmorphone [Dilaudid] 2 mg PO Q6H PRN #15 tablet 03/20/24 metroNIDAZOLE [Flagyl] 500 mg PO TID 7 Days #21 tablet 03/20/24 - Allergies Allergies/Adverse Reactions: Allergies Allergy/AdvReac Type Severity Reaction Status Date / Time Sulfa (Sulfonamide Allergy Severe Respiratory Verified 03/22/24 21:18 Antibiotics) levofloxacin Allergy Unknown Unknown Verified 03/22/24 21:18 amoxicillin AdvReac Severe Nausea, Verified 03/22/24 21:18 VOMITING codeine [Codeine] AdvReac Nausea Verified 03/22/24 21:18 morphine AdvReac unable to Verified 03/22/24 21:18 urinate oxycodone [Oxycodone] AdvReac Nausea Verified 03/22/24 21:18 prednisone AdvReac anger Verified 03/22/24 21:18 - Social History Does the pt smoke?: No Smoking Status: Never smoker Does the pt drink ETOH?: Yes Does the pt have substance abuse?: No - Immunizations Immunizations are current?: Yes - POLST Patient has POLST: No PD ED PE NORMAL - Vitals Vital signs reviewed: Yes - General General: Alert and oriented X 3, Well developed/nourished, Other (moderate discomfort due to abd. ) - HEENT HEENT: Pharynx benign - Neck Neck: Supple, no meningeal sign, No adenopathy - Cardiac Cardiac: RRR - Respiratory Respiratory: No respiratory distress, Clear bilaterally - Abdomen Abdomen: Normal bowel sounds, Soft, Non distended, No organomegaly, Other (te nder LLQ and left mid abd without guarding nor percussion tenderness.) Results - Vitals Vitals: Vital Signs - 24 hr 03/22/24 03/22/24 03/23/24 21:18 23:22 01:00 Temperature 36.2 C L Heart Rate 78 80 72 Respiratory 17 18 Rate Blood Pressure 195/72 H 194/153 H 186/75 H O2 Saturation 97 98 97 If not protocol 2.5 3 : Oxygen Flow, liters/minute Oxygen O2 Source Nasal cannula Oxygen Flow Rate 2 - Labs Labs: Laboratory Tests 03/22/24 03/22/24 03/22/24 22:16 22:16 22:16 WBC 1.4 L* RBC 2.92 L Hgb 8.7 L Hct 27.9 L MCV 95.5 MCH 29.8 MCHC 31.2 L RDW 15.6 H Plt Count 118 L MPV 10.3 Neut # (Auto) 0.8 L Lymph # (Auto) 0.4 L [place] # (Auto) 0.1 Eos # (Auto) 0.0 Baso # (Auto) 0.0 Absolute Nucleated RBC 0.00 Nucleated RBC % 0.0 Manual Slide Review Indicated WBC Morphology NORMAL APPEARANCE Platelet Estimate DECREASED (<130,000) Platelet Morphology NORMAL APPEARANCE RBC Morph Micro Appear 1+ HYPOCHROMASIA Sodium 134 L Potassium 4.1 Chloride 99 L Carbon Dioxide 30 Anion Gap 5.0 L BUN 18 Creatinine 1.0 Estimated GFR (MDRD) 53 L Glucose 97 Calcium 10.7 H Magnesium 1.4 L Total Bilirubin 0.7 AST 15 ALT 7 L Alkaline Phosphatase 54 Total Protein 6.8 Albumin 3.8 Globulin 3.0 Albumin/Globulin Ratio 1.3 Triglycerides 54 Cholesterol 166 LDL Cholesterol, Calc 93 VLDL Cholesterol 11 HDL Cholesterol 62 LDL/HDL Ratio 1.5 Cholesterol/HDL Ratio 2.7 Lipase 32 TSH 1.24 PD Medical Decision Making - ED course Complexity details: reviewed results, re-evaluated patient (sidePain is improved with some IV medications and she was given IV antibiotics of Rocephin and Flagyl. This is since Doxy does not have an IV version and also subsequently getting her CBC back, a neutropenia of 1.4 WBCs would be concerning for a possible adverse med reaction.), considered differential (Left abdominal pain an d diagnosed with diverticulitis 2 days ago. Started on Doxy and Flagyl along with pain medicine. History of intolerance to oral medications causing GI upset. Onset nausea and vomiting repetitively after medications this evening.Abdominal exam is somewhat tender left lower.), d/w patient, d/w automotive consultant (Hospitalist), other (I did consult [employer] drug reference with neutropenia being listed as a possible adverse effect of doxycycline.) ED course: History of mild leukopenia with 3.2 a couple of days ago. Its 1.4 now however and she has not been low like that before. Evaluation of the medications she is on of Flagyl and Doxy, the doxycycline has listed a potential side effect of neutropenia related to doxycycline. Listed as a possible side effect of metronidazole as well. She was able to take sips of water. Less nauseous after medications and IV fluids. However not sure what alternative to change to that she would be able to tolerate orally even in conjunction with antiemetics prescribed. As such I talked with the hospitalist with regard to unknown infection with neutropenia and difficulty with oral intake and Dr. Stone agreed to admit the patient. Departure - Departure Disposition: ED Place in Observation Clinical Impression: Diverticulitis, Neutropenia, Nausea and vomiting, Medication side effects Condition: Stable Record reviewed to determine appropriate education?: Yes Discharge Date/Time: 03/23/24 02:03
[2024-03-22 22:25] LABS: EOSINOPHILS % (AUTO) 0.7 %; HCT - HEMATOCRIT 27.9 % (37.0-47.0); HGB - HEMOGLOBIN 8.7 g/dL (12.0-16.0); LYMPHOCYTES # (AUTO) 0.4 10^3/uL (1.5-3.5); LYMPHOCYTES % (AUTO) 31.4 %; MEAN CORPUSCULAR HEMOGLOBIN 29.8 pg (27.0-31.0); MEAN CORPUSCULAR HGB CONC 31.2 g/dL (32.0-36.0); MEAN CORPUSCULAR VOLUME 95.5 fL (81.0-99.0); MEAN PLATELET VOLUME 10.3 fL (7.9-10.8); MONOCYTES # (AUTO) 0.1 10^3/uL (0.0-1.0); MONOCYTES % (AUTO) 9.5 %; NEUTROPHILS # (AUTO) 0.8 10^3/uL (1.5-6.6); NEUTROPHILS % (AUTO) 56.9 %; PLT - PLATELET COUNT 118 10^3/uL (130-450); RED BLOOD COUNT 2.92 10^6/uL (4.20-5.40); RED CELL DISTRIBUTION WIDTH 15.6 % (12.0-15.0)
[2024-03-22 22:30] LABS: SLIDE REVIEW? Indicated; WHITE BLOOD COUNT 1.4 x10^3/uL (4.8-10.8)
[2024-03-22] MEDS: HYDROmorphone 1 MG/ML CARPUJECT IVP STA (22:37)
[2024-03-22 22:38] LABS: ALBUMIN 3.8 g/dL (3.2-5.5); ALBUMIN/GLOBULIN RATIO 1.3 (1.0-2.2); BILIRUBIN,TOTAL 0.7 mg/dL (0.2-1.0); CALCIUM 10.7 mg/dL (8.5-10.3); MAGNESIUM 1.4 mg/dL (1.7-2.3); POTASSIUM 4.1 mmol/L (3.5-4.5); TOTAL PROTEIN 6.8 g/dL (6.4-8.9)
[2024-03-22] MEDS: cefTRIAXone 1 GM VIAL IVP STA (22:41)
[2024-03-22] MEDS: ONDANSETRON 4 MG/2 ML VIAL IVP STA (22:46)
[2024-03-22] MEDS: SODIUM CHLORIDE 0.9% 1,000 ML IV STA (22:48)
[2024-03-22] MEDS: metroNIDAZOLE 500 MG/100 ML 500 MG/100 ML BAG IV ONE (22:48)
[2024-03-22 22:51] LABS: PLATELET ESTIMATE, MANUAL DECREASED (<130,000) (NORMAL); PLATELET MORPHOLOGY NORMAL APPEARANCE (NORMAL); RBC MORPHOLOGY (MULTIPLE) 1+ HYPOCHROMASIA (NORMAL)
[2024-03-22 22:52] LABS: WBC MORPHOLOGY (MULTIPLE) NORMAL APPEARANCE (NORMAL)
[2024-03-23] MEDS ORDERED: MELATONIN 3 MG TABLET PO PRN ×2 (00:56→01:22)
[2024-03-23] MEDS ORDERED: BENZONATATE 100 MG CAPSULE PO PRN (00:56)
[2024-03-23] MEDS ORDERED: iohexoL-300 100 ML VIAL ONE (01:15)
[2024-03-23] MEDS ORDERED: ONDANSETRON ODT 4 MG TABLET TL PRN (01:17)
--- NOTE | 2024-03-23 01:31 | HISTORY & PHYSICAL EXAMINATION ---
Chief Complaint - Chief Complaint Chief Complaint: abd pain, nausea, vomiting History of Present Illness - History of Present Illness HPI Comment/Other: pt with abd pain, nausea, vomiting for the past several days. pt was seen about 2-3 days ago in ER and discharged with PO meds after dx of diverticulitis, but she still has note felt relief. no diarrhea and no blood in stools. no dysuria or hematuria. no chest pain, fevers, chills, no falls. she has h/o diverticulitis in the past. no falls. 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 : reports: None HEENT: reports: Macular degeneration Psych: reports: None Musculoskeletal: reports: Osteoarthritis Derm: reports: None MRSA Hx?: No - Past Surgical History /ENFORCEMENT MANAGER: reports: Hysterectomy - POLST Patient has POLST: No Meds/Allgy - Home Medications Home Medications: Ambulatory Orders Medication Instructions Recorded Confirmed Albuterol [Ventolin Hfa] 2 puffs INH QID 01/29/13 03/20/24 Carbidopa/Levodopa 1.5 each PO HS 01/29/13 03/20/24 [Carbidopa-Levodopa 25-100 Tab] Lansoprazole [Prevacid] 30 mg PO DAILY 01/29/13 03/20/24 ALPRAZolam [Alprazolam] 0.25 mg PO PRN PRN 05/04/19 03/20/24 Doxycycline [Vibramycin] 100 mg PO BID #14 tablet 03/20/24 Gabapentin [Neurontin] 600 mg PO HS 03/20/24 03/20/24 HYDROmorphone [Dilaudid] 2 mg PO Q6H PRN #15 tablet 03/20/24 metroNIDAZOLE [Flagyl] 500 mg PO TID 7 Days #21 tablet 03/20/24 - Allergies Allergies/Adverse Reactions: Allergies Allergy/AdvReac Type Severity Reaction Status Date / Time Sulfa (Sulfonamide Allergy Severe Respiratory Verified 03/22/24 21:18 Antibiotics) levofloxacin Allergy Unknown Unknown Verified 03/22/24 21:18 amoxicillin AdvReac Severe Nausea, Verified 03/22/24 21:18 VOMITING codeine [Codeine] AdvReac Nausea Verified 03/22/24 21:18 morphine AdvReac unable to Verified 03/22/24 21:18 urinate oxycodone [Oxycodone] AdvReac Nausea Verified 03/22/24 21:18 prednisone AdvReac anger Verified 03/22/24 21:18 Review of Systems - Other Findings Other Findings: 14 pt review done with positives per hpi; all others reviewed as negative Exam - Vital Signs Vital Signs: Vital Signs x48h Temp Pulse Resp BP Pulse Ox O2 Flow Rate 03/23/24 01:00 72 18 186/75 H 97 3 03/22/24 23:22 80 194/153 H 98 2.5 03/22/24 21:18 36.2 C L 78 17 195/72 H 97 - Physical Exam Comments/Other: gen - aaox3, nad heent - eomi, nc/at heart - per ed charting lungs - per ed charting abd - soft, compressible, lower abd tenderness msk - no acute trauma noted or reported Conclusion/Plan - Lab Results Fish Bones: 03/22/24 22:16 03/22/24 22:16 - Other Other Results/Comments: pt with - - acute abdominal pain in setting of acute diverticulitis, with h/o same no abscess / perf noted rocephin + flagyl, IVF, pain control - leukopenia possible medication effect (doxycycline) vs infection monitor at this time - low mag replete might be d/t decreased po intake - nausea / vomiting in setting of above zofran, supportive mgmt, ivf
[2024-03-23 01:32] LABS: THYROID STIMULATING HORMONE 1.24 uIU/mL (0.34-5.60)
[2024-03-23 01:53] LABS: CHOL/HDL RATIO 2.7 (<4.4); CHOLESTEROL 166 mg/dL; HDL CHOLESTEROL 62 mg/dL; LDL CHOLESTEROL,CALCULATED 93 mg/dL; LDL/HDL RATIO 1.5 (<4.4); TRIGLYCERIDES 54 mg/dL; VLDL CHOLESTEROL 11 mg/dL
[2024-03-23] MEDS: iohexoL-300 100 ML VIAL IVP ONE (01:57)
--- NOTE | 2024-03-23 02:11 | CT Report ---
PROCEDURE: Abdomen/Pelvis W INDICATIONS: vomiting and persistent pain, divertic 2 days CONTRAST: 100 ml omni TECHNIQUE: After the administration of intravenous contrast, a CT scan of the abdomen and pelvis was performed. Images were recorded and evaluated at appropriate window settings. Reformats: coronal and sagittal. F or radiation dose reduction, the following was used: automated exposure control, adjustment of mA and /or kV according to patient size. COMPARISON: CT abdomen pelvis 03/20/2024, 01/12/2021. FINDINGS: Image quality: Diagnostic. Lower chest: Emphysematous change. No pleural effusion. Moderate sized hiatal hernia. Liver: Hypodense focus in the right lobe of liver, (2/33), unchanged. Likely a small cyst or hemangio ma. Question hepatic steatosis. Gallbladder: Prominent size. Layering density. This could represent vicarious excretion of contrast. No pericholecystic fluid. Biliary tree: No intrahepatic or extrahepatic dilation, accounting for age. Spleen: No splenomegaly. Pancreas: No pancreatic ductal dilation. Punctate calcifications in keeping with chronic calcific carpenter creatitis. No peripancreatic fluid collection. Adrenals: No adrenal nodule. Kidneys and ureters: No hydronephrosis. No solid mass. Low density left renal cyst measuring 4.2 cm i s not significant changed compared to 2020. Small left peripelvic cyst. Stomach, bowel and peritoneum: Sigmoid colon diverticulitis in the left pelvis. No definite foci of e xtraluminal gas. No abscess at this time. The previously seen hypodensity within the colonic wall on 03/20/2024 is no longer appreciated. Diverticulosis. No small bowel obstruction. Normal appendix. No as cites. No pneumoperitoneum. Lymph nodes: No central or retroperitoneal adenopathy. Vessels: No infrarenal aortic aneurysm. Calcified atherosclerotic plaque. Patent portal vein. Retroao rtic left renal vein. PELVIS Reproductive organs: Uterus is absent. Bladder: No stone. Pelvic lymph nodes: No pelvic adenopathy by size criteria. Bones: No aggressive osseous abnormality. Scoliosis. Other: Fat-containing umbilical hernia. No inguinal hernia. IMPRESSION: Sigmoid colon diverticulitis. No abscess appreciated at this time. No extraluminal gas. Chronic calcific pancreatitis. Emphysematous change. Reviewed by: Brenden Nuñez MD on 03/23/2024 2:09 AM PDT Approved by: Brenden Nuñez MD on 03/23/2024 2:09 AM PDT Station ID: [id number]
[2024-03-23] MEDS: LACTATED RINGERS 1,000 ML IV SCH (03:02)
[2024-03-23] MEDS ORDERED: MAGNESIUM SULFATE 1 GM/2 ML VIAL IVP STA (03:50)
[2024-03-23 05:23] LABS: EOSINOPHILS % (AUTO) 1.4 %; HCT - HEMATOCRIT 26.2 % (37.0-47.0); HGB - HEMOGLOBIN 8.4 g/dL (12.0-16.0); LYMPHOCYTES # (AUTO) 0.6 10^3/uL (1.5-3.5); MEAN CORPUSCULAR HEMOGLOBIN 30.7 pg (27.0-31.0); MEAN CORPUSCULAR HGB CONC 32.1 g/dL (32.0-36.0); MEAN CORPUSCULAR VOLUME 95.6 fL (81.0-99.0); MEAN PLATELET VOLUME 10.7 fL (7.9-10.8); MONOCYTES # (AUTO) 0.1 10^3/uL (0.0-1.0); MONOCYTES % (AUTO) 8.9 %; NEUTROPHILS # (AUTO) 0.7 10^3/uL (1.5-6.6); PLT - PLATELET COUNT 115 10^3/uL (130-450); RED BLOOD COUNT 2.74 10^6/uL (4.20-5.40); RED CELL DISTRIBUTION WIDTH 16.1 % (12.0-15.0)
[2024-03-23] MEDS: MAGNESIUM SULFATE 2 GRAM 2 GM/50 ML BAG IV SCH (05:24)
[2024-03-23 05:53] LABS: WHITE BLOOD COUNT 1.5 x10^3/uL (4.8-10.8)
[2024-03-23 06:05] LABS: ALBUMIN 3.5 g/dL (3.2-5.5); ALBUMIN/GLOBULIN RATIO 1.3 (1.0-2.2); BILIRUBIN,TOTAL 0.5 mg/dL (0.2-1.0); MAGNESIUM 1.3 mg/dL (1.7-2.3); TOTAL PROTEIN 6.3 g/dL (6.4-8.9)
[2024-03-23] MEDS ORDERED: LEVALBUTEROL 1.25 MG/3 ML NEB INH ONE (06:35)
[2024-03-23] MEDS: KETOROLAC 15 MG/ML VIAL IVP PRN (06:48)
[2024-03-23] MEDS: metroNIDAZOLE 500 MG/100 ML 500 MG/100 ML BAG IV SCH (06:49)
[2024-03-23 06:58] LABS: DIFFERENTIAL COMMENT MANUAL=AUTO DIFF; PLATELET ESTIMATE, MANUAL NORMAL (130-450,000) (NORMAL); PLATELET MORPHOLOGY RARE GIANT PLATELETS (NORMAL)
[2024-03-23] MEDS: LEVALBUTEROL 1.25 MG/3 ML NEB INH PRN (07:24)
[2024-03-23] MEDS: OXYMETAZOLINE HCL 100 SPRAYS BOTTLE NAS PRN (07:59)
[2024-03-23] MEDS ORDERED: LANSOPRAZOLE 15 MG CAPSULE PO SCH (08:00)
[2024-03-23] MEDS: SODIUM CHLORIDE FLUSH 0.9% 10 ML SYRINGE IVP SCH (08:03)
[2024-03-23] MEDS: PANTOPRAZOLE 40 MG TABLET PO SCH (08:58)
[2024-03-23] MEDS: LACTOBACILLUS RHAMNOSUS GG CAPSULE PO SCH (08:59)
[2024-03-23] MEDS ORDERED: FAMOTIDINE 20 MG/2 ML VIAL IVP SCH (09:00)
[2024-03-23] MEDS ORDERED: LACTOBACILLUS RHAMNOSUS GG CAPSULE PO SCH (09:00)
[2024-03-23] MEDS ORDERED: PSEUDOEPHEDRINE 30 MG TABLET PO PRN (09:08)
[2024-03-23] MEDS: LORATADINE 10 MG TABLET PO SCH (10:28)
--- NOTE | 2024-03-23 10:55 | XRAY Report ---
PROCEDURE: Chest 1V INDICATIONS: cough, congestion, crackles tachypnea TECHNIQUE: One view of the chest was acquired. COMPARISON: Chest radiograph dated 11/12/2020, 12/17/2020 and 12/19/2019. FINDINGS: Surgical changes and devices: None. Lungs and pleura: No pleural effusions or pneumothorax. Increase in interstitial lung markings are n oted bilaterally more notably in bilateral upper lung mayen. Mediastinum: Mediastinal contours appear normal. Heart size is normal. Bones and chest wall: No suspicious bony lesions. Overlying soft tissues appear unremarkable. IMPRESSION: Increased lung markings in bilateral upper lung mayen concerning for interstitial infilt rates versus atelectasis versus pulmonary edema. No pleural effusion or pneumothorax. Reviewed by: Andrew Her MD on 03/23/2024 10:54 AM PDT Approved by: Andrew Her MD on 03/23/2024 10:54 AM PDT Station ID: [id number]
[2024-03-23 11:13] LABS: ESTIMATED AVERAGE GLUCOSE 108 mg/dL (70-100); HEMOGLOBIN A1c% 5.4 % (4.27-6.07)
--- NOTE | 2024-03-23 11:41 | PROVIDER PROGRESS NOTE ---
Subjective - Prog Note Date Prog Note Date: 03/23/24 Prog Note Time: 11:35 - Subjective Pt reports feeling: Worse Subjective: Ms. Rodriguez is an 84 y/o female who presented to the ED on 03/22 for nausea and vomiting x 2 days and LLQ abdominal pain. She was diagnosed with divertiticulitis on 03/20 and placed on flagyl and doxycline. She has a hx of intolerance to PO antibiotics and is unable to take amoxicillin or levaquin which is likely why she was placed on doxycycline. She reports feeling initially improved with resolution of fever but then developed nausea and vomiting and has been unable to hold down meds for past two days. She has mild LLQ tenderness on palpation, no peritoneal signs or distention. She denies bloody emesis, coffee ground emesis, hematochezia or dark stool. Abdonimal CT shows sigmoid divertiticulitis, no abcess or extraluminal gas. She was placed on IV fluids, started on ceftriaxone and flagyl IV, given zofran for nausea/vomiting, and admitted to the floor. She has a hx of diverticulitis, states this is her 4th episode, with the first episode noted on 08/03/15. She states she eats very carefully, avoids foods that trigger it, and is not sure what triggered this episode. She states her abdominal pain has decreased since 03/20, denies fever/chills since discharge from the ED. She has no hx of GI bleeding, has not been transfused, states she is chronically anemic as she doesn't eat red meat. She also states her colon is not attached to her rectum, causing periodic constipation which she disimpacts manually. I have not found record of this and she denies any constipation or diarrhea at this time. She is noted to be pancytopenic with a decline in WBCs first noted in her records in 2012, RBCs in 2020, and now platelets this year (2023). It is unclear what the cause of her pancytopenia is. I am considering the possibility of hematologic pathology including CML. While decreased luekopenia is a rare side effect of doxycycline, the onset of leukopenia precedes the initiation of doxycyline by years. I am ordering anemia labs and she will likely need a bone marrow biopsy for definitive diagnosis. She is currently complaining of SOB more than abdominal pain. Her nausea is resolved and she denies c/p. She was diagnosed with alpha-1 anti-trypsin deficiency at age 50, is dependent on home O2 at 2-3 lpm n/c, and has had several episodes of bronchitis and pneumonia. She uses her albuterol inhaler as needed for dyspnea and has it with her in the bed upon assessment. She complains of SOB and used her inhaler twice around 06:30 this morning, states she feels more SOB than usual. She is coughing up white sputum, states it is normally clear, and has mild nasal congestion relieved with afrin nasal spray. She reports mild cold-like symptoms for the past 3 days with a mild increase in co ughing. Her dyspnea has increased since admission and she was not evaluated for this in the ED. A chest x-ray ordered at the time of assessment shows no focal consolidation or pleural effusion with bilateral upper mayen findings suggestive of interstitial infiltrates, atelectatasis, or pulmonary edema. She has no pedal edema, JVD or chest pain. She is hypertensive with a BNP of 377 and has rales bilateral bases, R>L, suggesting HF is underlying her SOB. I will get an ECG, ECHO, and troponin and will start diuresis with 40 mg lasix IV. She has no previous dx of HF and I did not see a previous ECHO. Objective - Vital Signs/Intake & Output Reviewed Vital Signs: Yes Vital Signs: Vital Signs x48h Temp Pulse Pulse Resp BP Pulse Ox O2 Flow Rate 03/23/24 10:29 36.7 C 81 16 156/70 H 95 2 03/23/24 07:26 82 20 2 03/23/24 05:14 36.8 C 77 18 174/75 H 96 2 Intake & Output: Intake & Output 03/20/24 03/21/24 03/22/24 03/23/24 23:59 23:59 23:59 23:59 Intake Total 1100 1160 Balance 1100 1160 - Objective General Appearance: positive: No acute distress, Alert, Other (84 y/o female alert and upright in bed with mild tachypnia, with mild increase in work of breathing) Eyes Bilateral: positive: Normal inspection, PERRL, EOMI Neck: positive: Nml inspection, Thyroid nml, No JVD, Trachea midline Respiratory: positive: Chest non-tender, Rales (Rales bilateral bases). negative: No respiratory distress (Mild respiratory distress and techypnia at 24 and suprasternal retractions), Wheezes, Rhonchi Cardiovascular: positive: Regular rate & rhythm, No gallop, Systolic murmur (Best appreciated left upper sternal border). negative: Tachycardia Peripheral Pulses: 2+ Radial (R), 2+ Radial (L), 2+ Dorsalis pedis (R), 2+ Dorsalis pedis (L) Abdomen: positive: No organomegaly, Nml bowel sounds, No distention, Tenderness (Mild LLQ tenderness). negative: Guarding, Rebound Back: positive: Nml inspection Skin: positive: Color nml, No rash, Warm Extremities: positive: Nml appearance, No pedal edema Neurologic/Psychiatric: positive: Oriented x3, CN's nml (2-12), Motor nml, Sensation nml, Mood/affect nml - Lab Results Fish Bones: 03/23/24 05:00 03/23/24 05:00 Other Labs: Lab Results x24hrs 03/23/24 03/23/24 03/23/24 Range/Units 05:00 05:00 05:00 WBC 1.5 L* (4.8-10.8) x10^3/uL RBC 2.74 L (4.20-5.40) 10^6/uL Hgb 8.4 L (12.0-16.0) g/dL Hct 26.2 L (37.0-47.0) % MCV 95.6 (81.0-99.0) fL MCH 30.7 (27.0-31.0) pg MCHC 32.1 (32.0-36.0) g/dL RDW 16.1 H (12.0-15.0) % Plt Count 115 L (130-450) 10^3/uL MPV 10.7 (7.9-10.8) fL Neut # (Auto) 0.7 L (1.5-6.6) 10^3/uL Lymph # (Auto) 0.6 L (1.5-3.5) 10^3/uL Callaway # (Auto) 0.1 (0.0-1.0) 10^3/uL Eos # (Auto) 0.0 (0.0-0.7) 10^3/uL Baso # (Auto) 0.0 (0.0-0.1) 10^3/uL Absolute Nucleated RBC 0.00 x10^3/uL Total Counted PATIENT ACCESS REGISTRAR Band Neuts % (Manual) Not Reportable Abnorm Lymph % (Manual) Not Reportable Nucleated RBC % 0.0 /100WBC Neutrophils # (Manual) Not Reportable Lymphocytes # (Manual) Not Reportable Monocytes # (Manual) Not Reportable Eosinophils # (Manual) Not Reportable Basophils # (Manual) Not Reportable Differential Comment MANUAL=AUTO DIFF Manual Slide Review WBC Morphology (NORMAL) Platelet Estimate NORMAL (130-450,000) (NORMAL) Platelet Morphology RARE GIANT PLATELETS (NORMAL) RBC Morph Micro Appear (NORMAL) Sodium 136 (135-145) mmol/L Potassium 4.0 (3.5-4.5) mmol/L Chloride 102 (101-111) mmol/L Carbon Dioxide 28 (21-32) mmol/L Anion Gap 6.0 (6-13) BUN 16 (6-20) mg/dL Creatinine 1.0 (0.6-1.3) mg/dL Estimated GFR (MDRD) 53 L (>89) Glucose 96 (74-104) mg/dL Calcium 10.0 (8.5-10.3) mg/dL Magnesium 1.3 L (1.7-2.3) mg/dL Total Bilirubin 0.5 (0.2-1.0) mg/dL AST 15 (10-42) IU/L ALT 6 L (10-60) IU/L Alkaline Phosphatase 50 (42-121) IU/L B-Natriuretic Peptide 377 H (5-100) pg/mL Total Protein 6.3 L (6.4-8.9) g/dL Albumin 3.5 (3.2-5.5) g/dL Globulin 2.8 (2.1-4.2) g/dL Albumin/Globulin Ratio 1.3 (1.0-2.2) Triglycerides mg/dL Cholesterol ( - 200) mg/dL LDL Cholesterol, Calc ( - 129) mg/dL VLDL Cholesterol mg/dL HDL Cholesterol (60 - ) mg/dL LDL/HDL Ratio (<4.4) Cholesterol/HDL Ratio (<4.4) Lipase (11-82) U/L TSH (0.34-5.60) uIU/mL 03/22/24 03/22/2403/22/24 Range/Units 22:16 22:16 22:16 WBC 1.4 L* (4.8-10.8) x10^3/uL RBC 2.92 L (4.20-5.40) 10^6/uL Hgb 8.7 L (12.0-16.0) g/dL Hct 27.9 L (37.0-47.0) % MCV 95.5 (81.0-99.0) fL MCH 29.8 (27.0-31.0) pg MCHC 31.2 L (32.0-36.0) g/dL RDW 15.6 H (12.0-15.0) % Plt Count 118 L (130-450) 10^3/uL MPV 10.3 (7.9-10.8) fL Neut # (Auto) 0.8 L (1.5-6.6) 10^3/uL Lymph # (Auto) 0.4 L (1.5-3.5) 10^3/uL Callaway # (Auto) 0.1 (0.0-1.0) 10^3/uL Eos # (Auto) 0.0 (0.0-0.7) 10^3/uL Baso # (Auto) 0.0 (0.0-0.1) 10^3/uL Absolute Nucleated RBC 0.00 x10^3/uL Total Counted Band Neuts % (Manual) Abnorm Lymph % (Manual) Nucleated RBC % 0.0 /100WBC Neutrophils # (Manual) Lymphocytes # (Manual) Monocytes # (Manual) Eosinophils # (Manual) Basophils # (Manual) Differential Comment Manual Slide Review Indicated WBC Morphology NORMAL APPEARANCE (NORMAL) Platelet Estimate DECREASED (<130,000) (NORMAL) Platelet Morphology NORMAL APPEARANCE (NORMAL) RBC Morph Micro Appear 1+ HYPOCHROMASIA (NORMAL) Sodium 134 L (135-145) mmol/L Potassium 4.1 (3.5-4.5) mmol/L Chloride 99 L (101-111) mmol/L Carbon Dioxide 30 (21-32) mmol/L Anion Gap 5.0 L (6-13) BUN 18 (6-20) mg/dL Creatinine 1.0 (0.6-1.3) mg/dL Estimated GFR (MDRD) 53 L (>89) Glucose 97 (74-104) mg/dL Calcium 10.7 H (8.5-10.3) mg/dL Magnesium 1.4 L (1.7-2.3) mg/dL Total Bilirubin 0.7 (0.2-1.0) mg/dL AST 15 (10-42) IU/L ALT 7 L (10-60) IU/L Alkaline Phosphatase 54 (42-121) IU/L B-Natriuretic Peptide (5-100) pg/mL Total Protein 6.8 (6.4-8.9) g/dL Albumin 3.8 (3.2-5.5) g/dL Globulin 3.0 (2.1-4.2) g/dL Albumin/Globulin Ratio 1.3 (1.0-2.2) Triglycerides 54 mg/dL Cholesterol 166 ( - 200) mg/dL LDL Cholesterol, Calc 93 ( - 129) mg/dL VLDL Cholesterol 11 mg/dL HDL Cholesterol 62 (60 - ) mg/dL LDL/HDL Ratio 1.5 (<4.4) Cholesterol/HDL Ratio 2.7 (<4.4) Lipase 32 (11-82) U/L TSH 1.24 (0.34-5.60) uIU/mL - Diagnostic Imaging Diagnostic Imaging Results: positive: Final report reviewed, Other (12-lead: NSR with normal axis, early r-wave progression, no ST segment elevation with inversion lateral leads) Diagnostic Imaging Comments: CXR: no focal consolidation or pleural effusion with bilateral upper field findings suggestive of interstitial infiltrates, atelectatasis, or pulmonary edema. ABX Reporting Has patient been on IV antibiotics over the past 48 hours?: Yes Sepsis Event Note (H) - Evaluation Current Stage of Sepsis: Ruled out Assessment/Plan - Problem List (1) Heart failure Impression: She presents with SOB, onset after admission, with productive cough and white sputum. Her O2 sat was 88% of 2 lpm and I increased it to 3 lpm with an increase to 94%. She is hypertensive at 156/70, tachypneic with increased work of breathing a suprasternal retractions. She has a mild systolic murmur best appreciated over the right upper sternal border which is consistent with increased pulmonary pressure due to her alpha-1 antitrypsin deficiency. BNP is elevated at 377 and her chest x-ray shows findings consistent with pulmonary edema. She reports right shoulder pain, 7/10, increased with tension and reduced when she relaxes, non-radiating. She recieved a total of 1100 ml yesterday and today for a total of 2200, developing SOB after admission. 12-lead is NSR with no ST elevation, mild inversion in lateral leads. I ordered an ECHO, troponin, and 40 mg lasix IV. I will continue IV antibiotics but will not give any addit ional fluids. (2) Pancytopenia Impression: She is pancytopenic with WBCs first noted as low in 2012, RBCs low since 2020, and platelets low since this year (2023). Her current WBC is 1.5, RBCs 2.74 and platelets 115. Her hemoglobin is above the transfusion threshold at 8.4 and her ANC is 700. She has no reports of GI bleeding previously and denies hematemesis, bloody, or dark stool. The cause of the pancytopenia is unknown, suspect hematologic origin and possible CML. I have ordered an anemia panel and she will need a bone marrow biopsy. She is on neutropenic precautions at this time and is currently afebrile. She is also on IV ceftriaxone and metronidazole for her diverticulitis. (3) Diverticulitis Impression: She was diagnosed with diverticulitis on 03/20 in the ED where she presented with abdominal pain and fever, sent home on oral doxycycline and metronidazole. She returned to the ED 03/22 with complaints of n/v, unable to keep any of her meds down for 2 days. She has mild LLQ abdominal pain, no constipation or diarrhea, no bloody or dark stool or hematemesis. CT abdomen shows sigmoid diverticulitis without abscess or extraluminal air. Her nausea is controlled with zofran and she was started on IV ceftriaxone and metronidazole in the ED and admitted to the floor. Her exam reveals mild LLQ tenderness, but is otherwise unremakable. I will continue the IV antibiotics and zofran as needed. (4) Sdqsb-[id number] deficiency Impression: Diagnosed with alpha-1 antitrypsin deficiency at age 50, was previously a healthy and active when she suddenly developed dyspnea. 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 She uses an albuterol inhaler PRN for dyspnea. She also has liver changes noted on CT that may indicate hepatic steatosis and a cyst unchanged from previous imaging, possibly due to hepatic effects of alpha-1 antitrypsin deficiency. I will treat dyspnea related to COPD symptoms with PRN albuterol INH and O2 as needed. She also has her inhaler from home with her that she was hiding in the bed. I requested that she please let us know if she is short of breath as this allows us a chance to determine the cause and proper course of treatment. She has used her inhalers twice around 6:30 and reports it is not working like it usually does. This is not surprising as she is experiencing cardiac pulmonary edema right now. (5) Hypertension Impression: No active diagnosis of hypertension and she is not treated for this on her home medications. She reports it has been elevated at times but not consistently. She is currently hypertensive, last BP 156/70. She is recieving 40 mg of lasix IVP and I will consider nitrates if her BP remains elevated with symptoms of HF while she is diuresed. (6) Restless leg Impression: She has a hx of RLS. It is unclear if she takes gabapentin or carbidopa/levodopa for this. Pharmacy is working to reconcile medications so that we can continue her home medication. She has given conflicting information to the pharmacist and myself regarding this.
--- NOTE | 2024-03-23 12:11 | PHARMACY PROGRESS NOTE ---
- Best Possible Medication History Admit Date and Time: 03/23/24 0117 Processed by: Pharmacy Medications reviewed in ED?: No Medication History completed: Yes Patient Interview: Completed Secondary Source(s): Pharmacy records, Insurance records As the person ultimately responsible for medication therapy, providers are able to order a medication from an existing home medication list in [facility] via the "Reconcile Routine" prior to Confirmation of that medication by senior administrative support. Such practice is discouraged except when the physician, in their clinical judgment, deems that a medical need exists for a medication without regard to previous use.
[2024-03-23] MEDS: FUROSEMIDE 40 MG/4 ML VIAL IVP STA (12:41)
[2024-03-23] MEDS: SODIUM CHLORIDE FLUSH 0.9% 10 ML SYRINGE IVP PRN (12:42)
[2024-03-23] MEDS: ALBUTEROL NEB 2.5 MG/3 ML INH PRN (16:49)
[2024-03-23] MEDS ORDERED: SACCHAROMYCES BOULARDII 250 MG CAPSULE PO SCH (17:00)
[2024-03-23] MEDS: diazePAM 5 MG TABLET PO ONE (19:28)
[2024-03-23] MEDS: GABAPENTIN 300 MG CAPSULE PO SCH (20:56)
[2024-03-23] MEDS: cefTRIAXone 1 GM in SODIUM CHLORIDE 0.9% MINIBAG 100 ML IV SCH (20:56)
[2024-03-23] MEDS ORDERED: CARBIDOPA/LEVODOPA 25 MG/100 MG TABLET PO SCH (21:00)
[2024-03-24 06:04] LABS: ABSOLUTE RETICS # AUTO 0.043 10^6/uL (0.020-0.110); RED BLOOD COUNT 2.72 10^6/uL (4.20-5.40); RETICULOCYTE COUNT % (AUTO) 1.57 % (0.5-2.3)
[2024-03-24 06:53] LABS: % IRON SATURATION 45 % (20-50); IRON 131 ug/dL (50-212); TOTAL IRON BINDING CAPACITY 288 ug/dL (250-450); TRANSFERRIN 206 mg/dL (203-362)
[2024-03-24] MEDS: FUROSEMIDE 20 MG/2 ML VIAL IVP ONE (09:06)
--- NOTE | 2024-03-24 11:00 | PROVIDER PROGRESS NOTE ---
Subjective - Prog Note Date Prog Note Date: 03/24/24 Prog Note Time: 10:58 - Subjective Pt reports feeling: Improved Subjective: She reports that overall she is feeling improved and had no acute events overnight. She was given a dose of 40 mg IV Lasix yesterday and she indicates that her breathing has improved, however she is not quite back to her baseline yet. She is having a cough that is productive of clear phlegm but denies any fevers, pleurisy or orthopnea. She also indicates that she has as needed oral Lasix at home however she essentially never uses it. Her abdominal pain is improved however she does still have some cramping discomfort in the left lower quadrant. She has not had any bowel movements but is passing gas though she indicates she does not feel constipated. She has not been eating very much due to poor appetite however today she indicates she has an improved appetite. Objective - Vital Signs/Intake & Output Vital Signs: Vital Signs x48h Temp Pulse Pulse Resp BP Pulse Ox O2 Flow Rate 03/24/24 08:07 37.1 C 81 20 179/66 H 92 03/24/24 07:35 75 20 3 03/24/24 04:46 36.5 C 75 18 163/64 H 94 3 Intake & Output: Intake & Output 03/21/24 03/22/24 03/23/24 03/24/24 23:59 23:59 23:59 23:59 Intake Total 1100 2270 460 Output Total 3700 50 Balance 1100 -1430 410 - Objective General Appearance: positive: No acute distress, Alert, Other (Appears in no acute distress and is breathing normally. Appears older than stated age.) Eyes Bilateral: positive: Normal inspection, PERRL, EOMI ENT: positive: ENT inspection nml, Pharynx nml Neck: positive: Nml inspection, Thyroid nml, No JVD Respiratory: positive: No respiratory distress, Other (No respiratory distress with good air movement bilaterally however there are faint inspiratory crackles in the both lower lobes posteriorly.). negative: Wheezes, Rhonchi Cardiovascular: positive: Regular rate & rhythm, No murmur, No gallop, Systolic murmur (Soft 2/6 murmur at the left upper sternal border) Peripheral Pulses: 2+ Dorsalis pedis (R), 2+ Dorsalis pedis (L) Abdomen: positive: Other (Soft, nondistended, positive bowel sounds, tender to palpation in left lower quadrant without any guarding or rebound tenderness, no hepatosplenomegaly) Skin: positive: Color nml, No rash Extremities: positive: Pedal edema (Trace pedal edema bilaterally) Neurologic/Psychiatric: positive: Oriented x3, CN's nml (2-12), Motor nml, Sensation nml - Lab Results Fish Bones: 03/23/24 05:00 03/23/24 05:00 Other Labs: Lab Results x24hrs 03/24/24 03/24/24 03/24/24 Range/Units 05:54 05:54 05:54 RBC 2.72 L (4.20-5.40) 10^6/uL Reticulocyte % (Auto) 1.57 (0.5-2.3) % Absolute Retic 0.043 (0.020-0.110) 10^6/uL Estimat Average Glucose (70-100) mg/dL Hemoglobin A1c % (4.27-6.07) % Iron 131 (50-212) ug/dL TIBC 288 (250-450) ug/dL % Saturation 45 (20-50) % Transferrin 206 (203-362) mg/dL Lactate Dehydrogenase 108 L (140-271) IU/L Troponin I High Sens (2.3-14.8) ng/L B-Natriuretic Peptide (5-100) pg/mL Vitamin B12 446 (180-914) pg/mL 03/23/24 03/23/24 03/22/24 Range/Units 05:00 05:00 22:16 RBC (4.20-5.40) 10^6/uL Reticulocyte % (Auto) (0.5-2.3) % Absolute Retic (0.020-0.110) 10^6/uL Estimat Average Glucose 108 H (70-100) mg/dL Hemoglobin A1c % 5.4 (4.27-6.07) % Iron (50-212) ug/dL TIBC (250-450) ug/dL % Saturation (20-50) % Transferrin (203-362) mg/dL Lactate Dehydrogenase (140-271) IU/L Troponin I High Sens 11.9 (2.3-14.8) ng/L B-Natriuretic Peptide 377 H (5-100) pg/mL Vitamin B12 (180-914) pg/mL - Other Results/Comments Other Results/Comments: CXR: No focal consolidation or pleural effusion with bilateral upper field findings suggestive of interstitial infiltrates, atelectasis, or pulmonary edema. TTE: 1. Normal LV size and systolic function with LVEF 70 to 75%. 2. Normal RV size and systolic function. 3. No significant valvular pathology. Sepsis Event Note (H) - Evaluation Current Stage of Sepsis: Ruled out Possible source of Sepsis: positive: GI tract/intra-abdominal Assessment/Plan - Problem List (1) Heart failure Impression: She presented with worsening shortness of breath and had chest x-ray findings consistent with pulmonary edema versus atelectasis or interstitial infiltrate in the upper lobes bilaterally. Clinically she was not infected and appeared more likely to have fluid overload. Her BNP was elevated at 377. Her echocardiogram showed an LVEF of 75% and no significant other pathology. She responded well to 40 mg IV diuresis yesterday. -Will give an additional dose of 20 mg IV Lasix today. -Start 20 mg p.o. Lasix tomorrow. -Wean oxygen as tolerated. Qualifiers: Heart failure type: diastolic Heart failure chronicity: acute Qualified Code(s): I50.31 - Acute diastolic (congestive) heart failure (2) Acute and chronic respiratory failure with hypoxia Impression: She typically wears 2 L of oxygen at baseline and presented with hypoxia requiring 3 to 4 L of oxygen. This is likely secondary to her CHF as noted above. She does not appear to be having a COPD exacerbation. -Treat CHF as noted above. Continue home inhalers and therapies for COPD. -Wean oxygen as tolerated back down to 2 L. (3) Pancytopenia Impression: She has had leukopenia since 2012 with anemia starting in 2020 and thrombocytopenia starting this year in 2023. Her pancytopenia has no definite cause at this time and has not had a full workup. Her anemia panel obtained today was unremarkable, as well as a TSH and vitamin B12 level. The most likely cause is myelodysplastic syndrome however an underlying malignancy is possible. -She will require further outpatient workup with bone marrow biopsy in the future. -Continue to monitor daily CBC. -Currently not to neutropenic level but close. -Will transfuse if hemoglobin less than 7 or platelets less than 10 unless actively bleeding. (4) Diverticulitis Impression: She was diagnosed with diverticulitis on 03/20 in the ER where she presented with abdominal pain and fever and she was sent home on oral doxycycline and metronidazole. She returned to the emergency department on 04/01 with nausea, vomiting and inability to take her oral medications, prompting her current hospitalization. Her CT scan on admission showed sigmoid diverticulitis without any complications. -Continue IV ceftriaxone and metronidazole. -She has clinically improved since presentation. Can hopefully be discharged tomorrow. Qualifiers: Diverticulitis site: large intestine Diverticulitis bleeding: with bleeding Diverticulitis complication: without perforation or abscess Qualified Co de(s): K57.33 - Diverticulitis of large intestine without perforation or abscess with bleeding (5) Tnkzs-[id number] deficiency Impression: Follows with Dr. Jona Bal in [facility] through [facility] ([phone]). Was diagnosed with alpha-1 antitrypsin at age 50 and typically wears 2 to 3 L of oxygen at home. -Continue home inhalers. -Can continue to have routine outpatient follow-up as previously scheduled. (6) Hypertension Impression: Her blood pressure has remained uncontrolled since being in the hospital, ranging from 140-180 systolic. -Start Imdur 30 mg daily. Qualifiers: Hypertension type: primary hypertension Qualified Code(s): I10 - Essential (primary) hypertension
[2024-03-24] MEDS: ISOSORBIDE MONONITRATE ER 30 MG TABLET PO SCH (12:20)
[2024-03-24 16:18] LABS: MAGNESIUM 1.4 mg/dL (1.7-2.3)
[2024-03-24 16:24] LABS: CALCIUM 9.4 mg/dL (8.5-10.3); CREATININE 1.3 mg/dL (0.6-1.3); POTASSIUM 3.6 mmol/L (3.5-4.5)
[2024-03-24] MEDS: ACETAMINOPHEN 325 MG TABLET PO PRN (20:13)
[2024-03-25 07:25] LABS: EOSINOPHILS % (AUTO) 1.5 %; HCT - HEMATOCRIT 25.3 % (37.0-47.0); HGB - HEMOGLOBIN 8.1 g/dL (12.0-16.0); LYMPHOCYTES # (AUTO) 0.8 10^3/uL (1.5-3.5); MEAN CORPUSCULAR HEMOGLOBIN 30.5 pg (27.0-31.0); MEAN CORPUSCULAR VOLUME 95.1 fL (81.0-99.0); MEAN PLATELET VOLUME 10.5 fL (7.9-10.8); MONOCYTES # (AUTO) 0.2 10^3/uL (0.0-1.0); MONOCYTES % (AUTO) 13.3 %; NEUTROPHILS % (AUTO) 26.7 %; PLT - PLATELET COUNT 113 10^3/uL (130-450); RED BLOOD COUNT 2.66 10^6/uL (4.20-5.40); RED CELL DISTRIBUTION WIDTH 15.8 % (12.0-15.0)
[2024-03-25] MEDS: POTASSIUM CHLORIDE 20 MEQ TABLET PO ONE (07:30)
[2024-03-25 07:38] LABS: SLIDE REVIEW? Indicated
[2024-03-25 07:40] LABS: CALCIUM 9.5 mg/dL (8.5-10.3); CREATININE 1.2 mg/dL (0.6-1.3); POTASSIUM 3.3 mmol/L (3.5-4.5)
[2024-03-25 07:46] LABS: NEUTROPHILS # (AUTO) 0.4 10^3/uL (1.5-6.6); WHITE BLOOD COUNT 1.4 x10^3/uL (4.8-10.8)
[2024-03-25 07:59] LABS: PLATELET ESTIMATE, MANUAL DECREASED (<130,000) (NORMAL); PLATELET MORPHOLOGY NORMAL APPEARANCE (NORMAL); RBC MORPHOLOGY (MULTIPLE) 1+ HYPOCHROMASIA (NORMAL)
[2024-03-25] MEDS: DOCUSATE SODIUM 250 MG CAPSULE PO SCH (08:14)
[2024-03-25] MEDS: MAGNESIUM OXIDE 400 MG TABLET PO SCH (08:14)
[2024-03-25] MEDS: polyethylene glycoL 3350 17 GM PACKET PO SCH (08:14)
[2024-03-25] MEDS: FUROSEMIDE 20 MG TABLET PO SCH (08:14)
[2024-03-25] MEDS ORDERED: bisacodyL 5 MG TABLET PO PRN (08:41)
--- NOTE | 2024-03-25 11:20 | Discharge Plan ---
Discharge Plan Problem Reviewed?: Yes Disposition: Home, Self Care Condition: Stable Prescriptions: Isosorbide Mononitrate ER [Imdur] 30 mg PO DAILY 30 Days #30 tab Furosemide [Lasix] 20 mg PO DAILY 5 Days #5 tab polyethylene glycoL 3350 [Miralax] 17 gm PO DAILY PRN 10 Days #10 packet PRN Reason: Constipation Diet: Cardiac Activity Restrictions: No Restrictions Shower Restrictions: No Driving Restrictions: No Assistance Devices: Walker Weight Bearing: Full Weight Health Concerns: You are admitted to the hospital for ongoing treatment of diverticulitis of your large intestine. You have been seen in the emergency department a few days prior to hospitalization and diagnosed with diverticulitis however you had ongoing abdominal pain with nausea and vomiting that prevented you from taking your oral medications including the antibiotics. A CT scan of your abdomen at the time of admission showed findings consistent of sigmoid diverticulitis but there were no complications from the infection. After admission to the hospital and IV antibiotics, your diverticulitis continued to improve and your nausea/vomiting resolved. You are given a prescription for antibiotics as noted below to complete as an outpatient to finish treatment for your diverticulitis. At the time of presentation you also had worsening shortness of breath and required 3 to 4 L of oxygen rather than your typical 2 to 3 L of oxygen. An x- ray of your chest showed findings concerning for possible fluid versus the underlying chronic changes from your alpha 1 antitrypsin. You are given IV furosemide (lasix) which helps you to urinate and get rid of extra fluid. After getting rid of several liters of fluid, your symptoms were improved and your oxygen levels improved to the point that you stayed consistently on 3 L of oxygen. An ultrasound of your heart called an echocardiogram, was obtained and showed that your heart was strong and pumping at 75%, which anything greater than 50% is normal. You are given a prescription for oral furosemide for the next 5 days. While you are hospitalized we monitored your blood count and it was noted that your white blood cell count, red blood cell count and platelets were all low. Reviewing your prior records it indicates that your white blood cell count has been decreasing over several years, with your red blood cell count decreasing over the past couple years and your platelet count has only been low this past year. This is concerning for an underlying issue with your bone marrow as the bone marrow is where these blood cells are produced. We checked several labs and did not find a definite cause for this, thus we will require referral to a aluminum welder/oncologist as an outpatient to discuss the possibility of a bone marrow biopsy. It is possible that you have something called myelodysplastic syndrome, though there are many other causes that need further evaluated. You can schedule follow-up with Dr. Jona Haji and pulmonary to review your hospitalization, low oxygen levels and alpha-1 antitrypsin. He can also help arrange other consultations as well. Plan of Treatment: You were started on a few medications this hospitalization: 1. Furosemide 20 mg tablet. Take one tab by mouth daily, starting tomorrow (03/26/24) for the next 5 days. This is a "water pill" which helps you urinate more to get rid of extra fluid in your body. 2. Imdur 30 mg tablet. Take one tab by mouth daily. This is a blood pressure m edication and was started because your BP was elevated in the hospital. 3. You can continue the previously prescribed Doxycycline and Metronidazole (antibiotics) to complete the course of treatment for your diverticulitis. 4. You were also given a prescription for Miralax - this can be taken once daily as needed for constipation. You do not need to take it every day if you are having normal bowel movements. Additional Instructions or Follow Up instructions: Please be sure to follow up with your PCP and/or Dr. Jona Haji as a hospital follow up visit. At that visit, please discuss with them your "pancytopenia", which is your low blood count (white blood cell, red blood cell, platelets). We are concerned you need referred to Hematology/Oncology and may need a bone marrow biopsy. Follow-Up Care: Home Health - PT, Home Health - OT No Smoking: If you smoke, Please STOP! Call for help. Follow-up with: Yuly Robbins MD [Primary Care Provider] -
--- NOTE | 2024-03-25 11:51 | DISCHARGE SUMMARY ---
"Discharge Summary Admit Date: 03/23/24 Discharge Date: 03/25/24 Discharging Provider: Dr. Freddy Hancock MD Primary Care Provider: Dr. Yuly Robbins MD Code Status: Attempt Resuscitation Condition at Discharge: Stable Discharge Disposition: [facility] - DIAGNOSES Admission Diagnoses: Acute Sigmoid Diverticulitis Discharge Diagnoses with Status of Each Condition: 1. Acute sigmoid diverticulitis improved 2. Nausea and vomiting resolved 3. Acute on chronic hypoxic respiratory failure resolved, back to chronic 3 L oxygen requirement 4. Acute heart failure improved 5. Pancytopenia stable 6. Hypertension stable 7. Mxafy-[id number] deficiency stable - HPI History of Present Illness: Bertha Rodriguez is an 84-year-old woman with a history of alpha 1 antitrypsin deficiency followed by Dr. Jona Haji (Pulmonary, [facility]), COPD with asthma, hypertension, history of leukopenia, GERD who presented with abdominal pain associated with nausea and vomiting. She presented to the emergency department on 03/20 with abdominal pain and fever, with imaging findings concerning for sigmoid diverticulitis. She was discharged home with oral doxycycline and metro nidazole which she initially was able to take however then she developed increased abdominal pain associated with persistent nausea and vomiting with inability to take her oral medications. She came back to the emergency department for further evaluation. She had no diarrhea, melena, hematochezia and denies any recurrent fevers, chills or night sweats. In the emergency department a repeat CT of her abdomen showed persistent sigmoid diverticulitis that appeared stable compared to prior image and there was no complication (no perforation or abscess noted). She was admitted to the hospital to receive IV fluids and IV antibiotics. - CONSULTS | PROCEDURES Consultations: None - HOSPITAL COURSE Hospital Course: For her sigmoid diverticulitis she was given IV fluids initially along with IV ceftriaxone and metronidazole. Her pain was adequately controlled and her nausea/vomiting improved in the hospital. Her IV fluids were discontinued after she developed worsening shortness of breath and hypoxia as noted below. During her hospitalization her diverticulitis gave no ongoing issues and symptomatically improved. She ultimately required initiation of MiraLAX and docusate due to constipation, but was stable at the time of discharge. She was advised to continue the previously prescribed doxycycline and metronidazole to complete her course of oral antibiotic therapy after the hospitalization. After she received approximately 1 L of IV fluids she developed worsening shortness of breath and required 3 to 4 L of oxygen rather than her baseline 2 to 3 L of oxygen. Her chest x-ray showed possible pulmonary edema versus chronic underlying changes from her alpha-1 antitrypsin. Clinically it was felt that she was having fluid overload and was diagnosed with acute congestive heart failure. Her IV fluids were discontinued and she was given 40 mg IV Lasix for 2 days with prompt diuresis and improvement in her symptoms. An echocardiogram was obtained that showed a hyperdynamic left ventricle with an LVEF of 75% and no significant other pathology, including no valvular pathology. She was weaned down to 2 to 3 L of oxygen at the time of discharge and she was given a prescription for 5 days of 20 mg oral Lasix. After that she can be evaluated as an outpatient on whether she requires as needed dosing versus continued dosing. During her stay her CBC noted significant pancytopenia. Reviewing her records, she has had leukopenia since 2012 with anemia starting in 2020 and thrombocytopenia starting this year in 2023. During her hospitalization, and iron/anemia panel was obtained that showed no significant abnormalities, with normal iron, ferritin and transferrin levels. Her TSH and vitamin B12 levels were normal. An LDH was only 108 which is technically low. WBC was persistently around the 1.5 range with an ANC of 400-800. Her hemoglobin remained steady at 8.1-8.7, and her platelets were stable in the 110-120 range. Her MCV was around 95 with an elevated RDW of around 16. Overall there was concern for potential underlying myelodysplastic syndrome versus multiple other underlying bone marrow causes. She was advised that she needs to have a outpatient hematology/oncology referral and may need a bone marrow biopsy. Overall she clinically improved while hospitalized and was discharged in stable condition. She was slightly deconditioned and physical therapy evaluated her however it was felt that she did not need inpatient management and could have outpatient home health with physical therapy and Occupational Therapy. She was discharged in stable condition to home. IMPORTANT NOTE FOR PROVIDERS - Please evaluate for referral to outpatient hematology/oncology to have her pancytopenia fully evaluated. - ALLERGIES Allergies/Adverse Reactions: Allergies Allergy/AdvReac Type Severity Reaction Status Date / Time Sulfa (Sulfonamide Allergy Severe Respiratory Verified 03/22/24 21:18 Antibiotics) levofloxacin Allergy Unknown Unknown Verified 03/22/24 21:18 amoxicillin AdvReac Severe Nausea, Verified 03/22/24 21:18 VOMITING codeine [Codeine] AdvReac Nausea Verified 03/22/24 21:18 morphine AdvReac unable to Verified 03/22/24 21:18 urinate oxycodone [Oxycodone] AdvReac Nausea Verified 03/22/24 21:18 prednisone AdvReac anger Verified 03/22/24 21:18 - MEDICATIONS Home Medications: Ambulatory Orders Medication Instructions Recorded Confirmed Albuterol [Ventolin Hfa] 2 puffs INH QID PRN 01/29/13 03/23/24 Lansoprazole [Prevacid] 30 mg PO DAILY 01/29/13 03/23/24 ALPRAZolam [Alprazolam] 0.25 mg PO HS 05/04/19 03/23/24 Doxycycline [Vibramycin] 100 mg PO BID #14 tablet 03/20/24 03/23/24 Gabapentin [Neurontin] 600 mg PO HS 03/20/24 03/23/24 metroNIDAZOLE [Flagyl] 500 mg PO TID 7 Days #21 tablet 03/20/24 03/23/24 Albuterol 1 neb INH BID 03/23/24 03/23/24 Furosemide [Lasix] 20 mg PO DAILY 5 Days #5 tab 03/25/24 Isosorbide Mononitrate ER [Imdur] 30 mg PO DAILY 30 Days #30 tab 03/25/24 polyethylene glycoL 3350 [Miralax] 17 gm PO DAILY PRN 10 Days #10 03/25/24 packet - PHYSICAL EXAM AT DISCHARGE General Appearance: positive: No acute distress (Appears chronically ill, but no acute distress), Alert, Mild distress Eyes Bilateral: positive: Normal inspection, PERRL, EOMI ENT: positive: ENT inspection nml, Pharynx nml, No signs of dehydration Neck: positive: Nml inspection, Thyroid nml, No JVD, Trachea midline Respiratory: positive: Chest non-tender, No respiratory distress, Rhonchi. negative: Wheezes, Rales Cardiovascular: positive: Regular rate & rhythm, No murmur, No gallop Peripheral Pulses: positive: 2+ Abdomen: positive: Non-tender, No organomegaly, Nml bowel sounds, No distention Back: positive: Nml inspection Skin: positive: Color nml, No rash, Warm, Dry Extremities: positive: Nml appearance, No pedal edema Neurologic/Psychiatric: positive: Oriented x3, CN's nml (2-12), Motor nml, Sensation nml - LABS Result Diagrams: 03/25/24 07:15 03/25/24 07:15 - DIAGNOSTIC IMAGING Diagnostic Imaging Results: Final report reviewed Diagnostic Imaging Results Comments: CT Abdomen (03/23/2024): 1. Sigmoid colon diverticulitis. No abscess appreciated at this time. No extraluminal gas. 2. Chronic calcific pancreatitis. 3. Emphysematous changes. Chest X-Ray (03/23/2024): Increased lung markings in bilateral upper lung mayen concerning for in terstitial infiltrates versus atelectasis versus pulmonary edema. No pleural effusion or pneumothorax. ECHOCARDIOGRAM (03/23/24): 1. Normal LV size and systolic function, LVEF 70 to 75%. 2. Normal RV size and systolic function. 3. No significant valvular pathology. - SEPSIS Current Stage of Sepsis: Ruled out Possible source of Sepsis: GI tract/intra-abdominal - FOLLOW UP Follow Up: Follow up with PCP and/or Dr. Jona Haji within one week of your hospitalization - TIME SPENT Time Spent in Discharge (Minutes): 40"
[2024-03-25 14:10] VITALS: BP 148/62; O2SAT 92
== END 2024-03-25 13:10 | disposition home health service (06) | DRG 391 ==
LOC: EDUNIT# → ED 21:15 → MS2 03-23 01:17 → INTOOBSV 03-24 10:42 → OBSVTOIN 03-24 10:42
PROVIDERS: ADMIT Student in an Organized Health Care Education/Training Program; ATTEND Hospitalist
DX: K57.30 Diverticulosis of large intestine without perforation or abscess without bleeding (principal); D70.2 Other drug-induced agranulocytosis; T36.4X5A Adverse effect of tetracyclines, initial encounter; K86.1 Other chronic pancreatitis; J43.9 Emphysema, unspecified; I10 Essential (primary) hypertension; K57.32 Diverticulitis of large intestine without perforation or abscess without bleeding; I50.31 Acute diastolic (congestive) heart failure; J96.21 Acute and chronic respiratory failure with hypoxia; D61.818 Other pancytopenia; E88.01 Alpha-1-antitrypsin deficiency; I11.0 Hypertensive heart disease with heart failure; G25.81 Restless legs syndrome; Z99.81 Dependence on supplemental oxygen; J44.9 Chronic obstructive pulmonary disease, unspecified; K21.9 Gastro-esophageal reflux disease without esophagitis
CPT/HCPCS: 36415; 71045; 74177; 80048; 80053; 80061; 82607; 83036; 83540; 83615; 83690; 83735; 83880; 84443; 84466; 84484; 85025; 85045; 93005; 93307; 94640; 96365; 96375; 96376; 97162; 97166; 99285; A9270; G0378; J7120; Q9967; 83721

== ENCOUNTER 2024-04-17 17:11 | Outpatient (CLI) | payer MEDICARE, BC | END 2024-04-17 17:12 | disposition critical access hospital (66) | LOC: EMS 17:11 | DX: R10.32 Left lower quadrant pain (principal); R50.9 Fever, unspecified; Z99.81 Dependence on supplemental oxygen | CPT/HCPCS: A0425; A0429 ==

== ENCOUNTER 2024-04-17 17:16 | Emergency (ER) | payer MEDICARE, BC ==
--- NOTE | 2024-04-17 17:32 | ED Physician Documentation ---
History of Present Illness - Stated complaint Stated Complaint: FEVER - Additonal information Additional information: 84-year-old female with recent hospitalization of diverticulitis, history of a total of about 5 other episodes of diverticulitis presents to the emergency department for lower abdominal pain tenderness fevers chills weakness and generalized malaise. Patient says that she has had some nausea vomiting at home she was recently hospitalized for an episode of diverticulitis that ended up being acute CHF exacerbation due to fluid volume overload. She is unsure if she has had any fevers or chills but does feel warm and she said that she has been having couple nights of diaphoresis. No urinary urgency or frequency. Patient states most of her pain pain is to left lower quadrant. 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 LEAD: None : None HEENT: Macular degeneration Psych: None Musculoskeletal: Osteoarthritis Derm: None - Past Surgical History Past Surgical History: Yes /SALES OPERATIONS LEAD: Hysterectomy HEENT: Cataracts - Present Medications Home Medications: Ambulatory Orders Medication Instructions Recorded Confirmed Albuterol [Ventolin Hfa] 2 puffs INH QID PRN 01/29/13 03/23/24 Lansoprazole [Prevacid] 30 mg PO DAILY 01/29/13 03/23/24 ALPRAZolam [Alprazolam] 0.25 mg PO HS 05/04/19 03/23/24 Doxycycline [Vibramycin] 100 mg PO BID #14 tablet 03/20/24 03/23/24 Gabapentin [Neurontin] 600 mg PO HS 03/20/24 03/23/24 metroNIDAZOLE [Flagyl] 500 mg PO TID 7 Days #21 tablet 03/20/24 03/23/24 Albuterol 1 neb INH BID 03/23/24 03/23/24 Furosemide [Lasix] 20 mg PO DAILY 5 Days #5 tab 03/25/24 Isosorbide Mononitrate ER [Imdur] 30 mg PO DAILY 30 Days #30 tab 03/25/24 polyethylene glycoL 3350 [Miralax] 17 gm PO DAILY PRN 10 Days #10 03/25/24 packet Ondansetron Odt [Zofran Odt] 4 mg TL Q6H PRN #10 tablet 04/17/24 Oxycodone HCl/Acetaminophen 1 each PO Q6HR PRN #10 tablet 04/17/24 [Percocet 5-325 mg Tablet] levoFLOXacin [Levofloxacin] 750 mg PO DAILY 7 Days #7 tablet 04/17/24 metroNIDAZOLE [Flagyl] 500 mg PO BID 7 Days #14 tablet 04/17/24 - Allergies Allergies/Adverse Reactions: Allergies Allergy/AdvReac Type Severity Reaction Status Date / Time Sulfa (Sulfonamide Allergy Severe Respiratory Verified 04/17/24 17:31 Antibiotics) levofloxacin Allergy Unknown Unknown Verified 04/17/24 17:31 amoxicillin AdvReac Severe Nausea, Verified 04/17/24 17:31 VOMITING codeine [Codeine] AdvReac Nausea Verified 04/17/24 17:31 morphine AdvReac unable to Verified 04/17/24 17:31 urinate oxycodone [Oxycodone] AdvReac Nausea Verified 04/17/24 17:31 prednisone AdvReac anger Verified 04/17/24 17:31 - Social History Does the pt smoke?: No Smoking Status: Never smoker Does the pt drink ETOH?: Yes Does the pt have substance abuse?: No - Immunizations Immunizations are current?: Yes - POLST Patient has POLST: No PD ED PE NORMAL - Vitals Vital signs reviewed: Yes - General General: Alert and oriented X 3, No acute distress, Well developed/nourished - HEENT HEENT: Atraumatic, PERRL, EOMI - Neck Neck: Supple, no meningeal sign - Cardiac Cardiac: RRR - Respiratory Respiratory: No respiratory distress, Clear bilaterally - Abdomen Abdomen: Normal bowel sounds, Soft, Non distended, No organomegaly, Other (Left lower quadrant tenderness) - Back Back: No CVA TTP - Derm Derm: Normal color, Warm and dry, No rash - Extremities Extremities: No edema - Neuro Neuro: Alert and oriented X 3, digital performance analyst 2-12 intact, No motor deficit, No sensory deficit, Normal speech Results - Vitals Vitals: Vital Signs - 24 hr 04/17/24 04/17/24 20:07 21:30 Temperature 36.9 C Heart Rate 68 Respiratory 19 Rate Blood Pressure 164/71 H O2 Saturation 98 If not protocol 2 : Oxygen Flow, liters/minute Oxygen O2 Source Nasal cannula - Labs Labs: Laboratory Tests 08/30/24 08/30/24 08/30/24 18:32 18:32 18:32 WBC 3.0 L RBC 2.84 L Hgb 8.6 L Hct 27.8 L MCV 97.9 MCH 30.3 MCHC 30.9 L RDW 16.2 H Plt Count 129 L MPV 10.7 Neut # (Auto) 1.8 Lymph # (Auto) 0.9 L [place] # (Auto) 0.3 Eos # (Auto) 0.0 Baso # (Auto) 0.0 Absolute Nucleated RBC 0.00 Nucleated RBC % 0.0 Sodium 137 Potassium 4.0 Chloride 100 L Carbon Dioxide 32 Anion Gap 5.0 L BUN 17 Creatinine 1.2 Estimated GFR (MDRD) 43 L Glucose 95 Lactic Acid 0.8 Calcium 9.5 Magnesium 1.5 L Total Bilirubin 0.4 AST 18 ALT 8 L Alkaline Phosphatase 60 Total Protein 7.0 Albumin 3.5 Globulin 3.5 Albumin/Globulin Ratio 1.0 Lipase 28 - Rads (name of study) Abdomen pelvis CT with Relevant Findings:: Final report received, EMP independent interpretation of test, Other (Uncomplicated acute diverticulitis of the sigmoid colon without perforation, chronic pancreatitis) PD Medical Decision Making - ED course ED course: 84-year-old female presents emergency department for left lower quadrant abdominal pain with nausea and vomiting. Patient says this feels very similar to previous acute episodes of diverticulitis. CT abdomen pelvis was completed with contrast for further evaluation and confirms uncomplicated acute diverticulitis. Vital signs have been stable since has been here no hypotension no tachycardia afebrile labs reviewed leukopenia patient has known chronic leukopenia, she appears to have chronic anemia, hemoglobin 8.6 today last hemoglobin check was 8.1 no obvious signs of bleeding. Mild hypomagnesemia, 1.5 this was replaced with 400 mg of magnesium oxide. Given that this is acute diverticulitis we were able to control her pain with 1 dose of IV Dilaudid here in the ER and she has pain medications at home I do not believe hospitalizing her is warranted there is no perforation and no abscess. Patient was started originally on Flagyl and ciprofloxacin here in the ER but she said that she wanted to try different type of fluoroquinolone because the ciprofloxacin made her nauseous last time she was on it. Prescription of levofloxacin was sent to her preferred pharmacy as well as Flagyl and Zofran. She is given very strict ER return precautions and told to follow-up with her primary care provider as she would greatly benefit from a outpatient colonoscopy and endoscopy for further evaluation of why she is having these recurrent episodes of diverticulitis. She she understands return precautions and is aware that her medications are sent to her preferred pharmacy all questions answered patient is safe for discharge at this time. Departure - Departure Disposition: 01 Home, Self Care Clinical Impression: Diverticulitis large intestine Instructions: ED Diverticulitis Prescriptions: Oxycodone HCl/Acetaminophen [Percocet 5-325 mg Tablet] 1 each PO Q6HR PRN #10 tablet PRN Reason: Pain >8 metroNIDAZOLE [Flagyl] 500 mg PO BID 7 Days #14 tablet levoFLOXacin [Levofloxacin] 750 mg PO DAILY 7 Days #7 tablet Ondansetron Odt [Zofran Odt] 4 mg TL Q6H PRN #10 tablet PRN Reason: Nausea / Vomiting Comments: Thank you for trusting us with your care. You appear to have acute uncomplicated diverticulitis. We have started you on antibiotics Flagyl and ciprofloxacin here in the emergency department per your request I have switched you from Flagyl to levofloxacin to preferred pharmacy. I also sent some pain medication as well as antinausea medication. Please follow-up with your primary care provider let them know about today's ER visit and her acute findings. Please come back in if you are starting develop any worsening symptoms fevers chills nausea vomiting or any other concerning emergent symptoms. I am prescribing a short course of narcotic pain medication for you. These are potentially dangerous and addictive medications that should be used carefully. These medications may constipate you. Take an [id number] stool softener (docusate) twice daily with plenty of water while taking these medications. If you go 24 hours without a bowel movement, take [id number] miralax, per package instructions. Do not drink or drive while taking these medications. If you received narcotic or sedating medications while in the emergency department, do not drive for 24 hours. Store this medication in a safe, secure place and out of reach of children. It is a violation of federal law to give or sell this medication to another person or to use in a manner other than prescribed. The ED will not refill narcotic prescriptions, including prescriptions lost or stolen. To dispose of unwanted medications: 1. [facility] at [address] in [place] has a medication drop box. They accept prescription medications (in pill form) Saturday through Saturday 9:00 a.m. to 5:00 p.m. 2. The [facility] accepts prescription medications (in pill form only) for disposal year round. Call for more information. 3. Contact the [facility] for the next [facility] sponsored prescription drug collection event. , [phone], or [phone]; Note that many narcotic pain relievers also contain Tylenol/acetaminophen. Please ensure that your total dose of acetaminophen from all sources does not exceed 3 g (3000 mg) per day. Forms: PCP List Discharge Date/Time: 04/17/24 22:04
[2024-04-17 18:41] LABS: EOSINOPHILS % (AUTO) 0.7 %; HCT - HEMATOCRIT 27.8 % (37.0-47.0); HGB - HEMOGLOBIN 8.6 g/dL (12.0-16.0); LYMPHOCYTES # (AUTO) 0.9 10^3/uL (1.5-3.5); LYMPHOCYTES % (AUTO) 29.8 %; MEAN CORPUSCULAR HEMOGLOBIN 30.3 pg (27.0-31.0); MEAN CORPUSCULAR HGB CONC 30.9 g/dL (32.0-36.0); MEAN CORPUSCULAR VOLUME 97.9 fL (81.0-99.0); MEAN PLATELET VOLUME 10.7 fL (7.9-10.8); MONOCYTES # (AUTO) 0.3 10^3/uL (0.0-1.0); MONOCYTES % (AUTO) 8.3 %; NEUTROPHILS # (AUTO) 1.8 10^3/uL (1.5-6.6); NEUTROPHILS % (AUTO) 60.5 %; PLT - PLATELET COUNT 129 10^3/uL (130-450); RED BLOOD COUNT 2.84 10^6/uL (4.20-5.40); RED CELL DISTRIBUTION WIDTH 16.2 % (12.0-15.0)
[2024-04-17 18:49] LABS: MAGNESIUM 1.5 mg/dL (1.7-2.3)
[2024-04-17 18:55] LABS: ALBUMIN 3.5 g/dL (3.2-5.5); BILIRUBIN,TOTAL 0.4 mg/dL (0.2-1.0); CALCIUM 9.5 mg/dL (8.5-10.3); CREATININE 1.2 mg/dL (0.6-1.3)
[2024-04-17] MEDS ORDERED: iohexoL-300 100 ML VIAL ONE (19:07)
[2024-04-17] MEDS: iohexoL-300 100 ML VIAL IVP ONE (19:48)
[2024-04-17] MEDS: HYDROmorphone 0.5 MG/0.5 ML SYRINGE IVP STA (20:04)
[2024-04-17] MEDS: ONDANSETRON 4 MG/2 ML VIAL IVP STA (20:04)
--- NOTE | 2024-04-17 20:06 | CT Report ---
PROCEDURE: Abdomen/Pelvis W INDICATIONS: Bilateral lower abdominal pain CONTRAST: 100 ml omni 300 TECHNIQUE: After the administration of intravenous contrast, a CT scan of the abdomen and pelvis was performed. Images were recorded and evaluated at appropriate window settings. Reformats: coronal and sagittal. F or radiation dose reduction, the following was used: automated exposure control, adjustment of mA and /or kV according to patient size. COMPARISON: 03/23/2024 FINDINGS: Image quality: Diagnostic. Lower chest: Advanced destructive emphysema. Moderate hiatal hernia. Calcification of mitral valve. Liver: Hepatic steatosis. Gallbladder: No radiopaque stones or wall thickening. Biliary tree: No intrahepatic or extrahepatic dilation, accounting for age. Spleen: No splenomegaly. Pancreas: No pancreatic ductal dilation. Pancreatic calcifications present. Adrenals: No adrenal nodule. Kidneys and ureters: No hydronephrosis. No renal cystic lesion which requires follow up. No solid mas s. Stomach, bowel and peritoneum: No gastric or small bowel dilation. No abnormal wall thickening. No pa thologic free fluid. Acute diverticulitis of the sigmoid colon, associated wall thickening and periap pendiceal fat stranding. No adjacent abscess or free air. Lymph nodes: No central or retroperitoneal adenopathy. Vessels: No infrarenal aortic aneurysm. Patent portal vein. PELVIS Reproductive organs: Unremarkable. Bladder: No abnormal wall thickening, accounting for underdistention. Pelvic lymph nodes: No pelvic adenopathy by size criteria. Bones: No aggressive osseous abnormality. Degenerative changes of the spine. Convex left scoliosis ce ntered at L2. Other: No significant ventral or inguinal hernia. IMPRESSION: Uncomplicated acute diverticulitis of the sigmoid colon, without perforation. Chronic pancreatitis. Other chronic findings as above. Reviewed by: Chapincito Rene MD on 04/17/2024 8:05 PM PDT Approved by: Chapincito Rene MD on 04/17/2024 8:05 PM PDT Station ID: [id number]
[2024-04-17] MEDS: metroNIDAZOLE 250 MG TABLET PO STA (21:25)
[2024-04-17] MEDS: CIPROFLOXACIN 250 MG TABLET PO STA (21:25)
[2024-04-17] MEDS: ONDANSETRON ODT 4 MG TABLET TL STA (21:30)
[2024-04-17 22:13] VITALS: BP 164/71; O2SAT 98
== END 2024-04-17 22:04 | disposition home or self-care (01) ==
LOC: EDBD → ED 17:16
DX: E83.42 Hypomagnesemia (principal); K57.32 Diverticulitis of large intestine without perforation or abscess without bleeding
CPT/HCPCS: 36415; 74177; 80053; 83605; 83690; 83735; 85025; 96374; 99284; A9270; J1170; Q0162; Q9967

== ENCOUNTER 2024-12-03 12:34 | Inpatient (IN) ==
--- NOTE | 2024-12-03 12:48 | ED Physician Documentation ---
History of Present Illness Stated complaint Stated Complaint: FEVER/SOB Chief complaint Chief Complaint: Resp History obtained from History obtained from: Patient History of Present Illness Timing: Prior to arrival Additonal information Additional information: Patient is an 84-year-old female with history of AML, melanoma, CHF, COPD on 3 L nasal cannula presents to the emergency department with increased shortness of breath and fevers. She notes she has been coughing the last few days she had a chest x-ray with no acute findings last week. She follows with Dr. Garcia for her history of AML and last had chemotherapy 11/09. She is pancytopenic. She is on cefdinir acyclovir and posaconazole for prophylactic treatment. She has concerns today as she checked her temperature at home as she was feeling hot and had a temperature of 100 degrees. She notes she was feeling fine yesterday.No chest pain no lower leg swelling no increase in weight. She tried her breathing treatment this morning with no significant relief. She has been compliant with her home medications otherwise. She is not on any blood thinners. She is unsure of any recent sick contacts. No nasal congestion, no urinary symptoms at this time, no abdominal pain, nausea or vomiting. Meds/Allgy Home Medications Ambulatory Orders Medication Instructions Recorded Confirmed albuterol sulfate 90 mcg/actuation 2 puff inhalation QID PRN 01/29/13 12/03/24 aerosol inhaler (Ventolin HFA) Shortness Of Air/Wheezing albuterol sulfate 2.5 mg/3 mL 1 neb inhalation BID 03/23/24 12/03/24 (0.083 %) solution for nebulization ondansetron 4 mg disintegrating 4 mg translingual Q6H PRN Nausea / 09/30/24 12/03/24 tablet Vomiting #30 tabs prochlorperazine maleate 10 mg 10 mg PO Q6H PRN nausea and 09/30/24 12/03/24 tablet vomiting #30 tabs loperamide 2 mg capsule 2 mg PO Q6H PRN loose stool 10/14/24 12/03/24 (Anti-Diarrheal (loperamide)) posaconazole 100 mg tablet,delayed 300 mg (3 x 100 mg) PO Q24H #90 10/14/24 12/03/24 release tabs gabapentin 300 mg capsule 600 mg PO HS 11/11/24 12/03/24 alprazolam 0.25 mg tablet 0.25 mg PO QDAY PRN anxiety #30 11/25/24 12/03/24 tabs Lactobacillus acidophilus 250 1,000 mmu cells PO QDAY 11/29/24 12/03/24 million cell capsule (Probiotic Acidophilus) cefdinir 300 mg capsule 300 mg PO BID 11/29/24 12/02/24 cholecalciferol (vitamin D3) 25 25 mcg PO QDAY 11/29/24 12/03/24 mcg (1,000 unit) capsule potassium chloride 10 mEq 20 meq PO QDAY 11/29/24 12/03/24 capsule,extended release potassium chloride 20 mEq/15 mL 20 meq (15 mL) PO QDAY #450 mL 11/29/24 12/03/24 oral liquid Allergies Allergies Allergy/AdvReac Type Severity Reaction Status Date / Time Sulfa (Sulfonamide Allergy Severe Respiratory Verified 12/03/24 12:42 Antibiotics) levofloxacin Allergy Unknown Unknown Verified 12/03/24 12:42 amoxicillin AdvReac Severe Nausea, Verified 12/03/24 12:42 VOMITING mirtazapine AdvReac Intermediate Unknown Verified 12/03/24 12:42 codeine (Codeine) AdvReac Nausea Verified 12/03/24 12:42 morphine AdvReac unable to Verified 12/03/24 12:42 urinate oxycodone (Oxycodone) AdvReac Nausea Verified 12/03/24 12:42 prednisone AdvReac anger Verified 12/03/24 12:42 PFSH Active Problems All Active Problems (Updated 12/03/24 @ 15:46 by Alyce Araya PA-C) Fever (Acute) Medication management (Acute) Muscle weakness (generalized) (Acute) Anemia (Acute) Depression (Acute) Anorexia (Acute) Encounter for antineoplastic chemotherapy (Acute) Seasonal allergic rhinitis (Acute) Coarse tremors (Acute) Counseling regarding advanced care planning and goals of care (Acute) Fatigue (Acute) Advance care planning (Acute) Healthcare maintenance (Acute) Prophylactic antibiotic (Acute) Myelodysplastic syndrome with excess blasts-2 (Acute) Acute and chronic respiratory failure with hypoxia (Acute) Hypertension (Acute) [id number] deficiency (Acute) Pancytopenia (Acute) Heart failure (Acute) Medication side effects (Acute) Neutropenia (Acute) Diverticulitis (Acute) Lymphopenia (Acute) Severe chronic obstructive pulmonary disease (Acute) Bronchitis (Acute) Medical History Medical History (Updated 12/03/24 @ 15:46 by Alyce Araya PA-C) Ureteral stone with hydronephrosis Pyelonephritis, acute Diverticulitis of gastrointestinal tract History of cataract Surgical History Surgical History (Updated 10/02/24 @ 12:02 by Christin Delgado, DO) History of insertion of central venous access port (~10/02/24) RIJ port History of foot surgery History of bladder surgery bladder lift, cystoscopy History of hysterectomy Social History Social History Smoking Status: Never smoker Do you dip or chew tobacco?: No Do you vape?: No Patient requests smoking cessation consult: No Relationship: Level: Independent Do you feel safe in your home environment?: Yes Suffered physical, verbal, emotional, or financial abuse?: No History of Abuse: No ETOH Use: Frequency: Occasional Substance Use: denies use Are you sexually active?: No POLST Patient has POLST: Yes POLST Status: selected treatments Exam Exam Vital Signs: Vital Signs x48h Temp Pulse Resp BP Pulse Ox O2 Flow Rate 12/03/24 14:46 2 12/03/24 13:31 80 24 4 12/03/24 12:42 37.2 C 82 32 H 239/79 H 94 2 Constitutional Patient speaking in short sentences, she appears tachypnic on examination. A & O x 3 HENMT normocephalic, head/scalp atraumatic and oral mucous membranes normal Eyes PERRL, EOMs intact bilaterally and conjunctivae normal Neck/C-Spine visual inspection normal Lymph no lymphadenopathy noted Chest inspection of chest normal Respiratory Tachypneic with diminished breath sounds on inspiration expiration on examination she has no wheezing rales but does appear to be using accessory muscles Cardiovascular normal heart rate noted, regular rhythm noted and no gallop Gastrointestinal abdomen normal to inspection Skin skin color normal Results Vitals Vitals: Vital Signs - 24 hr 12/03/24 12:42 12/03/24 12:42 12/03/24 13:31 Temperature 37.2 C Temperature Source Oral Pulse Rate 82 80 Respiratory Rate 32 H 24 Blood Pressure 239/79 H O2 Saturation 94 Oxygen Delivery Method Nasal Cannula O2 Source Nasal cannula Nasal cannula Oxygen Flow Rate 2 If not protocol: Oxygen Flow, liters/minute 2 4 Pain Intensity 0 12/03/24 14:46 Temperature Temperature Source Pulse Rate Respiratory Rate Blood Pressure O2 Saturation Oxygen Delivery Method O2 Source Nasal cannula Oxygen Flow Rate If not protocol: Oxygen Flow, liters/minute 2 Pain Intensity Oxygen O2 Source Nasal cannula Oxygen Flow Rate 2 Labs Labs: Laboratory Tests 12/03/24 12/03/24 12/03/24 11:44 12:50 13:07 WBC 2.1 L RBC 2.64 L Hgb 7.7 L Hct 26.3 L MCV 99.6 H MCH 29.2 MCHC 29.3 L RDW 18.6 H Plt Count 59 L MPV 9.4 Neut # (Auto) 1.0 L Lymph # (Auto) 0.7 L Garrett # (Auto) 0.3 Eos # (Auto) 0.0 Baso # (Auto) 0.0 Absolute Nucleated RBC 0.00 Nucleated RBC % 0.0 Manual Slide Review Indicated Platelet Estimate DECREASED (<130,000) RBC Morph Micro Appear 3+ ANISOCYTOSIS PT 12.6 INR 1.1 VBG pH VBG pCO2 VBG pO2 VBG HCO3 VBG Total CO2 VBG O2 Saturation VBG Base Excess Sodium 140 Potassium 3.7 Chloride 101 Carbon Dioxide 37 H Anion Gap 2.0 L BUN 14 Creatinine 1.1 Estimated GFR (MDRD) 48 L Glucose 117 H Lactic Acid 0.7 Calcium 9.8 Magnesium 1.7 Total Bilirubin 1.0 AST 39 ALT 22 Alkaline Phosphatase 71 Total Protein 6.9 Albumin 3.4 Globulin 3.5 Albumin/Globulin Ratio 1.0 Lipase 22 Urine Color YELLOW Urine Clarity CLEAR Urine pH 8.0 H Ur Specific [place] 1.015 Urine Protein 30 H Urine Glucose (UA) NEGATIVE Urine Ketones NEGATIVE Urine Occult Blood NEGATIVE Urine Nitrite NEGATIVE Urine Bilirubin NEGATIVE Urine Urobilinogen 2 H Ur Leukocyte Esterase NEGATIVE Urine RBC None Seen Urine WBC 0-3 Ur Squamous Epith Cells MOD Squamous H Urine Bacteria None Seen Ur Microscopic Review INDICATED Urine Culture Comments NOT INDICATED Nasal Adenovirus (PCR) NOT DETECTED Nasal B. parapertussis DNA (PCR) NOT DETECTED Nasal Coronavir 229E PCR NOT DETECTED Nasal Coronavir HKU1 PCR NOT DETECTED Nasal Coronavir NL63 PCR NOT DETECTED Nasal Coronavir OC43 PCR NOT DETECTED Nasal Enterovir/Rhinovir PCR NOT DETECTED Nasal Influenza B PCR NOT DETECTED Nasal Influenza A PCR NOT DETECTED Nasal Parainfluen 1 PCR NOT DETECTED Nasal Parainfluen 2 PCR NOT DETECTED Nasal Parainfluen 3 PCR NOT DETECTED Nasal Parainfluen 4 PCR NOT DETECTED Nasal RSV (PCR) NOT DETECTED Nasal B.pertussis DNA PCR NOT DETECTED Nasal C.pneumoniae (PCR) NOT DETECTED Ricky Human Metapneumo PCR NOT DETECTED Nasal M.pneumoniae (PCR) NOT DETECTED Nasal SARS-CoV-2 (PCR) NOT DETECTED 12/03/24 14:51 WBC RBC Hgb Hct MCV MCH MCHC RDW Plt Count MPV Neut # (Auto) Lymph # (Auto) Garrett # (Auto) Eos # (Auto) Baso # (Auto) Absolute Nucleated RBC Nucleated RBC % Manual Slide Review Platelet Estimate RBC Morph Micro Appear PT INR VBG pH 7.459 H VBG pCO2 59.1 H VBG pO2 32.9 VBG HCO3 42.3 H VBG Total CO2 44.1 H VBG O2 Saturation 54.0 L VBG Base Excess 18.2 H Sodium Potassium Chloride Carbon Dioxide Anion Gap BUN Creatinine Estimated GFR (MDRD) Glucose Lactic Acid Calcium Magnesium Total Bilirubin AST ALT Alkaline Phosphatase Total Protein Albumin Globulin Albumin/Globulin Ratio Lipase Urine Color Urine Clarity Urine pH Ur Specific [place] Urine Protein Urine Glucose (UA) Urine Ketones Urine Occult Blood Urine Nitrite Urine Bilirubin Urine Urobilinogen Ur Leukocyte Esterase Urine RBC Urine WBC Ur Squamous Epith Cells Urine Bacteria Ur Microscopic Review Urine Culture Comments Nasal Adenovirus (PCR) Nasal B. parapertussis DNA (PCR) Nasal Coronavir 229E PCR Nasal Coronavir HKU1 PCR Nasal Coronavir NL63 PCR Nasal Coronavir OC43 PCR Nasal Enterovir/Rhinovir PCR Nasal Influenza B PCR Nasal Influenza A PCR Nasal Parainfluen 1 PCR Nasal Parainfluen 2 PCR Nasal Parainfluen 3 PCR Nasal Parainfluen 4 PCR Nasal RSV (PCR) Nasal B.pertussis DNA PCR Nasal C.pneumoniae (PCR) Ricky Human Metapneumo PCR Nasal M.pneumoniae (PCR) Nasal SARS-CoV-2 (PCR) Rads (name of study) Chest X-ray: Interpretation: Biapical predominant chronic pulmonary interstitial fibrosis. No acute infiltrates identified. PD Medical Decision Making ED course Complexity details: reviewed old records and reviewed results ED course: Patient is an 84-year-old female presenting to the emergency department with fever and shortness of breath she was at home today and had a temperature of 100.4 that she took orally EMS arrived and obtained a temperature of 99.7 patient is having increased shortness of breath difficulty breathing and was brought immediately to the ER. She has significant past medical history of AML and melanoma. She is currently undergoing chemotherapy treatment with history significant for neutropenia. She is on prophylactic cefdinir acyclovir and posaconazole. Vitals here in the ED show temperature of 98.6 here in the emergency department she is on 3 L nasal cannula which is her baseline but significantly tachypneic on arrival. Her breath sounds are diminished on auscultation she has no significant swelling to her lower legs. She has been given breathing treatment here in the emergency department which did help improve her symptoms but remains slightly tachypneic. Her labs show leukopenia with an ANC of 1.0. She has no signs of pneumonia chest x-ray shows pulmonary fibrosis but she was increased to 4 L nasal cannula due to shortness of breath. INR is stable lactic acid is negative CMP shows stable CKD. Magnesium within normal limits respiratory swab is negative and UA shows no signs of UTI at this time. Blood cultures are pending I did discuss case with Dr. Garcia who is her oncologist and he recommends admission for neutropenic fever and obtaining port culture to further evaluate possible sources. He recommends increasing to higher prophylactic antibiotics such as Zosyn. Confirmed with pharmacy and will start patient on cefepime, zosyn and vancomycin recommending monitoring for fever free for 48 hours. Discussed case with hospitalist Mayuri ROMERO who is agreeable with admission at this time. Patient agreeable with admission and will stay overnight to monitor temperature and pending blood cultures Discharge Plan Discharge Patient Disposition: 66 [facility] DC/Xfer Condition: Stable Clinical Impression: Lymphopenia, Fever Prescriptions: No Action albuterol sulfate [Ventolin HFA] 60 PUFFS/8 GM HFA aerosol inhaler 2 puff inhalation QID PRN (Reason: Shortness Of Air/Wheezing) gabapentin 300 mg capsule 600 mg PO HS Rx Instructions: 2 caps changed 11/12 albuterol sulfate 2.5 MG/3 ML solution for nebulization 1 neb inhalation BID Rx Instructions: SOMETIMES USES EXTRA DOSE IF NEEDED potassium chloride 10 mEq capsule, extended release 20 meq PO QDAY ondansetron 4 mg tablet,disintegrating 4 mg translingual Q6H PRN (Reason: Nausea / Vomiting) Qty: 30 3RF prochlorperazine maleate 10 mg tablet 10 mg PO Q6H PRN (Reason: nausea and vomiting) Qty: 30 3RF loperamide [Anti-Diarrheal (loperamide)] 2 mg capsule 2 mg PO Q6H PRN (Reason: loose stool) posaconazole 100 mg tablet,delayed release (DR/EC) 300 mg PO Q24H Qty: 90 3RF Rx Instructions: Take 300mg by mouth in the morning. Interaction with alprazolam, try to decrease use of alprazolam. potassium chloride 20 mEq/15 mL liquid 20 meq PO QDAY Qty: 450 2RF Rx Instructions: having swallowing issues cefdinir 300 mg capsule 300 mg PO BID cholecalciferol (vitamin D3) 25 mcg (1,000 unit) capsule 25 mcg PO QDAY Probiotic Acidophilus 250 million cell capsule 1,000 mmu cells PO QDAY alprazolam 0.25 mg tablet 0.25 mg PO QDAY PRN (Reason: anxiety) Qty: 30 0RF Print Language: Uzbek
--- OUTSIDE RECORDS SUMMARY | 2024-12-03 12:53 | EXTERNAL MEDICAL SUMMARY RPT | Continuity of Care Document ---
Author Organization [facility] Address [address] [place] [id number] Phone Problems date description facility 2024-09-03 13:49 Other pancytopenia [facility] 2024-09-03 13:49 Diverticulitis of in testine, part unspecified, without perforation or abscess without bleeding [facility] 2024-09-03 13:49 Chest pain, unspecified [facility] 2024-09-03 14:04 Other pancytopenia [facility] 2024-09-03 14:04 Diverticulitis of in testine, part unspecified, without perforation or abscess without bleeding [facility] 2024-09-03 14:04 Chest pain, unspecified [facility] 2024-09-16 14:38 Other pancytopenia [facility] 2024-09-16 14:38 Diverticulitis of in testine, part unspecified, without perforation or abscess without bleeding [facility] 2024-09-16 14:38 Chest pain, unspecified [facility] 2024-09-17 08:25 Other pancytopenia [facility] 2024-09-17 08:25 Diverticulitis of in testine, part unspecified, without perforation or abscess without bleeding [facility] 2024-09-17 08:25 Chest pain, unspecified [facility] 2024-09-21 11:46 Other pancytopenia [facility] 2024-09-21 11:46 Diverticulitis of in testine, part unspecified, without perforation or abscess without bleeding [facility] 2024-09-21 11:46 Chest pain, unspecified [facility] 2024-09-21 12:14 Other pancytopenia [facility] 2024-09-21 12:14 Diverticulitis of in testine, part unspecified, without perforation or abscess without bleeding [facility] 2024-09-21 12:14 Chest pain, unspecified [facility] 2024-09-21 12:21 Other pancytopenia [facility] 2024-09-21 12:21 Diverticulitis of in testine, part unspecified, without perforation or abscess without bleeding [facility] 2024-09-21 12:21 Chest pain, unspecified [employer] [facility] 2024-09-21 13:09 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 [facility] 2024-09-21 13:10 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 [facility] 2024-09-21 13:56 Other pancytopenia [facility] 2024-09-21 13:56 Diverticulitis of in testine, part unspecified, without perforation or abscess without bleeding [facility] 2024-09-21 13:56 Chest pain, unspecified [employer] 2024-09-22 00:04 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 [employer] [employer] [facility] 2024-09-28 15:30 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 [employer] [facility] 2024-09-28 15:30 [facility] 2024-09-28 15:30 Diverticulitis of in testine, part unspecified, without perforation or abscess without bleeding [facility] 2024-09-28 15:30 Chest pain, unspecified [facility] 2024-09-29 13:42 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 [employer] [facility] 2024-10-01 10:51 Diverticulitis of la rge intestine without perforation or abscess without bleeding [facility] 2024-10-01 10:51 Diverticulitis of in testine, part unspecified, without perforation or abscess without bleeding [facility] 2024-10-01 10:51 Lower abdominal pain, unspecifi ed [facility] 2024-10-01 10:51 Left lower quadrant pain [facility] 10:51 Unspecified abdominal pain id [employer] 2024-10-01 10:51 Nausea with vomiting, unspecifi ed [facility] 2024-10-01 10:51 Fever, unspecified [facility] 2024-10-02 09:47 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 [facility] 2024-10-02 09:47 Other [facility]enia [facility] 2024-10-02 09:47 Neutropenia, unspecified [facility] 09:47 Lymphocytopenia [facility] 2024-10-02 09:47 Wkhle-[id number] deficiency [facility] 20[facility]-10-02 09:47 Acute suppurative ot itis media without spontaneous rupture of ear drum, right ear [facility] 2024-10-02 09:47 Essential (primary) hypertensio n [facility] 2024-10-02 09:47 Acute diastolic (congestive) he art failure [employer] 2024-10-02 09:47 Acute pansinusitis, unspecified [employer] [facility] 2024-10-02 09:47 Bronchitis, not specified as ac [place] or chronic [facility] 2024-10-02 09:47 Chronic obstructive pulmonary d isease, unspecified [employer] 2024-10-02 09:47 Acute and chronic respiratory f ailure with hypoxia [facility] 2024-10-02 09:47 Diverticulitis of la rge intestine without perforation or abscess with bleeding [employer] 2024-10-02 09:47 Diverticulitis of in testine, part unspecified, without perforation or abscess without bleeding [facility] 2024-10-02 09:47 Renal tubulo-interstitial disea ses (N10-N16) [facility] 2024-10-02 09:47 Hydronephrosis with renal and ureteral calculous obstruction [facility] 2024-10-02 09:47 Acute cystitis without hematuri a [employer] 2024-10-02 09:47 Left lower quadrant pain [facility] 2024-10-02 09:47 Vomiting, unspecified [facility] 2024-10-02 09:47 Nausea with vomiting, unspecifi ed [facility] 2024-10-02 09:47 Other fatigue [facility] 2024-10-02 09:47 Encounter [facility] adult medical examination without abnormal findings [employer] 2024-10-02 09:47 Encounter for adjust ment and management of vascular access device [facility]02 09:47 Other specified counseling [facility] [employer] [facility] 2024-10-02 09:47 Personal history of other diseases of the nervous system and sense organs [facility] 2024-10-02 09:47 Acquired absence of both cervix and uterus [facility] 2024-10-02 09:47 Other specified postprocedural states [facility] 2024-10-02 13:21 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 [facility] 2024-10-02 13:21 Puweb-2-[id number] deficiency [facility] 2024-10-02 13:21 Acute diastolic (congestive) he art failure [facility] 2024-10-02 13:21 Chronic obstructive pulmonary d isease, unspecified [facility] 2024-10-02 13:21 Other fatigue [facility] 2024-10-02 13:21 Encounter for palliative care [facility] 2024-10-02 13:21 Other specified counseling [facility] [employer] [facility] 2024-10-03 00:05 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 [facility] 2024-10-03 00:05 [facility] 2024-10-03 00:05 Neutropenia, unspecified [facility] 2024-10-03 00:05 Lymphocytopenia [facility] 2024-10-03 00:05 Cytpz-9-[id number] deficiency [facility] 2024-10-03 00:05 Acute suppurative ot itis media without spontaneous rupture of ear drum, right ear [facility] 2024-10-03 00:05 Essential (primary) hypertensio n [facility] 2024-10-03 00:05 Acute diastolic (congestive) he art failure [facility] 2024-10-03 00:05 Acute pansinusitis, unspecified [facility] 2024-10-03 00:05 Bronchitis, not specified as ac [place] or chronic [facility] 2024-10-03 00:05 Chronic obstructive pulmonary d isease, unspecified [facility] 2024-10-03 00:05 Acute and chronic respiratory f ailure with hypoxia [facility] [employer] 2024-10-03 00:05 Diverticulitis of la rge intestine without perforation or abscess with bleeding [facility] 00:05 Diverticulitis of in testine, part unspecified, without perforation or abscess without bleeding [facility] 2024-10-03 00:05 Renal tubulo-interstitial disea ses (N10-N16) [facility] 2024-10-03 00:05 Hydronephrosis with renal and ureteral calculous obstruction [facility] 2024-10-03 00:05 Acute cystitis without hematuri [facility]03 00:05 Left lower quadrant pain [facility]-03 00:05 Vomiting, unspecified [facility] 2024-10-03 00:05 Nausea with vomiting, unspecifi ed [facility] 2024-10-03 00:05 Other fatigue [facility] 2024-10-03 00:05 Encounter for genera l adult medical examination without abnormal findings [facility] [employer] 2024-10-03 00:05 Encounter for adjust ment and management of vascular access device [facility] 2024-10-03 00:05 Other specified counseling [facility] [employer] 2024-10-03 00:05 Personal history of other diseases of the nervous system and sense organs [facility] [employer] 2024-10-03 00:05 Acquired absence of both cervix and uterus [facility] [employer] 2024-10-03 00:05 Other specified postprocedural states [facility] 2024-10-05 10:14 Diverticulitis of la rge intestine without perforation or abscess without bleeding [facility] 2024-10-05 10:14 Diverticulitis of in testine, part unspecified, without perforation or abscess without bleeding [facility] [employer] 2024-10-05 10:14 Lower abdominal pain, unspecifi ed [facility] 2024-10-05 10:14 Left lower quadrant pain [facility] 20[facility]-10-05 10:14 Unspecified abdominal pain [facility] [employer] 2024-10-05 10:14 Nausea with vomiting, unspecifi ed [facility] 2024-10-05 10:14 Fever, unspecified [employer] [facility] 2024-10-05 10:20 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 [employer] [facility] 2024-10-05 10:21 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 [facility] 2024-10-05 10:31 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 [facility] 2024-10-05 10:33 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 [employer] [facility] 2024-10-05 10:34 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 [employer] [facility] 2024-10-05 10:36 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 [employer] [facility] 2024-10-06 08:40 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 [facility] 2024-10-06 08:40 Myelodysplastic syndrome, unspe cified [facility] 2024-10-06 08:40 Other [facility]topenia [facility] 2024-10-06 08:40 Neutropenia, unspecified [facility] 2024-10-06 08:40 Lymphocytopenia [facility] 2024-10-06 08:40 Nvlcd-5-vnhgtdiscmy deficiency [facility] 2024-10-06 08:40 Acute suppurative ot itis media without spontaneous rupture of ear drum, right ear [facility] 2024-10-06 08:40 Essential (primary) hypertensio n [facility] 2024-10-06 08:40 Acute diastolic (congestive) he art failure [facility] 2024-10-06 08:40 Acute pansinusitis, unspecified [facility] 2024-10-06 08:40 Bronchitis, not specified as ac [place] or chronic [facility] 2024-10-06 08:40 Chronic obstructive pulmonary d isease, unspecified [employer] 2024-10-06 08:40 Acute and chronic respiratory f ailure with hypoxia [facility] 2024-10-06 08:40 Diverticulitis of la rge intestine without perforation or abscess with bleeding [facility] 2024-10-06 08:40 Diverticulitis of in testine, part unspecified, without perforation or abscess without bleeding [employer] 2024-10-06 08:40 Renal tubulo-interstitial disea ses (N10-N16) [facility] 2024-10-06 08:40 Hydronephrosis with renal and ureteral calculous obstruction [facility] 2024-10-06 08:40 Acute cystitis without hematuri a [facility] 2024-10-06 08:40 Left lower quadrant pain [facility] 2024-10-06 08:40 Vomiting, unspecified [facility] 2024-10-06 08:40 Nausea with vomiting, unspecifi ed [facility] 2024-10-06 08:40 Other fatigue [facility] 2024-10-06 08:40 Encounter for genera l adult medical examination without abnormal findings [facility] 2024-10-06 08:40 Encounter for adjust ment and management of vascular access device [facility] 2024-10-06 08:40 Other specified counseling [employer] 2024-10-06 08:40 Personal history of other diseases of the nervous system and sense organs [facility] 2024-10-06 08:40 Acquired absence of both cervix and uterus [facility] 2024-10-06 08:40 Other specified postprocedural states [facility] 2024-10-07 09:15 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 [facility] 2024-10-07 10:23 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 [facility] 2024-10-07 10:24 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 [facility] 2024-10-07 10:44 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 [facility] 2024-10-07 11:14 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 [facility] 2024-10-07 14:10 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 [facility] 2024-10-07 15:05 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 [facility] 2024-10-07 15:07 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 [facility] 2024-10-07 15:13 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 [facility] 2024-10-07 15:14 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 [employer] 2024-10-07 15:15 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 [facility] 2024-10-07 15:16 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 [facility] 2024-10-07 15:24 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 [facility] 2024-10-08 13:08 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 [facility] 2024-10-08 13:09 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 [employer] 2024-10-09 08:44 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 [employer] 2024-10-10 00:01 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 [employer] 2024-10-10 00:01 Other specified counseling [employer] 2024-10-12 09:25 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 [facility] 2024-10-12 13:28 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 [employer] 2024-10-13 12:13 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 [facility] 2024-10-13 12:13 Other specified counseling [employer] 2024-10-13 13:32 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 [employer] 2024-10-14 09:19 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 [employer] 2024-10-14 10:20 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 [facility] 2024-10-14 10:22 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 [employer] 2024-10-14 12:08 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 [employer] 2024-10-14 14:15 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 [employer] 2024-10-15 00:01 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 [employer] 2024-10-15 00:01 Other [facility]enia [facility] 2024-10-15 00:01 Other specified forms of tremor [facility] 2024-10-15 00:01 Unspecified adverse effect of drug or medicament, initial encounter [employer] 2024-10-15 00:01 Encounter for genera l adult medical examination without abnormal findings [employer] 2024-10-15 00:01 Other specified counseling [employer] [facility] [employer] 2024-10-15 00:01 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 [facility] 2024-10-15 08:50 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 [facility] 2024-10-15 13:32 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 [facility] 2024-10-16 08:16 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 [facility] 2024-10-16 13:44 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 [employer] [facility] 2024-10-19 13:56 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 [facility] 2024-10-19 13:56 Lymphocytopenia [facility] 2024-10-20 14:29 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 [employer] [facility] 2024-10-20 14:29 Lymphocytopenia [facility] 2024-10-21 09:26 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 [employer] [facility] 2024-10-21 09:26 Lymphocytopenia [facility] 2024-10-21 11:09 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 [facility] 2024-10-21 11:09 Lymphocytopenia [facility] 2024-10-21 12:27 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 [employer] [facility] 2024-10-21 12:27 Other pancytopenia [facility] 2024-10-21 12:27 Other specified forms of tremor [facility] 2024-10-21 12:27 Encounter for genera l adult medical examination without abnormal findings [facility] 2024-10-21 12:27 Other specified counseling [employer] [facility] [employer] 2024-10-21 12:27 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 [facility] 2024-10-22 12:13 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 [employer] [facility] 2024-10-22 12:13 Lymphocytopenia [facility] 2024-10-22 12:13 Encounter for genera l adult medical examination without abnormal findings [facility] 2024-10-28 09:36 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 [employer] [facility] 2024-10-28 09:36 Lymphocytopenia [facility] 2024-10-28 09:36 Encounter for genera l adult medical examination without abnormal findings [facility] 2024-10-28 09:37 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 [employer] [facility] 2024-10-28 09:37 [facility]ocytopenia [facility] 2024-10-28 09:37 Encounter for genera l adult medical examination without abnormal findings [facility] 2024-10-28 10:35 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 [employer] [facility] 2024-10-28 10:35 Lymphocytopenia [facility] 2024-10-28 10:35 Encounter for genera l adult medical examination without abnormal findings [facility] 2024-10-28 10:37 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 [employer] 2024-10-28 10:37 Other pancytopenia [facility] 2024-10-28 10:37 Other specified forms of tremor [facility] 2024-10-28 10:37 Encounter for genera l adult medical examination without abnormal findings [facility] 2024-10-28 10:37 Other specified counseling [employer] 2024-10-28 10:37 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 [employer] 2024-10-29 11:52 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 [employer] 2024-10-29 11:52 Yqnkb-7-mlirzgptdet deficiency [facility] 2024-10-29 11:52 Acute diastolic (congestive) he art failure [employer] 2024-10-29 11:52 Other seasonal allergic rhiniti s [employer] 2024-10-29 11:52 Chronic obstructive pulmonary d isease, unspecified [employer] 2024-10-29 11:52 Other fatigue [employer] 2024-10-29 11:52 Encounter for palliative care [facility] 2024-10-29 11:52 Other specified counseling [employer] 2024-11-04 08:23 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 [employer] 2024-11-04 09:27 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 [employer] 2024-11-04 09:27 Lymphocytopenia [facility] 2024-11-04 09:27 Encounter for genera l adult medical examination without abnormal findings [facility] 2024-11-04 10:11 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 [facility] 2024-11-04 10:11 [facility]enia [facility] 2024-11-04 10:11 Lymphocytopenia [facility] 2024-11-04 10:11 Encounter for genera l adult medical examination without abnormal findings [facility] 2024-11-04 10:11 Encounter for antineoplastic ch emotherapy [facility] 2024-11-04 10:11 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 [facility] 2024-11-04 10:29 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 [facility] 2024-11-04 10:29 Lymphocytopenia [facility] 2024-11-04 10:29 Encounter for genera l adult medical examination without abnormal findings [facility] 2024-11-04 11:09 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 [facility] 2024-11-04 11:09 Lymphocytopenia [facility] 2024-11-04 11:09 Encounter for genera l adult medical examination without abnormal findings [facility] 2024-11-04 11:10 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 [facility] 2024-11-04 11:10 Lymphocytopenia [facility] 2024-11-04 11:10 Encounter for genera l adult medical examination without abnormal findings [facility] 2024-11-04 11:14 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 [facility] 2024-11-04 11:14 Lymphocytopenia [facility] 2024-11-04 11:14 Encounter for genera l adult medical examination without abnormal findings [facility] [facility] 2024-11-04 11:19 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 [facility] 11:19 [facility] 11:19 Encounter for genera l adult medical examination without abnormal findings [facility]-04 11:23 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 [facility]-04 11:23 Lymphocytopenia [facility] 2024-11-04 11:23 Encounter for genera l adult medical examination without abnormal findings [facility] 2024-11-05 00:03 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 [facility] 2024-11-09 12:59 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 [facility] 2024-11-09 12:59 Lymphocytopenia [facility] 2024-11-09 12:59 Encounter for genera l adult medical examination without abnormal findings [facility] 2024-11-09 13:53 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 [facility] 2024-11-09 13:53 Other pancytopenia [facility] 2024-11-09 13:53 Encounter for genera l adult medical examination without abnormal findings [facility] 2024-11-09 13:53 Encounter for antineoplastic ch emotherapy [facility] 2024-11-09 13:53 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 [facility] 2024-11-10 13:29 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 [facility] 2024-11-10 13:29 Lymphocytopenia [facility] 2024-11-10 13:29 Encounter for genera l adult medical examination without abnormal findings [facility] 2024-11-11 10:34 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 [facility] 2024-11-11 10:34 Lymphocytopenia [facility] 2024-11-11 10:34 Encounter for genera l adult medical examination without abnormal findings [facility] 2024-11-11 11:09 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 [facility] 2024-11-11 11:09 Lymphocytopenia [facility] 2024-11-11 11:09 Encounter for genera l adult medical examination without abnormal findings [facility] 2024-11-11 12:56 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 [facility] 2024-11-11 12:56 Lymphocytopenia [facility] 2024-11-11 12:56 Encounter for genera l adult medical examination without abnormal findings [facility] 2024-11-12 13:06 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 [facility] 2024-11-12 13:06 Lymphocytopenia [facility] 2024-11-12 13:06 Encounter for genera l adult medical examination without abnormal findings [facility] 2024-11-13 10:04 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 [facility] 2024-11-13 10:04 Lymphocytopenia [facility] 2024-11-13 10:04 Encounter for genera l adult medical examination without abnormal findings [facility] 2024-11-13 10:41 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 [facility] 2024-11-13 10:41 Lymphocytopenia [facility] 2024-11-13 10:41 Encounter for genera l adult medical examination without abnormal findings [facility] 2024-11-13 11:06 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 [facility] 2024-11-13 11:06 Anemia, unspecified [facility] 2024-11-13 11:06 Lymphocytopenia [facility] 2024-11-13 11:06 Encounter for genera l adult medical examination without abnormal findings [facility] 2024-11-16 12:57 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 [facility] 2024-11-16 12:57 Anemia, unspecified [facility] 2024-11-16 12:57 Lymphocytopenia [facility] 2024-11-16 12:57 Encounter for genera l adult medical examination without abnormal findings [facility] 2024-11-17 13:04 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 [facility] 2024-11-17 13:04 Anemia, unspecified [facility] 2024-11-17 13:04 Lymphocytopenia [facility] 2024-11-17 13:04 Encounter for genera l adult medical examination without abnormal findings [facility] 2024-11-18 09:01 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 [facility] 2024-11-18 09:08 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 [facility] 2024-11-18 09:08 Anemia, unspecified [facility] 2024-11-18 09:08 Lymphocytopenia [facility] 2024-11-18 09:08 Encounter for genera l adult medical examination without abnormal findings [facility] 2024-11-18 10:46 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 [facility] 2024-11-18 10:46 Other pancytopenia [facility] 2024-11-18 10:46 Encounter for genera l adult medical examination without abnormal findings [facility] 2024-11-18 10:46 Encounter for antineoplastic ch emotherapy [facility] 2024-11-18 10:46 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 [facility] 2024-11-18 13:11 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 [facility] 2024-11-18 13:11 Anemia, unspecified [facility] 2024-11-18 13:11 Lymphocytopenia [facility] 2024-11-18 13:11 Encounter for genera l adult medical examination without abnormal findings [facility] 2024-11-18 13:14 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 [facility] 2024-11-18 13:14 Anemia, unspecified [facility] 2024-11-18 13:14 Lymphocytopenia [facility] 2024-11-18 13:14 Encounter for genera l adult medical examination without abnormal findings [facility] 2024-11-18 13:15 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 [facility] 2024-11-18 13:15 Anemia, unspecified [facility] 2024-11-18 13:15 Lymphocytopenia [facility] 2024-11-18 13:15 Encounter for genera l adult medical examination without abnormal findings [facility] 2024-11-18 13:16 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 [facility] 2024-11-18 13:16 Anemia, unspecified [facility] 2024-11-18 13:16 Lymphocytopenia [facility] 2024-11-18 13:16 Encounter for genera l adult medical examination without abnormal findings [facility] 2024-11-18 13:17 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 [facility] 2024-11-18 13:17 Anemia, unspecified [facility] 2024-11-18 13:17 Lymphocytopenia [facility] 2024-11-18 13:17 Encounter for genera l adult medical examination without abnormal findings [facility] 2024-11-23 09:38 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 [facility] 2024-11-23 09:38 Anemia, unspecified [facility] 2024-11-23 09:38 Lymphocytopenia [facility] 2024-11-23 09:38 Encounter for genera l adult medical examination without abnormal findings [facility] 2024-11-23 09:40 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 [facility] 2024-11-23 09:40 Anemia, unspecified [facility] 2024-11-23 09:40 Lymphocytopenia [facility] 2024-11-23 09:40 Encounter for genera l adult medical examination without abnormal findings [facility] 2024-11-23 09:48 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 [facility] 2024-11-23 09:48 Anemia, unspecified [facility] 2024-11-23 09:48 Lymphocytopenia [facility] 2024-11-23 09:48 Encounter for genera l adult medical examination without abnormal findings [facility] 2024-11-23 09:49 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 [facility] 2024-11-23 09:49 Anemia, unspecified [facility] 2024-11-23 09:49 Lymphocytopenia [facility] 2024-11-23 09:49 Encounter for genera l adult medical examination without abnormal findings [facility] 2024-11-25 10:37 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 [facility] 2024-11-25 10:37 Anemia, unspecified [facility] 2024-11-25 10:37 Lymphocytopenia [facility] 2024-11-25 10:37 Encounter for genera l adult medical examination without abnormal findings [facility] 2024-11-25 10:38 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 [facility] 2024-11-25 10:38 Anemia, unspecified [facility] 2024-11-25 10:38 Lymphocytopenia [facility] 2024-11-25 10:38 Encounter for genera l adult medical examination without abnormal findings [facility] 2024-11-25 11:16 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 [facility] 2024-11-25 11:16 Anemia, unspecified [facility] 2024-11-25 11:16 Lymphocytopenia [facility] 2024-11-25 11:16 Encounter for genera l adult medical examination without abnormal findings [facility] 2024-11-25 11:42 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 [facility] 2024-11-25 11:42 Anemia, unspecified [facility] 2024-11-25 11:42 Lymphocytopenia [facility] 2024-11-25 11:42 Encounter for genera l adult medical examination without abnormal findings [facility] 2024-11-25 11:48 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 [facility] 2024-11-25 11:48 Anemia, unspecified [facility] 2024-11-25 11:48 Lymphocytopenia [facility] 2024-11-25 11:48 Encounter for genera l adult medical examination without abnormal findings [facility] 2024-11-25 15:27 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 [facility] 2024-11-25 16:33 Acute and chronic respiratory f ailure with hypoxia [facility] 2024-11-26 00:02 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 [facility] 2024-11-26 00:02 Acute and chronic respiratory f ailure with hypoxia [facility] 2024-11-26 10:11 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 [facility] 2024-11-26 10:11 Anemia, unspecified [facility] 2024-11-26 10:11 Lymphocytopenia [facility] 2024-11-26 10:11 Encounter for genera l adult medical examination without abnormal findings [facility] 2024-11-26 10:13 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 [facility] 2024-11-26 10:13 Anemia, unspecified [facility] 2024-11-26 10:13 Lymphocytopenia [facility] 2024-11-26 10:13 Encounter for genera l adult medical examination without abnormal findings [facility] 2024-11-27 14:32 Wheezing [facility] 2024-12-02 09:34 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 [facility] 2024-12-02 09:34 Anemia, unspecified [facility] 2024-12-02 09:34 Lymphocytopenia [facility] 2024-12-02 09:34 Anorexia [facility] 2024-12-02 09:34 Encounter for genera l adult medical examination without abnormal findings [facility] 2024-12-02 09:35 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 [facility] 2024-12-02 09:35 Anemia, unspecified [facility] 2024-12-02 09:35 Lymphocytopenia [facility] 2024-12-02 09:35 Anorexia [facility] 2024-12-02 09:35 Encounter for genera l adult medical examination without abnormal findings [facility] 2024-12-02 13:43 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 [employer] [facility] 2024-12-03 11:58 Foxly-5-bsvqhauycyk deficiency [facility] 2024-12-03 11:58 Major depressive dis order, single episode, unspecified [facility] 2024-12-03 11:58 Muscle weakness (generalized) [facility] 2024-12-03 11:58 Other fatigue [facility] 2024-12-03 11:58 Anorexia [facility] 2024-12-03 11:58 Encounter for palliative care [facility] 2024-12-03 11:58 Other specified counseling [employer] [facility] 2024-12-03 11:58 Other [facility] therapy [facility] 2024-12-03 12:42 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 2024-12-03 12:42 Lymphocytopenia [facility] 2024-12-03 12:42 Shortness of breath 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 [facility] Results/Labs test date facility value unit notes Result panel 1 ABNORMAL LYMPHS % (MANUAL) 2024-09-21 13:37 [employer] 0 % (missing) BAND NEUTROPHILS % (MANUAL) 2024-09-21 13:37 [employer] [facility] 0 % (missing) BASOPHILS # (MANUAL) 2024-09-21 13:37 [facility] 0.0 10 3/ul (missing) EOSINOPHILS # (MANUAL) 2024-09-21 13:37 [facility] 0.0 10 3/ul (missing) MONOCYTES # (MANUAL) 2024-09-21 13:37 [facility] 0.1 10 3/ul (missing) LYMPHOCYTES # (MANUAL) 2024-09-21 13:37 [facility] 0.7 10 3/ul (missing) NEUTROPHILS # (MANUAL) 2024-09-21 13:37 [facility] 0.7 10 3/ul (missing) INR 2024-09-21 13:37 [facility] 1.1 (missing ) Oral Anticoagulant Indication INR range Venous Thrombosis, P.E. 2.0 - 3.0 Mechanical Valve 2.5 - 3.5 WHITE BLOOD COUNT 2024-09-21 13:37 [facility] 1.6 x10 3/ul Called to JALEN Salas/RYLEE/MAC by Cristian Tarango M.T.([facility]) at 1352 09/21/24. Read back(Y/N)? Y MEAN PLATELET VOLUME 2024-09-21 13:37 [facility] 10.9 fl (missing) PT - PROTHROMBIN TIME 2024-09-21 13:37 [facility] 12.3 secs (missing) IRON 2024-09-21 13:37 [facility] 120 ug/dl As of February 2023 testing method has changed, this may include reference ranges. FOLATE RBC 2024-09-21 13:37 [facility] 1277 ng/ml Performed at: [facility] [address] [facility] [address], [place], [place] [id number] Portfolio Administrator: Rani Avina MD, Phone: [phone] Performed at: [address] [facility] [address], [place], [place] [id number] Portfolio Administrator: Trell Yoon MD, Phone: [phone] LDH - LACTATE DEHYDROGENASE 2024-09-21 13:37 [facility] 131 iu/l As of February 2023 testing method has changed, this may include reference ranges. HAPTOGLOBIN 2024-09-21 13:37 [facility] 138 mg/dl Performed at: [facility] [place] [address] [address] [address], [place], [place] [id number] Portfolio Administrator: Trell Yoon MD, Phone: [phone] PLT - PLATELET COUNT 2024-09-21 13:37 [facility] 146 10 3/ul (missing) RED CELL DISTRIBUTION WIDTH 2024-09-21 13:37 [facility] 15.4 % (missing) REACTIVE LYMPHS % (MANUAL) 2024-09-21 13:37 [facility] [employer] 2 % (missing) RBC 2024-09-21 13:37 [facility] 2.69 x10e6/ul (missing) RED BLOOD COUNT 2024-09-21 13:37 [employer] 2.73 10 6/ul (missing) FERRITIN 2024-09-21 13:37 [employer] [facility] 22.5 ng/ml (missing) HEMATOCRIT 2024-09-21 13:37 [employer] 25.2 % (missing) TRANSFERRIN 2024-09-21 13:37 [employer] 265 mg/dl As of February 2023 testing method has changed, this may include reference ranges. HCT - HEMATOCRIT 2024-09-21 13:37 [employer] [facility] 27.0 % (missing) PARTIAL THROMBOPLASTIN TIME 2024-09-21 13:37 [employer] 27.2 secs (missing) MEAN CORPUSCULAR HEMOGLOBIN 2024-09-21 13:37 [employer] [facility] 28.9 pg (missing) MEAN CORPUSCULAR HGB CONC 2024-09-21 13:37 [employer] [facility] 29.3 g/dl (missing) RBC MORPHOLOGY (MULTIPLE) 2024-09-21 13:37 [employer] [facility] 3+ ANISOCYTOSIS (missing ) (missing) PHOSPHORUS 2024-09-21 13:37 [employer] [facility] 3.0 mg/dl As of February 2023 testing method has changed, this may include reference ranges. % IRON SATURATION 2024-09-21 13:37 [employer] [facility] 32 % (missing) FOLATE HEMOLYSATE 2024-09-21 13:37 [employer] [facility] 321.7 ng/ml (missing) VITAMIN B12 2024-09-21 13:37 [employer] [facility] 331 pg/ml Social History date description facility
[2024-12-03 13:04] LABS: EOSINOPHILS % (AUTO) 0.5 %; HCT - HEMATOCRIT 26.3 % (37.0-47.0); HGB - HEMOGLOBIN 7.7 g/dL (12.0-16.0); LYMPHOCYTES # (AUTO) 0.7 10^3/uL (1.5-3.5); LYMPHOCYTES % (AUTO) 34.3 %; MEAN CORPUSCULAR HEMOGLOBIN 29.2 pg (27.0-31.0); MEAN CORPUSCULAR HGB CONC 29.3 g/dL (32.0-36.0); MEAN CORPUSCULAR VOLUME 99.6 fL (81.0-99.0); MEAN PLATELET VOLUME 9.4 fL (7.9-10.8); MONOCYTES # (AUTO) 0.3 10^3/uL (0.0-1.0); MONOCYTES % (AUTO) 13.3 %; NEUTROPHILS % (AUTO) 46.7 %; PLT - PLATELET COUNT 59 10^3/uL (130-450); RED BLOOD COUNT 2.64 10^6/uL (4.20-5.40); RED CELL DISTRIBUTION WIDTH 18.6 % (12.0-15.0); WHITE BLOOD COUNT 2.1 x10^3/uL (4.8-10.8)
[2024-12-03 13:06] LABS: SLIDE REVIEW? Indicated
[2024-12-03 13:12] LABS: MAGNESIUM 1.7 mg/dL (1.7-2.3)
[2024-12-03 13:13] LABS: INR 1.1 (0.8-1.2); PT - PROTHROMBIN TIME 12.6 secs (9.9-12.6)
[2024-12-03 13:17] LABS: PLATELET ESTIMATE, MANUAL DECREASED (<130,000) (NORMAL); RBC MORPHOLOGY (MULTIPLE) 3+ ANISOCYTOSIS (NORMAL)
[2024-12-03] MEDS: IPRATROPIUM/ALBUTEROL 3 ML NEB INH STA (13:29)
[2024-12-03 13:31] LABS: ALBUMIN 3.4 g/dL (3.2-5.5); CALCIUM 9.8 mg/dL (8.5-10.3); CREATININE 1.1 mg/dL (0.6-1.3); POTASSIUM 3.7 mmol/L (3.5-4.5); TOTAL PROTEIN 6.9 g/dL (6.4-8.9)
--- NOTE | 2024-12-03 13:36 | XRAY Report ---
PROCEDURE: XR Chest 1V INDICATIONS: cough, sob TECHNIQUE: One view of the chest was acquired. COMPARISON: 11/25/2024. FINDINGS: Surgical changes and devices: Right chest Port-A-Cath. Lungs and pleura: No pleural effusions or pneumothorax. Biapical predominant pulmonary interstitial fibrosis. No consolidation. Mediastinum: Mediastinal contours appear normal. Heart size is normal. Bones and chest wall: No suspicious bony lesions. Overlying soft tissues appear unremarkable. IMPRESSION: Biapical predominant chronic pulmonary interstitial fibrosis. No acute infiltrates identified. Reviewed by: Siddharth Chairez MD on 12/03/2024 1:34 PM PDT Approved by: Siddharth Chairez MD on 12/03/2024 1:34 PM PDT Station ID: [id number]
[2024-12-03 14:05] LABS: B. PARAPERTUSSIS- RESP PCR PAN NOT DETECTED; B. PERTUSSIS- RESP PCR PANEL NOT DETECTED; C. PNEUMONIAE- RESP PCR PANEL NOT DETECTED; CORONAVIRUS 229E-RESP PCR NOT DETECTED; CORONAVIRUS HKU1-RESP PCR NOT DETECTED; CORONAVIRUS NL63-RESP PCR NOT DETECTED; CORONAVIRUS OC43-RESP PCR NOT DETECTED; HUMAN METAPNEUMOVIRUS NOT DETECTED; INFLUENZA A- RESP PCR PANEL NOT DETECTED; INFLUENZA B - RESP PCR PANEL NOT DETECTED; M. PNEUMONIAE- RESP PCR PANEL NOT DETECTED; PARAINFLUENZA VIRUS 1 NOT DETECTED; PARAINFLUENZA VIRUS 2 NOT DETECTED; PARAINFLUENZA VIRUS 4 NOT DETECTED; RHINOVIRUS/ENTEROVIRUS NOT DETECTED; RSV- RESP PCR PANEL NOT DETECTED; SARS-CoV-2 -RESP PCR PANEL NOT DETECTED
[2024-12-03 14:41] LABS: BILIRUBIN,URINE NEGATIVE (NEGATIVE); GLUCOSE, URINE (UA) NEGATIVE (NEGATIVE); KETONES,URINE (UA) NEGATIVE (NEGATIVE); LEUKOCYTE ESTERASE, URINE NEGATIVE (NEGATIVE); NITRITE,URINE NEGATIVE (NEGATIVE); OCCULT BLOOD,URINE NEGATIVE (NEGATIVE); PROTEIN,URINE 30 mg/dL (NEGATIVE); UROBILINOGEN,URINE 2 E.U./dL (NORMAL)
[2024-12-03 14:42] LABS: CLARITY,URINE CLEAR (CLEAR)
[2024-12-03 15:00] LABS: VBG PCO2 59.1 mmHg (41-51); VBG PH 7.459 (7.31-7.41); VBG PO2 32.9 mmHg (25-47); VBG TOTAL CO2 44.1 mmol/L (24-29)
[2024-12-03 15:01] LABS: VBG BASE EXCESS 18.2 mmol/L (-2 - +2)
[2024-12-03 15:08] LABS: BACTERIA,URINE None Seen /HPF (None Seen); RBC,URINE None Seen /HPF (0-5); SQUAMOUS EPITHELIAL CELL,UR MOD Squamous (<= Few); WBC,URINE 0-3 /HPF (0-5)
[2024-12-03] MEDS: CEFEPIME 1 GM in SODIUM CHLORIDE 0.9% MINIBAG 100 ML IV STA (15:45)
--- NOTE | 2024-12-03 16:07 | HISTORY & PHYSICAL EXAMINATION ---
Chief Complaint Chief Complaint Chief Complaint: fever and shortness of breath History of Present Illness Admitted From Admitted From:: home History Obtained From Records Reviewed: oncology and palliative care notes. History obtained from: Patient. 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 Baseline hx COPD on 3-4L home oxygen. for past several days has been feeling poorly with nausea, shortness of breath and "lots of snot". This is nasal congestion, she denies coughing up sputum. She has been much worse with her breathing since last night and decided to come to the ED today because she felt that she had an abnormal temp. she said that it was "99 something, which is a fever for me". She has had decreased appetite, but denies weight loss. She denies sick contacts, but has lots of helpers coming in and out of her home with her decreased functional status. has been on antimicrobial prophylaxis with Cefdinir 300mg BID, acyclovir 400mg BID and posaconazole 300mg daily for some time, per her oncology team. Patient was discussed with oncology by ED provider and recommendation was for cefepime, vanc and flagyl. The request from the ED is that she be admitted for neutropenic fever. She has a POLST on the chart that details DNR/DNI and this is confirmed at the bedside. her grand daughter Jan Rodriguez is her surrogate decision maker. Meds/Allgy Home Medications Ambulatory Orders Medication Instructions Recorded Confirmed albuterol sulfate 90 mcg/actuation 2 puff inhalation QID PRN 01/29/13 12/03/24 aerosol inhaler (Ventolin HFA) Shortness Of Air/Wheezing albuterol sulfate 2.5 mg/3 mL 1 neb inhalation BID 03/23/24 12/03/24 (0.083 %) solution for nebulization ondansetron 4 mg disintegrating 4 mg translingual Q6H PRN Nausea / 09/30/24 12/03/24 tablet Vomiting #30 tabs prochlorperazine maleate 10 mg 10 mg PO Q6H PRN nausea and 09/30/24 12/03/24 tablet vomiting #30 tabs loperamide 2 mg capsule 2 mg PO Q6H PRN loose stool 10/14/24 12/03/24 (Anti-Diarrheal (loperamide)) posaconazole 100 mg tablet,delayed 300 mg (3 x 100 mg) PO Q24H #90 10/14/24 12/03/24 release tabs gabapentin 300 mg capsule 600 mg PO HS 11/11/24 12/03/24 alprazolam 0.25 mg tablet 0.25 mg PO QDAY PRN anxiety #30 11/25/24 12/03/24 tabs Lactobacillus acidophilus 250 1,000 mmu cells PO QDAY 11/29/24 12/03/24 million cell capsule (Probiotic Acidophilus) cefdinir 300 mg capsule 300 mg PO BID 11/29/24 12/02/24 cholecalciferol (vitamin D3) 25 25 mcg PO QDAY 11/29/24 12/03/24 mcg (1,000 unit) capsule potassium chloride 10 mEq 20 meq PO QDAY 11/29/24 12/03/24 capsule,extended release potassium chloride 20 mEq/15 mL 20 meq (15 mL) PO QDAY #450 mL 11/29/24 12/03/24 oral liquid Allergies Allergies Allergy/AdvReac Type Severity Reaction Status Date / Time Sulfa (Sulfonamide Allergy Severe Respiratory Verified 12/03/24 12:42 Antibiotics) levofloxacin Allergy Unknown Unknown Verified 12/03/24 12:42 amoxicillin AdvReac Severe Nausea, Verified 12/03/24 12:42 VOMITING mirtazapine AdvReac Intermediate Unknown Verified 12/03/24 12:42 codeine (Codeine) AdvReac Nausea Verified 12/03/24 12:42 morphine AdvReac unable to Verified 12/03/24 12:42 urinate oxycodone (Oxycodone) AdvReac Nausea Verified 12/03/24 12:42 prednisone AdvReac anger Verified 12/03/24 12:42 PFSH Active Problems All Active Problems (Updated 12/03/24 @ 19:01 by NICK Lama) CHF exacerbation (Acute) Fever (Acute) Medication management (Acute) Muscle weakness (generalized) (Acute) Anemia (Acute) Depression (Acute) Anorexia (Acute) Encounter for antineoplastic chemotherapy (Acute) Seasonal allergic rhinitis (Acute) Coarse tremors (Acute) Counseling regarding advanced care planning and goals of care (Acute) Fatigue (Acute) Advance care planning (Acute) Healthcare maintenance (Acute) Prophylactic antibiotic (Acute) Myelodysplastic syndrome with excess blasts-2 (Acute) Acute and chronic respiratory failure with hypoxia (Acute) Hypertension (Acute) Fbomd-9-[id number] deficiency (Acute) Pancytopenia (Acute) Heart failure (Acute) Medication side effects (Acute) Neutropenia (Acute) Diverticulitis (Acute) Lymphopenia (Acute) Severe chronic obstructive pulmonary disease (Acute) Bronchitis (Acute) Medical History Medical History (Updated 12/03/24 @ 19:01 by NICK Lama) Ureteral stone with hydronephrosis Pyelonephritis, acute Diverticulitis of gastrointestinal tract History of cataract Surgical History Surgical History (Updated 10/02/24 @ 12:02 by Christin Delgado DO) History of insertion of central venous access port (~10/02/24) RIJ port History of foot surgery History of bladder surgery bladder lift, cystoscopy History of hysterectomy Social History Social History Smoking Status: Never smoker Do you dip or chew tobacco?: No Do you vape?: No Patient requests smoking cessation consult: No Relationship: Level: Independent Do you feel safe in your home environment?: Yes Suffered physical, verbal, emotional, or financial abuse?: No History of Abuse: No ETOH Use: Frequency: Occasional Substance Use: denies use Are you sexually active?: No POLST Patient has POLST: Yes POLST Status: DNR Review of Systems Status of ROS: 10 or more systems reviewed and unremarkable except as noted in history and below Constitutional Reports: Fatigue, Fever and Malaise Eyes Reports: Other (macular degen, 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.); Denies: Change in vision Ears, nose, mouth, and throat Denies: Change in hearing, Vertigo or Neck pain Cardiovascular Reports: swelling of feet/ankles (mild to moderate, that is not improving), shortness of breath with exertion and Decreased exercise tolerance; Denies: Irregular heart rate, chest pain or palpitations Respiratory Reports: Shortness of breath, Cough, Wheezing, SOB at rest and SOB with exertion; Denies: Sputum production, Coughing up blood, Orthopnea or Chest congestion Gastrointestinal Reports: Nausea and Poor appetite; Denies: Abdominal pain, Abdominal distention, Vomiting, Change in stool character, Melena or Blood in stool Musculoskeletal Denies: Back pain or Neck pain Integumentary/Breast Denies: Rash Neurological Denies: Vertigo Psychiatric Denies: Depression or Mood swings Endocrine Reports: Fatigue; Denies: Excessive urination Hematologic/Lymphatic Denies: Blood clots Allergic/Immunologic Reports: Wheezing Prior Level of Functionality: has been declining over the last year. lives alone with household help. has supportive family but no one that lives nearby. Exam Exam Vital Signs: Vital Signs x48h Temp Pulse Pulse Resp BP BP Pulse Ox 12/03/24 17:15 80 12/03/24 17:10 36.6 C 99 28 H 175/107 H 12/03/24 16:50 94 12/03/24 16:29 208/62 H 12/03/24 16:27 36.7 C 12/03/24 14:46 12/03/24 13:31 80 24 12/03/24 12:42 37.2 C 82 32 H 239/79 H 94 O2 Flow Rate 12/03/24 17:15 12/03/24 17:10 12/03/24 16:50 4 12/03/24 16:29 12/03/24 16:27 12/03/24 14:46 2 12/03/24 13:31 4 12/03/24 12:42 2 Constitutional normal general appearance and no apparent distress HENMT normocephalic and hearing grossly normal bilaterally Eyes conjunctivae normal Neck/C-Spine visual inspection normal Lymph no lymphadenopathy noted Chest inspection of chest normal right chest wall port site is without edema, erythema or tenderness. Respiratory breath sounds equal bilaterally decreased at bases with wheeze present, bilaterally Cardiovascular normal heart rate noted hypertensive Gastrointestinal abdomen normal to inspection and abdomen soft to palpation Back/Pelvis spine normal to inspection Extremities 2+ pitting edema to the mid calf Neurology insert cutter II-XII intact and GCS 15 Psychiatry mental status grossly normal, oriented x3, thought process normal and cooperative Skin skin color normal and no rash Conclusion/Plan Problem List (1) Neutropenia: Plan: Presents to the ED with complaints of fever that are subjective,and an acute illness for several days but worse since evening prior to admit. She has known neutropenia and has been on prophylactic antimicrobials at home for some time. She has an ANC of 1000. yesterday her ANC was measured to be 400. She has had an acute respiratory illness. She became tachypneic and hypoxic to 83% on supplemental oxygen by nasal cannula on arrival to the floor. She has not spiked a fever but she has been feeling cold. I have not observed any rigors. With her acute decline, decision was made to escalate abx treatment. I have stopped the Cefepime and the flagyl and started meropenem. I have added azithromycin for atypical coverage. Continuing vancomycin for MRSA coverage and have ordered a MRSA swab. I have ordered repeat CBC for the AM. discussed with Alyce Araya PA-C in the ED and decision was made to admit the patient to medical service. I will call oncology to follow her in the AM. 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 She has had this diagnosis for many years and has been treated appropriately. She is well-established with a artificial inseminator in [place]. Her artificial inseminator is Jona Haji. At baseline she is on 3 to 4 L of oxygen at home. She states that her oxygen levels have definitely been at 4 L over the past several days. She had an acute hypoxic episode upon arrival to the floor. Where she desatted to 83% on 6 L via nasal cannula and became quite tachypneic. At this time, antibiotic coverage was escalated, BNP was sent and she was placed quickly on BiPAP. Blood gas after about 30 minutes on BiPAP continues to show mild alkalosis 7.47 CO2 elevated at 54.2 this is also close to her baseline, pO2 80 with a bicarb of 39. This is a mixed picture, but she is not acidotic. The etiology of her respiratory failure is initially thought to be COPD given her alpha-1 antitrypsin deficiency and her longstanding history of oxygen dependent COPD. Further review of records reveals a very normal result on an echocardiogram in March 2024 showing a normal ejection fraction, normal right sided size and pressures. However, BN P is elevated in the 500s. Patient will be treated with a 20 mg dose of IV Lasix this evening. I believe this is also appropriate given her pedal edema which has been new this week. I have ordered echocardiogram for the a.m. I will continue to treat this as a mixed picture CHF COPD exacerbation Actually, with the inability to rule out underlying pneumonia in the setting of neutropenia. She is on empiric broad- spectrum antibiotics. She is refusing steroids for treatment of her COPD exacerbation because she states she has not adverse reaction to steroids and really does not want to take them. I am adding inhaled nebulized steroids to her regime in addition to bronchodilators. Goals of care were reviewed with patient and family. She is adamantly DNR/DNI. She and her family consent to BiPAP. She will be on and off BiPap as needed overnight for respiratory support. I will revisit the idea of parenteral steroids with her tomorrow AM, or if she worsens tonight despite maximal medical treatment. (3) Severe chronic obstructive pulmonary disease: Plan: due to Alpha-1 antitrypsin deficiency. She has had this dx for years. at home she is on weekly Prolastin C infusions and has been for years. She is followed by Jona Haji, pulmonology with [place]. Her COPD is otherwise treated with home O2 as above and albuterol PRN. I do not see any LABA/LAMA/inhaled steroids in her regimen. (4) CHF exacerbation: Plan: historical data in the chart would argue against CHF, with a negative echo less than one year ago. 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 She is hypertensive on exam today, but I do not see evidence of longstanding uncontrolled HTN in her records. Her BNP is elevated and she has pedal edema. her CXR shows biapical pulmonary interstitial fibrosis without infiltrates or pulmonary edema. on exam, her breath sounds are decreased at the bases with some mid field wheeze. I am treating her with lasix, 20mg, IV one dose and will continue to follow her clinically. I have ordered repeat echocardiogram. Plan I have spent 90 minutes in the care of this patient today. This includes time [id number], review and ordering of diagnostic imaging and laboratory studies and consultation with other providers. Monitoring the patient's signs symptoms, evaluation of medication effectiveness and patient's response to treatment. Lab Results Lab results reviewed: Yes 12/03/24 12:50 12/03/24 12:50 Core Measures DVT/VTE - Prophylaxis VTE/DVT Device ordered at admit?: Yes VTE/DVT Prophylaxis med ordered at admit?: Yes
[2024-12-03] MEDS: CEFEPIME 1 GM VIAL IVP STA (16:14)
[2024-12-03] MEDS: metroNIDAZOLE 500 MG/100 ML 500 MG/100 ML BAG IV ONE (16:18)
[2024-12-03] MEDS: VANCOMYCIN INJ 2 GM in SODIUM CHLORIDE 0.9% 500 ML IV STA (16:22)
--- OUTSIDE RECORDS SUMMARY | 2024-12-03 16:35 | EXTERNAL MEDICAL SUMMARY RPT | Continuity of Care Document ---
Author Organization [place] Address [address] [place] [id number] Phone Problems date description facility 2024-09-03 13:49 Other pancytopenia [facility] 2024-09-03 13:49 Diverticulitis of in testine, part unspecified, without perforation or abscess without bleeding [facility] 2024-09-03 13:49 Chest pain, unspecified [facility] 2024-09-03 14:04 Other pancytopenia [facility] 2024-09-03 14:04 Diverticulitis of in testine, part unspecified, without perforation or abscess without bleeding [facility] 2024-09-03 14:04 Chest pain, unspecified [facility] 2024-09-16 14:38 Other pancytopenia [facility] 2024-09-16 14:38 Diverticulitis of in testine, part unspecified, without perforation or abscess without bleeding [facility] 2024-09-16 14:38 Chest pain, unspecified [facility] 2024-09-17 08:25 Other pancytopenia [facility] 2024-09-17 08:25 Diverticulitis of in testine, part unspecified, without perforation or abscess without bleeding [facility] 2024-09-17 08:25 Chest pain, unspecified [facility] 2024-09-21 11:46 Other pancytopenia [facility] 2024-09-21 11:46 Diverticulitis of in testine, part unspecified, without perforation or abscess without bleeding [facility] 2024-09-21 11:46 Chest pain, unspecified [facility] 2024-09-21 12:14 Other pancytopenia [facility] 2024-09-21 12:14 Diverticulitis of in testine, part unspecified, without perforation or abscess without bleeding [facility] 2024-09-21 12:14 Chest pain, unspecified [employer] [facility] 2024-09-21 12:21 Other pancytopenia [facility] 2024-09-21 12:21 Diverticulitis of in testine, part unspecified, without perforation or abscess without bleeding [facility] 2024-09-21 12:21 Chest pain, unspecified idfor[MD] [facility] 2024-09-21 13:09 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 [facility] 2024-09-21 13:10 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 [facility] 2024-09-21 13:56 Other pancytopenia [facility] 2024-09-21 13:56 Diverticulitis of in testine, part unspecified, without perforation or abscess without bleeding [facility] 2024-09-21 13:56 Chest pain, unspecified idfor[MD] [facility] 2024-09-22 00:04 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 [employer] [facility] 2024-09-28 15:30 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 [employer] [facility] 2024-09-28 15:30 Other [facility]enia [facility] 2024-09-28 15:30 Diverticulitis of in testine, part unspecified, without perforation or abscess without bleeding [facility] 2024-09-28 15:30 Chest pain, unspecified idfor[MD] [facility] 2024-09-29 13:42 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 idfor[MD] [facility] 2024-10-01 10:51 Diverticulitis of la rge intestine without perforation or abscess without bleeding [facility] 2024-10-01 10:51 Diverticulitis of in testine, part unspecified, without perforation or abscess without bleeding [facility] 2024-10-01 10:51 Lower abdominal pain, unspecifi ed [facility] 2024-10-01 10:51 Left lower quadrant pain [email or web address] 2024-10-01 10:51 Unspecified abdominal pain [employer] 2024-10-01 10:51 Nausea with vomiting, unspecifi ed [facility] 2024-10-01 10:51 Fever, unspecified [facility] 2024-10-02 09:47 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 [employer] 2024-10-02 09:47 Other pancytopenia [facility] 2024-10-02 09:47 Neutropenia, unspecified [email or web address] 2024-10-02 09:47 Lymphocytopenia [facility] 2024-10-02 09:47 Wxwyq-2-qamecdzsbig deficiency [facility] 2024-10-02 09:47 Acute suppurative ot itis media without spontaneous rupture of ear drum, right ear [facility] 2024-10-02 09:47 Essential (primary) hypertensio n [employer] 2024-10-02 09:47 Acute diastolic (congestive) he art failure [employer] 2024-10-02 09:47 Acute pansinusitis, unspecified [employer] [facility] 2024-10-02 09:47 Bronchitis, not specified as ac tatitlek or chronic [employer] 2024-10-02 09:47 Chronic obstructive pulmonary d isease, unspecified [employer] 2024-10-02 09:47 Acute and chronic respiratory f ailure with hypoxia [employer] 2024-10-02 09:47 Diverticulitis of la rge intestine without perforation or abscess with bleeding [employer] 2024-10-02 09:47 Diverticulitis of in testine, part unspecified, without perforation or abscess without bleeding [employer] 2024-10-02 09:47 Renal tubulo-interstitial disea ses (N10-N16) [employer] 2024-10-02 09:47 Hydronephrosis with renal and ureteral calculous obstruction [employer] 2024-10-02 09:47 Acute cystitis without hematuri a [employer] 2024-10-02 09:47 Left lower quadrant pain [employer] 2024-10-02 09:47 Vomiting, unspecified [facility] 2024-10-02 09:47 Nausea with vomiting, unspecifi ed [employer] 2024-10-02 09:47 Other fatigue [employer] 2024-10-02 09:47 Encounter for [facility] adult medical examination without abnormal findings [employer] 2024-10-02 09:47 Encounter for adjust ment and management of vascular access device [facility] 2024-10-02 09:47 Other specified counseling [facility] for[MD] [facility] 2024-10-02 09:47 Personal history of other diseases of the nervous system and sense organs [facility] 2024-10-02 09:47 Acquired absence of both cervix and uterus [facility] 2024-10-02 09:47 Other specified postprocedural states [facility] 2024-10-02 13:21 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 [facility] 2024-10-02 13:21 Dbzzv-6-wbgibsfumaz deficiency [facility] 2024-10-02 13:21 Acute diastolic (congestive) he art failure [facility] 2024-10-02 13:21 Chronic obstructive pulmonary d isease, unspecified [facility] 2024-10-02 13:21 Other fatigue [facility] 2024-10-02 13:21 Encounter for palliative care [facility] 2024-10-02 13:21 Other specified counseling [facility][MD] [facility] 2024-10-03 00:05 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 [facility] 2024-10-03 00:05 [facility] 2024-10-03 00:05 Neutropenia, unspecified [facility] [employer] [facility] 2024-10-03 00:05 Lymphocytopenia [facility] 2024-10-03 00:05 Fvvnn-4-thoctmivcec deficiency [facility] 2024-10-03 00:05 Acute suppurative ot itis media without spontaneous rupture of ear drum, right ear [facility] 2024-10-03 00:05 Essential (primary) hypertensio n [facility] 2024-10-03 00:05 Acute diastolic (congestive) he art failure [facility] 2024-10-03 00:05 Acute pansinusitis, unspecified [facility] 2024-10-03 00:05 Bronchitis, not specified as ac tatitlek or chronic [facility] 2024-10-03 00:05 Chronic obstructive pulmonary d isease, unspecified [facility] 2024-10-03 00:05 Acute and chronic respiratory f ailure with hypoxia [facility] [employer] 2024-10-03 00:05 Diverticulitis of la rge intestine without perforation or abscess with bleeding [facility] [employer] 2024-10-03 00:05 Diverticulitis of in testine, part unspecified, without perforation or abscess without bleeding [facility] 2024-10-03 00:05 Renal tubulo-interstitial disea ses (N10-N16) [facility] 2024-10-03 00:05 Hydronephrosis with renal and ureteral calculous obstruction [facility] 2024-10-03 00:05 Acute cystitis without hematuri a [facility] [employer] 2024-10-03 00:05 Left lower quadrant pain [email or web address] 2024-10-03 00:05 Vomiting, unspecified [facility] 2024-10-03 00:05 Nausea with vomiting, unspecifi ed [facility] 2024-10-03 00:05 Other fatigue [facility] 2024-10-03 00:05 Encounter for genera l adult medical examination without abnormal findings [facility] [employer] 2024-10-03 00:05 Encounter for adjust ment and management of vascular access device [facility] 2024-10-03 00:05 Other specified counseling [facility] [employer] 2024-10-03 00:05 Personal history of other diseases of the nervous system and sense organs [facility] [employer] 2024-10-03 00:05 Acquired absence of both cervix and uterus [facility] [employer] 2024-10-03 00:05 Other specified postprocedural states [facility] 2024-10-05 10:14 Diverticulitis of la rge intestine without perforation or abscess without bleeding [facility] 2024-10-05 10:14 Diverticulitis of in testine, part unspecified, without perforation or abscess without bleeding [facility] [employer] 2024-10-05 10:14 Lower abdominal pain, unspecifi ed [facility] 2024-10-05 10:14 Left lower quadrant pain [email or web address] 2024-10-05 10:14 Unspecified abdominal pain [facility] [employer] 2024-10-05 10:14 Nausea with vomiting, unspecifi ed [facility] 2024-10-05 10:14 Fever, unspecified [employer] [facility] 2024-10-05 10:20 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 [employer] [facility] 2024-10-05 10:21 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 [facility] 2024-10-05 10:31 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 [facility] 2024-10-05 10:33 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 [employer] [facility] 2024-10-05 10:34 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 [employer] [facility] 2024-10-05 10:36 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 [employer] [facility] 2024-10-06 08:40 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 [employer] 2024-10-06 08:40 Myelodysplastic syndrome, unspe cified [employer] 2024-10-06 08:40 Other pancytopenia [facility] 2024-10-06 08:40 Neutropenia, unspecified [employer] 2024-10-06 08:40 Lymphocytopenia [employer] 2024-10-06 08:40 Tdvwl-3-gdrqdxekomc deficiency [employer] 2024-10-06 08:40 Acute suppurative ot itis media without spontaneous rupture of ear drum, right ear [employer] 2024-10-06 08:40 Essential (primary) hypertensio n [employer] 2024-10-06 08:40 Acute diastolic (congestive) he art failure [employer] 2024-10-06 08:40 Acute pansinusitis, unspecified [employer] 2024-10-06 08:40 Bronchitis, not specified as ac tatitlek or chronic [employer] 2024-10-06 08:40 Chronic obstructive pulmonary d isease, unspecified [employer] 2024-10-06 08:40 Acute and chronic respiratory f ailure with hypoxia [employer] 2024-10-06 08:40 Diverticulitis of la rge intestine without perforation or abscess with bleeding [employer] 2024-10-06 08:40 Diverticulitis of in testine, part unspecified, without perforation or abscess without bleeding [employer] 2024-10-06 08:40 Renal tubulo-interstitial disea ses (N10-N16) [employer] 2024-10-06 08:40 Hydronephrosis with renal and ureteral calculous obstruction [employer] 2024-10-06 08:40 Acute cystitis without hematuri a [employer] 2024-10-06 08:40 Left lower quadrant pain [employer] 2024-10-06 08:40 Vomiting, unspecified [facility] 2024-10-06 08:40 Nausea with vomiting, unspecifi ed [employer] 2024-10-06 08:40 Other fatigue [facility] 2024-10-06 08:40 Encounter for genera l adult medical examination without abnormal findings [employer] 2024-10-06 08:40 Encounter for adjust ment and management of vascular access device [employer] 2024-10-06 08:40 Other specified counseling [email or web address] 2024-10-06 08:40 Personal history of other diseases of the nervous system and sense organs [employer] 2024-10-06 08:40 Acquired absence of both cervix and uterus [employer] 2024-10-06 08:40 Other specified postprocedural states [employer] 2024-10-07 09:15 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 [employer] 2024-10-07 10:23 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 [employer] 2024-10-07 10:24 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 [employer] 2024-10-07 10:44 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 [employer] 2024-10-07 11:14 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 [employer] 2024-10-07 14:10 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 [employer] 2024-10-07 15:05 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 [employer] 2024-10-07 15:07 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 [employer] 2024-10-07 15:13 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 [employer] 2024-10-07 15:14 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 [employer] 2024-10-07 15:15 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 [employer] 2024-10-07 15:16 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 [employer] 2024-10-07 15:24 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 [employer] 2024-10-08 13:08 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 [employer] 2024-10-08 13:09 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 [employer] 2024-10-09 08:44 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 [employer] 2024-10-10 00:01 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 [employer] 2024-10-10 00:01 Other specified counseling [employer] 2024-10-12 09:25 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 [employer] 2024-10-12 13:28 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 [employer] 2024-10-13 12:13 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 [employer] 2024-10-13 12:13 Other specified counseling [email or web address] 2024-10-13 13:32 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 [employer] 2024-10-14 09:19 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 [employer] 2024-10-14 10:20 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 [employer] 2024-10-14 10:22 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 [employer] 2024-10-14 12:08 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 [employer] 2024-10-14 14:15 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 [employer] 2024-10-15 00:01 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 [employer] 2024-10-15 00:01 Other pancytopenia [facility] 2024-10-15 00:01 Other specified forms of tremor [employer] 2024-10-15 00:01 Unspecified adverse effect of drug or medicament, initial encounter [employer] 2024-10-15 00:01 Encounter for genera l adult medical examination without abnormal findings [employer] 2024-10-15 00:01 Other specified counseling [employer] [facility] [employer] 2024-10-15 00:01 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 [facility] 2024-10-15 08:50 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 [facility] 2024-10-15 13:32 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 [facility] 2024-10-16 08:16 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 [facility] 2024-10-16 13:44 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 [employer] [facility] 2024-10-19 13:56 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 [facility] 2024-10-19 13:56 Lymphocytopenia [facility] 2024-10-20 14:29 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 [employer] [facility] 2024-10-20 14:29 Lymphocytopenia [facility] 2024-10-21 09:26 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 [employer] [facility] 2024-10-21 09:26 Lymphocytopenia [facility] 2024-10-21 11:09 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 [facility] 2024-10-21 11:09 Lymphocytopenia [facility] 2024-10-21 12:27 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 [employer] [facility] 2024-10-21 12:27 Other pancytopenia [facility] 2024-10-21 12:27 Other specified forms of tremor [facility] 2024-10-21 12:27 Encounter for genera l adult medical examination without abnormal findings [facility] 2024-10-21 12:27 Other specified counseling [employer] ([employer] [facility] [employer] 2024-10-21 12:27 correction (current) use of anti biotics [facility] 2024-10-22 12:13 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 [employer] [facility] 2024-10-22 12:13 Lymphocytopenia [facility] 2024-10-22 12:13 Encounter for genera l adult medical examination without abnormal findings [facility] 2024-10-28 09:36 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 [employer] [facility] 2024-10-28 09:36 Lymphocytopenia [employer] 2024-10-28 09:36 Encounter for genera l adult medical examination without abnormal findings [employer] 2024-10-28 09:37 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 [employer] [facility] 2024-10-28 09:37 Lymphocytopenia [facility] 2024-10-28 09:37 Encounter for genera l adult medical examination without abnormal findings [employer] 2024-10-28 10:35 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 [employer] [facility] 2024-10-28 10:35 Lymphocytopenia [facility] 2024-10-28 10:35 Encounter for genera l adult medical examination without abnormal findings [employer] 2024-10-28 10:37 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 [employer] 2024-10-28 10:37 Other pancytopenia [facility] 2024-10-28 10:37 Other specified forms of tremor [employer] 2024-10-28 10:37 Encounter for genera l adult medical examination without abnormal findings [employer] 2024-10-28 10:37 Other specified counseling [employer] 2024-10-28 10:37 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 [employer] 2024-10-29 11:52 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 [employer] 2024-10-29 11:52 Evucc-6-dlxxttrkxxd deficiency [employer] 2024-10-29 11:52 Acute diastolic (congestive) he art failure [employer] 2024-10-29 11:52 Other seasonal allergic rhiniti s [employer] 2024-10-29 11:52 Chronic obstructive pulmonary d isease, unspecified [employer] 2024-10-29 11:52 Other fatigue [employer] 2024-10-29 11:52 [facility]29 11:52 Other specified counseling [employer] 2024-11-04 08:23 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 [employer] 2024-11-04 09:27 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 [employer] 2024-11-04 09:27 Lymphocytopenia [employer] 2024-11-04 09:27 Encounter for genera l adult medical examination without abnormal findings [facility] 2024-11-04 10:11 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 [facility] 2024-11-04 10:11 [facility]enia [facility] 2024-11-04 10:11 Lymphocytopenia [facility] 2024-11-04 10:11 Encounter for genera l adult medical examination without abnormal findings [facility] 2024-11-04 10:11 Encounter for antineoplastic ch emotherapy [facility] 2024-11-04 10:11 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 [facility] 2024-11-04 10:29 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 [facility] 2024-11-04 10:29 Lymphocytopenia [facility] 2024-11-04 10:29 Encounter for genera l adult medical examination without abnormal findings [facility] 2024-11-04 11:09 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 [facility] 2024-11-04 11:09 Lymphocytopenia [facility] 2024-11-04 11:09 Encounter for genera l adult medical examination without abnormal findings [facility] 2024-11-04 11:10 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 [facility] EnergyVC[facility] [facility]04 11:10 [facility] 2024-[facility]-04 11:10 Encounter for genera l adult medical examination without abnormal findings [facility] 2024-11-04 11:14 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 [facility] 2024-11-04 11:14 [facility]ocytopenia [facility] 2024-11-04 11:14 Encounter for genera l adult medical examination without abnormal findings [facility] 2024-11-04 11:19 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 [facility] 2024-11-04 11:19 Lymphocytopenia [facility] 2024-11-04 11:19 Encounter for genera l adult medical examination without abnormal findings [facility] 2024-11-04 11:23 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 [facility] 2024-11-04 11:23 Lymphocytopenia [facility] 2024-11-04 11:23 Encounter for genera l adult medical examination without abnormal findings [facility] 2024-11-05 00:03 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 [facility] 2024-11-09 12:59 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 [facility] 2024-11-09 12:59 Lymphocytopenia [facility] 2024-11-09 12:59 Encounter for genera l adult medical examination without abnormal findings [facility] 2024-11-09 13:53 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 [facility] 2024-11-09 13:53 Other pancytopenia [facility] 2024-11-09 13:53 Encounter for genera l adult medical examination without abnormal findings [facility] 2024-11-09 13:53 Encounter for antineoplastic ch emotherapy [facility] 2024-11-09 13:53 correction (current) use of anti biotics [facility] 2024-11-10 13:29 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 [facility] 2024-11-10 13:29 Lymphocytopenia [facility] 2024-11-10 13:29 Encounter for genera l adult medical examination without abnormal findings [facility] 2024-11-11 10:34 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 [facility] 2024-11-11 10:34 Lymphocytopenia [facility] 2024-11-11 10:34 Encounter for genera l adult medical examination without abnormal findings [facility] 2024-11-11 11:09 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 [facility] 2024-11-11 11:09 Lymphocytopenia [facility] 2024-11-11 11:09 Encounter for genera l adult medical examination without abnormal findings [facility] 2024-11-11 12:56 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 [facility] 2024-11-11 12:56 Lymphocytopenia [facility] 2024-11-11 12:56 Encounter for genera l adult medical examination without abnormal findings [facility] 2024-11-12 13:06 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 13:06 Lymphocytopenia [facility] 2024-11-12 13:06 Encounter for genera l adult medical examination without abnormal findings [facility] 2024-11-13 10:04 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 [facility] 2024-11-13 10:04 Lymphocytopenia [facility] 2024-11-13 10:04 Encounter for genera l adult medical examination without abnormal findings [facility] 2024-11-13 10:41 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 [facility] 2024-11-13 10:41 Lymphocytopenia [facility] 2024-11-13 10:41 Encounter for genera l adult medical examination without abnormal findings [facility] 2024-11-13 11:06 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 [facility] 2024-11-13 11:06 Anemia, unspecified [facility] 2024-11-13 11:06 Lymphocytopenia [facility] 2024-11-13 11:06 Encounter for genera l adult medical examination without abnormal findings [facility] 2024-11-16 12:57 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 [facility] 2024-11-16 12:57 Anemia, unspecified [facility] 2024-11-16 12:57 Lymphocytopenia [facility] 2024-11-16 12:57 Encounter for genera l adult medical examination without abnormal findings [facility] 2024-11-17 13:04 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 [facility] 2024-11-17 13:04 Anemia, unspecified [facility] 2024-11-17 13:04 Lymphocytopenia [facility] 2024-11-17 13:04 Encounter for genera l adult medical examination without abnormal findings [facility] 2024-11-18 09:01 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 [facility] 2024-11-18 09:08 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 [facility] 2024-11-18 09:08 Anemia, unspecified [facility] 2024-11-18 09:08 Lymphocytopenia [facility] 2024-11-18 09:08 Encounter for genera l adult medical examination without abnormal findings [facility] 2024-11-18 10:46 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 [facility] 2024-11-18 10:46 Other pancytopenia [facility] 2024-11-18 10:46 Encounter for genera l adult medical examination without abnormal findings [facility] 2024-11-18 10:46 Encounter for antineoplastic ch emotherapy [facility] 2024-11-18 10:46 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 [facility] 2024-11-18 13:11 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 [facility] 2024-11-18 13:11 Anemia, unspecified [facility] 2024-11-18 13:11 Lymphocytopenia [facility] 2024-11-18 13:11 Encounter for genera l adult medical examination without abnormal findings [facility] 2024-11-18 13:14 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 [facility] 2024-11-18 13:14 Anemia, unspecified [facility] 2024-11-18 13:14 Lymphocytopenia [facility] 2024-11-18 13:14 Encounter for genera l adult medical examination without abnormal findings [facility] 2024-11-18 13:15 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 [facility] 2024-11-18 13:15 Anemia, unspecified [facility] 2024-11-18 13:15 Lymphocytopenia [facility] 2024-11-18 13:15 Encounter for genera l adult medical examination without abnormal findings [facility] 2024-11-18 13:16 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 [facility] 2024-11-18 13:16 Anemia, unspecified [facility] 2024-11-18 13:16 Lymphocytopenia [facility] 2024-11-18 13:16 Encounter for genera l adult medical examination without abnormal findings [facility] 2024-11-18 13:17 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 [facility] 2024-11-18 13:17 Anemia, unspecified [facility] 2024-11-18 13:17 Lymphocytopenia [facility] 2024-11-18 13:17 Encounter for genera l adult medical examination without abnormal findings [facility] 2024-11-23 09:38 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 [facility] 2024-11-23 09:38 Anemia, unspecified [facility] 2024-11-23 09:38 Lymphocytopenia [facility] 2024-11-23 09:38 Encounter for genera l adult medical examination without abnormal findings [facility] 2024-11-23 09:40 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 [facility] 2024-11-23 09:40 Anemia, unspecified [facility] 2024-11-23 09:40 Lymphocytopenia [facility] 2024-11-23 09:40 Encounter for genera l adult medical examination without abnormal findings [facility] 2024-11-23 09:48 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 [facility] 2024-11-23 09:48 Anemia, unspecified [facility] 2024-11-23 09:48 Lymphocytopenia [facility] 2024-11-23 09:48 Encounter for genera l adult medical examination without abnormal findings [facility] 2024-11-23 09:49 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 [facility] 2024-11-23 09:49 Anemia, unspecified [facility] 2024-11-23 09:49 Lymphocytopenia [facility] 2024-11-23 09:49 Encounter for genera l adult medical examination without abnormal findings [facility] 2024-11-25 10:37 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 [facility] 2024-11-25 10:37 Anemia, unspecified [facility] 2024-11-25 10:37 Lymphocytopenia [facility] 2024-11-25 10:37 Encounter for genera l adult medical examination without abnormal findings [facility] 2024-11-25 10:38 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 [facility] 2024-11-25 10:38 Anemia, unspecified [facility] 2024-11-25 10:38 Lymphocytopenia [facility] 2024-11-25 10:38 Encounter for genera l adult medical examination without abnormal findings [facility] 2024-11-25 11:16 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 [facility] 2024-11-25 11:16 Anemia, unspecified [facility] 2024-11-25 11:16 Lymphocytopenia [facility] 2024-11-25 11:16 Encounter for genera l adult medical examination without abnormal findings [facility] 2024-11-25 11:42 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 [facility] 2024-11-25 11:42 Anemia, unspecified [facility] 2024-11-25 11:42 Lymphocytopenia [facility] 2024-11-25 11:42 Encounter for genera l adult medical examination without abnormal findings [facility] 2024-11-25 11:48 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 [facility] 2024-11-25 11:48 Anemia, unspecified id[facility]ie[facility] 2024-11-25 11:48 Lymphocytopenia [facility] 2024-11-25 11:48 Encounter for genera l adult medical examination without abnormal findings [facility] 2024-11-25 15:27 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 [facility] 2024-11-25 15:27 Other pancytopenia [facility] 2024-11-25 15:27 Acute and chronic respiratory f ailure with hypoxia [facility] 2024-11-25 15:27 Shortness of breath [facility] 2024-11-25 15:27 Anorexia [facility] 2024-11-25 15:27 Encounter for genera l adult medical examination without abnormal findings [facility] 2024-11-25 15:27 Other specified counseling [facility] 2024-11-25 15:27 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 [facility] 2024-11-25 16:33 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 [facility] 2024-11-25 16:33 Acute and chronic respiratory f ailure with hypoxia [facility] 2024-11-26 00:02 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 [facility] 2024-11-26 00:02 Acute and chronic respiratory f ailure with hypoxia [facility] 2024-11-26 10:11 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 [facility] 2024-11-26 10:11 Anemia, unspecified [facility] 2024-11-26 10:11 Lymphocytopenia [facility] 2024-11-26 10:11 Encounter for genera l adult medical examination without abnormal findings [facility] 2024-11-26 10:13 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 [facility] 2024-11-26 10:13 Anemia, unspecified [facility] 2024-11-26 10:13 Lymphocytopenia [facility] 2024-11-26 10:13 Encounter for genera l adult medical examination without abnormal findings [facility] 2024-11-27 14:32 Wheezing [facility] 2024-12-02 09:34 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 [facility] 2024-12-02 09:34 Anemia, unspecified [facility] 2024-12-02 09:34 Lymphocytopenia [facility] 2024-12-02 09:34 Anorexia [facility] 2024-12-02 09:34 Encounter for genera l adult medical examination without abnormal findings [facility] 2024-12-02 09:35 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 [facility] 2024-12-02 09:35 Anemia, unspecified [facility] 2024-12-02 09:35 Lymphocytopenia [facility] 2024-12-02 09:35 Anorexia [facility] 2024-12-02 09:35 Encounter for genera l adult medical examination without abnormal findings [facility] 2024-12-02 13:43 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 [facility] 2024-12-02 13:43 Other pancytopenia [facility] 2024-12-02 13:43 Shortness of breath [facility] 2024-12-02 13:43 Encounter for genera l adult medical examination without abnormal findings [facility] 2024-12-02 13:43 Other specified counseling [employer] [facility] 2024-12-02 13:43 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 [facility] 2024-12-03 11:58 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 [employer] [facility] 2024-12-03 11:58 Gcmpm-3-suvsjdfmqui deficiency [facility] 2024-12-03 11:58 Major depressive dis order, single episode, unspecified [facility] 2024-12-03 11:58 Muscle weakness (generalized) [employer] 2024-12-03 11:58 Other fatigue [facility] 2024-12-03 11:58 Anorexia [facility] 2024-12-03 11:58 Encounter for palliative care [employer] 2024-12-03 11:58 Other specified counseling [employer] [facility] 2024-12-03 11:58 Other longterm (current) drug therapy [facility] 2024-12-03 12:42 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 [employer] [facility] 2024-12-03 12:42 Other pancytopenia [facility] 2024-12-03 12:42 Anemia, unspecified [facility] 2024-12-03 12:42 Lymphocytopenia [facility] 2024-12-03 12:42 Shortness of breath [facility] 2024-12-03 12:42 Anorexia [facility] 2024-12-03 12:42 Encounter for genera l adult medical examination without abnormal findings [facility] 2024-12-03 12:42 Other specified counseling [employer] 2024-12-03 12:42 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 Read back(Y/N)? Y MEAN PLATELET VOLUME 2024-09-21 13:37 [facility] 10.9 fl (missing) PT - PROTHROMBIN TIME 2024-09-21 13:37 [facility] 12.3 secs (missing) IRON 2024-09-21 13:37 [facility] 120 ug/dl As of February 2023 testing method has changed, this may include reference ranges. FOLATE RBC 2024-09-21 13:37 [facility] 1277 ng/ml Performed at: [facility] [address] [facility] [address], [place], [place] [id number] Certified Phlebotomy Technician: Rani Avina MD, Phone: [phone] Performed at: [address] [facility] [address], [place], [place] [id number] Certified Phlebotomy Technician: Trell Yoon MD, Phone: [phone] LDH - LACTATE DEHYDROGENASE 2024-09-21 13:37 [facility] 131 iu/l As of February 2023 testing method has changed, this may include reference ranges. HAPTOGLOBIN 2024-09-21 13:37 [facility] 138 mg/dl Performed at: SE - [facility] [place] [address] [address] [address], [place], [place] [id number] Certified Phlebotomy Technician: Trell Yoon MD, Phone: [phone] PLT - PLATELET COUNT 2024-09-21 13:37 [facility] 146 10 3/ul (missing) RED CELL DISTRIBUTION WIDTH 2024-09-21 13:37 [facility] 15.4 % (missing) REACTIVE LYMPHS % (MANUAL) 2024-09-21 13:37 [facility] 2 % (missing) RBC 2024-09-21 13:37 [facility] 2.69 x10e6/ul (missing) RED BLOOD COUNT 2024-09-21 13:37 [facility] 2.73 10 6/ul (missing) FERRITIN 2024-09-21 13:37 [facility] 22.5 ng/ml (missing) HEMATOCRIT 2024-09-21 13:37 [facility] 25.2 % (missing) TRANSFERRIN 2024-09-21 13:37 [facility] 265 mg/dl As of February 2023 testing method has changed, this may include reference ranges. HCT - HEMATOCRIT 2024-09-21 13:37 [facility] 27.0 % (missing) PARTIAL THROMBOPLASTIN TIME 2024-09-21 13:37 [facility] 27.2 secs (missing) MEAN CORPUSCULAR HEMOGLOBIN 2024-09-21 13:37 [facility] 28.9 pg (missing) MEAN CORPUSCULAR HGB CONC 2024-09-21 13:37 [facility] 29.3 g/dl (missing) RBC MORPHOLOGY (MULTIPLE) 2024-09-21 13:37 [facility] 3+ ANISOCYTOSIS (missing ) (missing) PHOSPHORUS 2024-09-21 13:37 [facility] 3.0 mg/dl As of February 2023 testing method has changed, this may include reference ranges. % IRON SATURATION 2024-09-21 13:37 [facility] 32 % (missing) FOLATE HEMOLYSATE 2024-09-21 13:37 [facility] 321.7 ng/ml (missing) VITAMIN B12 2024-09-21 13:37 [facility] 331 pg/ml Social History date description facility
[2024-12-03] MEDS ORDERED: LOPERAMIDE 2 MG CAPSULE PO PRN (17:26)
[2024-12-03] MEDS ORDERED: ONDANSETRON 4 MG/2 ML VIAL IVP PRN (17:26)
[2024-12-03] MEDS ORDERED: PROCHLORPERAZINE 5 MG TABLET PO PRN (17:26)
[2024-12-03] MEDS ORDERED: ALBUTEROL SULFATE INH PRN (17:26)
[2024-12-03] MEDS ORDERED: ALBUTEROL NEB 2.5 MG/3 ML INH PRN (17:31)
--- NOTE | 2024-12-03 17:38 | PHARMACY PROGRESS NOTE ---
Vancomycin Therapy Monitoring Vancomycin Therapy Goals Treatment Indication: FEBRILE NEUTROPENIA Vancomycin Target Range: Vancomycin AUC Target Range 400-600 mcg*h/ml Plan: Vancomycin Loading Dose (GM, if applicable): 2G Current Vancomycin Maintenance Regimen (if applicable): 1G Q24H Vancomycin Level Recommendation: Vancomycin Level Recommendation (AFTER 3 DOSES)
[2024-12-03 18:18] LABS: ABG PCO2 54 mmHg (34-45); ABG PH 7.47 (7.35-7.45)
[2024-12-03 18:19] LABS: ABG BASE EXCESS 15.9 mmol/L (-2.0-3.0); ABG HCO3 39.8 mmol/L (22.0-26.0); ABG OXYGEN SATURATION 98 % (95-98); ABG PO2 80 mmHg (83-108); ALLEN TEST POSITIVE
[2024-12-03 18:22] LABS: ABG TCO2 41.4 mmol/L (21.0-29.0)
[2024-12-03] MEDS: FUROSEMIDE 20 MG/2 ML VIAL IVP ONE (19:05)
[2024-12-03] MEDS: AZITHROMYCIN INJ 500 MG in SODIUM CHLORIDE 0.9% 250 ML IV SCH (19:08)
[2024-12-03] MEDS: SODIUM CHLORIDE FLUSH 0.9% 10 ML SYRINGE IVP SCH (19:11)
[2024-12-03] MEDS: ALBUTEROL NEB 2.5 MG/3 ML INH SCH (19:25)
[2024-12-03] MEDS: BUDESONIDE 0.5 MG/2 ML NEB INH SCH (19:25)
[2024-12-03] MEDS: PROCHLORPERAZINE 10 MG/2 ML VIAL IVP PRN (20:23)
[2024-12-03] MEDS: GABAPENTIN 300 MG CAPSULE PO SCH ×2 (20:23→21:18)
[2024-12-03] MEDS: ALPRAZolam 0.25 MG TABLET PO PRN (20:23)
[2024-12-03] MEDS: MEROPENEM 1 GM VIAL IVP SCH (21:18)
[2024-12-03] MEDS: ACETAMINOPHEN 325 MG TABLET PO PRN (23:58)
[2024-12-04 04:43] LABS: LYMPHOCYTES % (AUTO) 44.9 %; MEAN CORPUSCULAR HEMOGLOBIN 29.8 pg (27.0-31.0); MEAN CORPUSCULAR HGB CONC 30.7 g/dL (32.0-36.0); MEAN CORPUSCULAR VOLUME 97.1 fL (81.0-99.0); MEAN PLATELET VOLUME 10.2 fL (7.9-10.8); MONOCYTES % (AUTO) 21.8 %; NEUTROPHILS % (AUTO) 31.9 %; PLT - PLATELET COUNT 42 10^3/uL (130-450); RED BLOOD COUNT 2.05 10^6/uL (4.20-5.40); RED CELL DISTRIBUTION WIDTH 18.8 % (12.0-15.0)
[2024-12-04 04:52] LABS: MAGNESIUM 1.6 mg/dL (1.7-2.3); PHOSPHORUS 2.4 mg/dL (2.5-5.0)
[2024-12-04 04:54] LABS: CALCIUM 8.8 mg/dL (8.5-10.3); CREATININE 1.2 mg/dL (0.6-1.3); POTASSIUM 3.7 mmol/L (3.5-4.5)
[2024-12-04 04:57] LABS: WHITE BLOOD COUNT 1.5 x10^3/uL (4.8-10.8)
[2024-12-04 04:58] LABS: HCT - HEMATOCRIT 19.9 % (37.0-47.0); HGB - HEMOGLOBIN 6.1 g/dL (12.0-16.0)
[2024-12-04 04:59] LABS: BAND NEUTROPHILS % (MANUAL) 0 %
[2024-12-04] MEDS: MAGNESIUM SULFATE 2 GRAM 2 GM/50 ML BAG IV ONE (05:05)
[2024-12-04 05:07] LABS: CALCIUM, IONIZED 1.21 mmol/L (1.09-1.30); VBG PH 7.484 (7.31-7.41)
[2024-12-04 06:42] LABS: ABNORMAL LYMPHS % (MANUAL) 1 %; LYMPHOCYTES # (MANUAL) 0.8 10^3/uL (1.5-3.5); LYMPHOCYTES % (MANUAL) 53 %; MONOCYTES # (MANUAL) 0.1 10^3/uL (0.0-1.0); MYELOCYTES % (MANUAL) 1 %; NEUTROPHILS # (MANUAL) 0.6 10^3/uL (1.5-6.6)
[2024-12-04 06:44] LABS: DIFFERENTIAL COMMENT MANUAL DIFFERENTIAL; PLATELET ESTIMATE, MANUAL DECREASED (<130,000) (NORMAL); PLATELET MORPHOLOGY NORMAL APPEARANCE (NORMAL); RBC MORPHOLOGY (MULTIPLE) 2+ HYPOCHROMASIA (NORMAL); WBC MORPHOLOGY (MULTIPLE) 1+ TOXIC GRANULATION (NORMAL)
[2024-12-04] MEDS: CEFEPIME 2 GM in SODIUM CHLORIDE 0.9% MINIBAG 100 ML IV SCH (07:36)
[2024-12-04] MEDS: MEROPENEM 1 GM in SODIUM CHLORIDE 0.9% MINIBAG 100 ML IV SCH (07:37)
[2024-12-04] MEDS: metroNIDAZOLE 500 MG/100 ML 500 MG/100 ML BAG IV SCH (07:37)
[2024-12-04] MEDS: LACTOBACILLUS RHAMNOSUS GG CAPSULE PO SCH (09:07)
[2024-12-04] MEDS: ENOXAPARIN 40 MG/0.4 ML SYRINGE SUBQ SCH (09:08)
[2024-12-04] MEDS: ACYCLOVIR 200 MG CAPSULE PO SCH (13:11)
[2024-12-04] MEDS: NEUTRA-PHOS 250 MG TABLET PO SCH (13:11)
[2024-12-04] MEDS: POSACONAZOLE 100 MG PO SCH (13:13)
--- NOTE | 2024-12-04 13:54 | OT Plan of Care ---
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 Baseline hx COPD on 3-4L home oxygen. Adm for AHRF requiring O2 management and Bipap overnight. Met sitting in chair, on 2.5 L NC o2. Performed sit to stand and ambulation 10 ft to bathroom using 4WW MIN A Fatigued requiring sitting rest break- Spo2 desat ~91% with activity. Currently MOD A LB ADL, CG UB ADL with full set up and increased time. Overall presents with decreased endurance, activity tolerance and ADL status. Will benefit from cont OT services during acute stay. Rec d/c to SNF. Pt prefers home d/c with increased services and HHOT/PT. Goals - Activities of Daily Living Improve Upper Extremity Modified Independent Dressing to: Improve Lower Extremity Modified Independent Dressing to: Improve Grooming/Hygiene to: Modified Independent Improve Bathing to: Modified Independent Improve Toileting to: Modified Independent Plan Treatment Frequency 1x/day Duration Until discharge -Discharge Recommendations Discharge Location Previous Living Situation Support/Services Needed With assist Recommended Equipment Raised Toilet Seat,Commode,Grab bars,Shower/bath chair,Adaptive Self Care Devices,Other Transport Needs at Discharge Wheelchair van
--- NOTE | 2024-12-04 13:58 | PT Plan of Care ---
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 Admitted with CHF exacerbation and ARF, now near baseline O2 needs but still needing bipap. Cleared for PT eval by hospitalist. Pt reports fear of showering d/t recent fall in shower requiring lift assist. Pt has some CG support at home but is primarily chairbound at home, limited to short distan ce amb with 4WW in home. Upon PT eval, pt demonstrates transfers and short distance amb with minAx1. On 2.5L O2, SpO2 100% at rest, 92-94% with activity. Overall pt is presenting with deficits in functional mobility, strength, balance and pulmonary endurance. PT will benefit from continued PT in acute setting to improve activity tolerance and endurance. When medically clear, PT rec dc to SNF however pt reports preference to dc home. If pt dc's home she will require increased daily CG support, HHPT/OT/bathaide/RN. GOALS Improve supine to sit to:: Modified Independent Improve sit to stand to:: Modified Independent Improve pivot transfer ability to:: Modified Independent Improve sit to supine to:: Modified Independent Improve gait ability to:: CGA Advance Assistive Device to:: Front Wheeled Walker Increase distance walked to (in feet):: 50 PLAN Frequency: 1-2x/day Duration: Until goals are met DISCHARGE RECOMMENDATIONS [facility] Equipment Recommended: Front wheeled walker Other Discharge Equipment: needs new 4WW or FWW Transport Needs at Discharge: Wheelchair van
--- NOTE | 2024-12-04 15:33 | ONCOLOGY PROGRESS NOTE ---
CC & HPI Chief Complaint Chief Complaint: fever and shortness of breath History Obtained From Records Reviewed: ED notes, oncology notes, labs, patient History Oncology History Oncology History: Per. Dr. Garcia, oncologist: (1). CUTANEOUS MELANOMA S/p incisional biopsies and cryotherapy to most of the ocular surface on 02/26/2022 Conjunctiva, right eye biopsies (02/26/2022): Malignant melanoma with the following features: 1. Histologic subtype: Superficial spreading 2. Approximate Breslow thickness: At least 0.2mm, see comment. 3. Zach's Level: At least II, see comment. 4. Ulceration: Absent. 5. Mitotic rate: 0/mm2. 6. Lymphocapillary invasion: Absent. 7. Satellitosis: Absent. 8. Perineural invasion: Absent. 9. Lymphocytic infiltrate: Present, non-brisk. 10. Regression: Absent. 11. Margins: Peripheral margins involved by melanoma in situ. 12. Melanoma in situ: Present. 13. Stage: At least pT1a (per AJCC 8th edition) (2). MDS/AML Labs (03/25/2024): WBC = 1.4 x 109/L; ANC = 0.4 x 109/L; HGB = 8.1 g/dL; HCT = 25.3%; MCV = 95.1 fL; RDW = 15.8; PLT = 113 x 109/L. GFR 43 CT abdomen and pelvis (04/17/2024): Hepatic steatosis. No splenomegaly. No central or retroperitoneal adenopathy. No pelvic adenopathy by size criteria. Uncomplicated acute diverticulitis of the sigmoid colon, without perforation. Labs (06/26/2024): WBC = 1.82 x 109/L; ANC = 0.35 x 109/L; HGB = 8.0 g/dL; HCT = 25.6%; MCV = 99.2 fL; RDW = 15.4; PLT = 164 x 109/L. Bone marrow biopsy (06/26/2024): Myelodysplastic neoplasm with increased blasts, 10% blasts in a hypercellular marrow with maturing trilineage hematopoiesis showing trilineage atypia. Iron stores 2+. No ring sideroblasts. MDS with increased blast-2 (MDS/IB2). International consensus classification: MDS/AML. Normal MDS FISH panel. Normal female karyotype. NGS/myeloid hotspot panel: ASXL1 36%; EZH2 3%; IDH2 44%; STAG2 36%; RUNX1 3%. [id number] , allele frequency = 36% EZH2_Arg583Ter , allele frequency = 3% IDH2_Arg140Gln , allele frequency = 44% STAG2_Arg1012Ter , allele frequency = 36% RUNX1_Gly168Glu , allele frequency = 3% Medical morbidities. CKD: Follows PCP COPD/alpha-1 antitrypsin deficiency: Follows pulmonary (Jona Haji MD) CHF: Follows PCP (Ramy Chauhan MD) L1: Azacitidine C1D1 10/12/2024 C2D1 on 11/09/2024 PFSH Active Problems All Active Problems (Updated 12/03/24 @ 19:01 by NICK Lama) CHF exacerbation (Acute) Fever (Acute) Medication management (Acute) Muscle weakness (generalized) (Acute) Anemia (Acute) Depression (Acute) Anorexia (Acute) Encounter for antineoplastic chemotherapy (Acute) Seasonal allergic rhinitis (Acute) Coarse tremors (Acute) Counseling regarding advanced care planning and goals of care (Acute) Fatigue (Acute) Advance care planning (Acute) Healthcare maintenance (Acute) Prophylactic antibiotic (Acute) Myelodysplastic syndrome with excess blasts-2 (Acute) Acute and chronic respiratory failure with hypoxia (Acute) Hypertension (Acute) Ycbbp-2-eiyqyzxevnk deficiency (Acute) Pancytopenia (Acute) Heart failure (Acute) Medication side effects (Acute) Neutropenia (Acute) Diverticulitis (Acute) Lymphopenia (Acute) Severe chronic obstructive pulmonary disease (Acute) Bronchitis (Acute) Medical History Medical History (Updated 12/03/24 @ 19:01 by NICK Lama) Ureteral stone with hydronephrosis Pyelonephritis, acute Diverticulitis of gastrointestinal tract History of cataract Surgical History Surgical History (Updated 10/02/24 @ 12:02 by Christin Delgado DO) History of insertion of central venous access port (~10/02/24) RIJ port History of foot surgery History of bladder surgery bladder lift, cystoscopy History of hysterectomy Social History Social History Smoking Status: Never smoker Second hand tobacco smoke exposure: No Do you dip or chew tobacco?: No Do you vape?: No Patient requests smoking cessation consult: No Relationship: Level: Independent Home Mobility Equipment: Walker Do you feel safe in your home environment?: Yes Suffered physical, verbal, emotional, or financial abuse?: No History of Abuse: No ETOH Use: Frequency: Occasional Substance Use: denies use Are you sexually active?: No POLST Patient has POLST: Yes POLST Status: DNR Meds/Allgy Home Medications Ambulatory Orders Medication Instructions Recorded Confirmed albuterol sulfate 90 mcg/actuation 2 puff inhalation QID PRN 01/29/13 12/03/24 aerosol inhaler (Ventolin HFA) Shortness Of Air/Wheezing albuterol sulfate 2.5 mg/3 mL 1 neb inhalation BID 03/23/24 12/03/24 (0.083 %) solution for nebulization ondansetron 4 mg disintegrating 4 mg translingual Q6H PRN Nausea / 09/30/24 12/03/24 tablet Vomiting #30 tabs prochlorperazine maleate 10 mg 10 mg PO Q6H PRN nausea and 09/30/24 12/03/24 tablet vomiting #30 tabs loperamide 2 mg capsule 2 mg PO Q6H PRN loose stool 10/14/24 12/03/24 (Anti-Diarrheal (loperamide)) posaconazole 100 mg tablet,delayed 300 mg (3 x 100 mg) PO Q24H #90 10/14/24 12/03/24 release tabs gabapentin 300 mg capsule 600 mg PO HS 11/11/24 12/03/24 alprazolam 0.25 mg tablet 0.25 mg PO QDAY PRN anxiety #30 11/25/24 12/03/24 tabs Lactobacillus acidophilus 250 1,000 mmu cells PO QDAY 11/29/24 12/03/24 million cell capsule (Probiotic Acidophilus) cefdinir 300 mg capsule 300 mg PO BID 11/29/24 12/02/24 cholecalciferol (vitamin D3) 25 25 mcg PO QDAY 11/29/24 12/03/24 mcg (1,000 unit) capsule potassium chloride 10 mEq 20 meq PO QDAY 11/29/24 12/03/24 capsule,extended release potassium chloride 20 mEq/15 mL 20 meq (15 mL) PO QDAY #450 mL 11/29/24 12/03/24 oral liquid Allergies Allergies Allergy/AdvReac Type Severity Reaction Status Date / Time Sulfa (Sulfonamide Allergy Severe Respiratory Verified 12/03/24 12:42 Antibiotics) levofloxacin Allergy Unknown Unknown Verified 12/03/24 12:42 amoxicillin AdvReac Severe Nausea, Verified 12/03/24 12:42 VOMITING egg AdvReac Intermediate Nausea Verified 12/04/24 14:41 mirtazapine AdvReac Intermediate Unknown Verified 12/03/24 12:42 codeine (Codeine) AdvReac Nausea Verified 12/03/24 12:42 morphine AdvReac unable to Verified 12/03/24 12:42 urinate oxycodone (Oxycodone) AdvReac Nausea Verified 12/03/24 12:42 prednisone AdvReac anger Verified 12/03/24 12:42 Exam Exam Vital Signs: Vital Signs x48h Temp Pulse Resp BP BP Pulse Ox O2 Flow Rate 12/04/24 15:15 36.4 C L 60 19 164/61 H 100 3 12/04/24 15:00 3 12/04/24 15:00 36.4 C L 63 20 164/61 H 100 3 12/04/24 14:00 60 20 181/63 H 100 3 12/04/24 13:00 58 L 22 118/49 L 99 3 12/04/24 13:00 3 12/04/24 12:00 36.8 C 66 23 127/45 L 92 3 12/04/24 11:00 2 12/04/24 11:00 55 L 24 127/45 L 99 3 12/04/24 10:00 24 113/45 L 100 3 12/04/24 09:00 65 19 151/48 H 98 3 12/04/24 09:00 3 12/04/24 08:00 68 30 H 130/46 L 99 5 Constitutional Sitting up in chair, eating breakfast. HENLA normocephalic Uses hearing aides. Respiratory normal respiratory effort 4.5 LPM via nasal cannula, Psychiatry oriented x3, affect normal and memory normal Results Lab Results 12/04/24 04:29 12/04/24 04:29 Other Lab Results: Lab Results x24hrs 12/04/24 12/04/24 12/03/24 Range/Units 12:56 04:29 20:30 WBC 1.5 L* (4.8-10.8) x10^3/uL RBC 2.05 L (4.20-5.40) 10^6/uL Hgb 6.1 L* (12.0-16.0) g/dL Hct 19.9 L* (37.0-47.0) % MCV 97.1 (81.0-99.0) fL MCH 29.8 (27.0-31.0) pg MCHC 30.7 L (32.0-36.0) g/dL RDW 18.8 H (12.0-15.0) % Plt Count 42 L (130-450) 10^3/uL MPV 10.2 (7.9-10.8) fL Neut # (Auto) Not Reportable Lymph # (Auto) Not Reportable Lipscomb # (Auto) Not Reportable Eos # (Auto) Not Reportable Baso # (Auto) Not Reportable Absolute Nucleated RBC Not Reportable Total Counted 100 Band Neuts % (Manual) 0 (0 - 10) % Abnorm Lymph % (Manual) 1 % Myelocytes % 1 H ( - 0) % Nucleated RBC % Not Reportable Neutrophils # (Manual) 0.6 L (1.5-6.6) 10^3/uL Lymphocytes # (Manual) 0.8 L (1.5-3.5) 10^3/uL Monocytes # (Manual) 0.1 (0.0-1.0) 10^3/uL Eosinophils # (Manual) 0.0 (0-0.7) 10^3/uL Basophils # (Manual) 0.0 (0-0.1) 10^3/uL Differential Comment MANUAL DIFFERENTIAL WBC Morphology 1+ TOXIC GRANULATION (NORMAL) Platelet Estimate DECREASED (<130,000) (NORMAL) Platelet Morphology NORMAL APPEARANCE (NORMAL) RBC Morph Micro Appear 2+ HYPOCHROMASIA (NORMAL) Bld Gas Analysis Time Sample Site ABG pH (7.35-7.45) ABG pCO2 (34-45) mmHg ABG pO2 (83-108) mmHg ABG HCO3 (22.0-26.0) mmol/L ABG Total CO2 (21.0-29.0) mmol/L ABG O2 Saturation (95-98) % ABG Base Excess (-2.0-3.0) mmol/L Frankie Test VBG pH 7.484 H (7.31-7.41) Ionized Calcium 1.21 (1.09-1.30) mmol/L O2 Delivery Device FiO2 EPAP cmH2O IPAP cmH2O Sodium 141 (135-145) mmol/L Potassium 3.7 (3.5-4.5) mmol/L Chloride 102 (101-111) mmol/L Carbon Dioxide 37 H (21-32) mmol/L Anion Gap 2.0 L (6-13) BUN 14 (6-20) mg/dL Creatinine 1.2 (0.6-1.3) mg/dL Estimated GFR (MDRD) 43 L (>89) Glucose 93 (74-104) mg/dL Calcium 8.8 (8.5-10.3) mg/dL Phosphorus 2.4 L (2.5-5.0) mg/dL Magnesium 2.1 1.6 L (1.7-2.3) mg/dL B-Natriuretic Peptide (5-100) pg/mL Nasal Screen MRSA (PCR) NEGATIVE (NEGATIVE) Blood Type A POSITIVE Antibody Screen NEGATIVE Crossmatch IS Only See Detail 12/03/24 12/03/24 Range/Units 18:10 12:50 WBC (4.8-10.8) x10^3/uL RBC (4.20-5.40) 10^6/uL Hgb (12.0-16.0) g/dL Hct (37.0-47.0) % MCV (81.0-99.0) fL MCH (27.0-31.0) pg MCHC (32.0-36.0) g/dL RDW (12.0-15.0) % Plt Count (130-450) 10^3/uL MPV (7.9-10.8) fL Neut # (Auto) Lymph # (Auto) Lipscomb # (Auto) Eos # (Auto) Baso # (Auto) Absolute Nucleated RBC Total Counted Band Neuts % (Manual) (0 - 10) % Abnorm Lymph % (Manual) % Myelocytes % ( - 0) % Nucleated RBC % Neutrophils # (Manual) (1.5-6.6) 10^3/uL Lymphocytes # (Manual) (1.5-3.5) 10^3/uL Monocytes # (Manual) (0.0-1.0) 10^3/uL Eosinophils # (Manual) (0-0.7) 10^3/uL Basophils # (Manual) (0-0.1) 10^3/uL Differential Comment WBC Morphology (NORMAL) Platelet Estimate (NORMAL) Platelet Morphology (NORMAL) RBC Morph Micro Appear (NORMAL) Bld Gas Analysis Time 1818 Sample Site LEFT RADIAL ABG pH 7.47 H (7.35-7.45) ABG pCO2 54 H (34-45) mmHg ABG pO2 80 L (83-108) mmHg ABG HCO3 39.8 H (22.0-26.0) mmol/L ABG Total CO2 41.4 H* (21.0-29.0) mmol/L ABG O2 Saturation 98 (95-98) % ABG Base Excess 15.9 H (-2.0-3.0) mmol/L Frankie Test POSITIVE VBG pH (7.31-7.41) Ionized Calcium (1.09-1.30) mmol/L O2 Delivery Device BiPAP FiO2 30.00 EPAP 5 cmH2O IPAP 16 cmH2O Sodium (135-145) mmol/L Potassium (3.5-4.5) mmol/L Chloride (101-111) mmol/L Carbon Dioxide (21-32) mmol/L Anion Gap (6-13) BUN (6-20) mg/dL Creatinine (0.6-1.3) mg/dL Estimated GFR (MDRD) (>89) Glucose (74-104) mg/dL Calcium (8.5-10.3) mg/dL Phosphorus (2.5-5.0) mg/dL Magnesium (1.7-2.3) mg/dL B-Natriuretic Peptide 522 H (5-100) pg/mL Nasal Screen MRSA (PCR) (NEGATIVE) Blood Type Antibody Screen Crossmatch IS Only Assessment & Plan Assessment & Plan (1) Neutropenia: (2) Acute and chronic respiratory failure with hypoxia: (3) Severe chronic obstructive pulmonary disease: (4) CHF exacerbation: Plan 84-year-old female with AML, here for neutropenic fever, shortness of breath. Current outpatient treatment is azacitidine alone. Last dose given 11/17/2024. Palliative intent. Azacitidine not thought to be likely source of COPD/CHF exacerbation, though I agree w/ plan for repeat ECHO. This morning patient reporting feeling much improved. Consult requested for DC recommendation on antifungal, antivirals and ANC thresholds. When medically ready, recommended for discharge: continuing viral coverage w/ Acyclovir 400 mg twice daily. Fungal coverage w/ Posaconazole 300 mg daily. ANC of > 0.5 x 48 hours and appropriate abo coverage. F/u scheduled w/ Dr. 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 machine operator WENDI ECOG, Pain, POA ECO [employer] Section Blower Name: Raiza Meza Vital signs 3 11/18/24 09:21 12/03/24 12:42 12/03/24 13:31 12/03/24 14:46 12/03/24 16:27 12/03/24 16:29 12/03/24 16:50 12/03/24 17:10 12/03/24 17:15 12/03/24 17:43 12/03/24 19:15 12/03/24 19:25 12/03/24 20:47 12/03/24 21:00 12/03/24 21:00 12/03/24 21:30 12/03/24 22:00 12/03/24 23:00 12/03/24 23:00 12/03/24 23:40 12/04/24 00:00 12/04/24 01:00 12/04/24 01:00 12/04/24 02:00 12/04/24 02:00 12/04/24 02:27 12/04/24 03:00 12/04/24 04:00 12/04/24 04:17 12/04/24 05:00 12/04/24 06:00 12/04/24 06:55 12/04/24 07:00 12/04/24 07:17 12/04/24 08:00 12/04/24 09:00 12/04/24 09:00 12/04/24 10:00 12/04/24 11:00 12/04/24 11:00 12/04/24 12:00 12/04/24 13:00 12/04/24 13:00 12/04/24 14:00 12/04/24 15:00 12/04/24 15:00 12/04/24 15:15 12/04/24 15:30 Height 5 ft 2 in 5 ft 2 in Weight 91.6 kg 90 kg Body Mass Index 36.9 36.3 BP 239/79 H 208/62 H 175/107 H 185/66 H 167/48 H 161/51 H 155/5 4 H 163/54 H 136/45 H 110/45 L 118/50 L 137/53 H 121/50 L 136/51 H 142/46 H 125/43 L 130/46 L 151/48 H 113/45 L 127/45 L 127/45 L 118/49 L 181/63 H 164/61 H 164/61 H Respiration 32 H 24 28 H 24 31 H 28 H 28 H 24 28 H 28 H 3 0 H 26 H 26 H 25 H 23 27 H 26 H 30 H 19 24 24 23 22 20 20 19 16 Pulse 82 80 99 80 76 76 80 73 78 69 73 76 71 71 67 71 6 5 67 68 72 65 62 80 60 62 68 65 55 L 66 58 L 60 63 60 60 Temp 37.2 C 36.7 C 36.6 C 37.8 C 38.6 C H 38.1 C H 37 .5 C 36.8 C 36.4 C L 36.4 C L 36.6 C Temp Source Oral Oral Temporal Artery Scan Axillary Axillary Axillary Core Axillary Axillary Axillary Axillary Pulse Oximetry 94 94 96 97 99 96 97 97 96 97 97 99 98 94 99 98 100 99 92 99 100 100 100 100 Oxygen Flow Rate (L/min) 2 4 2 4 4 4 5 3 3 3 3 2 3 3 3 3 3 3 3 3 Coding Diagnoses Neutropenia D70.9 Acute and chronic respiratory failure with hypoxia J96.21 Severe chronic obstructive pulmonary disease J44.9 CHF exacerbation I50.9
--- NOTE | 2024-12-04 16:57 | PHARMACY PROGRESS NOTE ---
Best Possible Medication History Admit Date and Time: 12/03/24 1606 Home Medications Medication Instructions Recorded Confirmed Type albuterol sulfate 90 mcg/actuation 2 puff inhalation QID PRN 01/29/13 12/03/24 History aerosol inhaler (Ventolin HFA) Shortness Of Air/Wheezing albuterol sulfate 2.5 mg/3 mL 1 neb inhalation BID 03/23/24 12/03/24 History (0.083 %) solution for nebulization ondansetron 4 mg disintegrating 4 mg translingual Q6H PRN Nausea / 09/30/24 12/03/24 Rx tablet Vomiting #30 tabs prochlorperazine maleate 10 mg 10 mg PO Q6H PRN nausea and 09/30/24 12/03/24 Rx tablet vomiting #30 tabs loperamide 2 mg capsule 2 mg PO Q6H PRN loose stool 10/14/24 12/03/24 History (Anti-Diarrheal (loperamide)) posaconazole 100 mg tablet,delayed 300 mg (3 x 100 mg) PO Q24H #90 10/14/24 12/03/24 Rx release tabs gabapentin 300 mg capsule 600 mg PO HS 11/11/24 12/03/24 History alprazolam 0.25 mg tablet 0.25 mg PO QDAY PRN anxiety #30 11/25/24 12/03/24 Rx tabs Lactobacillus acidophilus 250 1,000 mmu cells PO QDAY 11/29/24 12/03/24 History million cell capsule (Probiotic Acidophilus) cholecalciferol (vitamin D3) 25 25 mcg PO QDAY 11/29/24 12/03/24 History mcg (1,000 unit) capsule potassium chloride 20 mEq/15 mL 20 meq (15 mL) PO QDAY #450 mL 11/29/24 12/03/24 Rx oral liquid acyclovir 400 mg tablet 400 mg PO BID 12/04/24 12/04/24 History lansoprazole 30 mg capsule,delayed 30 mg PO ONCE 12/04/24 12/04/24 History release torsemide 10 mg tablet 10 mg PO ONCE 12/04/24 12/04/24 History Processed by: Pharmacy Medications reviewed in ED?: No Medication History completed: Yes Patient Interview: Completed Secondary Source(s): Insurance records [facility] Statement: Per child care associate teacher interview with patient and review of [employer] Rx records. As the person ultimately responsible for medication therapy, providers are able to order a medication from an existing home medication list in [facility] via the "Reconcile Routine" prior to Confirmation of that medication by legal support assistant. Such practice is discouraged except when the physician, in their clinical judgment, deems that a medical need exists for a medication without regard to previous use.
--- NOTE | 2024-12-04 17:24 | ECHO Report ---
Version: 1 Study ID: [id number] Adult Echocardiogram Report Name: GAETANO GRANT Study Date: 12/04/2024, 10: 44 AM BP : 113 / 45 mmHg Patient Location: ICU^2302^01 HR: 58 bpm : 1940 (MM/DD/YYYY) Gender: Female He ight: 62 in Age: 84 Years Weight: 198.416 lb Reason For Study: pulmonary edema, elev BNP History: Chronic respiratory failure w/ hypoxia, COPD, bronchitis, HTN, chemotherapy, CHF Procedure: A complete two-dimensional transthoracic echocardiogram was performed (2D, M-mode, Doppler and color flow Doppler). The patient was comfortable and cooperative throughout the procedure, breathing supplemental oxygen. The study was done with the patient in the supine position, due to inability to lie on the left side. Interpretation Summary The left ventricle is grossly normal size. There is mild concentric increase in the wall thickness of the left ventricle. The calculated ejection fraction, as determined by the biplane method of disks, is 79%. The right ventricle is normal in size and function. Mild tricuspid regurgitation present. There is mild mitral regurgitation. Left Ventricle: The left ventricle is grossly normal size. There is mild concentric increase in the wall thickness of the left ventricle. Hyperdynamic left ventricular systolic function is present. The calculated ejection fracti on, as determined by the biplane method of disks, is 79%. No regional wall motion abnormalities are present. Right Ventricle: The right ventricle is normal size. The right ventricle is normal in size and function. There is norm al right ventricular wall thickness. The tricuspid annular plane systolic excursion (TAPSE) measurement is 2.9 cm. No regional wall motion abnormalities are noted. Aortic Valve: The aortic valve is trileaflet. The aortic valve is mildly thickened. No hemodynamically significant valvular aortic stenosis. No aortic regurgitation is present. Mitral Valve: The mitral valve leaflets appear thickened, but with normal motion. Mild mitral annular calcification is present. No evidence of mitral stenosis is seen. There is mild mitral regurgitation. Tricuspid Valve: The tricuspid valve is visually normal in structure and function. There is no tricuspid stenosis. Mil d tricuspid regurgitation present. Pulmonic Valve: The pulmonic valve is not well seen. There is no pulmonic valvular stenosis. There is no pulmonic isela vular regurgitation. Left Atrium: The left atrial volume indexed to body surface area is 40 ml/m2. This refers to the maximal volume me asured prior to mitral valve opening. The left atrium is moderately dilated. There is no systolic flow reversal of th e pulmonary veins. Right Atrium: The right atrium is moderately to severely dilated. The inferior vena cava is normal in diameter (<2. 1cm) but collapse <50% with sniff (estimated right atrial pressure 5-10mmHg). Atrial Septum: There is no Doppler evidence for an atrial septal defect. Aorta: The ascending aorta is not well seen. The aortic root measures 3.0 cm in diameter. Pulmonary Artery: The pulmonary artery is not well visualized, but is probably normal size. The right ventricular systo lic pressure is 47mmHg. Pericardium/Pleural Space: There is no pericardial effusion. No pleural effusion is seen. Doppler Measurements & Calculations Ao max P.4 mmHg Ao V2 max: 196.1 cm/sec LV V1 max: 133.8 cm/sec LV V1 max P.2 mmHg LV V1 mean: 90.1 cm/sec LV V1 mean P.8 mmHg LV V1 VTI: 30.5 cm MV A max lonnie: 98.3 cm/sec MV dec time: 0.31 sec MV DVI-pr: 0.81 MV E max lonnie: 80.0 cm/sec PA max P.0 mmHg PA V2 max: 112.2 cm/sec Pulm A Revs Dur: 0.10 sec Pulm A Revs Lonnie: 27.4 cm/sec RAP systole: 8.0 mmHg RV S Lonnie: 16.3 cm/sec TR max P.0 mmHg TR max lonnie: 312.2 cm/sec MMode/2D Measurements & Calculations Ao root diam: 3.0 cm EDV(MOD-sp4): 87.1 ml EDV(sp4-el): 61.6 ml EF (est.): 77.0 % ESV(MOD-sp4): 51.7 ml ESV(sp4-el): 27.1 ml Heart Rate: 58.0 BPM Height (metric): 157.5 cm IVSd: 0.90 cm LAV(MOD-bp): 75.2 ml LAV(MOD-bp) Indexed: 39.5 ml/m² LAV(MOD-sp2): 74.1 ml LAV(MOD-sp4): 69.2 ml LVAd ap4: 17.3 cm² LVAs ap4: 13.8 cm² LVIDd: 4.6 cm LVIDs: 3.2 cm LVLd ap4: 6.6 cm LVLs ap4: 5.4 cm LVPWd: 0.89 cm RA A4Cs: 14.1 cm² Systolic Pressure: 113.0 mmHg TAPSE: 2.9 cm Other Measurements & Calculations Ao root diam: 3.0 cm Ao V2 max: 196.1 cm/sec BMI: 36.3 kilograms/m² BSA: 1.91 m² BSA([facility]): 2.03 m² Diastolic Pressure: 45.0 mmHg EDV(MOD-sp4): 87.1 ml EDV(sp4-el): 61.6 ml EDV(Teich): 98.7 ml EF (est.): 77.0 % EF(MOD-sp4): 40.6 % EF(sp4-el): 55.9 % EF(Teich): 60.0 % ESV(MOD-sp4): 51.7 ml ESV(sp4-el): 27.1 ml ESV(Teich): 39.5 ml FS: 31.9 % Heart Rate: 58.0 BPM Height (metric): 157.5 cm IVSd: 0.90 cm LAV(MOD-bp): 75.2 ml LAV(MOD-bp) Indexed: 39.5 ml/m² LAV(MOD-sp2): 74.1 ml LAV(MOD-sp4): 69.2 ml LV V1 max: 133.8 cm/sec LV V1 mean: 90.1 cm/sec LV V1 mean P.8 mmHg LVAd ap4: 17.3 cm² LVAs ap4: 13.8 cm² LVIDd: 4.6 cm LVIDs: 3.2 cm LVLd ap4: 6.6 cm LVLs ap4: 5.4 cm LVPWd: 0.89 cm MV A max lonnie: 98.3 cm/sec MV dec time: 0.31 sec MV DVI-pr: 0.81 MV E max lonnie: 80.0 cm/sec MV E/A: 0.81 PA max P.0 mmHg PA V2 max: 112.2 cm/sec Pulm A Revs Dur: 0.10 sec Pulm A Revs Lonnie: 27.4 cm/sec RA A4Cs: 14.1 cm² RAP systole: 8.0 mmHg RV S Lonnie: 16.3 cm/sec RVSP(TR): 47.0 mmHg SV(MOD-sp4): 35.4 ml SV(sp4-el): 34.4 ml Systolic Pressure: 113.0 mmHg TAPSE: 2.9 cm TR max P.0 mmHg TR max lonnie: 312.2 cm/sec TV max P.0 mmHg Weight (metric): 90.0 kg Lat E/e': 11.5 Med E/e': 14.6 EDV(MOD-sp2): 112.5 ml EDV(sp2-el): 120.5 ml EF Mod BP: 78.6 % ESV(MOD-sp2): 43.8 ml ESV(sp2-el): 24.6 ml LVAd ap2: 34.7 cm² LVAs ap2: 13.1 cm² LVLd ap2: 8.5 cm LVLs ap2: 5.9 cm EF(MOD-sp2): 61.1 % EF(sp2-el): 79.6 % EF(sp-el): 55.1 % Fritz Carey MD 12/04/2024, 5: 23 PM Ordering Physician: Mayuri Navas Referring Physician: Alyce Araya Performed By: Kirsten Payan RDCS
[2024-12-04] MEDS: VANCOMYCIN INJ 1 GM in SODIUM CHLORIDE 0.9% 250 ML IV SCH (17:59)
--- NOTE | 2024-12-04 19:32 | PROVIDER PROGRESS NOTE ---
Subjective Prog Note Date Prog Note Date: 12/04/24 Subjective Pt reports feeling: Improved Subjective: She was on and off Bipap during the night, but has weaned to her baseline level of oxygen and is comfortable. She got one dose of lasix last night, and feels that her peripheral edema is less. She is breathing better. She feels like the Bipap saved her. She does want to go home, and not to SNF. She states clearly that her cancer is terminal and she wants to be at home. She does not feel ready to go home yet though. Current Medications Current Medications Current Medications: Current Medications Generic Name Dose Route Start Last Admin Trade Name Freq PRN Reason Stop Dose Admin Acetaminophen 650 mg 12/03/24 17:26 12/03/24 23:58 Acetaminophen 325 Mg Tablet PO 650 mg Q4HR PRN Administration Pain 1 to 4, or Fever Acyclovir 400 mg 12/04/24 13:00 12/04/24 13:11 Acyclovir 200 Mg Capsule PO 400 mg BID EFREM Administration Albuterol 2.5 mg 12/03/24 21:00 12/04/24 07:17 Albuterol Neb 2.5 Mg/3 Ml INH 2.5 mg BID EFREM Administration Albuterol 2.5 mg 12/03/24 17:31 Albuterol Neb 2.5 Mg/3 Ml INH RTQ6H PRN Shortness of Air/Wheezing Alprazolam 0.25 mg 12/03/24 17:26 12/03/24 20:23 Alprazolam 0.25 Mg Tablet PO 0.25 mg DAILY PRN Administration ANXIETY Budesonide 0.5 mg 12/03/24 19:00 12/04/24 07:17 Budesonide 0.5 Mg/2 Ml Neb INH 0.5 mg RTBID EFREM Administration Enoxaparin Sodium 40 mg 12/04/24 09:00 12/04/24 09:08 Enoxaparin 40 Mg/0.4 Ml Syringe SUBQ 40 mg DAILY EFREM Administration Gabapentin 900 mg 12/03/24 21:00 12/03/24 21:18 Gabapentin 300 Mg Capsule PO 300 mg HS EFREM Administration Azithromycin 500 mg/ Sodium 250 mls @ 250 mls/hr 12/03/24 18:30 12/04/24 10:10 Chloride IV Infused DAILY EFREM Infusion Vancomycin HCl 1 gm/ Sodium 250 mls @ 167 mls/hr 12/04/24 17:00 12/04/24 18:07 Chloride IV Infused Q24H EFREM Infusion Loperamide HCl 2 mg 12/03/24 17:26 Loperamide 2 Mg Capsule PO Q6H PRN loose stool Meropenem 1 gm 12/03/24 22:00 12/04/24 09:07 Meropenem 1 Gm Vial IVP 1 gm Q12H EFREM Administration Multivitamins/Minerals 1 tab 12/05/24 08:00 Multivitamin W/Minerals Tablet PO DAILYWM EFREM Ondansetron HCl 4 mg 12/03/24 17:26 Ondansetron 4 Mg/2 Ml Vial IVP Q6HR PRN Nausea / Vomiting Posaconazole 100 Mg 1 each 12/04/24 12:30 12/04/24 13:13 Tablet,Delayed PO Not Given Release (Dr/Ec) DAILY EFREM Prochlorperazine Edisylate 10 mg 12/03/24 17:26 12/03/24 20:23 Prochlorperazine 10 Mg/2 Ml Vial IVP 10 mg Q6HR PRN Administration Nausea / Vomiting Prochlorperazine Maleate 10 mg 12/03/24 17:26 Prochlorperazine 5 Mg Tablet PO Q6H PRN nausea and vomiting Sodium Chloride 10 ml 12/03/24 17:26 Sodium Chloride Flush 0.9% 10 Ml Syringe IVP PRN PRN NEEDED PER PROVIDER ORDERS Sodium Chloride 10 ml 12/03/24 17:26 12/04/24 18:02 Sodium Chloride Flush 0.9% 10 Ml Syringe IVP 10 ml 0100,0900,1700 EFREM Administration Sterile Water 20 ml 12/03/24 22:00 12/04/24 09:08 Water For Injection,Sterile 10 Ml Vial MC 20 ml Q12H EFREM Administration Objective Vital Signs/Intake & Output Reviewed Vital Signs: Yes Vital Signs: Vital Signs x48h Temp Pulse Resp BP BP Pulse Ox O2 Flow Rate 12/04/24 19:00 55 L 20 144/60 H 100 3 12/04/24 19:00 3 12/04/24 18:00 68 26 H 144/58 H 99 3 12/04/24 17:43 36.6 C 58 L 21 166/88 H 100 3 12/04/24 17:00 3 12/04/24 17:00 60 19 163/65 H 100 3 12/04/24 16:00 63 20 165/66 H 98 3 12/04/24 15:30 36.6 C 60 16 100 3 12/04/24 15:15 36.4 C L 60 19 164/61 H 100 3 12/04/24 15:00 3 12/04/24 15:00 36.4 C L 63 20 164/61 H 100 3 12/04/24 14:00 60 20 181/63 H 100 3 12/04/24 13:00 58 L 22 118/49 L 99 3 12/04/24 13:00 3 12/04/24 12:00 36.8 C 66 23 127/45 L 92 3 Intake & Output: Intake & Output 12/01/24 12/02/24 12/03/24 12/04/24 23:59 23:59 23:59 23:59 Intake Total 950 / 950 2090 / 2090 Output Total 500 / 500 550 / 550 Balance 450 / 450 1540 / 1540 Weight (kg) 90 kg Objective General Appearance: positive No acute distress and Alert Eyes Bilateral: positive Normal inspection ENT: positive ENT inspection nml Neck: positive Nml inspection Respiratory: positive Chest non-tender, No respiratory distress and Other (diminshed at bases); negative Wheezes or Rales Cardiovascular: positive Regular rate & rhythm Abdomen: positive Non-tender and No distention Back: positive Nml inspection Skin: positive Color nml Extremities: positive Non-tender and Pedal edema (2+ at ankles) Neurologic/Psychiatric: positive Oriented x3 Lab Results 12/04/24 04:29 12/04/24 04:29 Other Labs: Lab Results x24hrs 12/04/24 12/04/24 12/03/24 Range/Units 12:56 04:29 20:30 WBC 1.5 L* (4.8-10.8) x10^3/uL RBC 2.05 L (4.20-5.40) 10^6/uL Hgb 6.1 L* (12.0-16.0) g/dL Hct 19.9 L* (37.0-47.0) % MCV 97.1 (81.0-99.0) fL MCH 29.8 (27.0-31.0) pg MCHC 30.7 L (32.0-36.0) g/dL RDW 18.8 H (12.0-15.0) % Plt Count 42 L (130-450) 10^3/uL MPV 10.2 (7.9-10.8) fL Neut # (Auto) Not Reportable Lymph # (Auto) Not Reportable [place] # (Auto) Not Reportable Eos # (Auto) Not Reportable Baso # (Auto) Not Reportable Absolute Nucleated RBC Not Reportable Total Counted 100 Band Neuts % (Manual) 0 (0 - 10) % Abnorm Lymph % (Manual) 1 % Myelocytes % 1 H ( - 0) % Nucleated RBC % Not Reportable Neutrophils # (Manual) 0.6 L (1.5-6.6) 10^3/uL Lymphocytes # (Manual) 0.8 L (1.5-3.5) 10^3/uL Monocytes # (Manual) 0.1 (0.0-1.0) 10^3/uL Eosinophils # (Manual) 0.0 (0-0.7) 10^3/uL Basophils # (Manual) 0.0 (0-0.1) 10^3/uL Differential Comment MANUAL DIFFERENTIAL WBC Morphology 1+ TOXIC GRANULATION (NORMAL) Platelet Estimate DECREASED (<130,000) (NORMAL) Platelet Morphology NORMAL APPEARANCE (NORMAL) RBC Morph Micro Appear 2+ HYPOCHROMASIA (NORMAL) VBG pH 7.484 H (7.31-7.41) Ionized Calcium 1.21 (1.09-1.30) mmol/L Sodium 141 (135-145) mmol/L Potassium 3.7 (3.5-4.5) mmol/L Chloride 102 (101-111) mmol/L Carbon Dioxide 37 H (21-32) mmol/L Anion Gap 2.0 L (6-13) BUN 14 (6-20) mg/dL Creatinine 1.2 (0.6-1.3) mg/dL Estimated GFR (MDRD) 43 L (>89) Glucose 93 (74-104) mg/dL Calcium 8.8 (8.5-10.3) mg/dL Phosphorus 2.4 L (2.5-5.0) mg/dL Magnesium 2.1 1.6 L (1.7-2.3) mg/dL Nasal Screen MRSA (PCR) NEGATIVE (NEGATIVE) Blood Type A POSITIVE Antibody Screen NEGATIVE Crossmatch IS Only See Detail Assessment/Plan Problem List (1) Neutropenia: Impression: Presents to the ED with complaints of fever that are subjective,and an acute illness for several days but worse since evening prior to admit. She has known neutropenia and has been on prophylactic antimicrobials at home for some time. She has an ANC of 1000. 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 today ANC 600. recommendation by oncology is ANC >= 500 x 48h. I appreciate oncology input. She has had an acute respiratory illness. She became tachypneic and hypoxic to 83% on supplemental oxygen by nasal cannula on arrival to the floor. She has not spiked a fever but she has been feeling cold. I have not observed any rigors. With her acute decline, decision was made to escalate abx treatment. I have stopped the Cefepime and the flagyl and started meropenem. I have added azithromycin for atypical coverage. I will de escalate meropenem tomorrow and go back to cefepime and flagyl. MRSA swab negative. stopping vancomycin. I have ordered repeat CBC for the AM. Discussed with Oncology AQUATIC BIOLOGIST today, Lenora Maradiaga, appreciate her assistance. 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 She has had this diagnosis for many years and has been treated appropriately. She is well- established with a type photography supervisor in [place]. Her type photography supervisor is Jona Haji. At baseline she is on 3 to 4 L of oxygen at home. She states that her oxygen levels have definitely been at 4 L over the past several days. She had an acute hypoxic episode upon arrival to the floor. Where she desatted to 83% on 6 L via nasal cannula and became quite tachypneic. At this time, antibiotic coverage was escalated, BNP was sent and she was placed quickly on BiPAP. Blood gas after about 30 minutes on BiPAP continues to show mild alkalosis 7.47 CO2 elevated at 54.2 this is also close to her baseline, pO2 80 with a bicarb of 39. This is a mixed picture, but she is not acidotic. The etiology of her respiratory failure is initially thought to be COPD given her alpha-1 antitrypsin deficiency and her longstanding history of oxygen dependent COPD. Further review of records reveals a very normal result on an echocardiogram in March 2024 showing a normal ejection fraction, normal right sided size and pressures. However, BN P is elevated in the 500s. She improved with one dose of IV lasix. i will start po lasix in the AM. Echo shows normal LVEF. RVSP is 47. There is mild LVH. I have ordered echocardiogram for the a.m. I will continue to treat this as a mixed picture CHF COPD exacerbation Actually, with the inability to rule out underlying pneumonia in the setting of neutropenia. She is on empiric broad- spectrum antibiotics. She is refusing steroids for treatment of her COPD exacerbation because she states she has not adverse reaction to steroids and really does not want to take them. I am adding inhaled nebulized steroids to her regime in addition to bronchodilators. Goals of care were reviewed with patient and family. She is adamantly DNR/DNI. She and her family consent to BiPAP. She has done well all day off Bipap on home oxygen levels. Will watch in the ICU overnight and plan to transfer to the [facility] floor in the AM if all is well. (3) Severe chronic obstructive pulmonary disease: Impression: due to Alpha-1 antitrypsin deficiency. She has had this dx for years. at home she is on weekly Prolastin C infusions and has been for years. She is followed by Jona Haji, pulmonology with [place]. Her COPD is otherwise treated with home O2 as above and albuterol PRN. I do not see any LABA/LAMA/inhaled steroids in her regimen. (4) CHF exacerbation: Impression: historical data in the chart would argue against CHF, with a negative echo less than one year ago. 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 She is hypertensive once again on exam today, but I do not see evidence of longstanding uncontrolled HTN in her records. Her BNP is elevated. Pedal edema is improving and she feels better. I am starting her on lasix oral, and will dc her to home on this. Her life expectancy is not such that she requires stringent BP control. she has been less than 180 today. I have spent 52 minutes in the care of this patient today. This includes time [id number], review and ordering of diagnostic imaging and laboratory studies and consultation with other providers. Monitoring the patient's signs symptoms, evaluation of medication effectiveness and patient's response to treatment.
[2024-12-04] MEDS: SODIUM CHLORIDE FLUSH 0.9% 10 ML SYRINGE IVP PRN (19:58)
[2024-12-05 04:43] LABS: BASOPHILS % (AUTO) 0.5 %; EOSINOPHILS % (AUTO) 0.5 %; HCT - HEMATOCRIT 24.4 % (37.0-47.0); HGB - HEMOGLOBIN 7.4 g/dL (12.0-16.0); LYMPHOCYTES % (AUTO) 39.6 %; MEAN CORPUSCULAR HEMOGLOBIN 29.5 pg (27.0-31.0); MEAN CORPUSCULAR HGB CONC 30.3 g/dL (32.0-36.0); MEAN CORPUSCULAR VOLUME 97.2 fL (81.0-99.0); MEAN PLATELET VOLUME 10.4 fL (7.9-10.8); MONOCYTES % (AUTO) 13.2 %; NEUTROPHILS % (AUTO) 40.2 %; PLT - PLATELET COUNT 50 10^3/uL (130-450); RED BLOOD COUNT 2.51 10^6/uL (4.20-5.40); RED CELL DISTRIBUTION WIDTH 18.5 % (12.0-15.0)
[2024-12-05 04:50] LABS: MAGNESIUM 2.1 mg/dL (1.7-2.3)
[2024-12-05 04:51] LABS: CALCIUM, IONIZED 1.27 mmol/L (1.09-1.30); VBG PH 7.372 (7.31-7.41)
[2024-12-05 04:56] LABS: PHOSPHORUS 2.9 mg/dL (2.5-5.0)
[2024-12-05 05:06] LABS: CALCIUM 8.7 mg/dL (8.5-10.3); CREATININE 1.2 mg/dL (0.6-1.3); POTASSIUM 3.4 mmol/L (3.5-4.5)
[2024-12-05 05:25] LABS: WHITE BLOOD COUNT 1.8 x10^3/uL (4.8-10.8)
[2024-12-05 05:26] LABS: ABNORMAL LYMPHS % (MANUAL) 0 %; BAND NEUTROPHILS % (MANUAL) 0 %
[2024-12-05 05:31] LABS: LYMPHOCYTES % (MANUAL) 54 %; METAMYELOCYTES % (MANUAL) 2 %; NEUTROPHILS # (MANUAL) 0.8 10^3/uL (1.5-6.6)
[2024-12-05 05:32] LABS: DIFFERENTIAL COMMENT MANUAL DIFFERENTIAL; PLATELET ESTIMATE, MANUAL DECREASED (<130,000) (NORMAL); PLATELET MORPHOLOGY NORMAL APPEARANCE (NORMAL); RBC MORPHOLOGY (MULTIPLE) 2+ HYPOCHROMASIA (NORMAL); WBC MORPHOLOGY (MULTIPLE) NORMAL APPEARANCE (NORMAL)
[2024-12-05] MEDS: MULTIVITAMIN W/MINERALS TABLET PO SCH (08:39)
[2024-12-05] MEDS: POTASSIUM CHLORIDE 20 MEQ TABLET PO SCH (08:39)
[2024-12-05] MEDS: FUROSEMIDE 20 MG TABLET PO SCH (08:39)
--- NOTE | 2024-12-05 12:59 | Discharge Summary ---
Discharge Summary Admit Date: 12/03/24 Discharge Date: 12/05/24 Discharging Provider: Mayuri Navas PA-C Primary Care Provider: Rajan Ryan MD Code Status: Do Not Attempt Resuscitation DIAGNOSES Discharge Diagnoses with Status of Each Condition: Neutropenia: On palliative chemotherapy for AML/MDS. ANC greater than 500 for 48 hours. She will discharge to home Acute on chronic respiratory failure with hypoxia: Treated for COPD exacerbation she is back to her baseline oxygen level Severe COPD: Second [place] to alpha-1 antitrypsin enzyme deficiency. Added budesonide to her home regimen. She is not on any LABA or LAMA medications at home. CHF exacerbation: We will continue on home potassium 20 mill equivalents daily. I have started Lasix 20 mg daily at home. 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 Baseline hx COPD on 3-4L home oxygen. for past several days has been feeling poorly with nausea, shortness of breath and "lots of snot". This is nasal congestion, she denies coughing up sputum. She has been much worse with her breathing since last night and decided to come to the ED today because she felt that she had an abnormal temp. she said that it was "99 something, which is a fever for me". She has had decreased appetite, but denies weight loss. She denies sick contacts, but has lots of helpers coming in and out of her home with her decreased functional status. has been on antimicrobial prophylaxis with Cefdinir 300mg BID, acyclovir 400mg BID and posaconazole 300mg daily for some time, per her oncology team. Patient was discussed with oncology by ED provider and recommendation was for cefepime, vanc and flagyl. The request from the ED is that she be admitted for neutropenic fever. She has a POLST on the chart that details DNR/DNI and this is confirmed at the bedside. her grand daughter Jan Rodriguez is her surrogate decision maker. CONSULTS | PROCEDURES Procedures: Chest x-ray: Bilateral apical predominant chronic pulmonary interstitial fibrosis. No acute infiltrates. HOSPITAL COURSE Hospital Course: (1) Neutropenia: Presents to the ED with complaints of fever that are subjective,and an acute illness for several days but worse since evening prior to admit. She has known neutropenia and has been on prophylactic antimicrobials at home for some time. recommendation by oncology is ANC >= 500 x 48h to qualify for hospital discharge. I appreciate oncology input. Laboratory Tests 12/03/24 12/04/24 12/05/24 12:50 04:29 04:30 Neut # (Auto) 1.0 L Neutrophils # (Manual) 0.6 L 0.8 L She has had an acute respiratory illness. She became tachypneic and hypoxic to 83% on supplemental oxygen by nasal cannula on arrival to the floor. She has not spiked a fever but she has been feeling cold. I have not observed any rigors. With her acute decline, decision was made to escalate abx treatment.You are in your patient complete their she improved after 2 days of treatment and her antibiotic coverage will be de-escalated to her normal neutropenic prophylactic coverage. 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 She has had this diagnosis for many years and has been treated appropriately. She is well- established with a dialysis nurse in [place]. Her dialysis nurse is Jona Haji. At baseline she is on 3 to 4 L of oxygen at home. She states that her oxygen levels have definitely been at 4 L over the past several days. She had an acute hypoxic episode upon arrival to the floor. Where she desatted to 83% on 6 L via nasal cannula and became quite tachypneic. At this time, antibiotic coverage was escalated, BNP was sent and she was placed quickly on BiPAP. improved on BiPAP. The etiology of her respiratory failure is initially thought to be COPD given her alpha-1 antitrypsin deficiency and her longstanding history of oxygen dependent COPD. Further review of records reveals a very normal result on an echocardiogram in March 2024 showing a normal ejection fraction, normal right sided size and pressures. However, BN P is elevated in the 500s. She improved with one dose of IV lasix. PO lasix was started Echo shows normal LVEF. RVSP is 47. There is mild LVH. Patient refused systemic steroids for her COPD exacerbation as she states she has an adverse reaction to them. Goals of care were reviewed with patient and family. She is adamantly DNR/DNI. She and her family consent to BiPAP. She has done well off Bipap on home oxygen levels after treatment of her COPD exacerbation and presumed pulmonary edema (3) Severe chronic obstructive pulmonary disease: due to Alpha-1 antitrypsin deficiency. She has had this dx for years. at home she is on weekly Prolastin C infusions and has been for years. She is followed by Jona Haji, pulmonology with [place]. Her COPD is otherwise treated with home O2 as above and albuterol PRN. I do not see any LABA/LAMA/inhaled steroids in her regimen. I am sending her home on inhaled budesonide. (4) CHF exacerbation: historical data in the chart would argue against CHF, with a negative echo less than one year ago. 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 Her BNP is elevated at the time of admit. Pedal edema is improving and she feels better. I am starting her on lasix oral, and will dc her to home on this. Her life expectancy is not such that she requires stringent BP control. she has been less than 180 for every BP check this admission except for once when she was 181. Left ventricular ejection fraction is within normal limits. She does show some right heart failure. She did have some peripheral edema and responded well to diuretics. ALLERGIES Allergies Allergy/AdvReac Type Severity Reaction Status Date / Time Sulfa (Sulfonamide Allergy Severe Respiratory Verified 12/03/24 12:42 Antibiotics) levofloxacin Allergy Unknown Unknown Verified 12/03/24 12:42 amoxicillin AdvReac Severe Nausea, Verified 12/03/24 12:42 VOMITING egg AdvReac Intermediate Nausea Verified 12/04/24 14:41 mirtazapine AdvReac Intermediate Unknown Verified 12/03/24 12:42 codeine (Codeine) AdvReac Nausea Verified 12/03/24 12:42 morphine AdvReac unable to Verified 12/03/24 12:42 urinate oxycodone (Oxycodone) AdvReac Nausea Verified 12/03/24 12:42 prednisone AdvReac anger Verified 12/03/24 12:42 MEDICATIONS Ambulatory Orders Medication Instructions Recorded Confirmed albuterol sulfate 90 mcg/actuation 2 puff inhalation QID PRN 01/29/13 12/03/24 aerosol inhaler (Ventolin HFA) Shortness Of Air/Wheezing albuterol sulfate 2.5 mg/3 mL 1 neb inhalation BID 03/23/24 12/03/24 (0.083 %) solution for nebulization ondansetron 4 mg disintegrating 4 mg translingual Q6H PRN Nausea / 02/12/25 04/17/25 tablet Vomiting #30 tabs prochlorperazine maleate 10 mg 10 mg PO Q6H PRN nausea and 09/30/24 12/03/24 tablet vomiting #30 tabs loperamide 2 mg capsule 2 mg PO Q6H PRN loose stool 10/14/24 12/03/24 (Anti-Diarrheal (loperamide)) posaconazole 100 mg tablet,delayed 300 mg (3 x 100 mg) PO Q24H #90 10/14/24 12/03/24 release tabs gabapentin 300 mg capsule 600 mg PO HS 11/11/24 12/03/24 alprazolam 0.25 mg tablet 0.25 mg PO QDAY PRN anxiety #30 11/25/24 12/03/24 tabs Lactobacillus acidophilus 250 1,000 mmu cells PO QDAY 11/29/24 12/03/24 million cell capsule (Probiotic Acidophilus) cholecalciferol (vitamin D3) 25 25 mcg PO QDAY 11/29/24 12/03/24 mcg (1,000 unit) capsule potassium chloride 20 mEq/15 mL 20 meq (15 mL) PO QDAY #450 mL 11/29/24 12/03/24 oral liquid acyclovir 400 mg tablet 400 mg PO BID 12/04/24 12/04/24 lansoprazole 30 mg capsule,delayed 30 mg PO ONCE 12/04/24 12/04/24 release budesonide 0.5 mg/2 mL suspension 0.5 mg (2 mL) inhalation RTBID #60 12/05/24 for nebulization mL furosemide 20 mg tablet 20 mg PO DAILY #30 tabs 12/05/24 mirtazapine 7.5 mg tablet 7.5 mg PO HS 12/05/24 12/05/24 PHYSICAL EXAM AT DISCHARGE Vital Signs: Vital Signs x48h Temp Pulse Pulse Resp BP Pulse Ox O2 Flow Rate 12/05/24 11:41 36.6 C 65 20 166/71 H 96 3 12/05/24 07:00 62 22 161/57 H 100 4 12/05/24 06:55 4 12/05/24 06:55 63 23 12/05/24 06:00 58 L 24 146/88 H 100 4 12/05/24 05:00 65 22 175/70 H 99 4 Physical Exam Other/Comments: General Appearance: positive No acute distress and Alert Eyes Bilateral: positive Normal inspection ENT: positive ENT inspection nml Neck: positive Nml inspection Respiratory: positive Chest non-tender, No respiratory distress and Other (diminshed at bases); negative Wheezes or Rales Cardiovascular: positive Regular rate & rhythm Abdomen: positive Non-tender and No distention Back: positive Nml inspection Skin: positive Color nml Extremities: positive Non-tender and Pedal edema (1+ at ankles) Neurologic/Psychiatric: positive Oriented x3 LABS 12/05/24 04:30 12/05/24 04:30 FOLLOW UP Follow Up: PCP within the week Pulmonology as soon as able. oncology as scheduled TIME SPENT Time Spent in Discharge (Minutes): 40 Discharge Plan Discharge Patient Disposition: Home Health Service Condition: Stable Prescriptions: New budesonide 0.5 mg/2 mL Suspension For Nebulization 0.5 mg inhalation RTBID Qty: 60 3RF furosemide 20 mg Tablet 20 mg PO DAILY Qty: 30 0RF Continued albuterol sulfate [Ventolin HFA] 60 PUFFS/8 GM HFA aerosol inhaler 2 puff inhalation QID PRN (Reason: Shortness Of Air/Wheezing) gabapentin 300 mg capsule 600 mg PO HS Rx Instructions: 2 caps changed 11/12 albuterol sulfate 2.5 MG/3 ML solution for nebulization 1 neb inhalation BID Rx Instructions: SOMETIMES USES EXTRA DOSE IF NEEDED acyclovir 400 mg tablet 400 mg PO BID lansoprazole 30 mg capsule,delayed release(DR/EC) 30 mg PO ONCE mirtazapine 7.5 mg tablet 7.5 mg PO HS ondansetron 4 mg tablet,disintegrating 4 mg translingual Q6H PRN (Reason: Nausea / Vomiting) Qty: 30 3RF prochlorperazine maleate 10 mg tablet 10 mg PO Q6H PRN (Reason: nausea and vomiting) Qty: 30 3RF loperamide [Anti-Diarrheal (loperamide)] 2 mg capsule 2 mg PO Q6H PRN (Reason: loose stool) posaconazole 100 mg tablet,delayed release (DR/EC) 300 mg PO Q24H Qty: 90 3RF Rx Instructions: Take 300mg by mouth in the morning. Interaction with alprazolam, try to decrease use of alprazolam. potassium chloride 20 mEq/15 mL liquid 20 meq PO QDAY Qty: 450 2RF Rx Instructions: having swallowing issues cholecalciferol (vitamin D3) 25 mcg (1,000 unit) capsule 25 mcg PO QDAY Probiotic Acidophilus 250 million cell capsule 1,000 mmu cells PO QDAY alprazolam 0.25 mg tablet 0.25 mg PO QDAY PRN (Reason: anxiety) Qty: 30 0RF Discontinued torsemide 10 mg tablet 10 mg PO ONCE Activity Restrictions: Activity as Tolerated Diet: Regular Health Concerns: You are an 84-year-old female with longstanding COPD and end-stage cancer who came into the hospital feeling poorly. Your blood counts were down and you are not feeling well. We admitted you to the hospital for a fever and infection with neutropenia. Since you have been here we have had you on antibiotics and have also helped get some of the extra fluid out of your body. With respiratory support this has made you feel much better. You are back on your baseline level of oxygen. Your blood counts have risen enough that you may go home now. This does not mean that your immune system is normal it just means that it is better enough for you to leave the hospital. When you go home you need to continue on your antimicrobial prophylaxis as prescribed by oncology. This is cefdinir 300 mg twice a day, acyclovir 400 mg twice a day posaconazole 300 mg daily. I want you to continue taking your potassium supplementation as prescribed. Additionally I am adding 20 mg of furosemide every day. I would recommend strongly that you take this in the morning as it does make you urinate frequently. You have gotten 1 unit of blood since you have been here. Your lack of red blood cells is due to your chemotherapy and the fact that you are not making red blood cells as well as you once did. Since you have been here you have had an ultrasound on your heart. That looks good. The left side of your heart is pumping blood to your body normally. The right side of your heart is reacting to some of the problems with your lungs, but we are doing everything we can do medically about that. I have added 1 new nebulized medication to your regimen. This is called budesonide. You put it in your nebulizer and use it twice a day. Think of it a lot like putting steroid cream on an irritated area of your skin. It helps soothe inflammation in your lungs. After you use this you want to rinse your mouth out well with water some people do it right before they brush their teeth twice a day. I would recommend that you see Dr. Haji your dialysis nurse as soon as you are able to get into see him. I know it is difficult because you have to cross the water and that is quite taxing on oxygen with your health problems. Even a video visit might be acceptable. Print Language: Vietnamese Patient Instructions: COPD Dc
[2024-12-05 14:04] VITALS: BP 167/71; TEMP 98.1; O2SAT 99
== END 2024-12-05 14:53 | disposition home health service (06) | DRG 808 ==
LOC: ED 12:34 → MS2 16:06 → ICU 20:02 → MS2 12-05 08:58
PROVIDERS: ADMIT Physician Assistant Medical; ATTEND Physician Assistant Medical